=== PATIENT | female | born 1965 | race Caucasian/White ===

== ENCOUNTER → 2016-07-30 | Outpatient (CLI) | payer MEDICARE, OTHER ==
[2016-07-24 11:42] VITALS: BMI 26.4
[2016-07-30 12:41] VITALS: BP 111/70; PULSE 103; RESP 16
--- NOTE | 2016-07-30 13:23 | P.HPIM ---
History of Present Illness H&P Date: 07/30/16 Chief Complaint: low back pain, RLE pain, neck pain This is a 51-year-old patient referred by Dr. Rich for chronic pain in low back and neck with some radiation to RLE (no numbness/tingling). Patient has been taking medications from primary care physician including [place] 7.5/325 QID medications with some relief. Patient denies adverse drug effects from medications. Patient also denies new-onset weakness, bowel/bladder incontinence , or any other signs or symptoms of cauda equina syndrome. There are no signs of acute intoxication, and no indications of medication diversion or overuse. Patient notes that pain worsens significantly with physical activity, and improves with rest, ice and medication. Patient has used several types of medications for pain, including NSAIDS, OPIOIDS, TRAMADOL, ANTIDEPRESSANTS, and BENZODIAZEPINES. Patient HAS had surgery (specifically she notes removal of a portion of her tailbone). Patient HAS had injections previously (by Dr. Cedeno in [place], and believes she had at least one lumbar rhizotomy). Patient HAS NOT had physical therapy recently. In addition to above, 13-point review of systems is also negative for chest pain , shortness of breath, changes in vision, changes in hearing, new onset weakness , abdominal pain, diarrhea, extreme fatigue, malaise, fever, skin changes, homicidal or suicidal ideation, or bowel or bladder incontinence. Vital Signs: Reviewed in EMR Gen: WDWN, AAOx3, NAD HEENT: NCAT, EOMI, hearing grossly normal Pulm: resp unlabored Abd: soft, NT, ND Neck: supple, trachea midline; + TTP paravertebral area and + cervical facet tenderness ROM in flexion lumbar spine: reduced ROM in extension lumbar spine: reduced Lumbar paravertebral tenderness: + Facet loading: ++ bilateral SI joint tenderness: + bilateral, R > L José Miguel's test: + bilateral R > L Straight leg raise: neg bilateral Neuro: CN II-XII grossly intact, muscle strength lower extremities PRESERVED Past Medical History Past Medical History: COPD, Osteoarthritis (OA) Additional Past Medical History / Comment(s): pain: neck,lower back and lt hip, sarcoidosis, hx anemia, occasional bladder incontinence, recent elevated bp levels History of Any Multi-Drug Resistant Organisms: None Reported Past Surgical History: Appendectomy, Hernia Repair, Hysterectomy Additional Past Surgical History / Comment(s): "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" Past Anesthesia/Blood Transfusion Reactions: No Reported Reaction Smoking Status: Current every day smoker Past Alcohol Use History: Daily Additional Past Alcohol Use History / Comment(s): states smoked 30 years quit 3 years and recently resumed 3 months ago 1/2ppd Past Drug Use History: None Reported - Past Family History Mother Family Medical History: No Reported History Medications and Allergies Home Medications Medication Instructions Recorded Confirmed Type Cholecalciferol [Vitamin D3] 1,000 unit PO HS 07/24/16 07/30/16 History Ibuprofen [Motrin] 600 mg PO Q8HR PRN 07/24/16 07/30/16 History Levalbuterol Hfa Inhaler [Xopenex 2 puff INHALATION BID PRN 07/24/16 07/30/16 History Hfa Inhaler] Montelukast Sodium [Singulair] 10 mg PO HS 07/24/16 07/30/16 History Multivitamins, Thera [Multivitamin] 1 tab PO DAILY 07/24/16 07/30/16 History Omeprazole 20 mg PO DAILY 07/24/16 07/30/16 History Ranitidine HCl [Zantac] 150 mg PO HS 07/24/16 07/30/16 History Tiotropium 18 Mcg/Puff [Spiriva] 1 cap INHALATION DAILY 07/24/16 07/30/16 History Alendronate Sodium [Fosamax] 1 tab PO WEEKLY 07/30/16 07/30/16 History Cholecalciferol [Vitamin D3] 2 tab PO HS 07/30/16 07/30/16 History Allergies Allergy/AdvReac Type Severity Reaction Status Date / Time albuterol Allergy "makes me Verified 07/30/16 12:24 psychotic" Sulfa (Sulfonamide Allergy Rash/Hives Verified 07/30/16 12:24 Antibiotics) Physical Exam Vitals: Vital Signs Pulse Resp BP Pulse Ox 07/30/16 12:29 103 H 16 111/70 96 Results Comments: Computed tomography scan of the lumbar spine without contrast dated 07/13/2016 demonstrates minor disc protrusions at the L3-L4, L4-L5, and L5-S1 levels. There is no statement in report regarding facet arthropathy or degenerative disc disease. Assessment and Plan (1) Lumbar disc herniation Status: Chronic (2) Sacroiliac joint dysfunction Status: Chronic (3) Chronic pain syndrome Status: Chronic (4) Lumbar spondylosis Status: Chronic Plan: 1. Explanation: Opioid and psychological risk scores were reviewed. Diagnoses , prognoses, and multiple treatment options including but not limited to physical therapy, interventional therapies, adjuvant medical therapies, narcotic medication therapies, and surgery were discussed with the patient and all questions were answered to the patient's satisfaction. 2. Opioid agreement: Patient signed narcotic agreement, and was orally counseled to not overuse, abuse, divert, or cell medications, and to take them as prescribed by only 1 healthcare provider. The patient was also counseled to take medications as prescribed by only 1 healthcare provider and to store opioid medications in the safe and preferably locked location. Patient was also counseled against driving or operating heavy equipment while using narcotic medications and also not use alcohol or any illicit or recreational drugs. The patient verbalized understanding that lack of compliance with any of the above and likely result in failure to renew narcotic prescriptions, possible discharge from the clinic, and possible legal ramifications thereafter if indicated. 3. Counseling: The patient was counseled extensively on SMOKING CESSATION, BODY MASS INDEX, EXERCISE. Specifically, the patient was instructed regarding the importance of smoking cessation, obesity, and exercise in the context of both chronic pain and overall health. 4. Procedures: bilateral SIJ injections 5. Consultations: none 6. Investigations: MRI lumbar and cervical spines without contrast; UDS today 7. Medications: [place] 7.5/325 #60 x 2 months 8. Disposition: f/u for procedure as scheduled PQRS measures: 1-Patient's medications are documented in the chart. 2-Tobacco use is positive/negative, counseling given 3-Patient has not had a pneumococcal vaccine. 4-Advanced care planning discussed, patient unable to give. 5-Opioid contract signed with the patient today. 6-Pain positive, follow-up visit or procedure scheduled 7-Patient's blood pressure measured and documented, and WNL. 8-Patient's weight was measured, and body mass index ABOVE the normal limits, and counseling was done. Patient instructed to follow up with PCP. 9-Patient WAS NOT identified as an unhealthy alcohol user. Time with Patient: Greater than 30
== END | disposition home or self-care (01) ==
LOC: PNWHC3 12:13
PROVIDERS: ATTEND Anesthesiology
DX: M51.26 Other intervertebral disc displacement, lumbar region (principal); M53.88 Other specified dorsopathies, sacral and sacrococcygeal region; G89.4 Chronic pain syndrome; M47.896 Other spondylosis, lumbar region; Z79.899 Other long term (current) drug therapy; F17.200 Nicotine dependence, unspecified, uncomplicated; Z88.8 Allergy status to other drugs, medicaments and biological substances; Z88.2 Allergy status to sulfonamides; J44.9 Chronic obstructive pulmonary disease, unspecified; M19.90 Unspecified osteoarthritis, unspecified site; D86.9 Sarcoidosis, unspecified
CPT/HCPCS: 80307 ×2; G0463; 80364; 99201

== ENCOUNTER 2016-09-17 06:13 | Day surgery (SDC) | payer MEDICARE, OTHER ==
[2016-09-15 08:23] VITALS: BMI 26.4
[2016-09-17 06:44] VITALS: RESP 16; TEMP 96.4
[2016-09-17] MEDS ORDERED: LACTATED RINGERS 1,000 ML IV ONE ×2 (07:00)
[2016-09-17] MEDS ORDERED: LIDOCAINE 1% 20 ML VIAL (10MG/ML) FOR IV START INTRADERMA ONE (07:01)
[2016-09-17] MEDS ORDERED: MIDAZOLAM 2 MG/2 ML VIAL ONE (07:05)
[2016-09-17] MEDS ORDERED: TRIAMCINOLONE ACETONIDE 40 MG/ML 1 ML VIAL ONE (07:05)
[2016-09-17] MEDS ORDERED: IOHEXOL 180 MG/ML 1 ML ML ONE (07:05)
[2016-09-17] MEDS ORDERED: BUPIVACAINE (PF) 0.25% 30 ML VIAL ONE (07:05)
[2016-09-17] MEDS ORDERED: fentaNYL (PF) 50 MCG/ML 2 ML AMP ONE (07:05)
[2016-09-17] MEDS ORDERED: LACTATED RINGERS 1,000 ML IV SCH (07:15)
--- NOTE | 2016-09-17 07:29 | P.PCN ---
Date of Procedure: 09/17/16 Surgeon: Boogie Palacios Pathology: none sent Condition: stable Disposition: PACU Description of Procedure: PREOPERATIVE DIAGNOSIS: 1-Bilateral sacroiliitis. 2 Lumbar DDD POSTOPERATIVE DIAGNOSIS:. 1-Bilateral sacroiliitis. 2 Lumbar DDD PROCEDURES: Bilateral Sacroiliac joint steroid injection with fluoroscopic guidance ANESTHESIA: conscious sedation EBL: Minimal. PROCEDURE INDICATIONS: This patient with a history of low back pain secondary to sacroiliitis and lumbar DDD unresponsive to conservative management. Patient does not use any blood thinning medications. PROCEDURE DESCRIPTION: The patient was seen and identified in the preoperative area. Risks, benefits, complications, and alternatives were discussed with the patient (including but not limited to incomplete pain relief, bleeding, infection, nerve damage, and allergies to medications), the patient agreed to proceed with the procedure and signed the consent after all questions were answered. Patient was taken to the OR and time out was completed to verify proper patient , position, laterality of pain, and allergies. Pt was placed in the prone position and a pillow was placed under the abdomen to reduce lumbar lordosis. The lumbosacral area was prepped and draped in the usual sterile fashion. Critical pause was taken. Vital signs were closely monitored during the procedure. The fluoroscopic camera was placed in contralateral oblique view and right sacroiliiac joint lower pole was identified. After local infiltration with 1% lidocaine 2 ml, Subsequently, a 22-gauge 3.5 inch spinal needle was introduced into the posteroinferior aspect of the right sacroiliac joint under direct fluoroscopic visualization. Subsequently, 3 ml of a solution of a total of 6 ml solution containing total 4 mL of 0.5% preservative-free bupivicaine mixed with 80 mg of Kenalog was injected after negative aspiration for CSF, blood, and air and negative for paresthesia. The entire procedure was repeated on the left side as above. Needle was withdrawn intact. Skin was cleansed, and bandages were applied. COMPLICATIONS: None. COMMENTS: DISPOSITION / PLANS: The patient was placed in a supine position and transferred to the recovery area in a stable condition for observation and was discharged from the recovery room after meeting discharge criteria. Home discharge instructions given to the patient by the staff. The patient was reexamined prior to discharge. The patient will schedule a follow up procedure in 2-4 weeks. Of note, two months of [place] 7.5/325 #60 were given at this visit , last fill date 10/26/16.
--- NOTE | 2016-09-17 07:40 | FL ---
EXAMINATION TYPE: FL guided pain mgmt statistic DATE OF EXAM: 09/17/2016 7:34 AM CLINICAL HISTORY: Low back and sacroiliac joint pain. TECHNIQUE: Fluoroscopy. COMPARISON: None. FINDINGS: Fluoroscopic guidance was provided during pain relief procedure performed by Dr. Palacios . A total of 12 seconds of fluoroscopic time was utilized during the procedure and 2 spot images are ac quired. Images acquired shows needle localization at level of bilateral sacroiliac joints. IMPRESSION: As Above.
[2016-09-17 08:28] VITALS: BP 109/58; PULSE 76
[2016-09-17] MEDS ORDERED: IV FLUID CONTINUATION 1,000 ML IV ONE (08:29)
== END 2016-09-17 08:43 | disposition home or self-care (01) ==
LOC: ORPAIN 06:13
PROVIDERS: ATTEND Anesthesiology
DX: G89.29 Other chronic pain (principal); M54.5 Low back pain; M46.1 Sacroiliitis, not elsewhere classified; M51.36 Other intervertebral disc degeneration, lumbar region; J44.9 Chronic obstructive pulmonary disease, unspecified; K21.9 Gastro-esophageal reflux disease without esophagitis; Z79.1 Long term (current) use of non-steroidal anti-inflammatories (NSAID); Z79.891 Long term (current) use of opiate analgesic; Z79.51 Long term (current) use of inhaled steroids; Z79.899 Other long term (current) drug therapy; Z88.2 Allergy status to sulfonamides; Z88.8 Allergy status to other drugs, medicaments and biological substances
CPT/HCPCS: J2250; J3301; Q9965; J3010; G0260

== ENCOUNTER 2016-10-21 06:36 | Day surgery (SDC) | payer MEDICARE, OTHER ==
[2016-10-19 15:49] VITALS: BMI 27.1
[~2016-10-21 06:36] MED LIST: LACTATED RINGERS 1,000 ML IV SCH
[2016-10-21 06:58] VITALS: TEMP 97.6
[2016-10-21] MEDS ORDERED: LIDOCAINE 1% 20 ML VIAL (10MG/ML) FOR IV START INTRADERMA ONE (07:04)
[2016-10-21] MEDS ORDERED: TRIAMCINOLONE ACETONIDE 40 MG/ML 1 ML VIAL ONE (07:11)
[2016-10-21] MEDS ORDERED: BUPIVACAINE (PF) 0.5% 30 ML VIAL ONE (07:11)
[2016-10-21] MEDS ORDERED: fentaNYL (PF) 50 MCG/ML 2 ML AMP ONE (07:11)
[2016-10-21] MEDS ORDERED: MIDAZOLAM 2 MG/2 ML VIAL ONE (07:11)
--- NOTE | 2016-10-21 07:28 | P.PCN ---
Date of Procedure: 10/21/16 Procedure(s) Performed: Preoperative diagnoses= 1-bilateral sacroiliitis. 2-lumbar degenerative disc disease Postoperative diagnoses= same as preoperative diagnosis. Procedure= bilateral sacroiliac joint steroid injection under fluoroscopic guidance. Anesthesia= conscious sedation with Versed 2 mg and fentanyl 100 micrograms and local infiltration with lidocaine 1% 4 ml Estimated blood loss=minimal. Procedure indication= the patient had a history of severe chronic low back pain , diagnosed with sacroiliitis and lumbar sacral facet arthropathy unresponsive to conservative treatment. Procedure description= the patient was seen and identified in the preoperative holding area, risks and benefits and alternative of the procedure and possible complications discussed with the patient, and he agreed with the preceding, patient signed the consent, an IV was started, and vital signs were monitored and were stable throughout the procedure, patient was placed in the prone position or table and the lumbosacral area was prepped and draped with a sterile fashion, vital signs were closely monitored during the procedure, the fluoroscopy camera was placed in the contralateral oblique view on the right sacroiliac joint and the lower part of the joint was identified, local infiltration of the skin and subcutaneous tissue with lidocaine 1% 2 mL then a 22-gauge Quincke-type spinal needle advanced slowly under fluoroscopy and placed in the posterior and inferior border of the right sacroiliac joint, placement confirmed with AP and lateral view, and after appropriate needle placement confirmed and after negative aspiration for heme and CSF and there was no paresthesia during the injection, 3 ml of Marcaine 0.5% and 40 mg of Kenalog injected after negative aspiration, the needle removed, and the entire same procedure was repeated for the left sacroiliac joint Patient tolerated the procedure well without any complication, The patient returned to supine position after the back was cleaned and a Band- Aid applied, the patient transported to recovery room in stable condition and he was monitored for 30 minutes before he was discharged home and then patient was reexamined before going home and patient was discharged in stable condition and patient will follow up with the pain clinic in a few weeks
[2016-10-21] MEDS ORDERED: IV FLUID CONTINUATION 850 ML IV ONE (07:34)
[2016-10-21 07:57] VITALS: BP 122/79; PULSE 72; RESP 20
--- NOTE | 2016-10-21 09:29 | FL ---
EXAMINATION TYPE: FL guided pain mgmt statistic DATE OF EXAM: 10/21/2016 8:52 AM FLUOROSCOPY Fluoroscopy time of 9 seconds was used during bilateral SI joint injection. 2 image/s document/s the procedure.
== END 2016-10-21 08:30 | disposition home or self-care (01) ==
LOC: ORPAIN 06:36
PROVIDERS: ATTEND Specialist
DX: G89.29 Other chronic pain (principal); M46.1 Sacroiliitis, not elsewhere classified; M51.36 Other intervertebral disc degeneration, lumbar region; M46.97 Unspecified inflammatory spondylopathy, lumbosacral region
CPT/HCPCS: 99152; J2250; J3301; J3010; G0260

== ENCOUNTER → 2016-11-23 | Outpatient (CLI) | payer MEDICARE, OTHER ==
[2016-11-23 15:05] VITALS: BP 124/72; PULSE 77; RESP 16
--- NOTE | 2016-11-23 15:25 | P.PN ---
Subjective This is follow-up visit for this patient with a history of severe and chronic low back pain secondary to lumbar herniated disc diseases , sacroiliitis , we have done interventional pain management injection,status post bilateral sacroiliac joint steroid injections, x2 , the first injection done in September and the second one done in October, she got excellent pain relief after each one of them for several weeks , and is currently on pain medications 1-Motrin 600 mg every 8 hours when necessary 2-[place] 7.5/325 every 8 hours Patient denies any side effects of the medication, denies excessive drowsiness or sleepiness, denies suicidal ideation, and reports that the current pain medication is helping To control the pain and improve activity of daily living Patient denies any motor or sensory deficit , patient denies any fever or night sweats, denies any change in the bowel movements or urination Physical Examinations : 1-Constitutiona : Cooperative , not in acute distress . 2-HEENT : nech ; supple , no Lymphadenopathy , no Thyromegaly , normal thyroid size . eyes : no ptosis , no icterus, no photophobia . ENT : normal of hearing , normal oropharynx , no Thrush . 3- Respiratory : Chest clear to auscultations Bilaterally , no wheezing , no Rhonchi . 4- Cardiovascular : regular rate and rhythem , S1 , S2 , no S3 , no S4. 5- Gastrointestinal : abdomen soft no tenderness , bowel sounds positive all four quadrents , no organomegally . 6- Genitourinary : Defferred . 7- neurologic : Cranial nerve II to XII intact , no focal neurological deffecit . 8-psychatric : alert , oriented X 3 , appropriate affect , intact judgment and insight . 9-Lymphatic : no Lymphadenopathy . 10- musculoskeltal : exams of the Lumber spine = motor strength lower extremities ,thigh and legs .5/5 deep tendon reflexes : normal Knee Jerk , normal ankle Jerk . Sever tenderness over the Sacroiliac joint on the Right , and Left side Assessment and plan = - Chronic low back pain secondary to lumbar degenerative disc disease , bilateral sacroiliitis Patient gets excellent pain relief after the bilateral sacroiliac joint steroid injections, I discussed with the patient the option of doing radiofrequency ablation of the dorsal dramas and L5-S1 on the radiofrequency of the lateral branches S1/S2/S3, but she is concerned about the radiofrequency and she preferred to do another injection, for this reason patient will be scheduled to have repeat bilateral sacroiliac joint steroid injections, - chronic and current use of high-risk medication (Opioids). The patient was counseled about risk of opioid use, psychological risk associated with opioids and was orally counseled to not overuse , divert,or sell dictations to take medications as prescribed only , and to restore medication in safe location , and the patient counseled against driving while using narcotic medications, and also not to use alcohol or any illicit recreational drugs, the patient's verbalized understanding that the lack of compliance will result in failure to renew narcotic prescription and possible discharge from the clinic Patient given prescription refill for Motrin 600 mg every 8 hours dispense 90, [place] 7.5/325 every 8 hours dispense 60, then she will be scheduled for bilateral sacroiliac joint steroid injections Objective - Vital Signs Vital signs: Vital Signs Temp Pulse 77 11/23/16 14:59 Resp 16 11/23/16 14:59 BP 124/72 11/23/16 14:59 Pulse Ox 98 11/23/16 14:59 Intake & Output 11/22/16 11/23/16 11/23/16 18:59 06:59 18:59 Weight 67.132 kg
== END | disposition home or self-care (01) ==
LOC: PNWHC3 14:07
PROVIDERS: ATTEND Specialist
DX: M51.36 Other intervertebral disc degeneration, lumbar region (principal); M46.1 Sacroiliitis, not elsewhere classified
CPT/HCPCS: 99211

== ENCOUNTER 2016-12-22 08:44 | Day surgery (SDC) | payer MEDICARE, OTHER ==
[2016-12-18 14:56] VITALS: BMI 28.9
[2016-12-22 08:56] VITALS: RESP 16; TEMP 97
--- NOTE | 2016-12-22 09:26 | P.PCN ---
Date of Procedure: 12/22/16 Preoperative Diagnosis: Postoperative Diagnosis: Procedure(s) Performed: Implants: Surgeon: Boogie Palacios Pathology: none sent Condition: stable Disposition: PACU Indications for Procedure: Operative Findings: Description of Procedure: PREOPERATIVE DIAGNOSIS: 1-Bilateral sacroiliitis. 2 Lumbar DDD POSTOPERATIVE DIAGNOSIS:. 1-Bilateral sacroiliitis. 2 Lumbar DDD PROCEDURES: LEFT Sacroiliac joint steroid injection with fluoroscopic guidance ANESTHESIA: conscious sedation EBL: Minimal. PROCEDURE INDICATIONS: This patient with a history of low back pain secondary to sacroiliitis and lumbar DDD unresponsive to conservative management. Patient does not use any blood thinning medications, presents for SIJ injection #3 in series. PROCEDURE DESCRIPTION: The patient was seen and identified in the preoperative area. Risks, benefits, complications, and alternatives were discussed with the patient (including but not limited to incomplete pain relief, bleeding, infection, nerve damage, and allergies to medications), the patient agreed to proceed with the procedure and signed the consent after all questions were answered. Patient was taken to the OR and time out was completed to verify proper patient , position, laterality of pain, and allergies. Pt was placed in the prone position and a pillow was placed under the abdomen to reduce lumbar lordosis. The lumbosacral area was prepped and draped in the usual sterile fashion. Critical pause was taken. Vital signs were closely monitored during the procedure. The fluoroscopic camera was placed in contralateral oblique view and left sacroiliiac joint lower pole was identified. After local infiltration with 1% lidocaine 2 ml, Subsequently, a 22-gauge 3.5 inch spinal needle was introduced into the posteroinferior aspect of the left sacroiliac joint under direct fluoroscopic visualization. Subsequently, 4 ml of a solution of a total of 4 ml solution containing total 2 mL of 0.5% preservative-free bupivicaine mixed with 80 mg of Kenalog was injected after negative aspiration for CSF, blood, and air and negative for paresthesia. The entire procedure was repeated on the left side as above. Needle was withdrawn intact. Skin was cleansed, and bandages were applied. COMPLICATIONS: None. COMMENTS: DISPOSITION / PLANS: The patient was placed in a supine position and transferred to the recovery area in a stable condition for observation and was discharged from the recovery room after meeting discharge criteria. Home discharge instructions given to the patient by the staff. The patient was reexamined prior to discharge. The patient will schedule a follow up in clinic in 4-6 weeks.
[2016-12-22 09:47] VITALS: BP 116/58; PULSE 76
[2016-12-22] MEDS ORDERED: IV FLUID CONTINUATION 1,000 ML IV ONE (09:49)
--- NOTE | 2016-12-22 10:00 | FL ---
Fluoroscopy INDICATION: Pain FINDINGS: Fluoroscopy time: 10 seconds. Images obtained: 2. IMPRESSIONS: 1. Documentation of fluoroscopy.
[2016-12-22] MEDS ORDERED: MIDAZOLAM 2 MG/2 ML VIAL ONE (12:16)
[2016-12-22] MEDS ORDERED: fentaNYL (PF) 50 MCG/ML 2 ML AMP ONE (12:16)
[2016-12-22] MEDS ORDERED: TRIAMCINOLONE ACETONIDE 40 MG/ML 1 ML VIAL ONE (12:16)
[2016-12-22] MEDS ORDERED: BUPIVACAINE (PF) 0.5% 30 ML VIAL ONE (12:16)
[2016-12-22] MEDS ORDERED: IOHEXOL 180 MG/ML 1 ML ML ONE (12:16)
== END 2016-12-22 10:23 | disposition home or self-care (01) ==
LOC: ORPAIN 08:44
PROVIDERS: ATTEND Anesthesiology
DX: M46.1 Sacroiliitis, not elsewhere classified (principal); M51.36 Other intervertebral disc degeneration, lumbar region; Z79.891 Long term (current) use of opiate analgesic
CPT/HCPCS: G0260; J2250; J3301; Q9965; J3010

== ENCOUNTER → 2017-02-08 | Outpatient (CLI) | payer MEDICARE, OTHER ==
[2017-02-08 15:02] VITALS: BP 120/74; PULSE 74; RESP 16; TEMP 97.3
--- NOTE | 2017-02-08 15:12 | P.PN ---
Progress Note - Text Patient returns for followup for chronic back and hip pain, L > R. Patient recently underwent left SIJ injection, which provided excellent relief for 6 weeks' interval. Patient continues on [place] medications for pain with good relief. Patient denies adverse drug effects from medications. Today, pt denies new-onset weakness, bowel/bladder incontinence, or any other signs or symptoms of cauda equina syndrome. There are no signs of acute intoxication, and no indications of medication diversion or overuse. In addition to above, 13-point review of systems is also negative for chest pain , shortness of breath, changes in vision, changes in hearing, new onset weakness , abdominal pain, diarrhea, extreme fatigue, malaise, fever, skin changes, homicidal or suicidal ideation, or bowel or bladder incontinence. Vital Signs: Reviewed in EMR Gen: WDWN, AAOx3, NAD HEENT: NCAT, EOMI, hearing grossly normal Pulm: resp unlabored Abd: soft, NT, ND Neck: supple, trachea midline ROM in flexion lumbar spine: reduced ROM in extension lumbar spine: reduced Lumbar paravertebral tenderness: + L > R Facet loading: + L > R SI joint tenderness: + L José Miguel's test: + L > R Straight leg raise: neg Neuro: CN II-XII grossly intact, muscle strength lower extremities PRESERVED Imaging: Reviewed in EMR Assessment: 1. sacroiliac joint dysfunction 2. lumbar disc herniations 3. lumbar spondylosis without myelopathy Plan: 1. Explanation: Opioid and psychological risk scores were reviewed. Diagnoses , prognoses, and multiple treatment options including but not limited to physical therapy, interventional therapies, adjuvant medical therapies, narcotic medication therapies, and surgery were discussed with the patient and all questions were answered to the patient's satisfaction. 2. Opioid agreement: Patient has previously signed narcotic agreement, and was orally counseled to not overuse, abuse, divert, or cell medications, and to take them as prescribed by only 1 healthcare provider. The patient was also counseled to store opioid medications in a safe and preferably locked location. Patient was also counseled against driving or operating heavy equipment while using narcotic medications and also to not use alcohol or any illicit or recreational drugs. The patient verbalized understanding that lack of compliance with any of the above and likely result in failure to renew narcotic prescriptions, possible discharge from the clinic, and possible legal ramifications thereafter if indicated. 3. Counseling: The patient was counseled extensively on SMOKING CESSATION, BODY MASS INDEX, EXERCISE. Specifically, the patient was instructed regarding the importance of smoking cessation, weight control, and exercise in the context of both chronic pain and overall health. 4. Procedures: L SI RFA, then right SI RFA 5. Consultations: None 6. Investigations: None 7. Medications: [place] 7.5/325 #60 with one refill and Motrin refilled 8. Disposition: f/u for procedure as scheduled PQRS measures: 1-Patient's medications are documented in the chart. 2-Tobacco use is positive, counseling given 3-Patient has not had a pneumococcal vaccine. 4-Advanced care planning discussed, patient unable to give. 5-Opioid contract signed with the patient today. 6-Pain positive, follow-up visit or procedure scheduled 7-Patient's blood pressure measured and documented, and WNL. 8-Patient's weight was measured, and body mass index ABOVE the normal limits, and counseling was done. Patient instructed to follow up with PCP. 9-Patient WAS NOT identified as an unhealthy alcohol user.
== END ==
LOC: PNWHC3 14:40
PROVIDERS: ATTEND Anesthesiology
DX: M51.26 Other intervertebral disc displacement, lumbar region (principal); M47.816 Spondylosis without myelopathy or radiculopathy, lumbar region; M53.3 Sacrococcygeal disorders, not elsewhere classified; Z79.899 Other long term (current) drug therapy; Z79.891 Long term (current) use of opiate analgesic
CPT/HCPCS: 99211

== ENCOUNTER 2017-02-17 08:36 | Day surgery (SDC) | payer MEDICARE, OTHER ==
[2017-02-17] MEDS ORDERED: LACTATED RINGERS 1,000 ML IV SCH (09:15)
[2017-02-17 09:17] VITALS: RESP 16; TEMP 97.6
[2017-02-17] MEDS ORDERED: LIDOCAINE 1% 20 ML VIAL (10MG/ML) FOR IV START INTRADERMA ONE (09:20)
[2017-02-17] MEDS ORDERED: IV FLUID CONTINUATION 1,000 ML IV ONE ×2 (10:30)
[2017-02-17] MEDS ORDERED: HYDROmorphone 1 MG/ML 1 ML SYRINGE IVP ONE (11:23)
[2017-02-17] MEDS ORDERED: KETOROLAC 30 MG/ML 1 ML VIAL IVP ONE (11:24)
[2017-02-17 11:45] VITALS: BP 112/80; PULSE 72
--- NOTE | 2017-02-17 11:59 | FL ---
EXAMINATION TYPE: FL guided pain mgmt statistic DATE OF EXAM: 02/17/2017 FLUOROSCOPY Fluoroscopy time of 7 seconds was used during left-sided sacral radiofrequency ablation. 3 image/s d ocument/s the procedure.
--- NOTE | 2017-02-23 08:11 | P.PCN ---
Date of Procedure: 02/17/17 Preoperative Diagnosis: Postoperative Diagnosis: Procedure(s) Performed: Implants: Surgeon: Boogie Palacios Pathology: none sent Condition: stable Disposition: PACU Indications for Procedure: Operative Findings: Description of Procedure: PREOPERATIVE DIAGNOSIS: Sacroiliitis; lumbar spondylosis without myelopathy POSTOPERATIVE DIAGNOSIS: Sacroiliitis; lumbar spondylosis without myelopathy PROCEDURE: Radiofrequency thermocoagulation/ablation of the Medial branch of L5 and S1, S2, S3 lateral branch levels under fluoroscopic guidance, left ANESTHESIA: Local with 1% lidocaine; IV sedation with Versed/fentanyl PROCEDURE INDICATION: The patient with low back pain secondary to sacroilitis with marked decrease in pain with prior sacroiliac joint injections. No use of blood thinners. PROCEDURE DESCRIPTION: The patient was seen and identified in the preoperative area. Risks, benefits, complications, and alternatives were discussed with the patient, with risks including but not limited to bleeding, infection, nerve damage, incomplete pain relief, and allergic reactions to medications. The patient agreed to proceed with the procedure and signed the informed consent after all questions were answered. IV was started. Vital signs were stable throughout the procedure. Patient was taken to the OR and time out was completed.The patient was placed in the prone position on procedure table and a pillow was placed under the abdomen to reduce lumbar lordosis. The lumbosacral area was prepped and draped in the usual sterile fashion. Critical pause was taken. Vital signs were closely monitored during the procedure. L5 Medial Branch: Using right oblique fluoroscopy, the junction of the transverse process and the superior articular process of the top of the sacrum on the left side, which correspond to the fluoroscopic image of the "eye of the Jurgen dog" was identified. Skin and deeper tissues were localized with 1% lidocaine at the identified level. Then using fluoroscopy, a 10-cm 18-gauge radiofrequency cannula with a 10-mm active tip was was advanced under fluoroscopic guidance until contact was made with periosteum. At this level, the Sensory testing of L5 Medial branch was performed at 50 Hz and 0 to 1 volt with production of concordant pain. Motor stimulation was done at 2 Hz with stimulation of multifidus muscle contraction at (0.1-2.5) volts. No radicular symptoms or paresthesias were produced during the testing. Subsequently, the L5 medial branch was subjected to a radiofrequency ablation at a mode of 90 seconds at 80 degrees Celsius after negative motor and sensory testing as indicated and after injecting 0.5 ml of preservative free Lidocaine 1%. Then after the radiofrequency procedure was done, 1 mL of a solution containing 4 mL of 0.5% preservative-free lidocaine mixed with 40 mg of Kenalog. S1, S2, and S3 Medial branches: Using the oblique position, the left sacroiliac joint was identified. Skin and deeper tissues corresponding to the site were anesthetized with 1% lidocaine. Under fluoroscopic guidance, a total of three 10-cm 18-gauge radiofrequency cannula with 10-mm active tips were advanced to the lateral aspects of the S1, S2, and S3 vertebral foramina. Subsequently, sensory and motor testings were performed at a total of 3 segments at 50 Hz and 2 Hz respectively which produced concordant pain without radiculopathy or paresthesia. Then each segment was subjected to radiofrequency ablation at a mode of 90 seconds at 80 degrees Celsius for a total of 3 lesions with the bipolar technique. Then after the radiofrequency procedure was done, each site was injected with 1 mL of the aforementioned solution containing 4 mL of 0.5% preservative-free lidocaine mixed with 40 mg of Kenalog. The needles were withdrawn. Area was cleaned. Band-Aid was applied. COMPLICATIONS: None. COMMENTS: DISPOSITION / PLANS: The patient was placed in a supine position and transferred to the recovery area in a stable condition for observation and was discharged from the recovery room after meeting discharge criteria. Home discharge instructions given to the patient by the staff. The patient was reexamined prior to discharge. The patient will schedule a follow up for right SI RFA in 4-6 weeks.
== END 2017-02-17 12:40 | disposition home or self-care (01) ==
LOC: ORPAIN 08:36
PROVIDERS: ATTEND Anesthesiology
DX: M46.1 Sacroiliitis, not elsewhere classified (principal); M47.816 Spondylosis without myelopathy or radiculopathy, lumbar region; M51.26 Other intervertebral disc displacement, lumbar region; Z79.891 Long term (current) use of opiate analgesic; Z72.0 Tobacco use; Z88.2 Allergy status to sulfonamides; Z88.8 Allergy status to other drugs, medicaments and biological substances
CPT/HCPCS: 64640 ×3; 64635; 99152; J2250; J3301; J3010; J1885; J1170; 99153

== ENCOUNTER → 2017-03-16 | Day surgery (SDC) | payer MEDICARE, OTHER ==
[2017-03-11 08:20] VITALS: BMI 27.0
[~2017-03-16] MED LIST changes: +LIDOCAINE 1% 20 ML VIAL (10MG/ML) FOR IV START INTRADERMA ONE
[2017-03-16 07:27] VITALS: BP 143/59; PULSE 66; RESP 16; TEMP 97.6
--- NOTE | 2017-03-16 08:34 | P.PCN ---
Date of Procedure: 03/16/17 Preoperative Diagnosis: Postoperative Diagnosis: Procedure(s) Performed: Implants: Indications for Procedure: Operative Findings: Description of Procedure: The patient was scheduled to have sacroiliac joint RFA on the right side however when she showed up she denied having any pain on the right side. Decision was made pain to cancel the procedure and reevaluate the patient in the pain clinic in a few weeks.
== END ==
LOC: ORPAIN 07:05
PROVIDERS: ATTEND Anesthesiology
DX: M54.5 Low back pain (principal); Z53.8 Procedure and treatment not carried out for other reasons; Z88.2 Allergy status to sulfonamides; Z88.8 Allergy status to other drugs, medicaments and biological substances; Z79.82 Long term (current) use of aspirin; Z79.52 Long term (current) use of systemic steroids

== ENCOUNTER 2017-07-26 08:48 | Day surgery (SDC) | payer MEDICARE, OTHER ==
[~2017-07-26 08:48] MED LIST changes: -LIDOCAINE 1% 20 ML VIAL (10MG/ML) FOR IV START INTRADERMA ONE
[2017-07-26 09:00] VITALS: TEMP 98.1
[2017-07-26] MEDS ORDERED: LACTATED RINGERS 1,000 ML IV ONE (09:00)
[2017-07-26] MEDS ORDERED: LIDOCAINE 1% 20 ML VIAL (10MG/ML) FOR IV START INTRADERMA ONE (09:00)
--- NOTE | 2017-07-26 10:17 | P.PCN ---
Date of Procedure: 07/26/17 Procedure(s) Performed: PROCEDURES: Left shoulder steroid injections under fluoroscopy guidance PREOPERATIVE DIAGNOSIS: 1-osteoarthritis left shoulder/ left shoulder arthralgia POSTOPERATIVE DIAGNOSIS: Same ANESTHESIA: Moderate sedation with intravenous Versed 2 mg and Fentanyl 100 Mcg EBL: None. COMPLICATIONS: None. INDICATION: The patient presents with left shoulder pain responding to the conservative treatment PROCEDURE DESCRIPTION: The patient was seen and identified in the preoperative area. Risks, benefits, complications, and alternatives were discussed with the patient. The patient agreed to pursue with the procedure and signed the consent. IV was started and vital signs were stable. Critical pause was taken. left shoulder area anteriorly was prepped and draped in the usual sterile fashion. Then local infiltrations with bupivacain 0.5 % 1ml ,Fluoroscopy was used to. A 22-gauge 3-1/2- inch needle was pierced the skin and directed and advanced slowely to the left shoulder joints .then After negative aspiration of blood, Omnipaque 180 mg per mL to 2 ml injected , showed positive spread in the left shoulder joint. then the Block solution containing 8 mL of 0.5% Bupivacaine preservative free and Kenalog 40mg. The area was cleansed and bandages were applied. The patient tolerated the procedure well without complications and was discharged home after the procedure after he met discharge criteria.
[2017-07-26 10:30] VITALS: PULSE 76; RESP 16
[2017-07-26] MEDS ORDERED: IV FLUID CONTINUATION 1,000 ML IV ONE (10:31)
[2017-07-26 10:39] VITALS: BP 128/79
--- NOTE | 2017-07-26 11:57 | FL ---
EXAMINATION TYPE: FL guided pain mgmt statistic DATE OF EXAM: 07/26/2017 FLUOROSCOPY Fluoroscopy time of 3 seconds was used during left shoulder injection. 1 image/s document/s the proc edure.
== END 2017-07-26 11:12 | disposition home or self-care (01) ==
LOC: ORPAIN 08:48
PROVIDERS: ATTEND Specialist
DX: M19.012 Primary osteoarthritis, left shoulder (principal)
CPT/HCPCS: 20610; J2250; J3301; Q9965; J3010

== ENCOUNTER → 2017-08-12 | Outpatient (CLI) | payer MEDICARE, OTHER ==
[2017-08-12 12:49] VITALS: BP 145/77; PULSE 71; RESP 16
--- NOTE | 2017-08-12 13:33 | P.PN ---
Progress Note - Text Progress Note Date: 08/12/17 This is a 52-year-old female with history of lower back pain mostly on the left side with radiation to the left buttock area .the patient did well after 2 secondary joint steroid injections. She also had left shoulder pain which also responded favorably to the left shoulder joint steroid injection and she does not complain of any shoulder pain at this point. Patient continues on [place] medications for pain with good relief. Patient denies adverse drug effects from medications. Today, pt denies new-onset weakness, bowel/bladder incontinence, or any other signs or symptoms of cauda equina syndrome. There are no signs of acute intoxication, and no indications of medication diversion or overuse. In addition to above, 13-point review of systems is also negative for chest pain , shortness of breath, changes in vision, changes in hearing, new onset weakness , abdominal pain, diarrhea, extreme fatigue, malaise, fever, skin changes, homicidal or suicidal ideation, or bowel or bladder incontinence. Vital Signs: Reviewed in EMR Gen: WDWN, AAOx3, NAD HEENT: NCAT, EOMI, hearing grossly normal Pulm: resp unlabored Neck: supple, trachea midline ROM in flexion lumbar spine: reduced ROM in extension lumbar spine: reduced Lumbar paravertebral tenderness: + L > R SI joint tenderness: + L Straight leg raise: neg Neuro: CN II-XII grossly intact, muscle strength lower extremities PRESERVED Imaging: Reviewed in EMR Assessment: 1. sacroiliac joint dysfunction 2. lumbar disc herniations 3. lumbar spondylosis without myelopathy 4. shoulder OA Plan: 1. Explanation: Opioid and psychological risk scores were reviewed. Diagnoses , prognoses, and multiple treatment options including but not limited to physical therapy, interventional therapies, adjuvant medical therapies, narcotic medication therapies, and surgery were discussed with the patient and all questions were answered to the patient's satisfaction. 2. Opioid agreement: Patient has previously signed narcotic agreement, and was orally counseled to not overuse, abuse, divert, or cell medications, and to take them as prescribed by only 1 healthcare provider. The patient was also counseled to store opioid medications in a safe and preferably locked location. Patient was also counseled against driving or operating heavy equipment while using narcotic medications and also to not use alcohol or any illicit or recreational drugs. The patient verbalized understanding that lack of compliance with any of the above and likely result in failure to renew narcotic prescriptions, possible discharge from the clinic, and possible legal ramifications thereafter if indicated. 3. Counseling: The patient was counseled extensively on SMOKING CESSATION, BODY MASS INDEX, EXERCISE. Specifically, the patient was instructed regarding the importance of smoking cessation, weight control, and exercise in the context of both chronic pain and overall health. 4. Procedures: None at this point 5. Consultations: None 6. Investigations: 7. Medications: [place] 7.5/325 #60 with one refill and Motrin refilled 8. Disposition: f/u in 8 weeks PQRS measures: 1-Patient's medications are documented in the chart. 2-Tobacco use is positive, counseling given 3-Patient has not had a pneumococcal vaccine. 4-Advanced care planning discussed, patient unable to give. 5-Opioid contract signed with the patient today. 6-Pain positive, follow-up visit or procedure scheduled 7-Patient's blood pressure measured and documented, and WNL. 8-Patient's weight was measured, and body mass index ABOVE the normal limits, and counseling was done. Patient instructed to follow up with PCP. 9-Patient WAS NOT identified as an unhealthy alcohol user.
== END | disposition home or self-care (01) ==
LOC: PNWHC3 12:11
PROVIDERS: ATTEND Anesthesiology
DX: M51.26 Other intervertebral disc displacement, lumbar region (principal); M53.3 Sacrococcygeal disorders, not elsewhere classified; M47.816 Spondylosis without myelopathy or radiculopathy, lumbar region; M19.012 Primary osteoarthritis, left shoulder; F17.200 Nicotine dependence, unspecified, uncomplicated; Z79.891 Long term (current) use of opiate analgesic; Z79.52 Long term (current) use of systemic steroids; Z71.6 Tobacco abuse counseling
CPT/HCPCS: 99211

== ENCOUNTER → 2017-10-07 | Outpatient (CLI) | payer MEDICARE, OTHER ==
[2017-10-07 13:05] VITALS: BP 147/67; PULSE 96; RESP 20
--- NOTE | 2017-10-07 13:42 | P.PN ---
Progress Note - Text Progress Note Date: 10/07/17 Patient returns for followup for chronic back and hip pain, L > R. Patient recently underwent left SI RFA in February with good relief and left glenohumeral joint injection in July; she had good relief with this procedure but pain is now beginning to return almost three months later. Back and hip pain are bothering her most today. Patient continues on [place] medications for pain with good relief. Patient denies adverse drug effects from medications. Today, pt denies new-onset weakness, bowel/bladder incontinence, or any other signs or symptoms of cauda equina syndrome. There are no signs of acute intoxication, and no indications of medication diversion or overuse. In addition to above, 13-point review of systems is also negative for chest pain , shortness of breath, changes in vision, changes in hearing, new onset weakness , abdominal pain, diarrhea, extreme fatigue, malaise, fever, skin changes, homicidal or suicidal ideation, or bowel or bladder incontinence. Vital Signs: Reviewed in EMR Gen: WDWN, AAOx3, NAD HEENT: NCAT, EOMI, hearing grossly normal Pulm: resp unlabored Abd: soft, NT, ND Neck: supple, trachea midline LUE: + crepitus in left shoulder ROM in flexion lumbar spine: reduced ROM in extension lumbar spine: reduced Lumbar paravertebral tenderness: + L > R Facet loading: + L > R SI joint tenderness: + L José Miguel's test: + L > R Straight leg raise: neg Neuro: CN II-XII grossly intact, muscle strength lower extremities PRESERVED Imaging: Reviewed in EMR Assessment: 1. sacroiliac joint dysfunction 2. lumbar disc herniations 3. lumbar spondylosis without myelopathy 4. shoulder OA Plan: 1. Explanation: Opioid and psychological risk scores were reviewed. Diagnoses , prognoses, and multiple treatment options including but not limited to physical therapy, interventional therapies, adjuvant medical therapies, narcotic medication therapies, and surgery were discussed with the patient and all questions were answered to the patient's satisfaction. 2. Opioid agreement: Patient has previously signed narcotic agreement, and was orally counseled to not overuse, abuse, divert, or cell medications, and to take them as prescribed by only 1 healthcare provider. The patient was also counseled to store opioid medications in a safe and preferably locked location. Patient was also counseled against driving or operating heavy equipment while using narcotic medications and also to not use alcohol or any illicit or recreational drugs. The patient verbalized understanding that lack of compliance with any of the above and likely result in failure to renew narcotic prescriptions, possible discharge from the clinic, and possible legal ramifications thereafter if indicated. 3. Counseling: The patient was counseled extensively on SMOKING CESSATION, BODY MASS INDEX, EXERCISE. Specifically, the patient was instructed regarding the importance of smoking cessation, weight control, and exercise in the context of both chronic pain and overall health. 4. Procedures: bilateral SIJ injection 5. Consultations: None 6. Investigations: UDS appropriate 7. Medications: [place] 7.5/325 #60 with one refill and Motrin given with two refills (600 mg #60) 8. Disposition: f/u for procedure as scheduled PQRS measures: 1-Patient's medications are documented in the chart. 2-Tobacco use is positive, counseling given 3-Patient has not had a pneumococcal vaccine. 4-Advanced care planning discussed, patient unable to give. 5-Opioid contract signed with the patient today. 6-Pain positive, follow-up visit or procedure scheduled 7-Patient's blood pressure measured and documented, and WNL. 8-Patient's weight was measured, and body mass index ABOVE the normal limits, and counseling was done. Patient instructed to follow up with PCP. 9-Patient WAS NOT identified as an unhealthy alcohol user.
== END | disposition home or self-care (01) ==
LOC: PNWHC3 12:38
PROVIDERS: ATTEND Anesthesiology
DX: M51.36 Other intervertebral disc degeneration, lumbar region (principal); M47.816 Spondylosis without myelopathy or radiculopathy, lumbar region; M53.3 Sacrococcygeal disorders, not elsewhere classified; M19.019 Primary osteoarthritis, unspecified shoulder; Z79.891 Long term (current) use of opiate analgesic
CPT/HCPCS: 99211

== ENCOUNTER 2017-11-08 09:39 | Day surgery (SDC) | payer MEDICARE, OTHER ==
[2017-11-03 10:46] VITALS: BMI 28.8
[2017-11-08 11:19] VITALS: RESP 18; TEMP 97.5
[2017-11-08] MEDS ORDERED: LIDOCAINE 1% 20 ML VIAL (10MG/ML) FOR IV START INTRADERMA ONE (11:24)
--- NOTE | 2017-11-08 12:33 | P.PCN ---
Date of Procedure: 11/08/17 Procedure(s) Performed: Preoperative diagnoses= 1-lumbar spondylosis 2-bilateral sacroiliac joint dysfunction. 3-left shoulder arthralgia Postoperative diagnoses= same as preoperative diagnosis. Procedure= bilateral sacroiliac joint steroid injection under fluoroscopic guidance. Anesthesia= moderate sedation with Versed 2 mg and fentanyl 100 micrograms and local infiltration with lidocaine 1% 4 ml Estimated blood loss=minimal. Procedure indication= the patient had a history of severe chronic low back pain , diagnosed with sacroiliitis and lumbar sacral facet arthropathy unresponsive to conservative treatment. Procedure description= the patient was seen and identified in the preoperative holding area, risks and benefits and alternative of the procedure and possible complications discussed with the patient, and he agreed with the preceding, patient signed the consent, an IV was started, and vital signs were monitored and were stable throughout the procedure, patient was placed in the prone position or table and the lumbosacral area was prepped and draped with a sterile fashion, vital signs were closely monitored during the procedure, the fluoroscopy camera was placed in the contralateral oblique view on the right sacroiliac joint and the lower part of the joint was identified, local infiltration of the skin and subcutaneous tissue with lidocaine 1% 2 mL then a 22-gauge Quincke-type spinal needle advanced slowly under fluoroscopy and placed in the posterior and inferior border of the right sacroiliac joint, placement confirmed with AP and lateral view, and after appropriate needle placement confirmed and after negative aspiration for heme and CSF and there was no paresthesia during the injection, 3 ml of Marcaine 0.5% and 20 mg of Kenalog injected after negative aspiration, the needle removed, and the entire same procedure was repeated for the left sacroiliac joint Patient tolerated the procedure well without any complication, The patient returned to supine position after the back was cleaned and a Band- Aid applied, the patient transported to recovery room in stable condition and he was monitored for 30 minutes before he was discharged home and then patient was reexamined before going home and patient was discharged in stable condition and patient will follow up with the pain clinic in a few weeks
[2017-11-08] MEDS ORDERED: IV FLUID CONTINUATION 1,000 ML IV ONE (12:38)
--- NOTE | 2017-11-08 13:01 | FL ---
EXAMINATION TYPE: FL guided pain mgmt statistic DATE OF EXAM: 11/08/2017 COMPARISON: NONE HISTORY: Sacroiliac joint pain TECHNIQUE: Fluoroscopy. FINDINGS/IMPRESSION: Fluoroscopic guidance was provided during procedure performed by Dr. Dominguez. A total of 5 seconds of fluoroscopic time was utilized during the procedure and 2 spot images was ac quired demonstrating localization over the sacroiliac joints.
[2017-11-08 13:04] VITALS: BP 116/72; PULSE 84
== END 2017-11-08 13:20 | disposition home or self-care (01) ==
LOC: ORPAIN 09:39
PROVIDERS: ATTEND Specialist
DX: M46.1 Sacroiliitis, not elsewhere classified (principal); G89.29 Other chronic pain; H91.90 Unspecified hearing loss, unspecified ear; M47.816 Spondylosis without myelopathy or radiculopathy, lumbar region; M25.512 Pain in left shoulder; Z88.2 Allergy status to sulfonamides; Z88.8 Allergy status to other drugs, medicaments and biological substances
CPT/HCPCS: J2250; J3301; J3010; G0260

== ENCOUNTER 2017-12-02 09:12 | Day surgery (SDC) | payer MEDICARE, OTHER ==
[2017-11-26 14:38] VITALS: BMI 28.8
[2017-12-02 09:47] VITALS: RESP 16; TEMP 97.6
--- NOTE | 2017-12-02 10:28 | P.PCN ---
Date of Procedure: 12/02/17 Surgeon: Edgar Guidry Description of Procedure: Preoperative diagnoses = left shoulder arthritis Postoperative diagnoses= same as preoperative diagnosis. Procedure= left intra-articular shoulder injection with fluoroscopy Anesthesia= local anesthetic with lidocaine 1% Procedure indication= patient with a history of severe left shoulder pain secondary to osteoarthritis which is not responsive to the conservative treatment. Description of the procedure= patient was seen and identified in the preoperative holding area, risk and benefits , complications ,and alternatives of the procedure were discussed with the patient and patient agreed with the preceding, patient signed the consent. The patient was taken to the operating room and placed in supine position the groin area was prepped with chlorhexidine 3 and draped with the standard fashion. A 25-gauge needle was introduced into the skin and subcutaneous tissue and then progressed into the intra-articular space. This is confirmed with fluoroscopy. After negative aspiration, a solution containing 3 mL of lidocaine and 40 mg of Kenalog was injected. Complications= there was no acute complication identified. Disposition= patient was placed advanced supine position and transferred to recovery room in stable condition for observation and was discharged home after meeting discharge criteria, and discharge instruction was given and patient will follow up in the pain clinic in a few weeks.
[2017-12-02 10:53] VITALS: BP 143/76; PULSE 67
--- NOTE | 2017-12-02 10:54 | FL ---
EXAMINATION TYPE: FL guided needle localization DATE OF EXAM: 12/02/2017 COMPARISON: NONE HISTORY: Left shoulder pain TECHNIQUE: Fluoroscopy. FINDINGS/IMPRESSION: Fluoroscopic guidance was provided during procedure performed by Dr. Guidry. A total of 2 seconds of fluoroscopic time was utilized during the procedure and 1 spot images was acquired demonstrating localization of the left shoulder. HU
[2017-12-02] MEDS ORDERED: LACTATED RINGERS 1,000 ML IV SCH (11:30)
== END 2017-12-02 11:10 | disposition home or self-care (01) ==
LOC: ORPAIN 09:12
PROVIDERS: ATTEND Pain Medicine Pain Medicine
DX: M19.012 Primary osteoarthritis, left shoulder (principal); J44.9 Chronic obstructive pulmonary disease, unspecified; D86.9 Sarcoidosis, unspecified; Z88.2 Allergy status to sulfonamides; Z88.8 Allergy status to other drugs, medicaments and biological substances
CPT/HCPCS: 77002; 20610; J3301; J2001

== ENCOUNTER → 2017-12-28 | Outpatient (CLI) | payer MEDICARE, OTHER ==
[2017-12-28 13:55] VITALS: PULSE 63; RESP 16
--- NOTE | 2017-12-28 14:03 | P.PN ---
Progress Note - Text Progress Note Date: 12/28/17 Patient returns for followup for chronic back and hip pain, L > R. Patient recently underwent bilateral SIJ injection with good relief and left glenohumeral joint injection in November; she had good relief with this procedure and is planning to have foot surgery in the next 2-3 weeks. Patient continues on [place] medications for pain with good relief. Patient denies adverse drug effects from medications. Today, pt denies new-onset weakness, bowel/bladder incontinence, or any other signs or symptoms of cauda equina syndrome. There are no signs of acute intoxication, and no indications of medication diversion or overuse. In addition to above, 13-point review of systems is also negative for chest pain , shortness of breath, changes in vision, changes in hearing, new onset weakness , abdominal pain, diarrhea, extreme fatigue, malaise, fever, skin changes, homicidal or suicidal ideation, or bowel or bladder incontinence. Vital Signs: Reviewed in EMR Gen: WDWN, AAOx3, NAD HEENT: NCAT, EOMI, hearing grossly normal Pulm: resp unlabored Abd: soft, NT, ND Neck: supple, trachea midline LUE: + crepitus in left shoulder ROM in flexion lumbar spine: reduced ROM in extension lumbar spine: reduced Lumbar paravertebral tenderness: + L > R Facet loading: + L > R SI joint tenderness: + L José Miguel's test: + bilateral Straight leg raise: neg Imaging: Reviewed in EMR Assessment: 1. sacroiliac joint dysfunction 2. lumbar disc herniations 3. lumbar spondylosis without myelopathy 4. shoulder OA Plan: 1. Explanation: Opioid and psychological risk scores were reviewed. Diagnoses , prognoses, and multiple treatment options including but not limited to physical therapy, interventional therapies, adjuvant medical therapies, narcotic medication therapies, and surgery were discussed with the patient and all questions were answered to the patient's satisfaction. 2. Opioid agreement: Patient has previously signed narcotic agreement, and was orally counseled to not overuse, abuse, divert, or cell medications, and to take them as prescribed by only 1 healthcare provider. The patient was also counseled to store opioid medications in a safe and preferably locked location. Patient was also counseled against driving or operating heavy equipment while using narcotic medications and also to not use alcohol or any illicit or recreational drugs. The patient verbalized understanding that lack of compliance with any of the above and likely result in failure to renew narcotic prescriptions, possible discharge from the clinic, and possible legal ramifications thereafter if indicated. 3. Counseling: The patient was counseled extensively on SMOKING CESSATION, BODY MASS INDEX, EXERCISE. Specifically, the patient was instructed regarding the importance of smoking cessation, weight control, and exercise in the context of both chronic pain and overall health. 4. Procedures: none for now 5. Consultations: None 6. Investigations: UDS appropriate; MAPS queried and appropriate 7. Medications: [place] 7.5/325 #75 with no refill; Motrin given with two refills (600 mg #60) 8. MME/day: 20 for next month only due to surgery 8. Disposition: f/u for procedure as scheduled PQRS measures: 1-Patient's medications are documented in the chart. 2-Tobacco use is positive, counseling given 3-Patient has not had a pneumococcal vaccine. 4-Advanced care planning discussed, patient unable to give. 5-Opioid contract signed with the patient today. 6-Pain positive, follow-up visit or procedure scheduled 7-Patient's blood pressure measured and documented, and WNL. 8-Patient's weight was measured, and body mass index ABOVE the normal limits, and counseling was done. Patient instructed to follow up with PCP. 9-Patient WAS NOT identified as an unhealthy alcohol user.
== END | disposition home or self-care (01) ==
LOC: PNWHC3 13:04
PROVIDERS: ATTEND Anesthesiology
DX: M51.26 Other intervertebral disc displacement, lumbar region (principal); M47.816 Spondylosis without myelopathy or radiculopathy, lumbar region; M19.019 Primary osteoarthritis, unspecified shoulder; M53.3 Sacrococcygeal disorders, not elsewhere classified; Z79.891 Long term (current) use of opiate analgesic; Z79.1 Long term (current) use of non-steroidal anti-inflammatories (NSAID); Z72.0 Tobacco use
CPT/HCPCS: 99211

== ENCOUNTER → 2018-01-25 | Outpatient (CLI) | payer MEDICARE, OTHER ==
[2018-01-25 14:39] VITALS: BP 146/63; PULSE 77; RESP 16
--- NOTE | 2018-01-25 15:12 | P.PN ---
Progress Note - Text Progress Note Date: 01/25/18 This is a 52-year-old female with history of lower back pain and left shoulder pain and recent bunionectomy on both feet. She has been doing well recently. Patient continues on [place] medications for pain with good relief. Patient denies adverse drug effects from medications. Today, pt denies new-onset weakness, bowel/bladder incontinence, or any other signs or symptoms of cauda equina syndrome. There are no signs of acute intoxication, and no indications of medication diversion or overuse. In addition to above, 13-point review of systems is also negative for chest pain , shortness of breath, changes in vision, changes in hearing, new onset weakness , abdominal pain, diarrhea, extreme fatigue, malaise, fever, skin changes, homicidal or suicidal ideation, or bowel or bladder incontinence. Vital Signs: Reviewed in EMR Gen: AAOx3, NAD HEENT: NCAT, EOMI, hearing grossly normal Pulm: resp unlabored Neck: supple, trachea midline Neuro exam of the lower extremities showed normal and symmetrical deep tendon reflexes and normal muscle strength. She has both feet in dressing because of her recent bunionectomy. Straight leg raise: neg Imaging: Reviewed in EMR Assessment: 1. sacroiliac joint dysfunction 2. lumbar disc herniations 3. lumbar spondylosis without myelopathy 4. shoulder OA Plan: 1. Explanation: Opioid and psychological risk scores were reviewed. Diagnoses , prognoses, and multiple treatment options including but not limited to physical therapy, interventional therapies, adjuvant medical therapies, narcotic medication therapies, and surgery were discussed with the patient and all questions were answered to the patient's satisfaction. 2. Opioid agreement: Patient has previously signed narcotic agreement, and was orally counseled to not overuse, abuse, divert, or cell medications, and to take them as prescribed by only 1 healthcare provider. The patient was also counseled to store opioid medications in a safe and preferably locked location. Patient was also counseled against driving or operating heavy equipment while using narcotic medications and also to not use alcohol or any illicit or recreational drugs. The patient verbalized understanding that lack of compliance with any of the above and likely result in failure to renew narcotic prescriptions, possible discharge from the clinic, and possible legal ramifications thereafter if indicated. 3. Counseling: The patient was counseled extensively on SMOKING CESSATION, BODY MASS INDEX, EXERCISE. Specifically, the patient was instructed regarding the importance of smoking cessation, weight control, and exercise in the context of both chronic pain and overall health. 4. Procedures: none for now 5. Consultations: None 6. Investigations: MAPS queried and appropriate 7. Medications: [place] 7.5/325 #75 with one refill; Motrin given with one refills (600 mg #60) 8. MME/day: 20 for next month only due to surgery 8. Disposition: f/u in the pain clinic in 2 months PQRS measures: 1-Patient's medications are documented in the chart. 2-Tobacco use is positive, counseling given 3-Patient has not had a pneumococcal vaccine. 4-Advanced care planning discussed, patient unable to give. 5-Opioid contract signed with the patient today. 6-Pain positive, follow-up visit or procedure scheduled 7-Patient's blood pressure measured and documented, and WNL. 8-Patient's weight was measured, and body mass index ABOVE the normal limits, and counseling was done. Patient instructed to follow up with PCP. 9-Patient WAS NOT identified as an unhealthy alcohol user.
== END | disposition home or self-care (01) ==
LOC: PNWHC3 13:59
PROVIDERS: ATTEND Anesthesiology
DX: M51.26 Other intervertebral disc displacement, lumbar region (principal); M47.816 Spondylosis without myelopathy or radiculopathy, lumbar region; M53.3 Sacrococcygeal disorders, not elsewhere classified; M19.012 Primary osteoarthritis, left shoulder; Z79.891 Long term (current) use of opiate analgesic; Z79.1 Long term (current) use of non-steroidal anti-inflammatories (NSAID); Z72.0 Tobacco use
CPT/HCPCS: 99211

== ENCOUNTER 2018-04-04 08:51 | Day surgery (SDC) | payer MEDICARE, OTHER ==
[2018-03-29 12:26] VITALS: BMI 27.3
[2018-04-04] MEDS ORDERED: LACTATED RINGERS 1,000 ML IV ONE (09:37)
[2018-04-04 09:43] VITALS: RESP 18; TEMP 98.2
--- NOTE | 2018-04-04 11:02 | P.PCN ---
Date of Procedure: 04/04/18 Surgeon: Taqueria Michelle Pathology: none sent Condition: stable Disposition: PACU Description of Procedure: Preoperative diagnoses= sacroiliac joint dysfunction and sacroiliitis on the left side Postoperative diagnoses= same as preoperative diagnosis. Procedure= sacroiliac joint steroid injection under fluoroscopic guidance. Anesthesia= conscious sedation with Versed 2 mg and [id number] micrograms and local infiltration with lidocaine 1% 4 ml Estimated blood loss=minimal. Procedure indication= the patient had a history of severe chronic low back pain , diagnosed with sacroiliitis and lumbar sacral facet arthropathy unresponsive to conservative treatment. Procedure description= the patient was seen and identified in the preoperative holding area, risks and benefits and alternative of the procedure and possible complications discussed with the patient, patient signed the consent. an IV was started, and vital signs were monitored and were stable throughout the procedure , patient was placed in the prone position or table and the lumbosacral area was prepped and draped with a sterile fashion, vital signs were closely monitored during the procedure.The sacroiliac joint was identified on the AP view of fluoroscopy then the C-arm was tilted to the Rt oblique position to superimpose the anterior and posterior joint lines on each other and to have a unified joint line with the target point at the inferior one third of this line. I used 22-gauge 3-1/2 inch Quincke spinal needle for this procedure and after getting into the sacroiliac joint I injected 40 mg of Kenalog +2 MLS of Ropivacaine 0.5%. Patient tolerated the procedure well without any complication, The patient returned to supine position after the back was cleaned and a Band- Aid applied, the patient transported to recovery room in stable condition and he was monitored for 30 minutes before he was discharged home and then patient was reexamined before going home and patient was discharged in stable condition and patient will follow up with the pain clinic in a few weeks
[2018-04-04] MEDS ORDERED: IV FLUID CONTINUATION 1,000 ML IV ONE (11:12)
[2018-04-04 11:15] VITALS: PULSE 75
[2018-04-04 11:36] VITALS: BP 126/70
--- NOTE | 2018-04-04 12:02 | FL ---
EXAMINATION TYPE: FL guided pain mgmt statistic DATE OF EXAM: 04/04/2018 CLINICAL HISTORY: Left sacroiliac joint pain. TECHNIQUE: Fluoroscopy. COMPARISON: None. FINDINGS: Fluoroscopic guidance was provided during pain relief procedure performed by Dr. Michelle . A total of 18 seconds of fluoroscopic time was utilized during the procedure and single spot fluoro scopic image is acquired. Single image acquired shows needle localization at level of left sacroilia c joint. IMPRESSION: As Above.
== END 2018-04-04 11:50 | disposition home or self-care (01) ==
LOC: ORPAIN 08:51
PROVIDERS: ATTEND Anesthesiology
DX: G89.29 Other chronic pain (principal); M53.3 Sacrococcygeal disorders, not elsewhere classified; M46.1 Sacroiliitis, not elsewhere classified; M46.97 Unspecified inflammatory spondylopathy, lumbosacral region; M47.816 Spondylosis without myelopathy or radiculopathy, lumbar region; Z90.710 Acquired absence of both cervix and uterus
CPT/HCPCS: J2250; J3301; J3010; G0260; 27096

== ENCOUNTER → 2018-05-03 | Outpatient (CLI) | payer MEDICARE, OTHER ==
[2018-05-03 14:48] VITALS: BP 152/72; PULSE 77
--- NOTE | 2018-05-04 07:24 | P.PAINPG ---
Subjective Progress Note Date: 05/03/18 This is a follow-up visit for this 52 years old female with a chronic history of severe low back pain, patient diagnosed with sacroiliitis, previously done sacroiliac joint steroid injection, she had a good pain relief, and also we have done radiofrequency ablation of the left sacroiliac joint, which was done in 02/27/2017, pain improved significantly after the radiofrequency, and she is currently on [place] 7.5/325 every 8 hours, and she is on Motrin 600 mg twice a day, she denies any side effects of the medication she denies any excessive drowsiness or sleepiness and she reports her current medication, helping her to control the pain, pain intensity increases over the last couple of months Objective - Vital Signs Vital signs: Vital Signs Temp Pulse 77 05/03/18 14:38 Resp BP 152/72 05/03/18 14:38 Pulse Ox 97 05/03/18 14:38 Intake & Output 05/03/18 05/04/18 05/04/18 18:59 06:59 18:59 Weight 65.771 kg - Exam Physical Examinations : 1-Constitutiona : Cooperative , not in acute distress . 2-HEENT : nech ; supple , no Lymphadenopathy , normal thyroid size . eyes : no ptosis , no icterus, no photophobia . ENT : normal of hearing , normal oropharynx , no Thrush . 3- Respiratory : Chest clear to auscultations Bilaterally , no wheezing , no Rhonchi . 4- Cardiovascular : regular rate and rhythem , S1 , S2 , no S3 , no S4. 5- Gastrointestinal : abdomen soft no tenderness , bowel sounds , no organomegally . 6- Genitourinary : Defferred . 7- neurologic : Cranial nerve II to XII intact , no focal neurological deffecit . 8-psychatric : alert , oriented X 3 , appropriate affect , intact judgment and insight . 9-Lymphatic : no Lymphadenopathy . 10- musculoskeltal : Lumber spine moter stegnth lower extremities , thigh and legs 5/5 Right side , 5/5 Left side deep tendon reflexes : normal Knee Jerk , normal ankle Jerk positive lumber facet Loading Test Sever tenderness over the Sacroiliac joint on the Left sides Assessment and Plan Plan: Assessment and plan= left sacroiliitis, patient had a good result after left sacroiliac joint steroid injection, and she had good results after the radiofrequency ablation of the left sacroiliac joint, Patient will be good candidate to have radiofrequency ablation of the L5-S1 dorsal ramus , and radiofrequency ablation of the lateral branches of S1/S2/S3 Patient will be good candidate to have medication refill [place] 7.5/325 3 times a day dispense 90 with 1 refill, Motrin 600 mg twice a day dispense 60 with 1 refill MAPS reviewed and it was appropriate. Time with Patient: Less than 30 PQRS Measure Charge Sheet Measure #130: Documentation of Current Meds in Medical Chart: Patient's medications documented in chart Measure #226: Tobacco Use: Screen & Cessation Intervention: Pt not a tobacco user Measure #111: Pneumonia Vaccination: Pneumococcal vaccine NOT administered or previously given Measure #47: Advance Care Plan: Advance care planning discussed & documented, pt chose/unable to give Measure #412: Opioid Treatment Agreement: Documented signed opioid trtmnt agreemnt min once during opioid trtmnt Measure #408: Opioid Therapy Follow-up Evaluation: Patient had f/u eval minimum every 3 months during opioid therapy Measure #317: Preventitive Care & Scrn High Bld Press & F/U: Pre-hypertensive or hypertensive BP documented, pt will f/u with PCP Measure #128: Body Mass Index (BMI) Screening & Follow-up: BMI documented ABOVE normal parameters - f/u documented Measure #131: Pain Assessment & Follow-up: Pain positive & plan documented, Follow-up scheduled Measure #431: Unhealthy Alcohol Use Preventative Care & Scrn: Patient not identified as an unhealthy alcohol user PQRS Narrative: Smoking Status Former smoker Do You Want the Pneumonia No Vaccine AT THIS TIME? Narcotic Agreement Date Signed 07/30/16 Blood Pressure 152/72 Pain Intensity [Left Lower 8 Back] Scale Used Numeric (1 - 10) Hx Alcohol Use (MH) No Home Medications: Ambulatory Orders Levalbuterol Hfa Inhaler [Xopenex Hfa Inhaler] 2 puff INHALATION QID 07/24/16 Montelukast Sodium [Singulair] 10 mg PO HS 07/24/16 Omeprazole 20 mg PO DAILY 07/24/16 Ranitidine HCl [Zantac] 150 mg PO HS PRN 07/24/16 Ibandronate Sodium [Boniva] 150 mg PO QMONTH 10/19/16 Aclidinium [place] [Tudorza Pressair] 1 puff INHALATION BID 10/07/17 Black [place] 1 tab PO BID 10/07/17 Evening [place] Oil 1,000 mg PO DIRECTED 10/07/17 HYDROcodone/APAP 7.5-325MG [[place] 7.5-325] 1 tab PO BID 30 Days #60 tab HYDROcodone/APAP 7.5-325MG [[place] 7.5-325] 1 tab PO Q12HR PRN 30 Days #60 tab Ibuprofen [Motrin] 600 mg PO Q12HR PRN #60 tab 05/03/18 Controlled Substance Measures - Controlled Substance Measures Is patient prescribed a controlled substance at discharge?: Yes When asked, does pt state using other controlled substances?: No If prescribed controlled substance>3 days was MAPS reviewed?: Yes If Rx opioid, was Start Talking consent form obtained?: Yes If opioid is for acute pain is fill amount 7 days or less?: No Was information provided regarding opioid addiction?: Yes
== END | disposition home or self-care (01) ==
LOC: PNWHC3 13:41
PROVIDERS: ATTEND Specialist
DX: M46.1 Sacroiliitis, not elsewhere classified (principal); Z87.891 Personal history of nicotine dependence; Z98.890 Other specified postprocedural states; Z79.891 Long term (current) use of opiate analgesic; Z79.899 Other long term (current) drug therapy
CPT/HCPCS: 99211

== ENCOUNTER 2018-05-19 07:18 | Day surgery (SDC) | payer MEDICARE, OTHER ==
[2018-05-18 10:15] VITALS: BMI 27.9
[~2018-05-19 07:18] MED LIST changes: -LACTATED RINGERS 1,000 ML IV SCH; +SODIUM CHLORIDE 0.9% 500 ML 500 ML IV SCH
[2018-05-19 07:36] VITALS: BP 140/78; PULSE 90; RESP 16; TEMP 97.7
[2018-05-19] MEDS ORDERED: LIDOCAINE 1% 20 ML VIAL (10MG/ML) FOR IV START INTRADERMA ONE (07:46)
--- NOTE | 2018-05-19 09:11 | P.PCN ---
Date of Procedure: 05/19/18 Procedure(s) Performed: PREOPERATIVE DIAGNOSIS:1- Sacroiliitis; 2- lumbar spondylosis with facet arthropathy without myelopathy POSTOPERATIVE DIAGNOSIS: same as pre op diagnosis . PROCEDURE: Radiofrequency thermocoagulation/ablation of the Medial branch of L5- S1 dorsal ramus , and S1, S2, lateral branch levels under fluoroscopic guidance , left ANESTHESIA: Local with 1% lidocaine; IV moderate sedation with Versed 2mg and fentanyl 100 mcg PROCEDURE INDICATION: The patient with low back pain secondary to sacroilitis with marked decrease in pain with prior sacroiliac joint injections. She is here to have radiofrequency ablation of the left sacroiliac joint PROCEDURE DESCRIPTION: The patient was seen and identified in the preoperative area. Risks, benefits, complications, and alternatives were discussed with the patient, with risks including but not limited to bleeding, infection, nerve damage, incomplete pain relief, and allergic reactions to medications. The patient agreed to proceed with the procedure and signed the informed consent after all questions were answered. IV was started. Vital signs were stable throughout the procedure. Patient was taken to the OR and time out was completed.The patient was placed in the prone position on procedure table and a pillow was placed under the abdomen to reduce lumbar lordosis. The lumbosacral area was prepped and draped in the usual sterile fashion. Critical pause was taken. Vital signs were closely monitored during the procedure. L5-S1 Dorsal ramus radiofrequency thermocoagulation: Using right oblique fluoroscopy, the junction of the transverse process and the superior articular process of the top of the sacrum on the left side, which correspond to the fluoroscopic image of the "eye of the Jurgen dog" was identified. Skin and deeper tissues were localized with 1% lidocaine at the identified level. Then using fluoroscopy, a 10-cm 20-gauge radiofrequency cannula with a 10-mm active tip was was advanced under fluoroscopic guidance until contact was made with periosteum. At this level, the Sensory testing of L5 Medial branch was performed at 50 Hz and 0 to 1 volt with production of concordant pain. Motor stimulation was done at 2 Hz with stimulation of multifidus muscle contraction at 2.5 volts. No radicular symptoms or paresthesias were produced during the testing. Subsequently, the L5-S1 dorsal ramus was subjected to a radiofrequency ablation at a mode of 90 seconds at 80 degrees Celsius after negative motor and sensory testing as indicated and after injecting 0.5 ml of preservative free Lidocaine 1%. Then after the radiofrequency procedure was done, 1 mL of a solution containing 4 mL of 0.5% preservative-free lidocaine mixed with 40 mg of Kenalog. S1, S2, Lateral branches branches radiofrequency thermocoagulation: Using the oblique position, the left sacroiliac joint was identified. Skin and deeper tissues corresponding to the site were anesthetized with 1% lidocaine. Under fluoroscopic guidance, a total of three 10-cm 20-gauge radiofrequency cannula with 10-mm active tips were advanced to the lateral aspects of the S1, S2, vertebral foramina. Subsequently, sensory and motor testings were performed at a total of 3 segments at 50 Hz and 2 Hz respectively which produced concordant pain without radiculopathy or paresthesia. Then each segment was subjected to radiofrequency ablation at a mode of 90 seconds at 80 degrees Celsius for a total of 3 lesions done . Then after the radiofrequency procedure was done, each site was injected with 1 mL of the aforementioned solution containing 4 mL of 0.5% preservative-free lidocaine mixed with 40 mg of Kenalog. The needles were withdrawn. Area was cleaned. Band-Aid was applied. COMPLICATIONS: None. COMMENTS: The radiofrequency thermocoagulation of the lateral branches of S3 was not done ,because ,I could not see the S3 foramina DISPOSITION / PLANS: The patient was placed in a supine position and transferred to the recovery area in a stable condition for observation and was discharged from the recovery room after meeting discharge criteria. Home discharge instructions given to the patient by the staff. The patient was reexamined prior to discharge. The patient will schedule a follow up for right SI RFA in 4-6 weeks.
--- NOTE | 2018-05-19 09:40 | FL ---
EXAMINATION TYPE: FL guided pain mgmt statistic DATE OF EXAM: 05/19/2018 CLINICAL HISTORY: Left sacroiliac joint pain. TECHNIQUE: Fluoroscopy. COMPARISON: None. FINDINGS: Fluoroscopic guidance was provided during pain relief procedure performed by Dr. Giraldo . A total of 18 seconds of fluoroscopic time was utilized during the procedure and 6 spot images are acquired. Images acquired shows needle localization with contrast injection at several levels of th e sacrum and sacroiliac joint. IMPRESSION: As Above.
== END 2018-05-19 10:19 | disposition home or self-care (01) ==
LOC: ORPAIN 07:18
PROVIDERS: ATTEND Specialist
DX: M46.1 Sacroiliitis, not elsewhere classified (principal); M47.816 Spondylosis without myelopathy or radiculopathy, lumbar region; Z88.2 Allergy status to sulfonamides; Z88.8 Allergy status to other drugs, medicaments and biological substances; Z90.710 Acquired absence of both cervix and uterus
CPT/HCPCS: 64635; 64636; J2250; J3301; J3010; 99152; 99153

== ENCOUNTER → 2018-06-28 | Outpatient (CLI) | payer MEDICARE, OTHER ==
[2018-06-28 14:08] VITALS: BP 135/89; PULSE 99; RESP 18
--- NOTE | 2018-06-28 14:31 | P.PN ---
Subjective Progress Note Date: 06/28/18 This is a follow-up visit for this 53 years old female with a chronic history of severe low back pain, patient diagnosed with sacroiliitis , and lumbar bulging disc disease radiofrequency ablation of the left sacroiliac joint, patient currently complaining of severe low back pain with radiation to the left lower extremity,, and she is currently on [place] 7.5/325 every 8 hours, and she is on Motrin 600 mg twice a day, she denies any side effects of the medication she denies any excessive drowsiness or sleepiness and she reports her current medication, patient reported that the current medication is helping to improve the pain but she continued to have severe pain radiated to the left leg which is interfering with her quality of life, and interfering with her ability to do activities of daily livings, she denies any motor or sensory deficit, she denies any fever or night sweats she denies any change in the bowel movements or urination Physical Examinations : 1-Constitutiona : Cooperative , not in acute distress . 2-HEENT : nech ; supple , no Lymphadenopathy , normal thyroid size . eyes : no ptosis , no icterus, no photophobia . ENT : normal of hearing , normal oropharynx , no Thrush . 3- Respiratory : Chest clear to auscultations Bilaterally , no wheezing , no Rhonchi . 4- Cardiovascular : regular rate and rhythem , S1 , S2 , no S3 , no S4. 5- Gastrointestinal : abdomen soft no tenderness , bowel sounds , no organomegally . 6- Genitourinary : Defferred . 7- neurologic : Cranial nerve II to XII intact , no focal neurological deffecit . 8-psychatric : alert , oriented X 3 , appropriate affect , intact judgment and insight . 9-Lymphatic : no Lymphadenopathy . 10- musculoskeltal : Lumber spine moter stegnth lower extremities , thigh and legs 5/5 Right side , 5/5 Left side deep tendon reflexes : normal Knee Jerk , normal ankle Jerk positive lumber facet Loading Test Positive straight leg raising test on the left side at 30 degrees, José Miguel's test positive at the left side Sever tenderness over the Sacroiliac joint on the Left sides Assessment and plan= left sacroiliitis, status post radiofrequency ablation of the left sacroiliac joint Lumbar herniated disc disease, patient currently complaining of radicular symptoms to the left side Patient could benefit from caudal epidural steroid injection Patient will be good candidate to have medication refill [place] 7.5/325 times a day dispense 60 with 1 refill, Motrin 600 mg twice a day dispense 60 with 1 refill MAPS reviewed and it was appropriate. Time with Patient: Less than 30 PQRS Measure Charge Sheet Measure #130: Documentation of Current Meds in Medical Chart: Patient's medications documented in chart Measure #226: Tobacco Use: Screen & Cessation Intervention: Pt not a tobacco user Measure #111: Pneumonia Vaccination: Pneumococcal vaccine NOT administered or previously given Measure #47: Advance Care Plan: Advance care planning discussed & documented, pt chose/unable to give Measure #412: Opioid Treatment Agreement: Documented signed opioid trtmnt agreemnt min once during opioid trtmnt Measure #408: Opioid Therapy Follow-up Evaluation: Patient had f/u eval minimum every 3 months during opioid therapy Measure #317: Preventitive Care & Scrn High Bld Press & F/U: Pre-hypertensive or hypertensive BP documented, pt will f/u with PCP Measure #128: Body Mass Index (BMI) Screening & Follow-up: BMI documented ABOVE normal parameters - f/u documented Measure #131: Pain Assessment & Follow-up: Pain positive & plan documented, Follow-up scheduled Measure #431: Unhealthy Alcohol Use Preventative Care & Scrn: Patient not identified as an unhealthy alcohol user PQRS Narrative: - Controlled Substance Measures Is patient prescribed a controlled substance at discharge?: Yes When asked, does pt state using other controlled substances?: No If prescribed controlled substance>3 days was MAPS reviewed?: Yes If Rx opioid, was Start Talking consent form obtained?: Yes If opioid is for acute pain is fill amount 7 days or less?: No Was information provided regarding opioid addiction?: Yes Objective - Vital Signs Vital signs: Vital Signs Temp Pulse 99 06/28/18 13:55 Resp 18 06/28/18 13:55 BP 135/89 06/28/18 13:55 Pulse Ox 96 06/28/18 13:55 Intake & Output 06/27/18 06/28/18 06/28/18 18:59 06:59 18:59 Weight 68.946 kg
== END ==
LOC: PNWHC3 13:13
PROVIDERS: ATTEND Specialist
DX: M46.1 Sacroiliitis, not elsewhere classified (principal); M51.26 Other intervertebral disc displacement, lumbar region; Z98.890 Other specified postprocedural states; Z79.899 Other long term (current) drug therapy; Z79.1 Long term (current) use of non-steroidal anti-inflammatories (NSAID)
CPT/HCPCS: 99211

== ENCOUNTER 2018-06-30 08:57 | Day surgery (SDC) | payer MEDICARE, OTHER ==
[2018-06-29 09:05] VITALS: BMI 28.3
[2018-06-30 09:42] VITALS: RESP 16; TEMP 96.7
[2018-06-30] MEDS ORDERED: LACTATED RINGERS 1,000 ML IV ONE (09:45)
[2018-06-30] MEDS ORDERED: LIDOCAINE 1% 20 ML VIAL (10MG/ML) FOR IV START INTRADERMA ONE (09:46)
--- NOTE | 2018-06-30 11:00 | P.PCN ---
Date of Procedure: 06/30/18 Procedure(s) Performed: PREOPERATIVE DIAGNOSIS: 1-lumbar radiculopathy. 2-sacroiliitis POSTOPERATIVE DIAGNOSIS: Same as pre op diagnoses PROCEDURE: 1. Caudal epidural steroid injection under fluoroscopic guidance. 2. Caudal epidurogram. ANESTHESIA: Local with 1% lidocaine 5ml for subcutaneous infiltrations and IV versed 2 mg ,and fentanyl 50 mcg EBL: None. PROCEDURE INDICATION: The patient with neuropathic pain radiating distally returns for caudal epidural steroid injection. PROCEDURE DESCRIPTION: The patient was seen and identified in the preoperative area. Risks, benefits, complications, and alternatives were discussed with the patient. The patient agreed to proceed with the procedure and signed the consent. IV was started, and vital signs were stable. Patient was taken to the OR and time out was completed. The patient was placed in the prone position on procedure table and a pillow was placed under the abdomen to reduce lumbar lordosis. The lumbosacral area was prepped and draped in the usual sterile fashion. Critical pause was taken. Vital signs were closely monitored during the procedure. Using lateral fluoroscopy the anterior-posterior plates of the sacrum were identified and the skin and deeper tissues corresponding into sacrococcygeal ligament were anesthetized using approximately 3 mL of 1% lidocaine. Then under fluoroscopy, a 3-1/2-inch 20-gauge Tuohy epidural needle was guided through the sacrococcygeal ligament, and into the epidural space. After negative aspiration , a 2 mL of omnipaque-180 contrast dye was injected with excellent epidurogram. Again after negative aspiration for CSF, blood, and with no paresthesias, Depo-Medrol 40mg, 2ml of 1% preservative free Lidocaine with 6 ml of preservative free normal saline(total of 10ml)solution was injected with washout of epidurogram. Needle was withdrawn intact. Skin was cleansed, and bandage was applied. COMPLICATIONS: None DISPOSITION / PLANS: The patient was placed in a supine position and transferred to the recovery area in a stable condition for observation and was discharged from the recovery room after meeting discharge criteria. Home discharge instructions given to the patient by the staff. The patient was reexamined prior to discharge. The patient will schedule a follow up in the clinic in 2-4 weeks.
[2018-06-30] MEDS ORDERED: IV FLUID CONTINUATION 450 ML IV ONE (11:04)
--- NOTE | 2018-06-30 11:14 | FL ---
EXAMINATION TYPE: FL guided pain mgmt statistic DATE OF EXAM: 06/30/2018 HISTORY: Pain caudal epidural steroid injection, 1sec fl time
[2018-06-30 11:29] VITALS: BP 123/82; PULSE 89
== END 2018-06-30 11:44 | disposition home or self-care (01) ==
LOC: ORPAIN 08:57
PROVIDERS: ATTEND Specialist
DX: M54.16 Radiculopathy, lumbar region (principal); M46.1 Sacroiliitis, not elsewhere classified; Z88.2 Allergy status to sulfonamides; Z88.8 Allergy status to other drugs, medicaments and biological substances
CPT/HCPCS: 62323; J2250; J1030; J3010; Q9966

== ENCOUNTER → 2018-07-25 | Outpatient (CLI) | payer MEDICARE, OTHER ==
--- NOTE | 2018-07-25 09:04 | XR ---
EXAMINATION TYPE: XR chest 2V DATE OF EXAM: 07/25/2018 COMPARISON: NONE HISTORY: Annual exam. History of COPD and sarcoidosis. TECHNIQUE: Frontal and lateral views of the chest are obtained. FINDINGS: There is predominantly upper lobe interstitial reticular prominence. Possible right perihi lar 6 mm pulmonary nodule versus a pulmonary vessel en face is seen. Additionally there is a spiculat ed aNo 4 mm nodular density within the right lung apex. Radiographic evidence of hilar adenopathy. Ca rdiomediastinal silhouette is within normal limits. No focal consolidation. No sizable pneumothorax o r pleural effusion. Osseous structures appear intact. IMPRESSION: Upper lobe predominant interstitial prominence may relate to parenchymal sequela of sarc oidosis given the patient's history. Additional possible right sided pulmonary nodules are seen for w hich further evaluation with CT thorax is recommended.
--- NOTE | 2018-07-25 09:18 | CT ---
EXAMINATION TYPE: CT abdomen pelvis wo con DATE OF EXAM: 07/25/2018 COMPARISON: None HISTORY: 53-year-old female Patient complains of ventral hernia. CT DLP: 689 mGycm. Automated exposure control for dose reduction was used. TECHNIQUE: Contiguous axial scanning of the abdomen and pelvis without IV contrast. Coronal and sagit flavio reconstructions performed. FINDINGS: Heart normal size without pericardial effusion. Tiny hiatal hernia. Emphysematous changes in the lower lungs along with scattered reticular changes suggesting interstiti al fibrosis. Focal, somewhat spiculated density in the right lower lobe measures 6 mm. Additional par tially visualized nodular density right lower lobe, axial image 1 measures at least 6 mm. Correlation with contrast enhanced CT chest recommended. Noncontrast appearance of the liver, gallbladder, adrenal glands, kidneys, spleen, and pancreas show no gross abnormal mobility. No dilated small bowel, free fluid, or free air. Mild overall stool burden appears normal. No pericolonic inflammatory change. No mesenteric or retroperitoneal lymphadenopathy. Bladder partially distended. Uterus surgically absent. The left ovary is visualized. Right ovary not clearly seen and could be surgically absent or obscured by adjacent clustered bowel loops. No abnorma l fluid collection the pelvis. Some borderline-sized inguinal lymph nodes measure up to 1.2 cm short axis on the right and 9 mm along the left external iliac chain, likely reactive/post inflammatory. There is prior ventral abdominal wall mesh repair along the epigastric region. However, in the suprau mbilical region, 2 parasagittal midline hernia is redemonstrated containing omental fat. On the right , the hernia neck measures 1.1 cm wide in the hernia sac measures 3.8 cm wide. On the left, hernia ne ck measures 6 mm wide in the hernia sac measures 2.8 cm wide. Bones: Facet arthropathy lower lumbar spine. Broad-based posterior disc bulge at L4-L5. IMPRESSION: 1. Prior ventral abdominal wall mesh repair along the epigastric region. 2. However, along the supraumbilical midline, there are 2 parasagittal omental fat-containing hernia s, the larger on the right measuring 3.8 cm wide with a 1.1 cm wide neck. The smaller on the left lui sures 2.8 cm wide with a 6 mm wide neck. 3. Emphysematous and reticular changes in the visualized lower lungs. There could be underlying inte rstitial fibrosis. However, more nodular areas are present measuring up to at least 6 mm. Recommend c ontrast-enhanced CT chest to survey the entire lungs.
== END ==
LOC: RADCTMAIN 08:29
PROVIDERS: ATTEND Surgery Plastic and Reconstructive Surgery
DX: K46.9 Unspecified abdominal hernia without obstruction or gangrene (principal); D86.9 Sarcoidosis, unspecified; J43.9 Emphysema, unspecified; Z98.890 Other specified postprocedural states
CPT/HCPCS: 71046; 74176; 93005

== ENCOUNTER 2018-07-26 09:24 | Day surgery (SDC) | payer MEDICARE, OTHER ==
[2018-07-22 15:53] VITALS: BMI 28.9
[2018-07-26] MEDS ORDERED: LIDOCAINE 1% 20 ML VIAL (10MG/ML) FOR IV START INTRADERMA ONE (09:49)
[2018-07-26 09:54] VITALS: RESP 16; TEMP 98.5
[2018-07-26] MEDS ORDERED: LACTATED RINGERS 1,000 ML IV ONE (10:01)
--- NOTE | 2018-07-26 11:15 | P.PCN ---
Date of Procedure: 07/26/18 Procedure(s) Performed: PREOPERATIVE DIAGNOSIS: 1-lumbar radiculopathy. 2-sacroiliitis POSTOPERATIVE DIAGNOSIS: Same as pre op diagnoses PROCEDURE: 1. Caudal epidural steroid injection under fluoroscopic guidance. 2. Caudal epidurogram. ANESTHESIA: Local with 1% lidocaine 5ml for subcutaneous infiltrations and IV versed 2 mg,and fentanyl 100 mcg EBL: None. PROCEDURE INDICATION: The patient with neuropathic pain radiating distally returns for caudal epidural steroid injection. PROCEDURE DESCRIPTION: The patient was seen and identified in the preoperative area. Risks, benefits, complications, and alternatives were discussed with the patient. The patient agreed to proceed with the procedure and signed the consent. IV was started, and vital signs were stable. Patient was taken to the OR and time out was completed. The patient was placed in the prone position on procedure table and a pillow was placed under the abdomen to reduce lumbar lordosis. The lumbosacral area was prepped and draped in the usual sterile fashion. Critical pause was taken. Vital signs were closely monitored during the procedure. Using lateral fluoroscopy the anterior-posterior plates of the sacrum were identified and the skin and deeper tissues corresponding into sacrococcygeal ligament were anesthetized using approximately 3 mL of 1% lidocaine. Then under fluoroscopy, a 3-1/2-inch 20-gauge Tuohy epidural needle was guided through the sacrococcygeal ligament, and into the epidural space. After negative aspiration , a 2 mL of omnipaque-180 contrast dye was injected with excellent epidurogram. Again after negative aspiration for CSF, blood, and with no paresthesias, Depo-Medrol 80mg, 2ml of 1% preservative free Lidocaine with 6 ml of preservative free normal saline(total of 10ml)solution was injected with washout of epidurogram. Needle was withdrawn intact. Skin was cleansed, and bandage was applied. COMPLICATIONS: None DISPOSITION / PLANS: The patient was placed in a supine position and transferred to the recovery area in a stable condition for observation and was discharged from the recovery room after meeting discharge criteria. Home discharge instructions given to the patient by the staff. The patient was reexamined prior to discharge. The patient will schedule a follow up in the clinic in few weeks.
[2018-07-26] MEDS ORDERED: IV FLUID CONTINUATION 1,000 ML IV ONE (11:22)
--- NOTE | 2018-07-26 11:41 | FL ---
EXAMINATION TYPE: FL guided pain mgmt statistic DATE OF EXAM: 07/26/2018 CLINICAL HISTORY: Low back and sacral pain. TECHNIQUE: Fluoroscopy. COMPARISON: None. FINDINGS: Fluoroscopic guidance was provided during pain relief procedure performed by Dr. Giraldo . A total of 2 seconds of fluoroscopic time was utilized during the procedure and two spot images ar e acquired. Images acquired shows needle localization mid to lower sacrum from posterior inferior ap proach with contrast injection. IMPRESSION: As Above.
[2018-07-26 12:03] VITALS: BP 118/66; PULSE 74
== END 2018-07-26 12:19 | disposition home or self-care (01) ==
LOC: ORPAIN 09:24
PROVIDERS: ATTEND Specialist
DX: M46.1 Sacroiliitis, not elsewhere classified (principal); M47.26 Other spondylosis with radiculopathy, lumbar region; Z88.2 Allergy status to sulfonamides; Z88.8 Allergy status to other drugs, medicaments and biological substances
CPT/HCPCS: 62323; J2250; J1030; J3010; Q9966; 99152

== ENCOUNTER → 2018-08-31 | Outpatient (CLI) | payer MEDICARE, OTHER ==
[2018-08-31 13:09] VITALS: PULSE 86; RESP 16
--- NOTE | 2018-08-31 13:57 | P.PAINPG ---
Subjective Progress Note Date: 08/31/18 Principal diagnosis: Myofascial pain syndrome, bilateral shoulder arthralgia, bilateral biceps tendon pain This is a pleasant 53-year-old woman with a history of back pain as well as shoulder pain. She presents today for reevaluation. She also presents for medication management. She takes Haigler. She reports this helps control her pain and improve her functionality. She would like a refill this medication today. She also reports that she is going to start a CBD oil to help treat her shoulder pain. Objective - Vital Signs Vital signs: Vital Signs Temp Pulse 86 08/31/18 12:58 Resp 16 08/31/18 12:58 BP Pulse Ox 98 08/31/18 12:58 Intake & Output 08/30/18 08/31/18 08/31/18 18:59 06:59 18:59 Weight 70.307 kg - Exam General: The patient is alert and oriented. Patient is not sedated Patient answers all question appropriately. Cardiac: Heart is regular in rate and rhythm Respiratory: Clear to auscultation. No audible wheezes. Abdomen: Soft nontender nondistended. Musculoskeletal: Strength is normal bilaterally. Sensation is normal bilaterally. Straight leg raise is negative bilaterally. Tender to palpation over her biceps groove bilaterally. She does have a forward projection in her shoulder girdle. No focal motor deficits. Multiple trigger points are felt palpable her lumbosacral spine bilaterally Neurological: Reflexes are preserved and symmetric bilaterally. Assessment and Plan Plan: Plan of Care 1. Medications: I will refill the patient's Haigler prescription today. She will be given 2 prescriptions and will follow up in 2 months. I have reviewed the patient's MAPS report and it reveals expected results. Patient has signed an opiate agreement as well as opiate consent for treatment in our clinic. They understand the risks and benefits of opiate medications. They are aware of the potential for addiction. 2. Interventions: We will schedule the patient for left intra-articular shoulder injection. She has had this done in the past and found it was very helpful in controlling her shoulder pain. 3. Referrals: I will refer the patient to physical therapy to hopefully help with her shoulder pain. They will also work on her lumbar spine myofascial pain. 4. Testing: None 5. Follow-up: left shoulder intra-articular injection PQRS Measure Charge Sheet Measure #130: Documentation of Current Meds in Medical Chart: Patient's medications documented in chart (she smoked) Measure #226: Tobacco Use: Screen & Cessation Intervention: Pt not a tobacco user Measure #111: Pneumonia Vaccination: Pneumococcal vaccine NOT administered or previously given (We'll) Measure #47: Advance Care Plan: Advance care planning discussed & documented, pt chose/unable to give Measure #412: Opioid Treatment Agreement: Documented signed opioid trtmnt agreemnt min once during opioid trtmnt Measure #408: Opioid Therapy Follow-up Evaluation: Patient had f/u eval minimum every 3 months during opioid therapy Measure #317: Preventitive Care & Scrn High Bld Press & F/U: Normal blood pressure, f/u not required Measure #128: Body Mass Index (BMI) Screening & Follow-up: BMI documented ABOVE normal parameters - f/u documented Measure #131: Pain Assessment & Follow-up: Pain positive & plan documented Measure #431: Unhealthy Alcohol Use Preventative Care & Scrn: Patient not identified as an unhealthy alcohol user (Assessment) PQRS Narrative: Smoking Status Former smoker Narcotic Agreement Date Signed 07/30/16 Pain Intensity [Bilateral 4 Lower Back] Scale Used Numeric (1 - 10) Hx Alcohol Use (MH) No Home Medications: Ambulatory Orders Levalbuterol Hfa Inhaler [Xopenex Hfa Inhaler] 2 puff INHALATION QID 07/24/16 Montelukast Sodium [Singulair] 10 mg PO HS 07/24/16 Omeprazole 20 mg PO DAILY 07/24/16 Ranitidine HCl [Zantac] 150 mg PO HS PRN 07/24/16 Ibandronate Sodium [Boniva] 150 mg PO QMONTH 10/19/16 Aclidinium [place] [Tudorza Pressair] 1 puff INHALATION BID PRN 10/07/17 HYDROcodone/APAP 7.5-325MG [[place] 7.5-325] 1 tab PO Q12HR PRN 30 Days #60 tab Ibuprofen [Motrin] 600 mg PO Q12HR PRN #60 tab 06/28/18 Levalbuterol Nebulized [Xopenex Nebulized] 1.25 mg INHALATION TID PRN 07/22/18 Ergocalciferol (Vitamin D2) [Vitamin D2] 1 cap PO WEEKLY 08/31/18 Controlled Substance Measures - Controlled Substance Measures Is patient prescribed a controlled substance at discharge?: No When asked, does pt state using other controlled substances?: No If prescribed controlled substance>3 days was MAPS reviewed?: Yes
== END ==
LOC: PNWHC3 12:45
PROVIDERS: ATTEND Pain Medicine Pain Medicine
DX: M79.18 Myalgia, other site (principal); M19.011 Primary osteoarthritis, right shoulder; M19.012 Primary osteoarthritis, left shoulder; Z79.891 Long term (current) use of opiate analgesic; Z87.891 Personal history of nicotine dependence; Z79.899 Other long term (current) drug therapy
CPT/HCPCS: 99211

== ENCOUNTER → 2018-10-18 | Outpatient (CLI) | payer MEDICARE, OTHER ==
[2018-10-18 12:33] VITALS: BP 140/79; PULSE 79; RESP 16
--- NOTE | 2018-10-18 13:03 | P.PN ---
Subjective Progress Note Date: 10/18/18 This is a follow-up visit for this 53 years old female with a chronic history of severe low back pain, patient diagnosed with sacroiliitis , and lumbar bulging disc disease status post radiofrequency ablation of the left sacroiliac joint, and she is currently on [place] 7.5/325 every 8 hours, and she is on Motrin 600 mg twice a day, she denies any side effects of the medication she denies any excessive drowsiness or sleepiness and she reports her current medication, patient reported that the current medication, is helping to improve the pain , the next, this patient will have robotic umbilical hernia surgery, and she is questioning if we can give her extra few tablets to compensate for the acute pa in post hernia surgery, she denies any motor or sensory deficit, she denies any fever or night sweats she denies any change in the bowel movements or urination Physical Examinations : -Constitutiona : Cooperative , not in acute distress . -HEENT : nech ; supple , no Lymphadenopathy , normal thyroid size . eyes : no ptosis , no icterus, no photophobia . - Respiratory : Chest clear to auscultations Bilaterally , no wheezing , no Rhonchi . - Cardiovascular : regular rate and rhythem , S1 , S2 , no S3 , no S4. - Gastrointestinal : abdomen soft no tenderness , bowel sounds , no organomegally , umbilical hernia . - Genitourinary : Defferred . - neurologic : Cranial nerve II to XII intact , no focal neurological deffecit . -psychatric : alert , oriented X 3 , appropriate affect , intact judgment and insight . -Lymphatic : no Lymphadenopathy . - musculoskeltal : Lumber spine moter stegnth lower extremities ,thigh and legs 5/5 Right side , 5/5 Left aiden Assessment and plan= left sacroiliitis, status post radiofrequency ablation of the left sacroiliac joint Lumbar herniated disc disease. Current recurrences of high-risk medication specifically opioid Patient given prescription refill for [place] 7.5/325 every 8 hours dispense 80 ( patient given 20 tablets extra because she will have robotic hernia surgery /she will not need any extra medication from her surgeon She will follow up with the pain clinic in 2 months Time with Patient: Less than 30 PQRS Measure Charge Sheet Measure #130: Documentation of Current Meds in Medical Chart: Patient's medications documented in chart Measure #226: Tobacco Use: Screen & Cessation Intervention: Pt not a tobacco user Measure #111: Pneumonia Vaccination: Pneumococcal vaccine NOT administered or previously given Measure #47: Advance Care Plan: Advance care planning discussed & documented, pt chose/unable to give Measure #412: Opioid Treatment Agreement: Documented signed opioid trtmnt agreemnt min once during opioid trtmnt Measure #408: Opioid Therapy Follow-up Evaluation: Patient had f/u eval minimum every 3 months during opioid therapy Measure #317: Preventitive Care & Scrn High Bld Press & F/U: Pre-hypertensive or hypertensive BP documented, pt will f/u with PCP Measure #128: Body Mass Index (BMI) Screening & Follow-up: BMI documented ABOVE normal parameters - f/u documented Measure #131: Pain Assessment & Follow-up: Pain positive & plan documented, Follow-up scheduled Measure #431: Unhealthy Alcohol Use Preventative Care & Scrn: Patient not identified as an unhealthy alcohol user PQRS Narrative: - Controlled Substance Measures Is patient prescribed a controlled substance at discharge?: Yes When asked, does pt state using other controlled substances?: No If prescribed controlled substance>3 days was MAPS reviewed?: Yes If Rx opioid, was Start Talking consent form obtained?: Yes If opioid is for acute pain is fill amount 7 days or less?: No Was information provided regarding opioid addiction?: Yes Objective - Vital Signs Vital signs: Vital Signs Temp Pulse 79 10/18/18 12:25 Resp 16 10/18/18 12:25 BP 140/79 10/18/18 12:25 Pulse Ox 97 10/18/18 12:25 Intake & Output 10/17/18 10/18/18 10/18/18 18:59 06:59 18:59 Weight 67.132 kg
== END ==
LOC: PNWHC3 12:03
PROVIDERS: ATTEND Anesthesiology
DX: M51.26 Other intervertebral disc displacement, lumbar region (principal); M46.1 Sacroiliitis, not elsewhere classified; Z79.891 Long term (current) use of opiate analgesic
CPT/HCPCS: 99211

== ENCOUNTER 2018-10-20 13:02 | Day surgery (SDC) | payer MEDICARE, OTHER ==
[2018-10-18 09:18] VITALS: BMI 28.9
--- NOTE | 2018-10-20 10:08 | P.GSHP ---
History of Present Illness H&P Date: 10/20/18 CHIEF COMPLAINT: Incisional hernia. HISTORY OF PRESENT ILLNESS: The patient is a 53-year-old female who presents with a history of swelling along the epigastric abdomen. Findings were consistent with possible incisional hernia. Now she presents for further evaluation and management. PAST MEDICAL HISTORY: Please see list. PAST SURGICAL HISTORY: Please see list. MEDICATIONS: Please see list. ALLERGIES: Please see list. SOCIAL HISTORY: No illicit drug use FAMILY HISTORY: No reports of Crohn disease or ulcerative colitis. REVIEW OF ORGAN SYSTEMS: CONSTITUTIONAL: No reports of fevers or chills. GI: Denies any blood in stools or constipation. PHYSICAL EXAM: VITAL SIGNS: Stable GENERAL: Well-developed pleasant female in no acute distress. HEENT: No scleral icterus. Extraocular movements grossly intact. Moist buccal mucosa. NECK: Supple without lymphadenopathy. CHEST: Unlabored respirations. Equal bilateral excursions. CARDIOVASCULAR: Regular rate and rhythm. Distal 2+ pulses. ABDOMEN: Soft, nondistended. Tender along the epigastric abdomen. MUSCULOSKELETAL: No clubbing, cyanosis, or edema. ASSESSMENT: 1. Incisional ventral hernia. PLAN: 1. Recommend proceeding with robotic ventral hernia repair with mesh. 2. Benefits and risks of surgical intervention was discussed including possibility of open technique. 3. DVT prophylaxis. 4. Antibiotic prophylaxis. Past Medical History Past Medical History: Asthma, COPD, GERD/Reflux, Musculoskeletal Disorder, Osteoarthritis (OA) Additional Past Medical History / Comment(s): Pain: neck, lower back and left hip, hx sarcoidosis, hx anemia, occasional bladder incontinence, tinnitus, current hernia. 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", [facility] PROCEDURES, Hernia repair X3, leticia.bunionectomy Past Anesthesia/Blood Transfusion Reactions: No Reported Reaction Smoking Status: Former smoker - Past Family History Mother Family Medical History: No Reported History Father Family Medical History: Cancer Additional Family Medical History / Comment(s): Prostate Medications and Allergies Home Medications Medication Instructions Recorded Confirmed Type Levalbuterol Hfa Inhaler [Xopenex 2 puff INHALATION QID 07/24/16 10/18/18 History Hfa Inhaler] Montelukast Sodium [Singulair] 10 mg PO HS 07/24/16 10/18/18 History Omeprazole 20 mg PO DAILY 07/24/16 10/18/18 History Ibandronate Sodium [Boniva] 150 mg PO QMONTH 10/19/16 10/18/18 History Aclidinium [place] [Tudorza 1 puff INHALATION DAILY PRN 10/07/17 10/18/18 History Pressair] HYDROcodone/APAP 7.5-325MG [[place] 1 tab PO Q12HR PRN 30 Days #60 tab 06/28/18 10/18/18 Rx 7.5-325] Ibuprofen [Motrin] 600 mg PO Q12HR PRN #60 tab 06/28/18 10/18/18 Rx Levalbuterol Nebulized [Xopenex 1.25 mg INHALATION TID PRN 07/22/18 10/18/18 History Nebulized] Ergocalciferol (Vitamin D2) 1 cap PO WEEKLY 08/31/18 10/18/18 History [Vitamin D2] Ascorbic Acid [Vitamin C] 1,000 mg PO HS 09/23/18 10/18/18 History Black Cohosh 40 mg PO BID 09/23/18 10/18/18 History Evening [place] Oil 1,000 mg PO HS 09/23/18 10/18/18 History Allergies Allergy/AdvReac Type Severity Reaction Status Date / Time albuterol Allergy "makes me Verified 10/18/18 12:21 psychotic" Sulfa (Sulfonamide Allergy Rash/Hives Verified 10/18/18 12:21 Antibiotics)
[~2018-10-20 13:02] MED LIST changes: +DEXAMETHASONE SOD PHOSPHATE 10 MG/ML 1 ML VIAL IV ONE; +HEPARIN SODIUM,PORCINE 5,000 UNIT/ML 1 ML VIAL SQ ONE; +LACTATED RINGERS 1,000 ML IV SCH; +LIDOCAINE 1% 20 ML VIAL (10MG/ML) FOR IV START INTRADERMA PRN; +MIDAZOLAM (PF) 2 MG/2 ML VIAL IV PRN; +ONDANSETRON 4 MG/2 ML VIAL IVP ONE; -SODIUM CHLORIDE 0.9% 500 ML 500 ML IV SCH; +ceFAZolin IN SWFI 2 GM/20 ML SYRINGE IVP ONE; +fentaNYL (PF) 50 MCG/ML 2 ML AMP IV PRN
[2018-10-20 14:09] LABS: MCH 29.3 pg (25.0-35.0); MCHC 34.2 g/dL (31.0-37.0); MCV 85.7 fL (80.0-100.0); Mean Platelet Volume 7.6; Platelet Count 170 k/uL (150-450); RBC 4.78 m/uL (3.80-5.40); RDW 13.8 % (11.5-15.5); WBC 4.5 k/uL (3.8-10.6)
--- NOTE | 2018-10-20 14:54 | P.ONQ ---
Anesthesiology Proc Note - PNB - Peripheral Nerve Block Performed Bilateral Rectus Abdominis Single Time Out Performed: Yes Procedure Start Time: 14:09 Indication: Acute Post-Operative Pain Specifically requested for management of pain by DrPb: Arcelia Garcia Sedation Type: Sedate with meaningful contact maintained Preparation: Sterile Prep Position: Supine Catheter: None Needle Types: Other (see comment) (Pajunk) Needle Size: 100mm (4") Needle Gauge: 21 Technique: Ultrasound Injectate: Other (see comment) (Ropivacaine 0.25%/lidocaine 0.5% 30 mL per side) Adjunct: Epinephrine (see comment for dilution ratio) (1:200,000) Blood Aspirated: No Pain Paresthesia on Injection Noted: No Resistance on Injection: Normal Events: Uneventful and Well Tolerated
[2018-10-20 15:11] LABS: ALT 28 U/L (9-52); AST 27 U/L (14-36); Albumin 4.2 g/dL (3.5-5.0); Alkaline Phosphatase 85 U/L (38-126); Anion Gap 8 mmol/L; Blood Urea Nitrogen 15 mg/dL (7-17); Calcium 9.7 mg/dL (8.4-10.2); Carbon Dioxide 26 mmol/L (22-30); Chloride 105 mmol/L (98-107); Glucose 83 mg/dL (74-99); Sodium 139 mmol/L (137-145); Total Bilirubin 0.4 mg/dL (0.2-1.3); Total Protein 7.4 g/dL (6.3-8.2)
[2018-10-20] MEDS ORDERED: LIDOCAINE 1% INJ 10MG/ML (20 ML MDV) ONE (15:21)
[2018-10-20] MEDS ORDERED: LIDOCAINE 0.5% (PF) 5 MG/ML (50 ML SDV) ONE (15:21)
[2018-10-20] MEDS ORDERED: NEOSTIGMINE 1 MG/ML 10 ML VIAL ONE (15:21)
[2018-10-20] MEDS ORDERED: ROCURONIUM BROMIDE 10 MG/ML 10 ML VIAL IV ONE (15:21)
[2018-10-20] MEDS ORDERED: GLYCOPYRROLATE 0.2 MG/ML 2 ML VIAL ONE (15:21)
[2018-10-20] MEDS ORDERED: fentaNYL (PF) 50 MCG/ML 2 ML AMP ONE (15:21)
[2018-10-20] MEDS ORDERED: PROPOFOL 10 MG/ML 20 ML VIAL IV ONE (15:21)
[2018-10-20] MEDS ORDERED: SUCCINYLCHOLINE CHLORIDE 100 MG/5 ML SYR IV ONE (15:21)
[2018-10-20] MEDS ORDERED: MIDAZOLAM 2 MG/2 ML VIAL ONE (15:21)
[2018-10-20] MEDS ORDERED: ROPIVACAINE 5 MG/ML 30 ML VIAL ONE (15:21)
[2018-10-20] MEDS ORDERED: BUPIVACAIN-EPI 0.5%-1:200,000 30 ML VIAL SQ ONE (15:51)
[2018-10-20] MEDS ORDERED: HYDROmorphone 1 MG/ML 1 ML SYRINGE IVP ONE (17:26)
[2018-10-20 17:29] VITALS: TEMP 97.3
--- NOTE | 2018-10-20 17:36 | P.PCN ---
Date of Procedure: 10/20/18 Preoperative Diagnosis: Recurrent incisional epigastric hernia Postoperative Diagnosis: Same, 5 x 6 cm recurrent incisional epigastric incarcerated hernia Procedure(s) Performed: Robotic-assisted laparoscopic repair of recurrent incarcerated incisional epi gastric hernia 5 x 6 cm with mesh 11.[address] Anesthesia: GETA, local Surgeon: Arcelia Garcia Estimated Blood Loss (ml): 20 Pathology: none sent Condition: stable Operative Findings: 38 minutes Plan - Discharge Summary Discharge Rx Participant: Yes New Discharge Prescriptions: No Action Omeprazole 20 mg PO DAILY Montelukast Sodium [Singulair] 10 mg PO HS Levalbuterol Hfa Inhaler [Xopenex Hfa Inhaler] 2 puff INHALATION QID Ibandronate Sodium [Boniva] 150 mg PO QMONTH Aclidinium [place] [Tudorza Pressair] 1 puff INHALATION DAILY PRN PRN Reason: Dyspnea HYDROcodone/APAP 7.5-325MG [[place] 7.5-325] 1 tab PO Q12HR PRN 30 Days #60 tab PRN Reason: Pain Ibuprofen [Motrin] 600 mg PO Q12HR PRN #60 tab PRN Reason: Pain Levalbuterol Nebulized [Xopenex Nebulized] 1.25 mg INHALATION TID PRN PRN Reason: Shortness Of Breath Ergocalciferol (Vitamin D2) [Vitamin D2] 1 cap PO WEEKLY Black Coh[place] 40 mg PO BID Ascorbic Acid [Vitamin C] 1,000 mg PO HS Evening [place] Oil 1,000 mg PO HS Discharge Medication List Levalbuterol Hfa Inhaler [Xopenex Hfa Inhaler] 2 puff INHALATION QID 07/24/16 [History] Montelukast Sodium [Singulair] 10 mg PO HS 07/24/16 [History] Omeprazole 20 mg PO DAILY 07/24/16 [History] Ibandronate Sodium [Boniva] 150 mg PO QMONTH 10/19/16 [History] Aclidinium [place] [Tudorza Pressair] 1 puff INHALATION DAILY PRN 10/07/17 [History] HYDROcodone/APAP 7.5-325MG [[place] 7.5-325] 1 tab PO Q12HR PRN 30 Days #60 tab 06/28/18 [Rx] Ibuprofen [Motrin] 600 mg PO Q12HR PRN #60 tab 06/28/18 [Rx] Levalbuterol Nebulized [Xopenex Nebulized] 1.25 mg INHALATION TID PRN 07/22/18 [History] Ergocalciferol (Vitamin D2) [Vitamin D2] 1 cap PO WEEKLY 08/31/18 [History] Ascorbic Acid [Vitamin C] 1,000 mg PO HS 09/23/18 [History] Black Cohosh 40 mg PO BID 09/23/18 [History] Evening [place] Oil 1,000 mg PO HS 09/23/18 [History]
[2018-10-20 18:02] VITALS: RESP 16
--- NOTE | 2018-10-20 18:10 | P.OP ---
Date of Procedure: 10/20/18 Description of Procedure: SURGEON: ARCELIA GARCIA MD PREOPERATIVE DIAGNOSES: 1. Recurrent incisional epigastric hernia 2. Chronic obstructive pulmonary disease 3. Gastroesophageal reflux disease 4. Asthma 5. Sarcoidosis 6. Bladder incontinence POSTOPERATIVE DIAGNOSES: 1. Recurrent incisional epigastric hernia, 5 x 6 cm 2. Chronic obstructive pulmonary disease 3. Gastroesophageal reflux disease 4. Asthma 5. Sarcoidosis 6. Bladder incontinence 7. Intra-abdominal peritoneal adhesions, severe OPERATION: 1. Robotic-assisted daVinci Xi laparoscopic extensive lysis of adhesions 2. Robotic-assisted daVinci Xi laparoscopic repair of recurrent incarcerated incisional ventral epigastric hernia 5 x 6 cm with 11.[address] mesh ANESTHESIA: General with local ESTIMATED BLOOD LOSS: 20 mL. SPECIMENS: None. COMPLICATIONS: None. Operative Findings: 1. Severe intra-abdominal adhesions at epigastrium 2. Console time 38 minutes INDICATIONS: The patient is a 53-year-old female who presents with incisional ventral hernia of the epigastrium with recurrence. Surgical intervention with laparoscopic versus robotic and open techniques were reviewed. Placement of mesh was also reviewed. Benefits and risks were thoroughly described. Informed consent was obtained. DESCRIPTION OF PROCEDURE: The patient was brought into the operating room and laid in supine position. After general induction, the abdomen had been prepped and draped in standard sterile fashion. Ioban draping was also placed. Prior to incision, a timeout protocol was confirmed with surgical team regarding the patient's name including procedures to be performed. The robot was primed prior to the procedure. A field block using local anesthetis was placed along hernia site including the proposed port sites. Initial incision was made with an #11 blade along the left upper quadrant. A 0 degree 5 mm laparoscopic trocar entry was performed. Diagnostic laparoscopy demonstrated severe peritoneal adhesions along the midline; however the upper abdomen was free. Peritoneal adhesions of omentum to the abdominal wall along the midline was identified. Two 8 mm trocars were placed along the left lateral abdominal wall upper quadrant. The 5-mm port was exchanged for an 8 mm robotic port. Placements of the ports were 10 cm from the target anatomy and 10 cm apart. The PhotoManiai XI robot was previously primed, prepped and draped then docked along the left side of the patient. I then sat at the robot Da Malika XI console where working arms of the robot including Bovie cautery connected to robotic scissors, vessel sealer and graspers placed by the administrative assistant receptionist. Adhesions along the midline were addressed with scissors and vessel sealer with reduction of an incarcerated omentum in a previously repaired hernia with Ethibond sutures found. The adhesions were resected using Vessel sealer and blunt dissection. The hernia bordering fascia was cleaned with a zambian cheese defect 5 x 6 cm found. Next, hemostasis was checked with cautery. The hernia defect was oversewn using #1 StrataFix with fascial imbrication 3. Next, ventralight ST mesh 11.4 cm was placed with the rough side towards the abdominal wall. 2-0 VLOC 9 inch sutures were used to fixate the mesh. A final endoscopic imaging was obtained. All instruments and pneumoperitoneum were evacuated from the abdominal cavity. The da Malika XI robot was undocked from the patient. I re-scrubbed into the case for closure of incisions. The incisions were reapproximated using 4-0 Monocryl in an interrupted subcuticular fashion. Liquid glue was applied to the skin. At the end of the procedure, needle, sponge, and instrument count had been verified correct by surgical territory manager. The patient was taken to the postanesthesia care unit in stable condition with abdominal binder. Plan - Discharge Summary Discharge Rx Participant: Yes New Discharge Prescriptions: New Ibuprofen [Motrin] 600 mg PO Q8HR PRN #30 tab PRN Reason: Pain Continue Omeprazole 20 mg PO DAILY Montelukast Sodium [Singulair] 10 mg PO HS Levalbuterol Hfa Inhaler [Xopenex Hfa Inhaler] 2 puff INHALATION QID Ibandronate Sodium [Boniva] 150 mg PO QMONTH Aclidinium [place] [Tudorza Pressair] 1 puff INHALATION DAILY PRN PRN Reason: Dyspnea HYDROcodone/APAP 7.5-325MG [[place] 7.5-325] 1 tab PO Q12HR PRN 30 Days #60 tab PRN Reason: Pain Ibuprofen [Motrin] 600 mg PO Q12HR PRN #60 tab PRN Reason: Pain Levalbuterol Nebulized [Xopenex Nebulized] 1.25 mg INHALATION TID PRN PRN Reason: Shortness Of Breath Ascorbic Acid [Vitamin C] 1,000 mg PO HS Discontinued Ergocalciferol (Vitamin D2) [Vitamin D2] 1 cap PO WEEKLY Black Cohosh 40 mg PO BID Evening Hawi Oil 1,000 mg PO HS Discharge Medication List Levalbuterol Hfa Inhaler [Xopenex Hfa Inhaler] 2 puff INHALATION QID 07/24/16 [History] Montelukast Sodium [Singulair] 10 mg PO HS 07/24/16 [History] Omeprazole 20 mg PO DAILY 07/24/16 [History] Ibandronate Sodium [Boniva] 150 mg PO QMONTH 10/19/16 [History] Aclidinium [place] [Tudorza Pressair] 1 puff INHALATION DAILY PRN 10/07/17 [History] HYDROcodone/APAP 7.5-325MG [[place] 7.5-325] 1 tab PO Q12HR PRN 30 Days #60 tab 06/28/18 [Rx] Ibuprofen [Motrin] 600 mg PO Q12HR PRN #60 tab 06/28/18 [Rx] Levalbuterol Nebulized [Xopenex Nebulized] 1.25 mg INHALATION TID PRN 07/22/18 [History] Ascorbic Acid [Vitamin C] 1,000 mg PO HS 09/23/18 [History] Ibuprofen [Motrin] 600 mg PO Q8HR PRN #30 tab 10/20/18 [Rx] Follow up Appointment(s)/Referral(s): Arcelia Garcia MD [STAFF PHYSICIAN] - 10/31/18 Patient Instructions/Handouts: *Surgery [facility] - (Anesthesia) Discharge Instructions Outpatient Surgery, Laparoscopic Herniorrhaphy (DC), Abdominal Binder (DC), Ventral Hernia Repair (GEN) Activity/Diet/Wound Care/Special Instructions: No lifting over 4 pounds in 4 weeks. May shower. No bathtub soaks. Wear abdominal binder for comfort. Discharge Disposition: HOME SELF-CARE
[2018-10-20 18:49] VITALS: BP 115/66; PULSE 89
== END 2018-10-20 19:04 | disposition home or self-care (01) ==
LOC: OR 13:02
PROVIDERS: ATTEND Surgery Plastic and Reconstructive Surgery
DX: K43.0 Incisional hernia with obstruction, without gangrene (principal); J44.9 Chronic obstructive pulmonary disease, unspecified; K21.9 Gastro-esophageal reflux disease without esophagitis; Z86.14 Personal history of Methicillin resistant Staphylococcus aureus infection; Z79.51 Long term (current) use of inhaled steroids; Z79.899 Other long term (current) drug therapy; Z79.83 Long term (current) use of bisphosphonates; Z88.2 Allergy status to sulfonamides; Z88.8 Allergy status to other drugs, medicaments and biological substances; D86.9 Sarcoidosis, unspecified; K66.0 Peritoneal adhesions (postprocedural) (postinfection)
CPT/HCPCS: 64488; 80053; 85027; 49655; 49329; J2250 ×2; J1644; J1100; J2710; J2405; J2001 ×2; J3010; J1170; J2795; J0330; J2704; J0690

== ENCOUNTER → 2018-11-01 | Outpatient (CLI) | payer MEDICARE, OTHER ==
--- NOTE | 2018-11-02 13:18 | CT ---
EXAMINATION TYPE: CT abdomen pelvis wo con DATE OF EXAM: 11/01/2018 COMPARISON: 07/25/2018 INDICATION: abdominal pain post hernia repair, pain is at site of incision DLP: 364.8 mGycm, Automated exposure control for dose reduction was used. CONTRAST: mL of . Study performed without Oral Contrast TECHNIQUE: Axial images were obtained from above the diaphragm to the pubic rami in the axial plane a t 5 mm thick sections. Reconstructed images are reviewed on the computer in the coronal plane. FINDINGS: Limited CT sections are obtained the lung bases. There are areas of increased density at the lung ba ses. Emphysematous bulla are present. Some scarring is present. Underlying masses are not excluded. CT ABDOMEN: There is a 3.5 cm density in the supraumbilical region could be fluid within the hernia. The opening to the intraperitoneal sac is not clearly identified Liver: Normal Spleen: Normal Pancreas: Normal Adrenal glands: The adrenal glands are normal. Gallbladder: Normal Kidneys: No masses are evident. No hydronephrosis is present. No cysts are present. No renal stone s are evident. Aorta: Mild Vascular calcification is within the aorta. Inferior vena cava: Normal. CT PELVIS: Loops of bowel within the abdomen and pelvis are normal. Study is without oral contrast limiting bowel evaluation. Appendix: Not identified. No suspicious tubular structures or inflammatory changes are evident. Urinary bladder: Normal. Genitourinary structures: Uterus is not identified. Adnexal regions are unremarkable. Osseous structures: No suspicious lytic or sclerotic lesions. IMPRESSIONS: 1. 3.5 cm mass in the supraumbilical region. Hematoma at the hernia repair site is most likely withi n the differential This could be fluid within a hernia. The opening into the intraperitoneal region i s not identified compatible with hernia repair. Abscess potentially could be within the differential.
== END ==
LOC: RADCTMAIN 17:15
PROVIDERS: ATTEND Surgery Plastic and Reconstructive Surgery
DX: R19.05 Periumbilic swelling, mass or lump (principal)
CPT/HCPCS: 74176

== ENCOUNTER → 2018-12-13 | Outpatient (CLI) | payer MEDICARE, OTHER ==
[2018-12-13 12:41] VITALS: BP 142/91; PULSE 94; RESP 18
--- NOTE | 2018-12-13 13:19 | P.PAINPG ---
Subjective Progress Note Date: 12/13/18 Yuliya a 53-year-old female presented today for follow-up. She has a chief complaint of low back pain. She's had low back pain for many years. She has been well controlled with interventional techniques and as needed Clare. She is Clare 1-2 tablets per day as needed. She denies any side effects from the medications. She reports those Clare significant improved her overall function and allows her stay physically active. 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 As for her pain she reports pain across the low back sometimes into both legs. She reports occasional numbness that shoots down her leg but is not constant. She denies any bowel or bladder incontinence or any l ower extremity weakness. Objective - Vital Signs Vital signs: Vital Signs Temp Pulse 94 12/13/18 12:40 Resp 18 12/13/18 12:40 BP 142/91 12/13/18 12:40 Pulse Ox 96 12/13/18 12:40 Intake & Output 12/12/18 12/13/18 12/13/18 18:59 06:59 18:59 Weight 67.132 kg - Exam General: Awake and alert oriented 3 no distress Respiratory exam: No audible wheezing no accessory muscle usage Cardiovascular exam: regular rate, palpable bilateral pulses, no lower extremity edema Abdominal exam: No distention nontender to palpation Cervical spine: Normal alignment, Spurling's negative, facet loading negative, Retail Beauty Specialist strength is 5/5, aguilar negative Lumbar spine: Loss of lumbar lordosis, normal alignment, tender to palpation over bilateral paraspinal muscles, facet loading is positive bilaterally. Straight leg raise is negative. Limited range of motion due to pain with flexion, extension and side bending. Sacroiliac joints: Nontender to palpation, NIDIA is negative, [place] negative Neuro exam: Normal sensation in bilateral upper extremities, deep tendon reflexes are 2+ bilateral upper extremities. Normal sensation in bilateral lower extremities. Deep tendon reflexes are 2+ in lower extremities Psych exam: Cooperative, appropriate mood Assessment and Plan Assessment: #1 lumbar radiculopathy #2 chronic opioid dependence Plan: On today's visit I discussed with Yuliya interventional techniques as well as continued pain medication management. I advised her not use her medications unless septal needed. We discussed the risks of tolerance and dependence on the medications. I've also discussed with her she should not use a medication operating any heavy machinery. I've also advised to give us a call if she felt her pain was getting worse if she has any changes in her symptoms. I will refill her medications for 2 months time dated 28 days apart. PQRS Measure Charge Sheet Measure #130: Documentation of Current Meds in Medical Chart: Patient's medications documented in chart Measure #226: Tobacco Use: Screen & Cessation Intervention: Pt screened for tobacco use AND intervention given Measure #111: Pneumonia Vaccination: Pneumococcal vaccine administered or previously received Measure #47: Advance Care Plan: Advance care planning discussed & documented, plan or surrogate given Measure #412: Opioid Treatment Agreement: Documented signed opioid trtmnt agreemnt min once during opioid trtmnt Measure #408: Opioid Therapy Follow-up Evaluation: Patient had f/u eval minimum every 3 months during opioid therapy Measure #317: Preventitive Care & Scrn High Bld Press & F/U: Normal blood pressure, f/u not required Measure #128: Body Mass Index (BMI) Screening & Follow-up: BMI documented within normal parameters Measure #131: Pain Assessment & Follow-up: Pain positive & plan documented, Follow-up scheduled Measure #431: Unhealthy Alcohol Use Preventative Care & Scrn: Patient not identified as an unhealthy alcohol user PQRS Narrative: Smoking Status Former smoker Do You Want the Pneumonia No Vaccine AT THIS TIME? Narcotic Agreement Date Signed 12/13/18 Blood Pressure 142/91 Pain Intensity [Lower Back] 5 Hx Alcohol Use (MH) No Home Medications: Ambulatory Orders Levalbuterol Hfa Inhaler [Xopenex Hfa Inhaler] 2 puff INHALATION QID 07/24/16 Montelukast Sodium [Singulair] 10 mg PO HS 07/24/16 Omeprazole 20 mg PO DAILY 07/24/16 Ibandronate Sodium [Boniva] 150 mg PO QMONTH 10/19/16 Aclidinium [place] [Tudorza Pressair] 1 puff INHALATION DAILY PRN 10/07/17 HYDROcodone/APAP 7.5-325MG [[place] 7.5-325] 1 tab PO Q12HR PRN 30 Days #60 tab 06/28/18 Ibuprofen [Motrin] 600 mg PO Q12HR PRN #60 tab 06/28/18 Levalbuterol Nebulized [Xopenex Nebulized] 1.25 mg INHALATION TID PRN 07/22/18 Ascorbic Acid [Vitamin C] 1,000 mg PO HS 09/23/18 Controlled Substance Measures - Controlled Substance Measures Is patient prescribed a controlled substance at discharge?: Yes When asked, does pt state using other controlled substances?: No If prescribed controlled substance>3 days was MAPS reviewed?: Yes If Rx opioid, was Start Talking consent form obtained?: Yes If opioid is for acute pain is fill amount 7 days or less?: No Was information provided regarding opioid addiction?: Yes
== END ==
LOC: PNWHC3 12:04
PROVIDERS: ATTEND Hospitalist
DX: M54.16 Radiculopathy, lumbar region (principal); F11.20 Opioid dependence, uncomplicated; Z87.891 Personal history of nicotine dependence; Z79.899 Other long term (current) drug therapy; Z79.891 Long term (current) use of opiate analgesic; Z79.1 Long term (current) use of non-steroidal anti-inflammatories (NSAID)
CPT/HCPCS: 99211

== ENCOUNTER → 2019-02-07 | Outpatient (CLI) | payer MEDICARE, OTHER ==
[2019-02-07 12:50] VITALS: BP 149/68; PULSE 69; RESP 16
--- NOTE | 2019-02-07 13:00 | P.PN ---
Subjective Progress Note Date: 02/07/19 This is a 52-year-old lady with history of chronic lower back pain due to lumbar spondylosis without myelopathy. The patient's pain has been well-controlled with a combination of interventional pain procedures and [place] 7.5 mg twice a day if needed for pain. She also takes Motrin 600 mg 1-2 pills a day. The patient denies any new symptoms since her last visit. The patient has been very well controlled lately. Today, pt denies new-onset weakness, bowel/bladder incontinence, or any other signs or symptoms of cauda equina syndrome. There are no signs of acute intoxication, and no indications of medication diversion or overuse. In addition to above, 13-point review of systems is also negative for chest pain, shortness of breath, changes in vision, changes in hearing, new onset weakness, abdominal pain, diarrhea, extreme fatigue, malaise, fever, skin kenney ges, homicidal or suicidal ideation, or bowel or bladder incontinence. Vital Signs: Reviewed in EMR Gen: AAOx3, NAD HEENT: PERRLA,hearing grossly normal Pulm: resp unlabored,CTA Heart:S1,S2, No Mur Neck: supple, trachea midline Neuro exam of the lower extremities: Normal muscle strength bilaterally Straight leg raising test: José Miguel's test: Range of motion of the lumbar spine: Facet loading test: Tenderness in the paravertebral musculature: Significant tenderness around the left sacroiliac joint Neuro: CN II-XII grossly intact, Imaging: Reviewed in EMR/chart Assessment: Lumbar spondylosis without myelopathy Left sacroiliitis Plan: 1. Explanation: Opioid and psychological risk scores were reviewed. Diagnoses, prognoses, and multiple treatment options including but not limited to physical therapy, interventional therapies, adjuvant medical therapies, narcotic medication therapies, and surgery were discussed with the patient and all questions were answered to the patient's satisfaction. 2. Opioid agreement: Signed with the patient and the patient is warned not to use opioids while driving or before driving and not to combine opioids with benzodiazepines or alcohol. 3. Counseling: The patient was counseled extensively on SMOKING CESSATION, BODY MASS INDEX, EXERCISE. Specifically, the patient was instructed regarding the importance of smoking cessation, obesity, and exercise in the context of both chronic pain and overall health. 4. Procedures: None at this point 5. Consultations: None 6. Investigations: None 7. Medications: Continue [place] 7.5 mg twice a day and I will decrease her Motrin 600 mg 1-2 times a day of liver only for 5 pills for the month with 1 refill. 8. Disposition: Return to clinic in 8 weeks 9. Maps were reviewed and were appropriate. PQRS measures: 1-Patient's medications are documented in the chart. 2-Tobacco use is negative, counseling given 3-Patient has had a pneumococcal vaccine. 4-Advanced care planning discussed, patient unable to give 5-Opioid contract signed with the patient. 6-Pain positive, follow-up visit or procedure scheduled 7-Patient's blood pressure measured and documented above/ normal limits. The patient will follow up with his primary care physician. 8-Patient's weight was measured, and body mass index ABOVE the normal limits, and counseling was done. Patient instructed to follow up with PCP. 9-Patient WAS NOT identified as an unhealthy alcohol user. Controlled Substance Measures Is patient prescribed a controlled substance at discharge?: Yes When asked, does pt state using other controlled substances?: No If prescribed controlled substance>3 days was MAPS reviewed?: Yes If Rx opioid, was Start Talking consent form obtained?: Yes If opioid is for acute pain is fill amount 7 days or less?: No Was information provided regarding opioid addiction?: Yes Objective - Vital Signs Vital signs: Vital Signs Temp Pulse 69 02/07/19 12:45 Resp 16 02/07/19 12:45 BP 149/68 02/07/19 12:45 Pulse Ox 97 02/07/19 12:45 Intake & Output 02/06/19 02/07/19 02/07/19 18:59 06:59 18:59 Weight 66.224 kg
== END | disposition home or self-care (01) ==
LOC: PNWHC3 12:36
PROVIDERS: ATTEND Anesthesiology
DX: G89.29 Other chronic pain (principal); M47.816 Spondylosis without myelopathy or radiculopathy, lumbar region; M46.1 Sacroiliitis, not elsewhere classified
CPT/HCPCS: 99211

== ENCOUNTER → 2019-04-04 | Outpatient (CLI) | payer MEDICARE, OTHER ==
[2019-04-04 12:40] VITALS: BP 134/74; PULSE 81; RESP 16
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
== END | disposition home or self-care (01) ==
LOC: PNWHC3 12:06
PROVIDERS: ATTEND Student in an Organized Health Care Education/Training Program
DX: G89.29 Other chronic pain (principal); M47.816 Spondylosis without myelopathy or radiculopathy, lumbar region; F11.90 Opioid use, unspecified, uncomplicated; M79.642 Pain in left hand; Z87.891 Personal history of nicotine dependence; Z51.81 Encounter for therapeutic drug level monitoring; Z79.899 Other long term (current) drug therapy
CPT/HCPCS: 80307; G0482; G0463; 99211

== ENCOUNTER → 2019-05-29 | Outpatient (CLI) | payer MEDICARE, OTHER ==
[2019-05-29 12:39] VITALS: BP 133/79; PULSE 82; RESP 16
--- NOTE | 2019-05-29 14:02 | P.PAINPG ---
Subjective Progress Note Date: 05/29/19 This is a 53 year -year-old female with chronic low back pain who returns to clinic for medication management. Her pain has been controlled with a combination of interventional pain procedures and medications. She states that she has known side effects from medications, and her pain is well controlled w ith that. In the past she has received a caudal injection which is has help with the pain down her legs, she reports that the pain down her legs is worsened. Thus she would like a caudal which she has had in the past. Of note her last urine drug screen was reviewed, her ethanol levels were extremely high, I spoke to her in detail about this. Objective - Vital Signs Vital signs: Vital Signs Temp Pulse 82 05/29/19 12:36 Resp 16 05/29/19 12:36 BP 133/79 05/29/19 12:36 Pulse Ox - Exam Vital Signs: Reviewed in EMR GENERAL: Well appearing, in no acute distress, PSYCH: Mood and affect is appropriate. Awake, alert, and oriented SKIN: Skin color, texture, turgor normal, no rashes or lesions HEENT: Normocephalic, atraumatic. EOM intact CV: No pedal edema RESP: Respirations are unlabored, no audible wheezing GI: Abdomen non-distended MUSCULOSKELETAL: Bilateral upper and lower extremity strength is normal and symmetric. No atrophy or tone abnormalities are noted. Lumbar spine: Some pain to palpation of the lumbar paraspinal muscles Buttocks: No pain to palpation over the PSIS, Extremities: Peripheral joint ROM is full and pain free without obvious instability or laxity in all four extremities. No edema or skin discolorations noted. Gait: Gait is anantalgic NEUR: No loss of sensation is noted. Cranial nerves are grossly intact. Assessment and Plan Assessment: Assessment: 1. Lumbar radicular pain 2. Lumbar spondylosis 3. Chronic opiate use 4. Previous abuse history Plan: 1. Explanation: Opioid and psychological risk scores were reviewed. Diagnoses, prognoses, and multiple treatment options including but not limited to physical therapy, interventional therapies, adjuvant medical therapies, narcotic medication therapies, and surgery were discussed with the patient and all questions were answered to the patient's satisfaction. 2. Opioid agreement: In place 3. Counseling: She continues to be active, she does describe symptoms of tennis elbow, she was instructed to reduce use of this arm 4. Procedures: Caudal 5. Consultations: None 6. Investigations: Reviewed 7. Medications: Given her positive alcohol of a UDS, I had a discussion with her about weaning her opiate medication. It that she becomes nauseated with her [place] 11/11/2024 which is not medically physiological sense. After discussion with her she was open to reducing the total lumbar tablets she reaches for month, thus I prescribed a 45 tablets of [place] 7. 11/11/2024 down from 67.5 325. 8. Disposition: For her procedure and her 8 week medication refill, based on her presentation would consider getting a UDS, or continued opiate wean. , PQRS Measure Charge Sheet Measure #226: Tobacco Use: Screen & Cessation Intervention: Pt not a tobacco user Measure #111: Pneumonia Vaccination: Pneumococcal vaccine NOT administered or previously given Measure #47: Advance Care Plan: Advance care planning discussed & documented, pt chose/unable to give Measure #412: Opioid Treatment Agreement: Documented signed opioid trtmnt agreemnt min once during opioid trtmnt Measure #408: Opioid Therapy Follow-up Evaluation: Patient had f/u eval minimum every 3 months during opioid therapy Measure #131: Pain Assessment & Follow-up: Pain positive & plan documented, Follow-up scheduled Measure #431: Unhealthy Alcohol Use Preventative Care & Scrn: Patient not identified as an unhealthy alcohol user PQRS Narrative: Smoking Status Former smoker Narcotic Agreement Date Signed 12/13/18 Blood Pressure 133/79 Pain Intensity [Left Lower 7 Back] Scale Used Numeric (1 - 10) Hx Alcohol Use (MH) No Home Medications: Ambulatory Orders Levalbuterol Hfa Inhaler [Xopenex Hfa Inhaler] 2 puff INHALATION QID PRN 07/24/16 Montelukast Sodium [Singulair] 10 mg PO HS 07/24/16 Omeprazole 20 mg PO DAILY 07/24/16 Ibandronate Sodium [Boniva] 150 mg PO QMONTH 10/19/16 Aclidinium [place] [Tudorza Pressair] 1 puff INHALATION BID 10/07/17 HYDROcodone/APAP 7.5-325MG [[place] 7.5-325] 1 tab PO Q12HR PRN 30 Days #60 tab 06/28/18 Ibuprofen [Motrin] 600 mg PO Q12HR PRN #60 tab 06/28/18 Levalbuterol Nebulized [Xopenex Nebulized] 1.25 mg INHALATION TID PRN 07/22/18 Ergocalciferol [Vitamin D2] 50,000 unit PO MONTELONGO 03/30/19 Aspirin/Acetaminophen/Caffeine [Excedrin Migraine Caplet] 1 each PO DIRECTED PRN 05/24/19 Magnesium Oxide 400 mg PO DIRECTED PRN 05/24/19 Controlled Substance Measures - Controlled Substance Measures Is patient prescribed a controlled substance at discharge?: Yes When asked, does pt state using other controlled substances?: No If prescribed controlled substance>3 days was MAPS reviewed?: Yes If Rx opioid, was Start Talking consent form obtained?: No
== END ==
LOC: PNWHC3 12:16
PROVIDERS: ATTEND Student in an Organized Health Care Education/Training Program
DX: M47.26 Other spondylosis with radiculopathy, lumbar region (principal); Z79.891 Long term (current) use of opiate analgesic; Z91.419 Personal history of unspecified adult abuse; Z87.891 Personal history of nicotine dependence; Z79.899 Other long term (current) drug therapy; Z79.1 Long term (current) use of non-steroidal anti-inflammatories (NSAID); Z79.82 Long term (current) use of aspirin
CPT/HCPCS: 99211

== ENCOUNTER 2019-06-12 09:49 | Day surgery (SDC) | payer MEDICARE, OTHER ==
[2019-06-06 09:17] VITALS: BMI 28.1
[~2019-06-12 09:49] MED LIST changes: -DEXAMETHASONE SOD PHOSPHATE 10 MG/ML 1 ML VIAL IV ONE; -HEPARIN SODIUM,PORCINE 5,000 UNIT/ML 1 ML VIAL SQ ONE; -LIDOCAINE 1% 20 ML VIAL (10MG/ML) FOR IV START INTRADERMA PRN; -MIDAZOLAM (PF) 2 MG/2 ML VIAL IV PRN; -ONDANSETRON 4 MG/2 ML VIAL IVP ONE; -ceFAZolin IN SWFI 2 GM/20 ML SYRINGE IVP ONE; -fentaNYL (PF) 50 MCG/ML 2 ML AMP IV PRN
[2019-06-12 10:28] VITALS: TEMP 97.4
[2019-06-12] MEDS ORDERED: LIDOCAINE 1% 20 ML VIAL (10MG/ML) FOR IV START SQ ONE (10:38)
--- NOTE | 2019-06-12 11:20 | P.PCN ---
Date of Procedure: 06/12/19 Procedure(s) Performed: Procedure= caudal epidural steroid injection under fluoroscopy guidance. Preoperative diagnosis=1- lumbar degenerative disc disease 2-lumbar radiculopathy Postoperative diagnosis= same Fluoroscopy was used for the procedure and fluoroscopic images were saved to the patient's chart Anesthesia= IV sedation with Versed and fentanyl , and local infiltration with lidocaine 1% 3 mL for skin and subcutaneous tissue infiltrations. Sedation time 11 minutes Description of the procedure= procedure risk and benefits discussed with the patient, including but not limited to risk of infection and bleeding and ALLERGIC reaction to the medication and no complete pain relief, paralysis discussed with the patient and the patient agreed with proceeding. The patient was taken to the operating room, placed in prone position, standard monitors applied, then after induction of anesthesia the lumbar and the caudal Area prepped with chlorhexidine , then under fluoroscopy guidance, local infiltration of the skin and subcutaneous tissue at the caudal hiatus area, then a 22-gauge 3.5" Quincke spinal needle advanced slowly under fluoroscopy and passed through the cauda hiatus and advanced to the epidural space upto the S3 level. Aspiration revealed no heme, no paresthesia, no cerebrospinal fluid, then Isovue 200 2mls was injected under live fluoroscopy that showed good spread in the epidural space, no intrathecal spread, then treatment solution consisting of lidocaine 1% 1 mL +5 mL of preservative-free normal saline +80 mg of depomedrol was mixed together , and injected epidurally after negative aspiration. Patient tolerated the procedure well without any complication and will follow up with up in the pain clinic in 4 weeks.
[2019-06-12] MEDS ORDERED: IV FLUID CONTINUATION 1,000 ML IV ONE (11:26)
[2019-06-12 11:32] VITALS: RESP 18
--- NOTE | 2019-06-12 11:36 | FL ---
EXAMINATION TYPE: FL guided pain mgmt statistic DATE OF EXAM: 06/12/2019 CLINICAL HISTORY: Low back and sacral pain. TECHNIQUE: Fluoroscopy. COMPARISON: None. FINDINGS: Fluoroscopic guidance was provided during pain relief procedure performed by Dr. Jauregui . A total of 6 seconds of fluoroscopic time was utilized during the procedure and two spot images are acq uired. Images acquired shows needle localization with injection at level of the sacrum. IMPRESSION: As Above.
[2019-06-12 11:49] VITALS: BP 127/78; PULSE 68
== END 2019-06-12 11:56 | disposition home or self-care (01) ==
LOC: ORPAIN 09:49
PROVIDERS: ATTEND Anesthesiology
DX: G89.29 Other chronic pain (principal); M51.16 Intervertebral disc disorders with radiculopathy, lumbar region; M47.26 Other spondylosis with radiculopathy, lumbar region; Z79.891 Long term (current) use of opiate analgesic; Z87.891 Personal history of nicotine dependence; Z79.83 Long term (current) use of bisphosphonates; Z79.82 Long term (current) use of aspirin; Z79.899 Other long term (current) drug therapy; Z88.2 Allergy status to sulfonamides; Z88.5 Allergy status to narcotic agent; Z88.8 Allergy status to other drugs, medicaments and biological substances
CPT/HCPCS: 62323; J1030; J2250; J3010; Q9966; 99152

== ENCOUNTER → 2019-07-24 | Outpatient (CLI) | payer MEDICARE, OTHER ==
[2019-07-24 12:04] VITALS: BP 133/87; PULSE 82; RESP 16
--- NOTE | 2019-08-09 15:30 | P.PAINPG ---
Subjective Progress Note Date: 07/24/19 This is a follow-up visit for this 54 years old female, with a chronic history of severe low back pain she is diagnosed with lumbar radiculopathy and lumbar spondylosis and sacroiliitis, previously would have done epidural steroid injection, and she continued to have severe low back pain with radiation to the posterior aspect of her lower extremity, she is able to ambulate, she denies any motor or sensory deficit she continue to use [place] 7.5/325 every 8 hours when necessary and Motrin 800 mg 3 times a day, she denies any side effect of the medication she denies any excessive drowsiness or sleepiness, she denies any suicidal ideation, and she reported the current medication and to control her pain and improve activity of daily livings Objective - Exam Physical Examinations : -Constitutiona : Cooperative , not in acute distress . -HEENT : nech : supple , no Lymphadenopathy , normal thyroid size . : eyes : no ptosis , no icterus, no photoph obia . - neurologic : Cranial nerve II to XII intact , no focal neurological deffecit . -psychatric : alert , oriented X 3 , appropriate affect , intact judgment and insight . -Lymphatic : no Lymphadenopathy . - musculoskeltal : Lumber spine moter stegnth lower extremities ,thigh and legs 5/5 Right side , 5/5 Left side deep tendon reflexes : normal Knee Jerk , normal ankle Jerk lumber facet Loading Test =positive Right , positive Left Range of motion of the lumbar spine Flexion 30 degrees, extension 10 degrees strait leg raising test = positive at 60 degree Fabere test= positive Right , and positive LT . tenderness over the Sacroiliac joint on the Right , and Left sides Assessment and Plan Plan: Assessment and plan= chronic low back pain secondary to lumbar degenerative disc disease , lumbar spondylosis with lumbar facet arthropathy . Sacroiliitis chronic and current use of high-risk medication (opioids) Patient denies any side effects of the current pain medication and the current treatment/medication helping the patient to do activity of daily living , Diagnoses, prognosis, treatment options, including but not limited to physical therapy, medication management, interventional therapies, and surgery, were discussed with the patient All the questions answered The narcotic consent was signed and patient agreed and understood the side effects and complications of opioid treatment. Patient signed the narcotic agreement, and was orally counseled, not to overuse, not to abuse, not to Divert , not tp sell pain medication, and to take it as prescribed only, Patient was counseled not to drive or operate heavy equipment while using narcotic medication, and advised not to use alcohol or any Illicit drugs while using the narcotis. understanding that lack of compliance with any of the above instructions, will likely to cause discharge from, the pain service, not to renew his narcotic prescriptions MAPS Reviwed and it was apropriate . Medication managements= patient will be given prescription refills for [place] 7.5/325 every 8 hours dispense 45 with one refill Motrin 800 mg 3 times a day dispense 90 with 1 refill Interventions= patient could benefit from lumbar epidural steroid injections under fluoroscopy guidance at L5-S1 , Time with Patient: Less than 30 PQRS Measure Charge Sheet Measure #130: Documentation of Current Meds in Medical Chart: Patient's medications documented in chart Measure #226: Tobacco Use: Screen & Cessation Intervention: Pt not a tobacco user Measure #111: Pneumonia Vaccination: Pneumococcal vaccine NOT administered or previously given Measure #47: Advance Care Plan: Advance care planning discussed & documented, pt chose/unable to give Measure #412: Opioid Treatment Agreement: Documented signed opioid trtmnt agreemnt min once during opioid trtmnt Measure #408: Opioid Therapy Follow-up Evaluation: Patient had f/u eval minimum every 3 months during opioid therapy Measure #317: Preventitive Care & Scrn High Bld Press & F/U: Normal blood pressure, f/u not required Measure #128: Body Mass Index (BMI) Screening & Follow-up: BMI documented ABOVE normal parameters - f/u documented Measure #131: Pain Assessment & Follow-up: Pain positive & plan documented, Follow-up scheduled Measure #431: Unhealthy Alcohol Use Preventative Care & Scrn: Patient not identified as an unhealthy alcohol user PQRS Narrative: Smoking Status Former smoker Narcotic Agreement Date Signed 12/13/18 Hx Alcohol Use (MH) No Home Medications: Ambulatory Orders Levalbuterol Hfa Inhaler [Xopenex Hfa Inhaler] 2 puff INHALATION QID PRN 07/24/16 Montelukast Sodium [Singulair] 10 mg PO HS 07/24/16 Omeprazole 20 mg PO DAILY 07/24/16 Ibandronate Sodium [Boniva] 150 mg PO QMONTH 10/19/16 Aclidinium [place] [Tudorza Pressair] 1 puff INHALATION BID 10/07/17 HYDROcodone/APAP 7.5-325MG [[place] 7.5-325] 1 tab PO Q12HR PRN 30 Days #60 tab 06/28/18 Levalbuterol Nebulized [Xopenex Nebulized] 1.25 mg INHALATION TID PRN 07/22/18 Ergocalciferol [Vitamin D2 (DRISDOL)] 50,000 unit PO WE 03/30/19 Aspirin/Acetaminophen/Caffeine [Excedrin Migraine Caplet] 1 each PO DIRECTED PRN 05/24/19 Magnesium Oxide 400 mg PO DAILY PRN 05/24/19 Ibuprofen [Motrin] 800 mg PO Q12HR PRN 07/19/19 Acetaminophen Tab [Tylenol Tab] 1,000 mg PO Q6HR PRN #30 tablet 08/04/19 Ibuprofen 800 mg PO Q8HR PRN #30 tablet 08/04/19 Controlled Substance Measures - Controlled Substance Measures Is patient prescribed a controlled substance at discharge?: Yes When asked, does pt state using other controlled substances?: No If prescribed controlled substance>3 days was MAPS reviewed?: Yes If Rx opioid, was Start Talking consent form obtained?: Yes If opioid is for acute pain is fill amount 7 days or less?: No Was information provided regarding opioid addiction?: Yes
== END | disposition home or self-care (01) ==
LOC: PNWHC3 11:43
PROVIDERS: ATTEND Specialist
DX: G89.29 Other chronic pain (principal); M51.36 Other intervertebral disc degeneration, lumbar region; M47.816 Spondylosis without myelopathy or radiculopathy, lumbar region; M46.96 Unspecified inflammatory spondylopathy, lumbar region; M46.1 Sacroiliitis, not elsewhere classified; Z87.891 Personal history of nicotine dependence; Z79.891 Long term (current) use of opiate analgesic; Z79.1 Long term (current) use of non-steroidal anti-inflammatories (NSAID); Z79.899 Other long term (current) drug therapy
CPT/HCPCS: 99211

== ENCOUNTER → 2019-08-01 | Day surgery (SDC) | payer MEDICARE, OTHER ==
[2019-07-28 13:15] VITALS: BMI 28.3
[~2019-08-01] MED LIST changes: +IOPAMIDOL M200 10 ML VIAL ONE; +IV FLUID CONTINUATION 1,000 ML IV ONE; +LIDOCAINE 1% 20 ML VIAL (10MG/ML) FOR IV START INTRADERMA ONE; +MIDAZOLAM 2 MG/2 ML VIAL ONE; +fentaNYL (PF) 50 MCG/ML 2 ML AMP ONE; +methylPREDNISolone ACETATE 40 MG/ML 1 ML VIAL ONE
[2019-08-01 10:33] VITALS: RESP 16; TEMP 97
--- NOTE | 2019-08-01 11:09 | P.PCN ---
Date of Procedure: 08/01/19 Procedure(s) Performed: PREOPERATIVE DIAGNOSIS: 1- Lumbar Degenerative Disc Diseases 2-Lumbar spondylosis with Facet arthropathy without myelopathy POSTOPERATIVE DIAGNOSIS: 1-Lumber Degenerative Disc Diseases 2-Lumbar spondylosis with Facet arthropathy without myelopathy PROCEDURE 1. Lumbar epidural steroid injection under fluoroscopic guidance at the L5-S1 level. (Fluoroscopy imaging was available in radiology department) 2. Lumbar epidurogram. ANESTHESIA: Local with 1% lidocaine 3 ml and , moderate sedation with intravenous Versed 2 mg ,and fentanyle 50 Mcg EBL: Minimal PROCEDURE INDICATION: The patient with low back pain and radiculitis symptoms unresponsive to conservative treatment. Fluoroscopy was used to optimize visualization of the needle placement and to maximize safety. PROCEDURE DESCRIPTION / TECHNIQUE: The patient was seen and identified in the preoperative area. Risks, benefits, complications including but not limited to infections ,bleeding ,allergic reaction to the medications ,nerve damage and not complete pain releife , and alternatives were discussed with the patient. The patient agreed to proceed with the procedure and signed the consent. IV was started, and vital signs were stable. Patient was taken to the OR and time out was completed. The patient was placed in the prone position on procedure table and a pillow was placed under the abdomen to reduce lumbar lordosis. The lumbosacral area was prepped and draped in the usual sterile fashion.ere closely monitored during the procedure. Conscious sedation was used during the procedure to decrease patients anxiety. Vital signs was monitered during the entire procedure. Using anterior-posterior fluoroscopy, the L5-S1 interlaminar space was identified and the skin over this site was marked and then infiltrated with 1% lidocaine subcutaneously. Subsequently, a 20-gauge Tuohy epidural needle was inserted and advanced toward the epidural space using the ``Loss of resistance technique and guided by AP and lateral fluoroscopy. The correct needle position in the epidural space was verified with the injection of 2 mL of the water soluble contrast dye Isovue 200 contrast and observing an excellent epidurogram with the epidural spread of the dye, after negative aspiration for blood and CSF and in the absence of paresthesias. Again after negative aspiration, a 6 ml mixture containing 80 mg of Depo-medrol , and 2 ml of preservative free Normal Saline, and 2 ml of preservative free lidocaine 1% solution was injected and a washout of epidurogram was seen. Needle was withdrawn intact, skin was cleansed, and bandages were applied. COMPLICATIONS: None DISPOSITION / PLANS: The patient was placed in a supine position and transferred to the recovery area in a stable condition for observation. There was no evidence of lower extremity motor or sensory deficit after the procedure. Patient was discharged from the recovery room after meeting discharge criteria. Home discharge instructions were given to the patient by the staff. The patient was reexamined prior to discharge. The patient will schedule a follow up in the clinic in 2-4 weeks.
--- NOTE | 2019-08-01 11:33 | FL ---
EXAMINATION TYPE: FL guided pain mgmt statistic DATE OF EXAM: 08/01/2019 CLINICAL HISTORY: Low back pain. TECHNIQUE: Fluoroscopy. COMPARISON: None. FINDINGS: Fluoroscopic guidance was provided during pain relief procedure performed by Dr. Giraldo . A total of 3 seconds of fluoroscopic time was utilized during the procedure and single spot fluoro scopic image is acquired. Single image acquired shows needle localization at L5 level with contrast injection. IMPRESSION: As Above.
[2019-08-01 11:36] VITALS: BP 111/75; PULSE 66
== END ==
LOC: ORPAIN 09:45
PROVIDERS: ATTEND Specialist
DX: M47.26 Other spondylosis with radiculopathy, lumbar region (principal); M51.16 Intervertebral disc disorders with radiculopathy, lumbar region; J45.909 Unspecified asthma, uncomplicated; Z88.2 Allergy status to sulfonamides; Z88.5 Allergy status to narcotic agent; Z88.8 Allergy status to other drugs, medicaments and biological substances; Z90.710 Acquired absence of both cervix and uterus
CPT/HCPCS: 62323; J2250; J1030; J3010; Q9966

== ENCOUNTER 2019-08-04 10:02 | Day surgery (SDC) | payer MEDICARE, OTHER ==
--- NOTE | 2019-07-24 13:00 | P.PAINPG ---
Subjective Progress Note Date: 07/24/19 This is a follow-up visit for this 54 years old female, with a chronic history of severe low back pain she is diagnosed with lumbar radiculopathy and lumbar spondylosis and sacroiliitis, previously would have done epidural steroid injection, and she continued to have severe low back pain with radiation to the posterior aspect of her lower extremity, she is able to ambulate, she denies any motor or sensory deficit she continue to use [place] 7.5/325 every 8 hours when necessary and Motrin 800 mg 3 times a day, she denies any side effect of the medication she denies any excessive drowsiness or sleepiness, she denies any suicidal ideation, and she reported the current medication and to control her pain and improve activity of daily livings Objective - Exam Physical Examinations : -Constitutiona : Cooperative , not in acute distress . -HEENT : nech : supple , no Lymphadenopathy , normal thyroid size . : eyes : no ptosis , no icterus, no photoph obia . - neurologic : Cranial nerve II to XII intact , no focal neurological deffecit . -psychatric : alert , oriented X 3 , appropriate affect , intact judgment and insight . -Lymphatic : no Lymphadenopathy . - musculoskeltal : Lumber spine moter stegnth lower extremities ,thigh and legs 5/5 Right side , 5/5 Left side deep tendon reflexes : normal Knee Jerk , normal ankle Jerk lumber facet Loading Test =positive Right , positive Left Range of motion of the lumbar spine Flexion 30 degrees, extension 10 degrees strait leg raising test = positive at 60 degree Fabere test= positive Right , and positive LT . tenderness over the Sacroiliac joint on the Right , and Left sides Assessment and Plan Plan: Assessment and plan= chronic low back pain secondary to lumbar degenerative disc disease , lumbar spondylosis with lumbar facet arthropathy . Sacroiliitis chronic and current use of high-risk medication (opioids) Patient denies any side effects of the current pain medication and the current treatment/medication helping the patient to do activity of daily living , Diagnoses, prognosis, treatment options, including but not limited to physical therapy, medication management, interventional therapies, and surgery, were discussed with the patient All the questions answered The narcotic consent was signed and patient agreed and understood the side effects and complications of opioid treatment. Patient signed the narcotic agreement, and was orally counseled, not to overuse, not to abuse, not to Divert , not tp sell pain medication, and to take it as prescribed only, Patient was counseled not to drive or operate heavy equipment while using narcotic medication, and advised not to use alcohol or any Illicit drugs while using the narcotis. understanding that lack of compliance with any of the above instructions, will likely to cause discharge from, the pain service, not to renew his narcotic prescriptions MAPS Reviwed and it was apropriate . Medication managements= patient will be given prescription refills for [place] 7.5/325 every 8 hours dispense 45 with one refill Motrin 800 mg 3 times a day dispense 90 with 1 refill Interventions= patient could benefit from lumbar epidural steroid injections under fluoroscopy guidance at L5-S1 , Time with Patient: Less than 30 PQRS Measure Charge Sheet Measure #130: Documentation of Current Meds in Medical Chart: Patient's medications documented in chart Measure #226: Tobacco Use: Screen & Cessation Intervention: Pt not a tobacco user Measure #111: Pneumonia Vaccination: Pneumococcal vaccine NOT administered or previously given Measure #47: Advance Care Plan: Advance care planning discussed & documented, pt chose/unable to give Measure #412: Opioid Treatment Agreement: Documented signed opioid trtmnt agreemnt min once during opioid trtmnt Measure #408: Opioid Therapy Follow-up Evaluation: Patient had f/u eval minimum every 3 months during opioid therapy Measure #317: Preventitive Care & Scrn High Bld Press & F/U: Normal blood pressure, f/u not required Measure #128: Body Mass Index (BMI) Screening & Follow-up: BMI documented ABOVE normal parameters - f/u documented Measure #131: Pain Assessment & Follow-up: Pain positive & plan documented, Follow-up scheduled Measure #431: Unhealthy Alcohol Use Preventative Care & Scrn: Patient not identified as an unhealthy alcohol user PQRS Narrative: Smoking Status Former smoker Narcotic Agreement Date Signed 12/13/18 Hx Alcohol Use (MH) No Home Medications: Ambulatory Orders Levalbuterol Hfa Inhaler [Xopenex Hfa Inhaler] 2 puff INHALATION QID PRN 07/24/16 Montelukast Sodium [Singulair] 10 mg PO HS 07/24/16 Omeprazole 20 mg PO DAILY 07/24/16 Ibandronate Sodium [Boniva] 150 mg PO QMONTH 10/19/16 Aclidinium [place] [Tudorza Pressair] 1 puff INHALATION BID 10/07/17 HYDROcodone/APAP 7.5-325MG [[place] 7.5-325] 1 tab PO Q12HR PRN 30 Days #60 tab 06/28/18 Levalbuterol Nebulized [Xopenex Nebulized] 1.25 mg INHALATION TID PRN 07/22/18 Ergocalciferol [Vitamin D2] 50,000 unit PO WE 03/30/19 Aspirin/Acetaminophen/Caffeine [Excedrin Migraine Caplet] 1 each PO DIRECTED PRN 05/24/19 Magnesium Oxide 400 mg PO DAILY PRN 05/24/19 Ibuprofen [Motrin] 800 mg PO Q12HR PRN 07/19/19 Controlled Substance Measures - Controlled Substance Measures Is patient prescribed a controlled substance at discharge?: Yes When asked, does pt state using other controlled substances?: No If prescribed controlled substance>3 days was MAPS reviewed?: Yes If Rx opioid, was Start Talking consent form obtained?: Yes If opioid is for acute pain is fill amount 7 days or less?: No Was information provided regarding opioid addiction?: Yes
[2019-07-28 13:20] VITALS: BMI 28.3
--- NOTE | 2019-08-03 19:33 | P.GSHP ---
History of Present Illness H&P Date: 08/04/19 CHIEF COMPLAINT: History of intra-abdominal adhesions HISTORY OF PRESENT ILLNESS: The patient is a 54-year-old female who presents with history of intra-abdominal adhesions from multiple prior surgeries including increasing abdominal pain. She now presents for diagnostic laparoscopy including lysis of adhesions. PAST MEDICAL HISTORY: Please see list. PAST SURGICAL HISTORY: Please see list. MEDICATIONS: Please see list. ALLERGIES: Please see list. SOCIAL HISTORY: No illicit drug use FAMILY HISTORY: No reports of Crohn disease or ulcerative colitis. REVIEW OF ORGAN SYSTEMS: CONSTITUTIONAL: No reports of fevers or chills. GI: Denies any blood in stools or constipation. PHYSICAL EXAM: VITAL SIGNS: Stable GENERAL: Well-developed pleasant and in no acute distress. HEENT: No scleral icterus. Extraocular movements grossly intact. Moist buccal mucosa. NECK: Supple without lymphadenopathy. CHEST: Unlabored respirations. Equal bilateral excursions. CARDIOVASCULAR: Regular rate and rhythm. Distal 2+ pulses. ABDOMEN: Soft, diffuse abdominal tenderness. No peritonitis. MUSCULOSKELETAL: No clubbing, cyanosis, or edema. ASSESSMENT: 1. Diffuse abdominal pain. 2. History of multiple abdominal surgeries. 3. Intra-abdominal adhesions. PLAN: 1. Robotic lysis of adhesions were described in detail including risk of injury to the intestine, need for further surgery, and open technique. 2. DVT prophylaxis. 3. Antibiotic prophylaxis. Past Medical History Past Medical History: Asthma, COPD, GERD/Reflux, Musculoskeletal Disorder, Osteoarthritis (OA) Additional Past Medical History / Comment(s): Pain: neck, lower back and left hip, hx sarcoidosis, hx anemia, occasional bladder incontinence, tinnitus, current hernia. 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", [facility] PROCEDURES, Hernia repair X3, leticia.bunionectomy Past Anesthesia/Blood Transfusion Reactions: No Reported Reaction Smoking Status: Former smoker - Past Family History Mother Family Medical History: No Reported History Father Family Medical History: Cancer Additional Family Medical History / Comment(s): Prostate Medications and Allergies Home Medications Medication Instructions Recorded Confirmed Type Levalbuterol Hfa Inhaler [Xopenex 2 puff INHALATION QID PRN 07/24/16 08/01/19 History Hfa Inhaler] Montelukast Sodium [Singulair] 10 mg PO HS 07/24/16 08/01/19 History Omeprazole 20 mg PO DAILY 07/24/16 08/01/19 History Ibandronate Sodium [Boniva] 150 mg PO QMONTH 10/19/16 08/01/19 History Aclidinium [place] [[place] 1 puff INHALATION BID 10/07/17 08/01/19 History Pressair] HYDROcodone/APAP 7.5-325MG [[place] 1 tab PO Q12HR PRN 30 Days #60 tab 06/28/18 08/01/19 Rx 7.5-325] Levalbuterol Nebulized [Xopenex 1.25 mg INHALATION TID PRN 07/22/18 08/01/19 History Nebulized] Ergocalciferol [Vitamin D2] 50,000 unit PO WE 03/30/19 08/01/19 History Aspirin/Acetaminophen/Caffeine 1 each PO DIRECTED PRN 05/24/19 08/01/19 History [Excedrin Migraine Caplet] Magnesium Oxide 400 mg PO DAILY PRN 05/24/19 08/01/19 History Ibuprofen [Motrin] 800 mg PO Q12HR PRN 07/19/19 08/01/19 History Allergies Allergy/AdvReac Type Severity Reaction Status Date / Time albuterol Allergy "makes me Verified 07/28/19 12:55 psychotic" Sulfa (Sulfonamide Allergy Rash/Hives Verified 07/28/19 12:55 Antibiotics)
[~2019-08-04 10:02] MED LIST changes: +ACETAMINOPHEN TAB 500 MG TAB PO STA; +DEXAMETHASONE SOD PHOSPHATE 10 MG/ML 1 ML VIAL IV ONE; +GABAPENTIN 300 MG CAP PO STA; +HYDROmorphone 0.5 MG/0.5 ML SYRINGE IVP PRN; -IOPAMIDOL M200 10 ML VIAL ONE; -IV FLUID CONTINUATION 1,000 ML IV ONE; -LIDOCAINE 1% 20 ML VIAL (10MG/ML) FOR IV START INTRADERMA ONE; +LIDOCAINE 1% 20 ML VIAL (10MG/ML) FOR IV START INTRADERMA PRN; -MIDAZOLAM 2 MG/2 ML VIAL ONE; +ONDANSETRON 4 MG/2 ML VIAL IVP ONE; -fentaNYL (PF) 50 MCG/ML 2 ML AMP ONE; -methylPREDNISolone ACETATE 40 MG/ML 1 ML VIAL ONE
[2019-08-04 10:44] VITALS: TEMP 98.1
[2019-08-04 10:59] LABS: HCT 42.5 % (34.0-46.0); HGB 14.5 gm/dL (11.4-16.0); MCH 30.4 pg (25.0-35.0); MCHC 34.1 g/dL (31.0-37.0); MCV 89.2 fL (80.0-100.0); Platelet Count 173 k/uL (150-450); RBC 4.77 m/uL (3.80-5.40); RDW 12.7 % (11.5-15.5); WBC 6.4 k/uL (3.8-10.6)
[2019-08-04] MEDS ORDERED: PROPOFOL 10 MG/ML 20 ML VIAL IV ONE ×2 (12:09)
[2019-08-04] MEDS ORDERED: MIDAZOLAM 2 MG/2 ML VIAL ONE (12:09)
[2019-08-04] MEDS ORDERED: ROCURONIUM BROMIDE 10 MG/ML 10 ML VIAL IV ONE (12:09)
[2019-08-04] MEDS ORDERED: fentaNYL (PF) 50 MCG/ML 2 ML AMP ONE (12:09)
[2019-08-04] MEDS ORDERED: GLYCOPYRROLATE 0.2 MG/ML 2 ML VIAL ONE (12:09)
[2019-08-04] MEDS ORDERED: LIDOCAINE 1% INJ 10MG/ML (20 ML MDV) ONE (12:09)
[2019-08-04] MEDS ORDERED: NEOSTIGMINE 1 MG/ML 10 ML VIAL ONE (12:09)
[2019-08-04] MEDS ORDERED: ceFAZolin 1,000 MG VIAL IVPB ONE (12:15)
[2019-08-04] MEDS ORDERED: BUPIVACAINE (PF) 0.25% 30 ML VIAL SQ ONE (12:47)
--- NOTE | 2019-08-04 13:30 | P.OP ---
Date of Procedure: 08/04/19 Description of Procedure: SURGEON: ARCELIA GARCIA MD PREOPERATIVE DIAGNOSES: 1. Peritoneal adhesions with diffuse abdominal pain 2. History of multiple abdominal surgeries 3. Chronic pain syndrome 4. Chronic obstructive pulmonary disease 5. Gastroesophageal reflux disease 6. Asthma 6. Sarcoidosis 7. Bladder incontinence POSTOPERATIVE DIAGNOSES: 1. Peritoneal adhesions with diffuse abdominal pain 2. History of multiple abdominal surgeries 3. Chronic pain syndrome 4. Chronic obstructive pulmonary disease 5. Gastroesophageal reflux disease 6. Asthma 6. Sarcoidosis 7. Bladder incontinence 8. Intra-abdominal peritoneal adhesions, severe OPERATION: 1. Robotic-assisted daVinci Xi laparoscopic extensive lysis of adhesions ANESTHESIA: General with local ESTIMATED BLOOD LOSS: 5 mL. SPECIMENS: None. COMPLICATIONS: None. Operative Findings: 1. Severe intra-abdominal adhesions along the midline INDICATIONS: The patient is a 54-year-old female who presents diffuse abdominal pain secondary to adhesions. Surgical intervention with laparoscopic versus robotic and open techniques were reviewed. Benefits and risks were described including bleeding, chronic abdominal pain, need for further surgery. Informed consent was obtained. DESCRIPTION OF PROCEDURE: The patient was brought into the operating room and laid in supine position. After general induction, the abdomen had been prepped and draped in standard sterile fashion. Ioban draping was also placed. Prior to incision, a timeout protocol was confirmed with surgical team regarding the patient's name including procedures to be performed. The robot was primed prior to the procedure. A field block using local anesthetis was placed along hernia site including the proposed port sites. Initial incision was made with an #11 blade along the left upper quadrant. A 0 degree 5 mm laparoscopic trocar entry was performed. Diagnostic laparoscopy demonstrated severe peritoneal adhesions along the midline. Peritoneal adhesions of omentum to the abdominal wall along the midline was identified. Two 8 mm trocars were placed along the left lateral abdominal wall upper quadrant. The 5-mm port was exchanged for an 8 mm robotic port. Placements of the ports were 8 cm from the target anatomy and 10 cm apart. The eduClipperi XI robot was previously primed, prepped and draped then docked along the left side of the patient. I then sat at the robot Da Malika XI console where working arms of the robot including Bovie cautery connected to robotic scissors, vessel sealer and graspers placed by the assistant director of security. Adhesions along the midline were addressed with vessel sealer. The adhesions were resected using Vessel sealer and blunt dissection. A final endoscopic imaging was obtained. All instruments and pneumoperitoneum were evacuated from the abdominal cavity. The da Malika XI robot was undocked from the patient. I re-scrubbed into the case for closure of incisions. The incisions were reapproximated using 4-0 Monocryl in an interrupted subcuticular fashion. Liquid glue was applied to the skin. At the end of the procedure, needle, sponge, and instrument count had been verified correct by surgical consultant. The patient was taken to the postanesthesia care unit in stable condition. Plan - Discharge Summary Discharge Rx Participant: No New Discharge Prescriptions: New Ibuprofen 800 mg PO Q8HR PRN #30 tablet PRN Reason: Pain Acetaminophen Tab [Tylenol Tab] 1,000 mg PO Q6HR PRN #30 tablet PRN Reason: Pain Continue Omeprazole 20 mg PO DAILY Montelukast Sodium [Singulair] 10 mg PO HS Levalbuterol Hfa Inhaler [Xopenex Hfa Inhaler] 2 puff INHALATION QID PRN PRN Reason: Shortness Of Breath Ibandronate Sodium [Boniva] 150 mg PO QMONTH Aclidinium [place] [Tudorza Pressair] 1 puff INHALATION BID HYDROcodone/APAP 7.5-325MG [[place] 7.5-325] 1 tab PO Q12HR PRN 30 Days #60 tab PRN Reason: Pain Levalbuterol Nebulized [Xopenex Nebulized] 1.25 mg INHALATION TID PRN PRN Reason: Shortness Of Breath Ergocalciferol [Vitamin D2 (DRISDOL)] 50,000 unit PO WE Magnesium Oxide 400 mg PO DAILY PRN PRN Reason: Leg cramps Aspirin/Acetaminophen/Caffeine [Excedrin Migraine Caplet] 1 each PO DIRECTED PRN PRN Reason: Migraine Headache Ibuprofen [Motrin] 800 mg PO Q12HR PRN PRN Reason: Pain Discharge Medication List Levalbuterol Hfa Inhaler [Xopenex Hfa Inhaler] 2 puff INHALATION QID PRN 07/24/16 [History] Montelukast Sodium [Singulair] 10 mg PO HS 07/24/16 [History] Omeprazole 20 mg PO DAILY 07/24/16 [History] Ibandronate Sodium [Boniva] 150 mg PO QMONTH 04/10/17 [History] Aclidinium [place] [Tudorza Pressair] 1 puff INHALATION BID 10/07/17 [History] HYDROcodone/APAP 7.5-325MG [[place] 7.5-325] 1 tab PO Q12HR PRN 30 Days #60 tab 06/28/18 [Rx] Levalbuterol Nebulized [Xopenex Nebulized] 1.25 mg INHALATION TID PRN 07/22/18 [History] Ergocalciferol [Vitamin D2 (DRISDOL)] 50,000 unit PO WE 03/30/19 [History] Aspirin/Acetaminophen/Caffeine [Excedrin Migraine Caplet] 1 each PO DIRECTED PRN 05/24/19 [History] Magnesium Oxide 400 mg PO DAILY PRN 05/24/19 [History] Ibuprofen [Motrin] 800 mg PO Q12HR PRN 07/19/19 [History] Acetaminophen Tab [Tylenol Tab] 1,000 mg PO Q6HR PRN #30 tablet 08/04/19 [Rx] Ibuprofen 800 mg PO Q8HR PRN #30 tablet 08/04/19 [Rx] Follow up Appointment(s)/Referral(s): Arcelia Garcia MD [STAFF PHYSICIAN] - 08/08/19 Patient Instructions/Handouts: Lysis of Abdominal Adhesions (IP) Activity/Diet/Wound Care/Special Instructions: No lifting over 10 pounds in 2 weeks until Aug 18. November shower. No bath tub soaks for two weeks until Aug 18 Diet as tolerated. No driving while on narcotics. Use Tylenol and ibuprofen or Aleve scheduled for the next 24-48 hours for best pain relief. Use ice along incisions for the today to prevent swelling. Discharge Disposition: HOME SELF-CARE
[2019-08-04 13:32] VITALS: RESP 16
[2019-08-04 15:15] VITALS: BP 117/66; PULSE 80
== END 2019-08-04 15:20 | disposition home or self-care (01) ==
LOC: OR 10:02
PROVIDERS: ATTEND Surgery Plastic and Reconstructive Surgery
DX: K66.0 Peritoneal adhesions (postprocedural) (postinfection) (principal); J44.9 Chronic obstructive pulmonary disease, unspecified; K21.9 Gastro-esophageal reflux disease without esophagitis; M19.90 Unspecified osteoarthritis, unspecified site; G89.4 Chronic pain syndrome; D86.9 Sarcoidosis, unspecified; R32 Unspecified urinary incontinence; M46.1 Sacroiliitis, not elsewhere classified; M47.26 Other spondylosis with radiculopathy, lumbar region; M51.16 Intervertebral disc disorders with radiculopathy, lumbar region; Z86.14 Personal history of Methicillin resistant Staphylococcus aureus infection; Z90.710 Acquired absence of both cervix and uterus; Z90.49 Acquired absence of other specified parts of digestive tract; Z98.890 Other specified postprocedural states; Z87.891 Personal history of nicotine dependence; Z79.899 Other long term (current) drug therapy; Z88.2 Allergy status to sulfonamides; Z88.8 Allergy status to other drugs, medicaments and biological substances; Z80.42 Family history of malignant neoplasm of prostate; Z98.51 Tubal ligation status
CPT/HCPCS: 85027; 44180; J2250; J1100; J2710; J2405; J0690; J2001; J3010; J2704

== ENCOUNTER 2019-08-27 13:52 | Inpatient (IN) | payer MEDICARE, OTHER ==
[2019-08-27] MEDS ORDERED: NALOXONE 0.4 MG/ML 1 ML VIAL IV PRN (16:47)
[2019-08-27] MEDS ORDERED: ACETAMINOPHEN TAB 500 MG TAB PO PRN (16:49)
[2019-08-27] MEDS ORDERED: TEMAZEPAM 15 MG CAP PO PRN (16:49)
[2019-08-27] MEDS ORDERED: HYDROcodone/APAP 5-325MG 1 EACH TAB PO PRN (16:49)
[2019-08-27] MEDS ORDERED: LEVOFLOXACIN 500MG-D5W PMX 500 MG in DEXTROSE/WATER 1 100ML.BAG IVPB SCH (17:00)
[2019-08-27] MEDS: HYDROmorphone 0.5 MG/0.5 ML SYRINGE IVP PRN ×2 (17:00→21:17)
[2019-08-27] MEDS: SODIUM CHLORIDE 0.9% 1,000 ML IV SCH (17:20)
--- NOTE | 2019-08-27 17:38 | XR ---
EXAMINATION TYPE: XR chest 1V portable DATE OF EXAM: 08/27/2019 COMPARISON: 07/25/2018 HISTORY: Chest tube placement TECHNIQUE: Single frontal view of the chest is obtained. FINDINGS: There is irregular mass in the left upper lobe. There is a chest tube seen on the right wi th extensive subcutaneous emphysema. There is lucency along the right medial margin the lung which ma y represent either pneumomediastinum or a small component of pneumothorax. Case emphysema in the righ t. Arthropathy of the shoulders. Heart size normal. IMPRESSION: 1. Right-sided chest tube with either small less than 510% medial pneumothorax or possibly pneumomedi astinum. Extensive subcutaneous emphysema. 2. Irregular mass density left upper lobe measures 2.5 cm. Correlate for history of neoplasm. Recomme nd follow-up CT chest.
[2019-08-27 17:46] LABS: Basophils % (A) 0 %; Eosinophils % (A) 0 %; HCT 42.2 % (34.0-46.0); HGB 14.2 gm/dL (11.4-16.0); Lymphocytes # (A) 0.2 k/uL (1.0-4.8); Lymphocytes % (A) 1 %; MCH 30.2 pg (25.0-35.0); MCHC 33.6 g/dL (31.0-37.0); MCV 89.7 fL (80.0-100.0); Mean Platelet Volume 8.1; Monocytes # (A) 0.1 k/uL (0-1.0); Monocytes % (A) 1 %; Neutrophils # (A) 12.2 k/uL (1.3-7.7); Neutrophils % (A) 97 %; Platelet Count 166 k/uL (150-450); RBC 4.71 m/uL (3.80-5.40); RDW 12.8 % (11.5-15.5); WBC 12.5 k/uL (3.8-10.6)
[2019-08-27 17:56] LABS: ALT 22 U/L (4-34); AST 38 U/L (14-36); African American GFR (CKD) >90 (>60 ml/min/1.73 sqM); Albumin 4.9 g/dL (3.5-5.0); Alkaline Phosphatase 135 U/L (38-126); Anion Gap 8 mmol/L; Blood Urea Nitrogen 17 mg/dL (7-17); Calcium 8.9 mg/dL (8.4-10.2); Carbon Dioxide 27 mmol/L (22-30); Chloride 103 mmol/L (98-107); Glucose 142 mg/dL (74-99); Magnesium 2.3 mg/dL (1.6-2.3); Non-African American GFR(CKD) >90 (>60 ml/min/1.73 sqM); Potassium 4.5 mmol/L (3.5-5.1); Sodium 138 mmol/L (137-145); Total Bilirubin 0.5 mg/dL (0.2-1.3); Total Protein 8.3 g/dL (6.3-8.2)
--- NOTE | 2019-08-27 19:25 | HP ---
HISTORY AND PHYSICAL DATE OF SERVICE: 08/27/2019 CHIEF COMPLAINT: Pneumothorax on the right and right-sided chest pain. HISTORY OF PRESENT ILLNESS: This 54-year-old woman with a past medical history of multiple medical problems, asthma, COPD, GERD, DJD, history of appendectomy, history of hernia repair, history of hysterectomy, being followed by primary physician, Dr. 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 The patient usually gets charley horses, but today the patient had significant pain and some shortness of breath on the right side of the chest. Patient went to [facility]. Chest x-ray showed extensive chronic fibrotic interstitial changes with bullous disease in the right upper lobe and as well as significant flaps of the lung about 50%, 9 cm. Patient had chest tube drainage and the patient subsequently referred to [facility] for further evaluation and treatment. There is no history of fever, rigors or chills. No history of headache, loss of consciousness or seizures. No history of chest pain or palpitations at this time. PAST MEDICAL HISTORY: Asthma, COPD, GERD, DJD, history of appendectomy, hernia repair. MEDICATIONS: Prior to admission, home medications are: 1. Omeprazole 20 mg p.o. daily. 2. Singulair 10 mg q.h.s. 3. Magnesium oxide 400 mg daily p.r.n. 4. Xopenex 1.25 t.i.d. p.r.n. 5. Xopenex HFA 1 2 puffs q.i.d. p.r.n. 6. Motrin 800 mg p.o. b.i.d. 7. Ibuprofen 800 mg q.8h. 8. Boniva 150 mg Q monthly. 9. [place] 7.5 b.i.d. p.r.n. 10.Drisdol 93152 p.o. Wednesday. 11.Excedrin 1 p.r.n. 12.Tudorza puff b.i.d. 13.Tylenol 1000 mg q.6h p.r.n. ALLERGIES: ALBUTEROL, SULFA. FAMILY HISTORY: History of prostate disease in the family. No history of stroke or heart attack. SOCIAL HISTORY: Previous history of smoking. No history of current smoking. Occasional alcohol intake. REVIEW OF SYSTEMS: ENT: No diminished vision. No diminished hearing. CARDIOVASCULAR system as mentioned. RESPIRATORY: As mentioned earlier. GI no nausea or vomiting. no dysuria. NERVOUS SYSTEM: No numbness or weakness. ALLERGY/IMMUNOLOGY: No asthma or hayfever. HEMATOLOGY/ONCOLOGY: No history of anemia. ENDOCRINE: No history of diabetes or hypothyroidism. CONSTITUTIONAL: As mentioned earlier. DERMATOLOGY: Negative. RHEUMATOLOGY: As mentioned earlier. PSYCHIATRIC: As mentioned earlier. PHYSICAL EXAMINATION: Patient is alert, oriented times three. Pulse is 98. Blood pressure 120/80, respirations 20. Temperature 97.4, pulse ox 98% on room air. HEENT: Conjunctivae normal. Oral mucosa moist. NECK is no jugular venous distention. No carotid bruit. No lymph node enlargement. Cardiovascular system: S1, S2. No S3, no S4. RESPIRATIONS: Breath sounds diminished in the bases. A few scattered rhonchi and crackles. Breath sounds are diminished on the right side, chest tube drainage present. ABDOMEN: Soft, nontender. No mass palpable. LEGS: No edema. No swelling. NERVOUS SYSTEM: Higher functions as mentioned earlier. Moves all 4 limbs. No focal motor or sensory deficits. LYMPHATICS: No lymph nodes palpable in the neck, axillae or groin. SKIN: No ulcer, rash or bleeding. JOINTS: No active deforming arthropathy. LABS: Not available. ASSESSMENT: 1. Acute right pneumothorax status post chest tube drainage with severe right-sided chest pain. 2. History of asthma/chronic obstructive pulmonary disease. 3. Gastroesophageal reflux disease. 4. Degenerative joint disease. 5. History of sarcoidosis. 6. History of interstitial shadows in the x-ray and history of bullous disease. 7. History of occasional bladder disease. 8. History of hernia. 9. History of MRSA. 10.History of appendectomy. 11.Remote history of nicotine dependence. RECOMMENDATIONS AND DISCUSSION: In this 54-year-old woman who presented with multiple complex medical issues, at this time, I recommend to continue the current medications, management and symptomatic treatment. Chest tube has been inserted. I would recommend pulmonary consultation. We will optimize the bronchodilator treatment. Resume the home medications once they are confirmed. Otherwise, I would also recommend empiric antibiotics. The overall prognosis guarded because of multiple complex medical issues. Further recommendations to follow. A copy of this dictation being forwarded to Dr. Garcia who is the primary care physician. See orders for details. All charts reviewed. MMODL / IJN: [id number] /
[2019-08-27] MEDS: BUDESONIDE 1 MG/2 ML NEBU INHALATION SCH (21:36)
[2019-08-27] MEDS: HEPARIN SODIUM,PORCINE 5,000 UNIT/ML 1 ML VIAL SQ SCH (22:01)
[2019-08-28] MEDS: HYDROmorphone 0.5 MG/0.5 ML SYRINGE IVP PRN ×6 (00:31→21:42)
[2019-08-28] MEDS: ALPRAZolam 0.25 MG TAB PO PRN (04:06)
[2019-08-28] MEDS: BUDESONIDE 1 MG/2 ML NEBU INHALATION SCH (07:13)
[2019-08-28] MEDS: PANTOPRAZOLE 40 MG TABLET PO SCH (07:56)
[2019-08-28] MEDS: MULTIVITAMINS, THERA 1 EACH TAB PO SCH (07:56)
[2019-08-28] MEDS: HEPARIN SODIUM,PORCINE 5,000 UNIT/ML 1 ML VIAL SQ SCH ×2 (07:56→21:39)
[2019-08-28 08:25] LABS: Basophils % (A) 0 %; Eosinophils % (A) 0 %; HGB 12.1 gm/dL (11.4-16.0); Lymphocytes # (A) 0.5 k/uL (1.0-4.8); Lymphocytes % (A) 5 %; MCH 30.3 pg (25.0-35.0); MCHC 33.5 g/dL (31.0-37.0); MCV 90.5 fL (80.0-100.0); Mean Platelet Volume 8.4; Monocytes # (A) 0.8 k/uL (0-1.0); Monocytes % (A) 7 %; Neutrophils # (A) 9.6 k/uL (1.3-7.7); Neutrophils % (A) 87 %; Platelet Count 209 k/uL (150-450); RBC 3.98 m/uL (3.80-5.40); WBC 11.1 k/uL (3.8-10.6)
[2019-08-28 08:26] LABS: African American GFR (CKD) >90 (>60 ml/min/1.73 sqM); Anion Gap 6 mmol/L; Blood Urea Nitrogen 26 mg/dL (7-17); Calcium 8.9 mg/dL (8.4-10.2); Carbon Dioxide 27 mmol/L (22-30); Chloride 100 mmol/L (98-107); Glucose 136 mg/dL (74-99); Non-African American GFR(CKD) 86 (>60 ml/min/1.73 sqM); Potassium 4.8 mmol/L (3.5-5.1); Sodium 133 mmol/L (137-145)
[2019-08-28 11:55] LABS: Appearance,Urine Clear (Clear); Color,Urine Yellow
[2019-08-28 11:58] LABS: Bilirubin,Urine Negative (Negative); Blood,Urine Negative (Negative); Glucose,Urine (UA) Negative (Negative); Ketones,Urine Negative (Negative); Leukocyte Esterase,Urine Negative (Negative); Nitrite,Urine Negative (Negative); Protein,Urine Negative (Negative); Urobilinogen,Urine <2.0 mg/dL (<2.0)
[2019-08-28 11:59] LABS: Amphetamine Screen,Urine Not Detected (NotDetected); Barbiturate Screen,Urine Not Detected (NotDetected); Benzodiazepines Screen,Urine Not Detected (NotDetected); Cocaine Screen,Urine Detected (NotDetected); Methadone Screen, Urine Not Detected (NotDetected); Opiate Screen,Urine Detected (NotDetected); Oxycodone Screen, Urine Not Detected (NotDetected); Phencyclidine Screen,Urine Not Detected (NotDetected); Tricyclic Antidepressant,Urine Not Detected (NotDetected); Urn Cannabinoid Scrn Not Detected (NotDetected)
[2019-08-28] MEDS ORDERED: HYDROmorphone 1 MG/ML 1 ML SYRINGE IVP PRN (12:45)
[2019-08-28] MEDS ORDERED: LEVALBUTEROL NEBULIZED 1.25 MG INHALATION PRN (12:46)
[2019-08-28] MEDS ORDERED: NON FORMULARY DRUG (Omeprazole [Omeprazole] 20 MG) PO SCH (13:00)
[2019-08-28] MEDS ORDERED: LIDOCAINE 1% INJ 10MG/ML (20 ML MDV) SQ ONE (13:45)
[2019-08-28] MEDS: HYDROcodone/APAP 7.5-325MG 1 EACH TAB PO PRN ×2 (14:37→23:22)
--- NOTE | 2019-08-28 14:41 | XR ---
EXAMINATION TYPE: XR chest 1V portable DATE OF EXAM: 08/28/2019 Comparison: 08/28/2019 Clinical History: 54-year-old female Thoravent placement Findings: Right-sided tormented in place. Improved aeration of the right lung. Some residual pneumothorax is s uggested measuring up to 1.0 cm along the lateral aspect of the right upper lung (versus 2.6 cm, prev iously) and between 1.0 and 3.0 cm at the right apex. Decreased from up to 4.5 cm, previously. Right- sided chest tube is also present. Diffuse interstitial densities persist. Heart normal size. Subcutan eous emphysema along the right chest wall and at the base of the neck on the right. Impression: 1. Right-sided Thoravent and chest tube in place. Subcutaneous emphysema along the right hemithorax l imits visualization of the underlying pneumothorax. 2. The pneumothorax appears to be decreasing in size measuring up to 3.0 cm versus 4.5 cm, previously .
--- NOTE | 2019-08-28 15:55 | P.GSCN ---
History of Present Illness Consult date: 08/28/19 Reason for Consult: Spontaneous right-sided pneumothorax. Requesting physician: Dahlia Soler History of present illness: This is a 54-year-old female patient who follows with Dr. Jez Garcia on an outpatient basis. She has a past medical history significant for sarcoidosis, COPD, remote history of nicotine dependence quit 3 years ago, GERD, degenerative joint disease, history of hiatal hernia status post surgical repair, and history of MRSA. The patient reports yesterday her pipes at her house froze and she was trying to get buckets of water to feed her animals. While lifting the buckets of water she developed some acute shortness of breath and pain just below her right shoulder blade which felt like a Ravinder horse. Subsequently, due to her shortness of breath and pain she presented to the emergency department at [facility] where a chest x-ray was completed and showed extensive chronic fibrotic interstitial changes with bullous disease in the right upper lobe, and a 50% right pneumothorax. Due to the findings of the right sided pneumothorax 8 right pleural thoracostomy tube was placed and she was transferred to [facility] for further evaluation and treatment. She denies any recent trauma, chills, fever, headache, or palpitations. On presentation to the emergency department here at [facility] a repeat chest x-ray was completed which showed a right sided chest tube with a small less than 5% to 10% medial pneumothorax with extensive subcutaneous emphysema, an irregular mass density to her left upper lobe measuring 2.5 cm, and kinking of the right pleural chest tube. Upon examination at her bedside the right pleural chest tube remains in place to low continuous wall suction -20 cm H2O, a continuous air leak is present and is draining thin scant serosanguineous drainage. Due to her presenting symptoms and spontaneous right pneumothorax a consult was placed to Dr. Jaquelin Ernandez from cardiothoracic surgery for further evaluation and treatment recommendations. Review of Systems A 14 point review of systems was completed and was negative except as mentioned in the HPI. Past Medical History Past Medical History: Asthma, COPD, GERD/Reflux, Musculoskeletal Disorder, Oste oarthritis (OA) Additional Past Medical History / Comment(s): Pain: neck, lower back and left hip, hx sarcoidosis, hx anemia, occasional bladder incontinence, tinnitus, current hernia. History of Any Multi-Drug Resistant Organisms: MRSA Year Discovered:: 2004 MDRO Source:: LT SHOULDER Past Surgical History: Appendectomy, Hernia Repair, Hysterectomy Additional Past Surgical History / Comment(s): "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", [facility] PROCEDURES, Hernia repair X3, leticia.bunionectomy Past Anesthesia/Blood Transfusion Reactions: No Reported Reaction Past Psychological History: No Psychological Hx Reported Smoking Status: Former smoker Past Alcohol Use History: Occasional Additional Past Alcohol Use History / Comment(s): STARTED SMOKING AT AGE 10,QUIT ON AND OFF LAST QUIT AUG 2016, SMOKED 1/2PPD. Past Drug Use History: None Reported - Past Family History Mother Family Medical History: No Reported History Father Family Medical History: Cancer Additional Family Medical History / Comment(s): Prostate Medications and Allergies Home Medications Medication Instructions Recorded Confirmed Type Levalbuterol Hfa Inhaler [Xopenex 2 puff INHALATION RT-QID PRN 07/24/16 08/27/19 History Hfa Inhaler] Montelukast Sodium [Singulair] 10 mg PO HS 07/24/16 08/27/19 History Omeprazole 20 mg PO DAILY 07/24/16 08/27/19 History Ibandronate Sodium [Boniva] 150 mg PO QMONTH 10/19/16 08/27/19 History HYDROcodone/APAP 7.5-325MG [Serena 1 tab PO Q12HR PRN 30 Days #60 tab 06/28/18 08/27/19 Rx 7.5-325] Levalbuterol Nebulized [Xopenex 1.25 mg INHALATION RT-TID PRN 07/22/18 08/27/19 History Nebulized] Ergocalciferol [Vitamin D2 50,000 unit PO WE 03/30/19 08/27/19 History (DRISDOL)] Aspirin/Acetaminophen/Caffeine 1 tab PO Q12H PRN 05/24/19 08/27/19 History [Excedrin Migraine Caplet] Ibuprofen [Motrin] 800 mg PO Q12HR PRN 07/19/19 08/27/19 History Budesonide/Formoterol Fumarate 2 puff INHALATION RT-BID 08/27/19 08/27/19 History [Symbicort 160-4.5 Mcg Inhaler] Allergies Allergy/AdvReac Type Severity Reaction Status Date / Time albuterol Allergy "makes me Verified 08/27/19 16:54 psychotic" Sulfa (Sulfonamide Allergy Rash/Hives Verified 08/27/19 16:54 Antibiotics) Surgical - Exam Vital Signs Temp Pulse Resp BP Pulse Ox 98 F 89 15 140/84 100 08/27/19 16:43 08/27/19 16:43 08/27/19 16:43 08/27/19 16:43 08/27/19 16:43 - General well developed, well nourished, no distress, moderate pain (To her right sided chest tube insertion site.), obese - Eyes PERRL, normal ocular movement - ENT normal pinna, normal nares, normal mucosa, no hearing loss, no congestion, poor care home - Neck Neck is supple, no lymphadenopathy. no masses, no bruits, trachea midline, no venous distension - Respiratory Lungs sounds essentially clear throughout. Respirations are symmetrical and nonlabored. No wheezes, rhonchi or crackles present. Right pleural chest tube in place to low continuous wall suction -20 cm H2O. Continuous air leak is present. Scant thin serosanguineous drainage. Oxygen saturation is 94% on 2 L nasal cannula. Subcutaneous emphysema present to her right chest wall. - Cardiovascular Regular rhythm and rate. S1 and S2 present, negative for S3, gallop or murmur. No edema present. - Abdomen Abdomen is soft, nontender and nondistended. Active bowel sounds present in all 4 abdominal quadrants. No guarding or rigidity. No organomegaly appreciated. - Genitourinary Deferred. - Rectum Deferred. - Integumentary no rash, no growths, no abnormal pigmentation - Neurologic normal coordination, normal sensation - Musculoskeletal normal gait, normal posture - Psychiatric oriented to time, oriented to person, oriented to place, speech is normal, memory intact Results - Labs 08/28/19 07:53 08/28/19 07:53 Abnormal Lab Results - Last 24 Hours (Table) 08/27/19 08/27/19 08/28/19 Range/Units 17:26 17:26 07:53 WBC 12.5 H 11.1 H (3.8-10.6) k/uL Neutrophils # 12.2 H 9.6 H (1.3-7.7) k/uL Lymphocytes # 0.2 L 0.5 L (1.0-4.8) k/uL Sodium (137-145) mmol/L BUN (7-17) mg/dL Glucose 142 H (74-99) mg/dL AST 38 H (14-36) U/L Alkaline Phosphatase 135 H (38-126) U/L Total Protein 8.3 H (6.3-8.2) g/dL Urine Opiates Screen (NotDetected) Urine Cocaine Screen (NotDetected) 08/28/19 08/28/19 Range/Units 07:53 11:11 WBC (3.8-10.6) k/uL Neutrophils # (1.3-7.7) k/uL Lymphocytes # (1.0-4.8) k/uL Sodium 133 L (137-145) mmol/L BUN 26 H (7-17) mg/dL Glucose 136 H (74-99) mg/dL AST (14-36) U/L Alkaline Phosphatase (38-126) U/L Total Protein (6.3-8.2) g/dL Urine Opiates Screen Detected H (NotDetected) Urine Cocaine Screen Detected H (NotDetected) Diabetes panel 08/27/19 08/28/19 Range/Units 17:26 07:53 Sodium 138 133 L (137-145) mmol/L Potassium 4.5 4.8 (3.5-5.1) mmol/L Chloride 103 100 (98-107) mmol/L Carbon Dioxide 27 27 (22-30) mmol/L BUN 17 26 H (7-17) mg/dL Creatinine 0.63 0.78 (0.52-1.04) mg/dL Glucose 142 H 136 H (74-99) mg/dL Calcium 8.9 8.9 (8.4-10.2) mg/dL AST 38 H (14-36) U/L ALT 22 (4-34) U/L Alkaline Phosphatase 135 H (38-126) U/L Total Protein 8.3 H (6.3-8.2) g/dL Albumin 4.9 (3.5-5.0) g/dL Calcium panel 08/27/19 08/28/19 Range/Units 17:26 07:53 Calcium 8.9 8.9 (8.4-10.2) mg/dL Albumin 4.9 (3.5-5.0) g/dL Pituitary panel 08/27/19 08/28/19 Range/Units 17:26 07:53 Sodium 138 133 L (137-145) mmol/L Potassium 4.5 4.8 (3.5-5.1) mmol/L Chloride 103 100 (98-107) mmol/L Carbon Dioxide 27 27 (22-30) mmol/L BUN 17 26 H (7-17) mg/dL Creatinine 0.63 0.78 (0.52-1.04) mg/dL Glucose 142 H 136 H (74-99) mg/dL Calcium 8.9 8.9 (8.4-10.2) mg/dL Adrenal panel 08/27/19 08/28/19 Range/Units 17:26 07:53 Sodium 138 133 L (137-145) mmol/L Potassium 4.5 4.8 (3.5-5.1) mmol/L Chloride 103 100 (98-107) mmol/L Carbon Dioxide 27 27 (22-30) mmol/L BUN 17 26 H (7-17) mg/dL Creatinine 0.63 0.78 (0.52-1.04) mg/dL Glucose 142 H 136 H (74-99) mg/dL Calcium 8.9 8.9 (8.4-10.2) mg/dL Total Bilirubin 0.5 (0.2-1.3) mg/dL AST 38 H (14-36) U/L ALT 22 (4-34) U/L Alkaline Phosphatase 135 H (38-126) U/L Total Protein 8.3 H (6.3-8.2) g/dL Albumin 4.9 (3.5-5.0) g/dL - Imaging Chest x-ray: report reviewed, image reviewed Assessment and Plan Assessment: 1. Acute spontaneous right pneumothorax, status post right thoracostomy tube placement 2. History of sarcoidosis 3. History of COPD, with bolus disease 4. History of asthma 5. History of hiatal hernia status post hiatal hernia repair 6. Remote history of nicotine dependence quit smoking 3 years ago 7. History of MRSA to her left shoulder Plan: The patient was seen and examined at her bedside on the fifth floor medical surgical unit. Her chart and diagnostics were reviewed and are case was discussed in detail with Dr. Jaquelin Ernandez from cardiothoracic surgery. We agree with Dr. Pretty from pulmonary medicine to remove her right thoracostomy tube in place a right anterior chest Thoravent as her right chest tube is kinked on the x-ray. No surgical intervention is required at this time, we will keep her right Thoravent chest tube to low continuous wall suction -20 cm H2O and continue to monitor for airleak resolution. An incentive spirometry has been ordered and encouraged the patient to use the incentive spirometry every hour while awake. Encouraged continued smoking cessation. Medical management and other comorbidities per primary care service. We will continue to monitor and follow her daily chest x-rays. Ketorolac 15 mg IV every 6 hours added for pain management. Thank you Dr. Soler for this consult and we will look forward to following this patient during their hospital course. Time with Patient: Greater than 30
[2019-08-28] MEDS: LEVOFLOXACIN 500 MG TAB PO SCH (16:59)
[2019-08-28] MEDS: KETOROLAC 30 MG/ML 1 ML VIAL IVP SCH ×2 (17:00→23:19)
[2019-08-28] MEDS: SODIUM CHLORIDE 0.9% 1,000 ML IV SCH (17:54)
--- NOTE | 2019-08-28 19:22 | XR ---
EXAMINATION TYPE: XR chest 1V DATE OF EXAM: 08/28/2019 COMPARISON: Earlier today HISTORY: 54-year-old female Thoravent adjustment, follow-up pneumothorax TECHNIQUE: Single frontal view of the chest is obtained. FINDINGS: Redemonstrated subcutaneous emphysema along the right hemithorax with Thoravent in place. Its positio n has been adjusted. Overlying subcutaneous air limits identification of a subtle residual pneumothorax. There has been im proved aeration in the interval. Heart appears midline. Diffuse interstitial prominence persists. IMPRESSION: 1. Interval adjustment of the right-sided orbit. Improved inflation of the right lung. The subcutaneo us emphysema makes it difficult to identify any subtle residual pneumothorax. 2. Mild diffuse interstitial changes persist, possible mild pulmonary vascular congestion.
--- NOTE | 2019-08-28 19:24 | XR ---
EXAMINATION TYPE: XR chest 1V DATE OF EXAM: 08/28/2019 COMPARISON: Earlier today HISTORY: 54-year-old female Thoravent adjustment TECHNIQUE: Single frontal view of the chest is obtained. FINDINGS: Right-sided Thoravent is in place. Right-sided chest tube removed in the interval. Patient's right-si ded pneumothorax is moderate in size, having enlarged in the interval. There is some slight shift of the heart towards the left. Pneumothorax measures up to 4.5 cm versus 3.0 cm, previously. IMPRESSION: Enlarging, now moderate-sized pneumothorax with concern for developing tension pneumothorax. Pneumoth orax measures 4.5 cm versus 3.0 cm, previously. Interval removal of right-sided chest tube.
--- NOTE | 2019-08-28 20:23 | PN ---
PROGRESS NOTE DATE OF SERVICE: 08/28/2019 This 54-year-old woman was admitted with acute right spontaneous pneumothorax. Chest tube drainage was kinked and cardiothoracic surgery saw the patient and a Thora-Vent was inserted to the chest wall, now draining properly. Repeat chest x-ray was done. Patient is being closely monitored at this time. Otherwise, no chest pain. No palpitations. Multiple consultants are following the patient closely. EXAM: Alert and oriented x3. Pulse 85, blood pressure 124/72, respiration 17, temperature 98.2, pulse ox 94% on room air. HEENT: Conjunctivae normal. Oral mucosa moist. NECK: No jugular venous distention. No lymph node enlargement. CARDIOVASCULAR: S1, S2. RESPIRATORY: Diminished breath sounds at the bases. A few scattered rhonchi and crackles. Breath sounds are diminished on the right side. ABDOMEN: Soft, nontender. LEGS: No edema, no swelling. NERVOUS SYSTEM: No focal deficits. LABS: WBC 7.2, hemoglobin 12.1, sodium 133. Drug screen is positive for cocaine and opiates. ASSESSMENT: 1. Acute right spontaneous pneumothorax status post chest tube drainage and as well as Thora-Vent. 2. Severe right-sided chest pain. 3. History of asthma, chronic obstructive pulmonary disease. 4. History of gastroesophageal reflux disease. 5. History of degenerative joint disease. 6. History of sarcoidosis. 7. History of interstitial shadow on the x-rays and history of bullous disease. 8. History of hernia. 9. History of MRSA. 10.Cocaine positive in the drug screen. 11.History of appendectomy. 12.Remote history of nicotine dependence. DISCUSSION AND RECOMMENDATIONS: Recommend to continue current medications, continue to monitor, continue symptomatic treatment. Otherwise, continue with the bronchodilators. Continue with current medications. Continue with Thora-Vent drainage. Otherwise, repeat labs. DVT prophylaxis. Continue pain medications. Closely follow with Dr. Pretty and cardiothoracic surgery. Further recommendations to follow. Guarded prognosis. MMODL / IJN: [id number] /
[2019-08-28] MEDS: SYMBICORT 160-4.5 MCG INHALER INHALATION SCH (21:28)
[2019-08-28] MEDS: MONTELUKAST 10 MG TAB PO SCH (21:39)
[2019-08-29] MEDS: KETOROLAC 30 MG/ML 1 ML VIAL IVP SCH ×4 (05:06→23:34)
[2019-08-29] MEDS: HYDROmorphone 0.5 MG/0.5 ML SYRINGE IVP PRN (05:09)
[2019-08-29] MEDS: ALPRAZolam 0.25 MG TAB PO PRN ×2 (06:04→22:00)
[2019-08-29] MEDS: SYMBICORT 160-4.5 MCG INHALER INHALATION SCH ×2 (07:03→19:18)
[2019-08-29] MEDS ORDERED: LIDOCAINE 1% INJ 10MG/ML (20 ML MDV) SQ STA (07:11)
--- NOTE | 2019-08-29 07:36 | PCN ---
PROCEDURE NOTE DATE OF PROCEDURE: 08/28/2019 PROCEDURE: Insertion of a Thora-Vent.. PREOPERATIVE DIAGNOSIS: Right-sided pneumothorax, kinked chest tube. POSTOPERATIVE DIAGNOSIS: Right-sided pneumothorax, kinked chest tube. This procedure was done under local anesthetics. The patient was positioned in bed with the head of the bed elevated around 20 degrees. The right chest was seen using fluoro. The skin within the second intercostal space lateral to the sternum to the right was identified and infiltrated with 1% lidocaine. Following that, a scalpel was used to make a horizontal incision and I was able to successfully insert a Thora-Vent over a trocar into the right hemithorax. The trocar was removed and Thora-Vent was secured in place. The Thora-Vent was attached to the Pleur-Evac and there was adequate air leak. No bedside complications and the procedure itself was successful. Chest x- rays showed adequate reexpansion of the right lung. There was some residual pneumothorax. Chest tube was in a good location. The patient tolerated the procedure well without any complication. MMODL / IJN: [id number] /
--- NOTE | 2019-08-29 07:53 | XR ---
EXAMINATION TYPE: XR chest 1V portable DATE OF EXAM: 08/29/2019 Comparison: 08/28/2019 Clinical History: 54-year-old female Spontaneous right pneumothorax Findings: Right-sided dural event remains in place. Extensive subcutaneous emphysema along the right side of th e chest extending to the base of the neck even on the contralateral side. Moderate-sized pneumothorax has recurred extending from the apex down to the base measuring up to 2.6 cm wide. Not clearly seen previously. Mild diffuse interstitial densities are unchanged. Heart normal size. Slight rightward patient rotation IS a normal cardiac and mediastinal contours. Impression: Redevelopment of a moderate-sized pneumothorax along the right lateral aspect extending from the apex down to the base measuring up to 2.6 cm from the thoracic margin. Continued subcutaneous emphysema a nd stable diffuse interstitial changes. Findings called to [address] [place] [address] and given to nurse Spear at 7:50am.
[2019-08-29 08:18] LABS: Basophils % (A) 0 %; Eosinophils # (A) 0.1 k/uL (0-0.7); Eosinophils % (A) 2 %; HCT 31.7 % (34.0-46.0); HGB 10.7 gm/dL (11.4-16.0); Lymphocytes # (A) 0.6 k/uL (1.0-4.8); Lymphocytes % (A) 16 %; MCH 30.7 pg (25.0-35.0); MCHC 33.8 g/dL (31.0-37.0); MCV 90.9 fL (80.0-100.0); Mean Platelet Volume 8.3; Monocytes # (A) 0.2 k/uL (0-1.0); Monocytes % (A) 6 %; Neutrophils # (A) 2.9 k/uL (1.3-7.7); Neutrophils % (A) 75 %; Platelet Count 129 k/uL (150-450); RBC 3.49 m/uL (3.80-5.40); RDW 12.9 % (11.5-15.5); WBC 3.8 k/uL (3.8-10.6)
[2019-08-29 08:34] LABS: African American GFR (CKD) >90 (>60 ml/min/1.73 sqM); Anion Gap 6 mmol/L; Blood Urea Nitrogen 23 mg/dL (7-17); Calcium 8.6 mg/dL (8.4-10.2); Carbon Dioxide 29 mmol/L (22-30); Chloride 101 mmol/L (98-107); Glucose 96 mg/dL (74-99); Non-African American GFR(CKD) >90 (>60 ml/min/1.73 sqM); Potassium 4.3 mmol/L (3.5-5.1); Sodium 136 mmol/L (137-145)
[2019-08-29] MEDS: PANTOPRAZOLE 40 MG TABLET PO SCH (08:56)
[2019-08-29] MEDS: HEPARIN SODIUM,PORCINE 5,000 UNIT/ML 1 ML VIAL SQ SCH ×2 (08:56→20:25)
[2019-08-29] MEDS: MULTIVITAMINS, THERA 1 EACH TAB PO SCH (08:56)
--- NOTE | 2019-08-29 09:52 | P.PN ---
Subjective Progress Note Date: 08/29/19 On today's evaluation of 08/29/2019, the patient a morning chest x-ray that showed a recurrent pneumothorax despite having the Thoravent inserted. I attended on this patient in the presence of Dick Valdovinos NP and we flushed the Thoravent and this resulted in to adequate air leak. Repeat chest x-ray was done that showed persistent pneumothorax on the right despite the episodic air leak. We'll going to give this patient on a few hours and decide accordingly regular Chest tube is to be inserted. Clinically she is looking well. She does have some stable subcutaneous emphysema. No worsening of shortness of breath. Objective - Vital Signs Vital signs: Vital Signs Temp 97.6 F 08/29/19 09:00 Pulse 84 08/29/19 09:00 Resp 17 08/29/19 09:00 BP 115/72 08/29/19 09:00 Pulse Ox 98 08/29/19 09:00 Intake & Output 08/28/19 08/29/19 08/29/19 18:59 06:59 18:59 Intake Total 160 240 Balance 160 240 Intake: Intake, IV Titration 160 240 Amount Sodium Chloride 0.9% 1, 160 240 000 ml @ 20 mls/hr IV . Q24H [facility] Rx#:[id number] Other: Voiding Method Bedside Commode Bedside Commode - Exam The patient appeared well nourished and normally developed. Vital signs as documented. Head exam is unremarkable. No scleral icterus or corneal arcus noted. Neck is without jugular venous distension, thyromegaly, or carotid bruits. Carotid upstrokes are brisk bilaterally diminished breath sound bilaterally on lung examination and the patient has a fluoroscopy vent on the right side. There is also evidence of subcutaneous emphysema along the right hemithorax and the neck area. The previously inserted a chest tube sites is well dressed and there is some bruising and ecchymosis around the insertion site. Cardiac exam reveals the PMI to be normally sized and situated. Rhythm is regular. First and second heart sounds normal. No murmurs, rubs or gallops. Abdominal exam reveals normal bowel sounds, no masses, no organomegaly and no aortic enlargement. Extremities are nonedematous and both femoral and pedal pulses are normal. Neurologically awake and alert and there is no focal neurological deficits. - Labs CBC & Chem 7: 08/29/19 07:45 08/29/19 07:45 Labs: Abnormal Lab Results - Last 24 Hours (Table) 08/28/19 08/29/19 08/29/19 Range/Units 11:11 07:45 07:45 RBC 3.49 L (3.80-5.40) m/uL Hgb 10.7 L (11.4-16.0) gm/dL Hct 31.7 L (34.0-46.0) % Plt Count 129 L (150-450) k/uL Lymphocytes # 0.6 L (1.0-4.8) k/uL Sodium 136 L (137-145) mmol/L BUN 23 H (7-17) mg/dL Urine Opiates Screen Detected H (NotDetected) Urine Cocaine Screen Detected H (NotDetected) Assessment and Plan Plan: 1 right-sided pneumothorax, post chest tube insertion, the patient has a chest tube in the right hemithorax which was placed in [facility] decubitus kinked . The chest tube was removed due to its kinked status and the Thoravent was inserted. After successful expansion, the patient has developed a recurrent pneumothorax with ongoing episodic air leak. It's possible that the Thoravent is not keeping up with ongoing air leak and the patient may need a regular chest tube inserted. 2 COPD with bullous changes in the upper lobes bilaterally 3 vague opacity in the left upper lobe measuring 2.5 cm 4 sarcoidosis, remote history of and the patient has been treated with steroids 5 history of smoking, 30 pack years 6 subcutaneous emphysema 7Positive UDS for cocaine Plan Repeat chest x-ray around noontime Inserted regular chest x-ray there is persistent pneumothorax CAT scan of the chest to follow Continue bronchodilators Pain control with Dilaudid and [place] Incentive spirometer We'll continue to follow.
--- NOTE | 2019-08-29 10:15 | XR ---
EXAMINATION TYPE: XR chest 1V portable DATE OF EXAM: 08/29/2019 Comparison: Earlier today Clinical History: 54 year-old female follow-up right pneumothorax Findings: Redemonstrated is extensive subcutaneous emphysema along the right chest and bilateral base of the ne ck. A Thora vent remains in place on the right. Improved inflation of the right lung with significant interval decrease in the size of the previous right pneumothorax. A trace 4 mm pneumothorax may keri in. Diffuse interstitial densities are unchanged. Heart normal size. Impression: Right-sided Thoravent in place with similar subcutaneous emphysema. Significant improvement in the pr evious right pneumothorax. There may be a trace 4 mm pneumothorax remaining.
[2019-08-29] MEDS: HYDROcodone/APAP 7.5-325MG 1 EACH TAB PO PRN ×3 (10:35→21:59)
--- NOTE | 2019-08-29 12:53 | P.PN ---
Subjective Progress Note Date: 08/29/19 Principal diagnosis: Acute spontaneous right pneumothorax, status post thoracostomy tube placement which was subsequently removed and a Thoravent was placed by Dr. Pretty. Past medical history significant for sarcoidosis, COPD with bullous disease, asthma, hiatal hernias status post hiatal hernia repair, remote history of nicotine dependence in which she quit smoking 3 years ago and history of MRSA to her left shoulder. Status post day #1 and insertion of right chest Thoravent performed by Dr. Pretty and removal of right pleural chest tube. The patient is currently laying in bed with her head elevated on the fifth floor medical surgical unit. The patient was reporting some shortness of breath this morning and upon review of her chest x-ray it did show a persistent right sided pneumothorax. Subsequently the right Thoravent was flushed with 2 mL of air and connected back to low continuous wall suction with a repeat chest x-ray completed at 12 noon today. Repeat chest x-ray at 12 noon demonstrated a less than 5% right apical pneumothorax. She remains hemodynamically stable and her oxygen saturations currently are 98% on 2 L nasal cannula. Objective - Vital Signs Vital signs: Vital Signs Temp 97.6 F 08/29/19 09:00 Pulse 84 08/29/19 09:00 Resp 17 08/29/19 09:00 BP 115/72 08/29/19 09:00 Pulse Ox 98 08/29/19 09:00 Intake & Output 08/28/19 08/29/19 08/29/19 18:59 06:59 18:59 Intake Total 160 240 Balance 160 240 Intake: Intake, IV Titration 160 240 Amount Sodium Chloride 0.9% 1, 160 240 000 ml @ 20 mls/hr IV . Q24H [facility] Rx#:[id number] Other: Voiding Method Bedside Commode Bedside Commode - Constitutional General appearance: Present: cooperative, no acute distress, obese - Respiratory Details: Lungs sounds are essentially clear throughout, diminished her bilateral bases. Respirations are symmetrical and nonlabored. Oxygen saturation surgeon 98% on 2 L nasal cannula. Right chest Thoravent remains in place to low continuous wall suction -20 cm H2O. Positive air leak present. No drainage present. - Cardiovascular Details: Regular rhythm and rate. S1 and S2 present, negative for S3, gallop or murmur. No edema present. - Gastrointestinal Gastrointestinal Comment(s): Abdomen is soft, nontender and nondistended. Active bowel sounds present all 4 abdominal quadrants. No guarding or rigidity. No organomegaly appreciated. - Genitourinary Genitourinary Comment(s): Continues to void clear trish urine. - Integumentary Integumentary Comment(s): Skin is warm and dry. No clubbing or cyanosis is present. No rash or abnormal pigmentation is present. Dressing to her right chest is clean, dry and intact. - Neurologic Neurologic: Present: CNII-XII intact - Musculoskeletal Musculoskeletal: Present: gait normal, strength equal bilaterally - Psychiatric Psychiatric: Present: A&O x's 3, appropriate affect, intact judgment & insight - Allied health notes Allied health notes reviewed: nursing - Labs CBC & Chem 7: 08/29/19 07:45 08/29/19 07:45 Labs: Abnormal Lab Results - Last 24 Hours (Table) 08/29/19 08/29/19 Range/Units 07:45 07:45 RBC 3.49 L (3.80-5.40) m/uL Hgb 10.7 L (11.4-16.0) gm/dL Hct 31.7 L (34.0-46.0) % Plt Count 129 L (150-450) k/uL Lymphocytes # 0.6 L (1.0-4.8) k/uL Sodium 136 L (137-145) mmol/L BUN 23 H (7-17) mg/dL - Imaging and Cardiology Chest x-ray: report reviewed, image reviewed Assessment and Plan Assessment: 1. Acute spontaneous right pneumothorax, status post right thoracostomy tube placement 2. History of sarcoidosis 3. History of COPD, with bolus disease 4. History of asthma 5. History of hiatal hernia status post hiatal hernia repair 6. Remote history of nicotine dependence quit smoking 3 years ago 7. History of MRSA to her left shoulder Plan: 1. Keep right chest Thoravent in place to low continuous wall suction -20 cm H2O. Monitor for air leak resolution. 2. Continue to monitor daily chest x-rays. 3. Encourage use of incentive spirometry every hour while awake. 4. Medical management and other comorbidities per primary care service. 5. Encourage continued smoking cessation. 6. Pulmonary management recommendations per Dr. Pretty from pulmonary critical care medicine. 7. Pain control per current when necessary orders. 8. More recommendations to follow based on patient's clinical course. Time with Patient: Greater than 30
--- NOTE | 2019-08-29 14:05 | XR ---
EXAMINATION TYPE: XR chest 1V portable DATE OF EXAM: 08/29/2019 Comparison: Earlier today Clinical History: 54-year-old female Reevaluate right pneumothorax Findings: Redemonstrated extensive subcutaneous emphysema now extending to involve the left chest wall. Interstitial densities persist. Heart normal size. A right-sided Thoravent remains in place. Trace re sidual right apical pneumothorax that is seen now measuring 6 mm. Impression: 1. Residual trace right apical pneumothorax measuring 6 mm. Right-sided Thora vent remains in place. 2. Increasing subcutaneous emphysema now extending to the left side of the chest. 3. Diffuse interstitial densities persist.
[2019-08-29] MEDS: LEVOFLOXACIN 500 MG TAB PO SCH (17:11)
[2019-08-29] MEDS: SODIUM CHLORIDE 0.9% 1,000 ML IV SCH (17:13)
[2019-08-29] MEDS: MONTELUKAST 10 MG TAB PO SCH (20:25)
--- NOTE | 2019-08-29 23:59 | PN ---
PROGRESS NOTE DATE OF SERVICE: 08/29/2019 This 54-year-old woman who was admitted with right spontaneous pneumothorax had a ThoraVent. The patient underwent repeat ThoraVent insertion and the patient is being closely monitored by Pulmonology as well as Cardiothoracic Surgery. The most recent chest x-ray, which was reviewed personally by me, showed subcutaneous emphysema and significant improvement of the lung functions at this time. No chest pain. No palpitations. No fever. PHYSICAL EXAMINATION: Alert and oriented x3. Pulse is 80, blood pressure 139/55, respiration 16, temperature 97.7, pulse ox 99% on 2 L. HEENT: Conjunctivae normal. NECK: No jugular venous distention. CARDIOVASCULAR SYSTEM: S1, S2 muffled. RESPIRATORY SYSTEM: Breath sounds diminished at the bases. A few scattered rhonchi and crackles. Expiratory wheezing. ABDOMEN: Soft, non-tender. LEGS: No edema. No swelling. NERVOUS SYSTEM: No focal deficit. LABS: WBC 3.8, hemoglobin 10.7, platelets 120. Sodium 136. The drug screen is positive for cocaine and opiates. ASSESSMENT: 1. Acute right spontaneous pneumothorax, status post chest tube drainage currently as well as ThoraVent re-insertion. 2. Severe right-sided chest pain. 3. Right-sided subcutaneous emphysema, improving. 4. History of asthma and chronic obstructive pulmonary disease. 5. History of gastroesophageal reflux disease. 6. History of degenerative joint disease. 7. History of sarcoidosis. 8. History of interstitial shadow on the chest x-ray. 9. History of bullous disease. 10.History of hernia. 11.History of MRSA. 12.Cocaine positive in the drug screen. 13.History of appendectomy. 14.Remote history of nicotine dependence. RECOMMENDATIONS AND DISCUSSION: In this 54-year-old woman who presented with multiple complex medical issues, we will monitor the patient closely, continue the current medications, continue with symptomatic treatment. Continue the ThoraVent and suction. Otherwise, monitor closely. Follow up the chest x-ray. Continue the rest of the medications. The patient is much more comfortable today. Further recommendations to follow. MMODL / IJN: [id number] /
[2019-08-30] MEDS: HYDROcodone/APAP 7.5-325MG 1 EACH TAB PO PRN ×3 (04:06→23:17)
[2019-08-30] MEDS: KETOROLAC 30 MG/ML 1 ML VIAL IVP SCH ×4 (05:44→23:17)
[2019-08-30] MEDS: HEPARIN SODIUM,PORCINE 5,000 UNIT/ML 1 ML VIAL SQ SCH ×2 (07:58→19:50)
[2019-08-30] MEDS: PANTOPRAZOLE 40 MG TABLET PO SCH (07:58)
--- NOTE | 2019-08-30 08:23 | P.PN ---
Subjective Progress Note Date: 08/30/19 Principal diagnosis: Acute spontaneous right pneumothorax, status post thoracostomy tube placement which was subsequently removed and a Thoravent was placed by Dr. Pretty. Past medical history significant for sarcoidosis, COPD with bullous disease, asthma, hiatal hernias status post hiatal hernia repair, remote history of nicotine dependence in which she quit smoking 3 years ago and history of MRSA to her left shoulder. Status post day #2 and insertion of right chest Thoravent performed by Dr. Pretty and removal of right pleural chest tube. The patient is laying in bed on the fifth floor medical surgical unit. She denies any complaints of pain or shortness of breath this time and states that she feels much improved today. Her right chest Thoravent remains in place to low continuous wall suction -20 cm H2O. Intermittent air leak is present. Draining thin serosanguineous drainage with 10 mL of drainage in the last 24 hours. She is achieving 750-1000 mL on her incentive spirometry. Her x-ray this morning shows no evidence of pneumothorax. Room air oxygen saturations are 98%. She remains afebrile the last 24 hours. Objective - Vital Signs Vital signs: Vital Signs Temp 97.8 F 08/30/19 05:00 Pulse 71 08/30/19 05:00 Resp 16 08/30/19 05:00 BP 122/63 08/30/19 05:00 Pulse Ox 98 08/30/19 05:00 Intake & Output 08/29/19 08/30/19 08/30/19 18:59 06:59 18:59 Intake Total 160 800 Balance 160 800 Intake: Intake, IV Titration 160 80 Amount Sodium Chloride 0.9% 1, 160 80 000 ml @ 20 mls/hr IV . Q24H [facility] Rx#:[id number] Oral 720 Other: Voiding Method Bedside Commode # Voids 1 2 1 # Bowel Movements 1 1 - Constitutional General appearance: Present: cooperative, no acute distress, obese - Respiratory Details: Lung sounds essentially clear throughout, diminished to her bilateral bases. Respirations are symmetrical and nonlabored. Oxygen saturation is 98% on room air. Achieving 750-1000 mL on her incentive spirometry. Right anterior chest Thoravent in place to low continuous wall suction -20 cm H2O. Intermittent air leak is present. Draining scant thin serosanguineous drainage. Subcu emphysema present to her right upper arm, right chest and to her neck. - Cardiovascular Details: Regular rhythm and rate. S1 and S2 present, negative for S3, gallop or murmur. No edema present. Sequential compression devices in place to bilateral lower extremities. - Gastrointestinal Gastrointestinal Comment(s): Abdomen is soft, nontender and nondistended. Active bowel sounds present in all 4 abdominal quadrants. No guarding or rigidity. No organomegaly appreciated. - Genitourinary Genitourinary Comment(s): Voiding clear yellow urine. - Integumentary Integumentary Comment(s): skin is warm and dry. No clubbing or cyanosis present. No rash or abnormal pigmentation is present. Dressing is clean, dry and intact to her right chest. - Neurologic Neurologic: Present: CNII-XII intact - Musculoskeletal Musculoskeletal: Present: gait normal, strength equal bilaterally - Psychiatric Psychiatric: Present: A&O x's 3, appropriate affect, intact judgment & insight - Allied health notes Allied health notes reviewed: nursing - Labs CBC & Chem 7: 08/29/19 07:45 08/29/19 07:45 Labs: Abnormal Lab Results - Last 24 Hours (Table) 08/29/19 08/29/19 Range/Units 07:45 07:45 RBC 3.49 L (3.80-5.40) m/uL Hgb 10.7 L (11.4-16.0) gm/dL Hct 31.7 L (34.0-46.0) % Plt Count 129 L (150-450) k/uL Lymphocytes # 0.6 L (1.0-4.8) k/uL Sodium 136 L (137-145) mmol/L BUN 23 H (7-17) mg/dL - Imaging and Cardiology Chest x-ray: image reviewed Assessment and Plan Assessment: 1. Acute spontaneous right pneumothorax, status post right thoracostomy tube placement 2. History of sarcoidosis 3. History of COPD, with bolus disease 4. History of asthma 5. History of hiatal hernia status post hiatal hernia repair 6. Remote history of nicotine dependence quit smoking 3 years ago 7. History of MRSA to her left shoulder Plan: 1. Keep right chest Thoravent in place to low continuous wall suction -20 cm H2O. Continue to monitor for air leak resolution. 2. Continue to monitor daily chest x-rays. 3. Encourage use of incentive spirometry every hour while awake. 4. Medical management and other comorbidities per primary care service. 5. Encourage continued smoking cessation. 6. Pulmonary management recommendations per Dr. Pretty from pulmonary critical care medicine. 7. Pain control per current when necessary orders. 8. Increase activity as tolerated, out of bed for all meals, please put enough length on her suction that she is able to ambulate in her room. 9. More recommendations to follow based on patient's clinical course. Time with Patient: Greater than 30
[2019-08-30] MEDS: SYMBICORT 160-4.5 MCG INHALER INHALATION SCH ×2 (08:32→18:42)
--- NOTE | 2019-08-30 08:35 | XR ---
EXAMINATION TYPE: XR chest 1V portable DATE OF EXAM: 08/30/2019 COMPARISON: 08/29/2019 INDICATION: Spontaneous right pneumothorax TECHNIQUE: Single frontal view of the chest is obtained. FINDINGS: The heart size is normal. The pulmonary vasculature is normal. Minimal residual right apical pneumothorax may remain present. This appears stable from the compariso n study. Subcutaneous emphysema is present may be slightly diminished from comparison. IMPRESSION: 1. Residual right apical pneumothorax may remain present
[2019-08-30 09:00] LABS: African American GFR (CKD) >90 (>60 ml/min/1.73 sqM); Anion Gap 8 mmol/L; Blood Urea Nitrogen 17 mg/dL (7-17); Calcium 9.3 mg/dL (8.4-10.2); Carbon Dioxide 28 mmol/L (22-30); Chloride 101 mmol/L (98-107); Glucose 133 mg/dL (74-99); Non-African American GFR(CKD) >90 (>60 ml/min/1.73 sqM); Potassium 4.9 mmol/L (3.5-5.1); Sodium 137 mmol/L (137-145)
[2019-08-30 09:05] LABS: Basophils % (A) 0 %; Eosinophils % (A) 1 %; HCT 35.1 % (34.0-46.0); HGB 11.8 gm/dL (11.4-16.0); Lymphocytes # (A) 0.4 k/uL (1.0-4.8); Lymphocytes % (A) 8 %; MCH 30.3 pg (25.0-35.0); MCHC 33.6 g/dL (31.0-37.0); MCV 90.2 fL (80.0-100.0); Mean Platelet Volume 8.5; Monocytes # (A) 0.1 k/uL (0-1.0); Monocytes % (A) 2 %; Neutrophils # (A) 4.7 k/uL (1.3-7.7); Neutrophils % (A) 88 %; Platelet Count 166 k/uL (150-450); RBC 3.89 m/uL (3.80-5.40); RDW 12.6 % (11.5-15.5); WBC 5.4 k/uL (3.8-10.6)
[2019-08-30] MEDS: ERGOCALCIFEROL 50,000 UNIT CAP PO SCH (12:33)
[2019-08-30] MEDS: MULTIVITAMINS, THERA 1 EACH TAB PO SCH (12:34)
--- NOTE | 2019-08-30 14:02 | P.PN ---
Subjective Progress Note Date: 08/30/19 On today's evaluation of 08/29/2019, the patient a morning chest x-ray that showed a recurrent pneumothorax despite having the Thoravent inserted. I attended on this patient in the presence of Dick Valdovinos NP and we flushed the Thoravent and this resulted in to adequate air leak. Repeat chest x-ray was done that showed persistent pneumothorax on the right despite the episodic air leak. We'll going to give this patient on a few hours and decide accordingly regular Chest tube is to be inserted. Clinically she is looking well. She does have some stable subcutaneous emphysema. No worsening of shortness of breath. On 08/30/2019, the patient is feeling well. Subcutaneous emphysema is improved. Thoravent is in place. There is some episodic air leak on the Pleur-evac.The follow-up chest x-ray shows a small right apical residual pneumothorax. Subcutaneous emphysema is diminished compared to yesterday. No other new abnormalities noted. The patient is clinically feeling well. No significant shortness of breath. No chest pain. Her white cell count is at 5.4. Rest of the blood work and electrodes are within normal limits. Objective - Vital Signs Vital signs: Vital Signs Temp 98.0 F 08/30/19 13:06 Pulse 98 08/30/19 13:06 Resp 16 08/30/19 11:46 BP 132/80 08/30/19 13:06 Pulse Ox 98 08/30/19 13:06 Intake & Output 08/29/19 08/30/19 08/30/19 18:59 06:59 18:59 Intake Total 160 800 Balance 160 800 Intake: Intake, IV Titration 160 80 Amount Sodium Chloride 0.9% 1, 160 80 000 ml @ 20 mls/hr IV . Q24H [facility] Rx#:[id number] Oral 720 Other: Voiding Method Bedside Commode # Voids 1 2 1 # Bowel Movements 1 1 - Exam The patient appeared well nourished and normally developed. Vital signs as documented. Head exam is unremarkable. No scleral icterus or corneal arcus noted. Neck is without jugular venous distension, thyromegaly, or carotid bruits. Carotid upstrokes are brisk bilaterally diminished breath sound bilaterally on lung examination and the patient has a fluoroscopy vent on the right side. There is also evidence of subcutaneous emphysema along the right hemithorax and the neck area. This improved compared to yesterday. The previously inserted a chest tube sites is well dressed and there is some bruising and ecchymosis around the insertion site. Cardiac exam reveals the PMI to be normally sized and situated. Rhythm is regular. First and second heart sounds normal. No murmurs, rubs or gallops. Abdominal exam reveals normal bowel sounds, no masses, no organomegaly and no aortic enlargement. Extremities are nonedematous and both femoral and pedal pulses are normal. Neurologically awake and alert and there is no focal neurological deficits. - Labs CBC & Chem 7: 08/30/19 08:01 08/30/19 08:01 Labs: Abnormal Lab Results - Last 24 Hours (Table) 08/30/19 08/30/19 Range/Units 08:01 08:01 Lymphocytes # 0.4 L (1.0-4.8) k/uL Glucose 133 H (74-99) mg/dL Assessment and Plan Plan: 1 right-sided pneumothorax, post chest tube insertion, the patient has a chest tube in the right hemithorax which was placed in [facility] decubitus kinked . The chest tube was removed due to its kinked status and the Thoravent was inserted. After successful expansion, the patient has developed a recurrent pneumothorax with ongoing episodic air leak. It's possible that the Thoravent is not keeping up with ongoing air leak and the patient may need a regular chest tube inserted. With this, the patient's chest x-ray from today shows a small tiny right apical pneumothorax. The patient is emphysema is improved. Clinically the patient is also improved. We'll keep the Thoravent in place and keep the wall suction. 2 COPD with bullous changes in the upper lobes bilaterally 3 vague opacity in the left upper lobe measuring 2.5 cm 4 sarcoidosis, remote history of and the patient has been treated with steroids 5 history of smoking, 30 pack years 6 subcutaneous emphysema 7Positive UDS for cocaine Plan Repeat chest x-ray in a.m. CAT scan of the chest to follow, once the patient is off wall suction Continue bronchodilators Pain control with Dilaudid and [place] Incentive spirometer We'll continue to follow.
--- NOTE | 2019-08-30 16:02 | P.PN ---
Subjective Progress Note Date: 08/30/19 Principal diagnosis: This is a 54-year-old woman who was recently admitted with a right spontaneous pneumothorax has had a Pleurx catheter placed. Patient continues to have subcutaneous emphysema noted of the right upper neck, chest area and is being closely monitored. Patient is maintained to suction. Patient continues to use incentive spirometer and has reached 1500 today. Instructed the patient to continue using at least 10 times every hour while awake. Patient states that her breathing has improved although she continues to have discomfort at the right chest wall and shoulder area. No reports of chest pain or palpitations. Patient is afebrile. Objective - Vital Signs Vital signs: Vital Signs Temp 98.0 F 08/30/19 13:06 Pulse 98 08/30/19 13:06 Resp 16 08/30/19 11:46 BP 132/80 08/30/19 13:06 Pulse Ox 98 08/30/19 13:06 Intake & Output 08/29/19 08/30/19 08/30/19 18:59 06:59 18:59 Intake Total 160 800 240 Balance 160 800 240 Intake: Intake, IV Titration 160 80 Amount Sodium Chloride 0.9% 1, 160 80 000 ml @ 20 mls/hr IV . Q24H [facility] Rx#:[id number] Oral 720 240 Other: Voiding Method Bedside Commode # Voids 1 2 2 # Bowel Movements 1 1 - Exam Gen: This is a 54-year-old female sitting up in bed awake, alert and oriented 3, well-developed, well-nourished. HEENT: Head is atraumatic, normocephalic. Pupils equal, round. Sclerae is anicteric. Right neck subcutaneous emphysema noted upon palpation NECK: Supple. No JVD. No lymphadenopathy. No thyromegaly. LUNGS: Diminished breath sounds at the bases with some scattered rhonchi and crackles noted. No intercostal retractions. HEART: S1, S2 are present ABDOMEN: Soft. Bowel sounds are present. No masses. No tenderness. EXTREMITIES: No pedal edema. No calf tenderness. NEUROLOGICAL: Patient is awake, alert and oriented x3. Cranial nerves 2 through 12 are grossly intact. - Labs CBC & Chem 7: 08/30/19 08:01 08/30/19 08:01 Labs: Abnormal Lab Results - Last 24 Hours (Table) 08/30/19 08/30/19 Range/Units 08:01 08:01 Lymphocytes # 0.4 L (1.0-4.8) k/uL Glucose 133 H (74-99) mg/dL Assessment and Plan Assessment: Acute right spontaneous pneumothorax, status post chest tube drainage currently as well as thoravent reinsertion Severe right-sided chest pain Right-sided subcutaneous emphysema, improving History of asthma and chronic obstructive pulmonary disease History of gastroesophageal reflux disease History of degenerative joint disease history of sarcoidosis history of interstitial shadow on the chest x-ray History of bolus disease History of hernia history of MRSA Cocaine positive on the drug screen History of appendectomy next line remote history of nicotine dependence Recommendations and discussion: Recommend to continue current medications, management, and symptomatic treatment. Patient to continue with incentive spirometer and instructed to use at least 10 times every hour while awake. Patient continues on a Pleurx catheter of the right chest wall to intermittent suction. Cardiothoracic surgery along with pulmonary are following. Further recommendations to follow. Repeat chest x-ray today shows stable findings with improvement of subcutaneous emphysema.
[2019-08-30] MEDS: LEVOFLOXACIN 500 MG TAB PO SCH (16:33)
[2019-08-30] MEDS: SODIUM CHLORIDE 0.9% 1,000 ML IV SCH (18:05)
[2019-08-30] MEDS: MONTELUKAST 10 MG TAB PO SCH (19:50)
[2019-08-30] MEDS: HYDROmorphone 0.5 MG/0.5 ML SYRINGE IVP PRN (21:12)
[2019-08-31] MEDS: KETOROLAC 30 MG/ML 1 ML VIAL IVP SCH ×4 (05:05→23:23)
[2019-08-31] MEDS: SYMBICORT 160-4.5 MCG INHALER INHALATION SCH ×2 (07:56→19:40)
--- NOTE | 2019-08-31 08:12 | XR ---
EXAMINATION TYPE: XR chest 1V portable DATE OF EXAM: 08/31/2019 Comparison: 08/30/2019 Clinical History: 54 year-old female follow-up right pneumothorax Findings: Right-sided Thoravent remains in place. Extensive subcutaneous emphysema, right greater than left, in creased from prior. Redemonstrated right apical pneumothorax measuring approximately 1.1 cm versus 6 mm, previously. The extensive subcutaneous emphysema makes visualization difficult. Scattered interst itial changes persist. Some increased patchy atelectasis at the left base. Impression: 1. Extensive subcutaneous emphysema increasing now on the left. 2. Small right apical pneumothorax measuring 1.1 cm versus 6 mm, previously. Visualization is difficu lt due to the extensive overlying soft tissue air.
--- NOTE | 2019-08-31 09:20 | P.PN ---
Subjective Progress Note Date: 08/31/19 Principal diagnosis: Acute spontaneous right pneumothorax, status post thoracostomy tube placement which was subsequently removed and a Thoravent was placed by Dr. Pretty. Past medical history significant for sarcoidosis, COPD with bullous disease, asthma, hiatal hernias status post hiatal hernia repair, remote history of nicotine dependence in which she quit smoking 3 years ago and history of MRSA to her left shoulder. Status post day #3 and insertion of right chest Thoravent performed by Dr. Pretty and removal of right pleural chest tube. The patient is laying in bed on the fifth floor medical surgical unit. She denies any complaints of pain or shortness of breath this time. Her right chest Thoravent remains in place to low continuous wall suction -20 cm H2O. Intermittent air leak is present. Draining thin serosanguineous drainage. She is achieving 7419-9442 mL on her incentive spirometry. Her x-ray this morning shows a small pneumothorax less than 5%. Room air oxygen saturations are 98%. She remains afebrile the last 24 hours. She continues to have some subcutaneous emphysema to her right chest, neck and face which is improving. Objective - Vital Signs Vital signs: Vital Signs Temp 97.5 F L 08/31/19 05:00 Pulse 82 08/31/19 05:00 Resp 18 08/31/19 05:00 BP 111/58 08/31/19 05:00 Pulse Ox 98 08/31/19 07:57 Intake & Output 08/30/19 08/31/19 08/31/19 18:59 06:59 18:59 Intake Total 240 260 Balance 240 260 Intake: Intake, IV Titration 260 Amount Sodium Chloride 0.9% 1, 260 000 ml @ 20 mls/hr IV . Q24H [facility] Rx#:[id number] Oral 240 Other: Voiding Method Bedside Commode Bedside Commode # Voids 2 2 # Bowel Movements 1 - Constitutional General appearance: Present: cooperative, no acute distress, obese - Respiratory Details: Lungs sounds essentially clear throughout, diminished bilateral bases. Respirations are symmetrical and nonlabored. Oxygen saturation is 98% on room air. Achieving 0017-4774 mL on her incentive spirometry. Right anterior chest Thoravent remains in place to low continuous wall suction -20 cm H2O. Intermittent air leak is present. Draining scant thin serosanguineous drainage. - Cardiovascular Details: Regular rhythm and rate. S1 and S2 present, negative for S3, gallop or murmur. No edema present. Sequential compression devices in place to bilateral lower extremities. - Gastrointestinal Gastrointestinal Comment(s): Abdomen is soft, nontender nondistended. Active bowel sounds present in all 4 abdominal quadrants. No guarding or rigidity. No organomegaly appreciated. Tolerating oral intake. - Genitourinary Genitourinary Comment(s): Voiding clear trish urine. - Integumentary Integumentary Comment(s): Skin is warm and dry. No clubbing or cyanosis is present. Right lateral chest dressing remains clean, dry and intact. - Neurologic Neurologic: Present: CNII-XII intact - Musculoskeletal Musculoskeletal: Present: gait normal, strength equal bilaterally - Psychiatric Psychiatric: Present: A&O x's 3, appropriate affect, intact judgment & insight - Allied health notes Allied health notes reviewed: nursing - Labs CBC & Chem 7: 08/30/19 08:01 08/30/19 08:01 - Imaging and Cardiology Chest x-ray: report reviewed, image reviewed Assessment and Plan Assessment: 1. Acute spontaneous right pneumothorax, status post right thoracostomy tube placement 2. History of sarcoidosis 3. History of COPD, with bolus disease 4. History of asthma 5. History of hiatal hernia status post hiatal hernia repair 6. Remote history of nicotine dependence quit smoking 3 years ago 7. History of MRSA to her left shoulder Plan: 1. Keep right chest Thoravent in place and placed to waterseal. Continue to monitor for air leak resolution. 2. Continue to monitor daily chest x-rays. 3. Encourage use of incentive spirometry every hour while awake. 4. Medical management and other comorbidities per primary care service. 5. Encourage continued smoking cessation. 6. Pulmonary management recommendations per Dr. Pretty from pulmonary critical care medicine. 7. Pain control per current when necessary orders. 8. Increase activity as tolerated, out of bed for all meals, please put enough length on her suction that she is able to ambulate in her room. 9. We will obtain a computed tomography scan of her chest today without contrast. 10. More recommendations to follow based on patient's clinical course. Time with Patient: Greater than 30
[2019-08-31] MEDS: HEPARIN SODIUM,PORCINE 5,000 UNIT/ML 1 ML VIAL SQ SCH ×2 (11:30→20:10)
[2019-08-31] MEDS: MULTIVITAMINS, THERA 1 EACH TAB PO SCH (11:30)
[2019-08-31] MEDS: PANTOPRAZOLE 40 MG TABLET PO SCH (11:30)
[2019-08-31] MEDS: HYDROcodone/APAP 7.5-325MG 1 EACH TAB PO PRN ×2 (11:30→18:41)
--- NOTE | 2019-08-31 13:17 | P.PN ---
Subjective Progress Note Date: 08/31/19 On today's evaluation of 08/29/2019, the patient a morning chest x-ray that showed a recurrent pneumothorax despite having the Thoravent inserted. I attended on this patient in the presence of Dick Valdovinos NP and we flushed the Thoravent and this resulted in to adequate air leak. Repeat chest x-ray was done that showed persistent pneumothorax on the right despite the episodic air leak. We'll going to give this patient on a few hours and decide accordingly regular Chest tube is to be inserted. Clinically she is looking well. She does have some stable subcutaneous emphysema. No worsening of shortness of breath. On 08/30/2019, the patient is feeling well. Subcutaneous emphysema is improved. Thoravent is in place. There is some episodic air leak on the Pleur-evac.The follow-up chest x-ray shows a small right apical residual pneumothorax. Subcutaneous emphysema is diminished compared to yesterday. No other new abnormalities noted. The patient is clinically feeling well. No significant shortness of breath. No chest pain. Her white cell count is at 5.4. Rest of the blood work and electrodes are within normal limits. On 08/31/2019, the patient is being seen for a follow-up. The patient is feeling well. Her voice is gradually improving and the patient does have some ongoing subcutaneous emphysema which is slowly improving. Morning chest x-ray showed a small apical pneumothorax. The patient was taken off the wall suction and she is on water seal. The CAT scan of the chest showed diffuse emphysema with bullous changes. A tiny right apical pneumothorax is present. The chest tube is in good location and Flovent is directed to the right lung apex. As mentioned, there is extensive subcutaneous emphysema with pneumomediastinum and diffuse emphysematous changes with upper lobe predominance in addition to a tiny right-sided pneumothorax. The patient is on room air oxygen. No chest pain. No pleurisy. No hemoptysis. No hemodynamic instability. She is feeling well for now. Objective - Vital Signs Vital signs: Vital Signs Temp 97.9 F 08/31/19 12:38 Pulse 79 08/31/19 12:38 Resp 17 08/31/19 12:38 BP 126/60 08/31/19 12:38 Pulse Ox 96 08/31/19 12:38 Intake & Output 08/30/19 08/31/19 08/31/19 18:59 06:59 18:59 Intake Total 240 260 Balance 240 260 Intake: Intake, IV Titration 260 Amount Sodium Chloride 0.9% 1, 260 000 ml @ 20 mls/hr IV . Q24H [facility] Rx#:[id number] Oral 240 Other: Voiding Method Bedside Commode Bedside Commode # Voids 2 2 # Bowel Movements 1 - Exam The patient appeared well nourished and normally developed. The patient has developed subcutaneous emphysema over the face and neck and anterior chest area. This is stable and slightly improved. Vital signs as documented. Head exam is unremarkable. No scleral icterus or corneal arcus noted. Neck is without jugular venous distension, thyromegaly, or carotid bruits. Carotid upstrokes are brisk bilaterally diminished breath sound bilaterally on lung examination and the patient has a fluoroscopy vent on the right side. There are deformities of hypertension to a waterseal Pleur-evac. No wall suction for now. There is also evidence of subcutaneous emphysema along the right hemithorax and the neck area. This improved compared to yesterday. The previously inserted a chest tube si soledad is well dressed and there is some bruising and ecchymosis around the insertion site. Cardiac exam reveals the PMI to be normally sized and situated. Rhythm is regular. First and second heart sounds normal. No murmurs, rubs or gallops. Abdominal exam reveals normal bowel sounds, no masses, no organomegaly and no aortic enlargement. Extremities are nonedematous and both femoral and pedal pulses are normal. Neurologically awake and alert and there is no focal neurological deficits. - Labs CBC & Chem 7: 08/30/19 08:01 08/30/19 08:01 Assessment and Plan Plan: 1 right-sided pneumothorax, post chest tube insertion, with subsequent removal and insertion of a Thoravent. The patient had a CAT scan showed a small right sided pneumothorax in the order of 5% in addition to extensive subcutaneous emphysema and some no mediastinum. In any rate, right lung is expanded and the Flovent is attached to water seal. The patient is hemodynamically stable. CAT scan of the chest was noted. 2 COPD with bullous changes in the upper lobes bilaterally 3 vague opacity in the left upper lobe measuring 2.5 cm, no evidence of any mass on the CAT scan of the chest. 4 sarcoidosis, remote history of and the patient has been treated with steroids 5 history of smoking, 30 pack years 6 subcutaneous emphysema 7Positive UDS for cocaine Plan Repeat chest x-ray in a.m. CAT scan of the chest was noted Continue bronchodilators Pain control with Dilaudid and [place] Incentive spirometer Keep the patient on water seal I decided to discharge this patient home with a Thoravent at a later stage probably the next 24-48 hours depending on the x-ray findings and depending on her progression. We'll continue to follow.
--- NOTE | 2019-08-31 14:51 | CT ---
EXAMINATION TYPE: CT chest wo con DATE OF EXAM: 08/31/2019 COMPARISON: Chest x-ray same date HISTORY: Spontaneous right pneumothorax with bolus disease CT DLP: 276.2 mGycm, Automated exposure control for dose reduction was used. CONTRAST: None TECHNIQUE: Axial images were obtained at 5 mm thick sections. Reconstructed images are reviewed on [employer] computer in the coronal plane. FINDINGS: There is extensive subcutaneous emphysema extending throughout the anterior chest into the neck. Some mediastinal extension may be present. There is a small right pneumothorax. Chest tube is in the right chest. Emphysematous blebs are present extensive COPD is present. Tracheobronchial tree appears normal. Calcified granuloma within mediastinal lymph nodes. The ascending aorta diameter at the level of the main pulmonary artery is 2. cm. The main pulmonary artery diameter at the bifurcation is 2.[address] sections are obtained through the upper abdomen. Abdomen is essentially unremarkable. IMPRESSIONS: 1. Small right thorax. 2. Extensive subcutaneous emphysema. Some mediastinal air also appears to be present
--- NOTE | 2019-08-31 15:11 | P.PN ---
Subjective 54-year-old woman who was recently admitted with a right spontaneous pneumothorax has had a Pleurx catheter placed. Patient continues to have subcu taneous emphysema noted of the right upper neck, chest area and is being closely monitored. Patient is maintained to suction. Patient continues to use incentive spirometer and has reached 1500 today. Instructed the patient to continue using at least 10 times every hour while awake. Patient states that her breathing has improved although she continues to have discomfort at the right chest wall and shoulder area. No reports of chest pain or palpitations. Patient is afebrile. 08/31/2019 Is a small apical pneumothorax on the CAT scan which showed diffuse emphysema recent illness still significant. Denies emphysema with pneumomediastinum Constitutional: Denied any fatigue denied any fever. Cardio vascular: denied any chest pain, palpitations Gastrointestinal denied any nausea vomiting Pulmonary: Denied any shortness of breath cough Neurologic denied any new focal deficits All inpatient medications were reviewed and appropriate changes in these medications as dictated in the interval history and assessment and plan. Objective - Vital Signs Vital signs: Vital Signs Temp 97.9 F 08/31/19 12:38 Pulse 79 08/31/19 12:38 Resp 17 08/31/19 12:38 BP 126/60 08/31/19 12:38 Pulse Ox 96 08/31/19 12:38 Intake & Output 08/30/19 08/31/19 08/31/19 18:59 06:59 18:59 Intake Total 240 260 600 Balance 240 260 600 Intake: Intake, IV Titration 260 Amount Sodium Chloride 0.9% 1, 260 000 ml @ 20 mls/hr IV . Q24H [facility] Rx#:[id number] Oral 240 600 Other: Voiding Method Bedside Commode Bedside Commode Bedside Commode # Voids 2 2 2 # Bowel Movements 1 - Exam Gen: This is a 54-year-old female sitting up in bed awake, alert and oriented 3, well-developed, well-nourished. HEENT: Head is atraumatic, normocephalic. Pupils equal, round. Sclerae is anicteric. Right neck subcutaneous emphysema noted upon palpation NECK: Supple. No JVD. No lymphadenopathy. No thyromegaly. LUNGS: Diminished breath sounds at the bases with some scattered rhonchi and crackles noted. No intercostal retractions. HEART: S1, S2 are present ABDOMEN: Soft. Bowel sounds are present. No masses. No tenderness. EXTREMITIES: No pedal edema. No calf tenderness. NEUROLOGICAL: Patient is awake, alert and oriented x3. Cranial nerves 2 through 12 are grossly intact. - Labs - Labs CBC & Chem 7: 08/30/19 08:01 08/30/19 08:01 Assessment and Plan Plan: -Spontaneous pneumothorax patient has multiple bullae and does have COPD presently not in acute exacerbation does have apparent with suction is being continued -COPD without any acute exacerbation Gastroesophageal reflux disease -History of sarcoidosis Continue present management follow-up with pulmonary and cardiac thoracic surgery.
[2019-08-31] MEDS: LEVOFLOXACIN 500 MG TAB PO SCH (19:06)
[2019-08-31] MEDS: SODIUM CHLORIDE 0.9% 1,000 ML IV SCH (19:14)
--- NOTE | 2019-08-31 19:14 | XR ---
EXAMINATION: XR chest 2V DATE AND TIME: 08/31/2019 7:01 PM CLINICAL INDICATION: PHH; check placement of chest tube TECHNIQUE: Departmental protocol COMPARISON: Chest radiograph 08/31/2019 at 8:00 AM FINDINGS: Right chest tube appears in similar position. The prominent pattern of widespread subcutaneous emphysema is redemonstrated. The previously seen right apical pneumothorax is more difficult to visualize on the present examinati on but appears to be similar in its volume seen on the comparison radiograph. There is no mediastinal shift. Overall lung inflation pattern appears similar to the prior study. The cardiac silhouette is not enlarged, and remainder of the mediastinal silhouette is unremarkable. The skeletal structures and soft tissues are negative for acute findings. IMPRESSION: CHEST TUBE AND RIGHT PNEUMOTHORAX.
[2019-08-31] MEDS: ASPIRIN-ACET-CAFF 250-250-65MG 1 EACH TAB PO PRN (20:10)
[2019-08-31] MEDS: MONTELUKAST 10 MG TAB PO SCH (20:11)
[2019-09-01] MEDS: HYDROcodone/APAP 7.5-325MG 1 EACH TAB PO PRN ×3 (02:55→21:08)
[2019-09-01] MEDS: KETOROLAC 30 MG/ML 1 ML VIAL IVP SCH ×2 (05:30→14:20)
--- NOTE | 2019-09-01 08:00 | XR ---
EXAMINATION TYPE: XR chest 1V portable DATE OF EXAM: 09/01/2019 COMPARISON: 08/31/2019 INDICATION: Pneumothorax TECHNIQUE: Single frontal view of the chest is obtained. FINDINGS: The heart size is normal. The pulmonary vasculature is normal. There is some atelectasis at the left base. Subcutaneous emphysema is present. IMPRESSION: 1. Small right apical pneumothorax.
[2019-09-01] MEDS: SYMBICORT 160-4.5 MCG INHALER INHALATION SCH ×2 (09:00→16:05)
[2019-09-01] MEDS: HEPARIN SODIUM,PORCINE 5,000 UNIT/ML 1 ML VIAL SQ SCH ×2 (10:03→19:14)
[2019-09-01] MEDS: MULTIVITAMINS, THERA 1 EACH TAB PO SCH (10:04)
[2019-09-01] MEDS: PANTOPRAZOLE 40 MG TABLET PO SCH (10:04)
--- NOTE | 2019-09-01 12:59 | P.PN ---
Subjective Progress Note Date: 09/01/19 Principal diagnosis: Spontaneous right-sided pneumothorax On 09/01/2019 patient seen in follow-up on medical surgical floor. She is on room air, she's in no acute distress pulse ox is 97% on room air, patient has been afebrile, hemodynamically patient is stable. Yesterday her right-sided for event was placed to waterseal and in the evening patient developed worsening subcutaneous emphysema in her upper chest and neck area. CT surgery was contacted and the chest tube was placed to suction this morning the chest tube remains to suction and there is intermittent air leak present. Chest x-ray this morning showed a small right apical pneumothorax atelectasis at the left lung base, and subcutaneous emphysema. Clinically patient is stable, remains fairly comfortable Objective - Vital Signs Vital signs: Vital Signs Temp 98.1 F 09/01/19 11:35 Pulse 80 09/01/19 11:35 Resp 18 09/01/19 11:35 BP 126/78 09/01/19 11:35 Pulse Ox 97 09/01/19 11:35 Intake & Output 08/31/19 09/01/19 09/01/19 18:59 06:59 18:59 Intake Total 600 600 240 Balance 600 600 240 Intake: Intake, IV Titration 120 Amount Sodium Chloride 0.9% 1, 120 000 ml @ 20 mls/hr IV . Q24H [facility] Rx#:[id number] Oral 600 480 240 Other: Voiding Method Bedside Commode Bedside Commode Bedside Commode # Voids 2 2 - Exam GENERAL EXAM: Alert, very pleasant, 54-year-old female on room air comfortable in no apparent distress. HEAD: Normocephalic/atraumatic. EYES: Normal reaction of pupils, equal size. Conjunctiva pink, sclera white. NOSE: Clear with pink turbinates. THROAT: No erythema or exudates. NECK: No masses, no JVD, no thyroid enlargement, no adenopathy. There is subcutaneous emphysema present involving the upper neck and upper chest area extending to the right submaxillary area and to the right upper back CHEST: No chest wall deformity. Symmetrical expansion. right anterior chest Thoravent to wall suction, and there is intermittent air leak present LUNGS: Equal air entry with no crackles, wheeze, rhonchi or dullness. CVS: Regular rate and rhythm, normal S1 and S2, no gallops, no murmurs, no rubs ABDOMEN: Soft, nontender. No hepatosplenomegaly, normal bowel sounds, no guarding or rigidity. EXTREMITIES: No clubbing, no edema, no cyanosis, 2+ pulses and upper and lower extremities. MUSCULOSKELETAL: Muscle strength and tone normal. SPINE: No scoliosis or deformity SKIN: No rashes CENTRAL NERVOUS SYSTEM: Alert and oriented -3. No focal deficits, tone is normal in all 4 extremities. PSYCHIATRIC: Alert and oriented -3. Appropriate affect. Intact judgment and insight. - Labs CBC & Chem 7: 08/30/19 08:01 08/30/19 08:01 Assessment and Plan Plan: Assessment: 1 right-sided pneumothorax, post chest tube insertion, with subsequent removal and insertion of a Thoravent. The patient had a CAT scan showed a small right sided pneumothorax in the order of 5% in addition to extensive subcutaneous emphysema and some no mediastinum. In any rate, right lung is expanded and the Flovent is attached to water seal. The patient is hemodynamically stable. CAT scan of the chest was noted. 2 COPD with bullous changes in the upper lobes bilaterally 3 vague opacity in the left upper lobe measuring 2.5 cm, no evidence of any mass on the CAT scan of the chest. 4 sarcoidosis, remote history of and the patient has been treated with steroids 5 history of smoking, 30 pack years 6 subcutaneous emphysema 7Positive UDS for cocaine Plan: Continue current medical treatment, right Thoravent to suction, and there is fairly consistent air leak present. Today's chest x-ray has been reviewed showing right apical pneumothorax. Continue encouraging deep breathing and coughing, pain control, hemodynamically patient is stable, repeat chest x-ray in the morning we'll continue to follow with CT surgery I performed a history & physical examination of the patient and discussed their management with my nurse practitioner, Holly Quigley. I reviewed the nurse practitioner's note and agree with the documented findings and plan of care. Lung sounds are positive for diminished breath sounds bilaterally. The findings and the impression was discussed with the patient. I attest to the documentation by the nurse practitioner. Time with Patient: Less than 30
[2019-09-01 13:22] VITALS: BMI 28.3
--- NOTE | 2019-09-01 13:36 | P.PN ---
Subjective 54-year-old woman who was recently admitted with a right spontaneous pneumothorax has had a Pleurx catheter placed. Patient continues to have subcu taneous emphysema noted of the right upper neck, chest area and is being closely monitored. Patient is maintained to suction. Patient continues to use incentive spirometer and has reached 1500 today. Instructed the patient to continue using at least 10 times every hour while awake. Patient states that her breathing has improved although she continues to have discomfort at the right chest wall and shoulder area. No reports of chest pain or palpitations. Patient is afebrile. 08/31/2019 Is a small apical pneumothorax on the CAT scan which showed diffuse emphysema recent illness still significant. Denies emphysema with pneumomediastinum 09/01/2019 Patient still has a leak no overnight events. Constitutional: Denied any fatigue denied any fever. Cardio vascular: denied any chest pain, palpitations Gastrointestinal denied any nausea vomiting Pulmonary: Denied any shortness of breath cough Neurologic denied any new focal deficits All inpatient medications were reviewed and appropriate changes in these medications as dictated in the interval history and assessment and plan. Objective - Vital Signs Vital signs: Vital Signs Temp 98.1 F 09/01/19 11:35 Pulse 80 09/01/19 11:35 Resp 18 09/01/19 11:35 BP 126/78 09/01/19 11:35 Pulse Ox 97 09/01/19 11:35 Intake & Output 08/31/19 09/01/19 09/01/19 18:59 06:59 18:59 Intake Total 600 600 240 Balance 600 600 240 Weight 65.771 kg Intake: Intake, IV Titration 120 Amount Sodium Chloride 0.9% 1, 120 000 ml @ 20 mls/hr IV . Q24H [facility] Rx#:[id number] Oral 600 480 240 Other: Voiding Method Bedside Commode Bedside Commode Bedside Commode # Voids 2 2 - Exam Gen: This is a 54-year-old female sitting up in bed awake, alert and oriented 3, well-developed, well-nourished. HEENT: Head is atraumatic, normocephalic. Pupils equal, round. Sclerae is anicteric. Right neck subcutaneous emphysema noted upon palpation NECK: Supple. No JVD. No lymphadenopathy. No thyromegaly. LUNGS: Diminished breath sounds at the bases with some scattered rhonchi and crackles noted. No intercostal retractions. HEART: S1, S2 are present ABDOMEN: Soft. Bowel sounds are present. No masses. No tenderness. EXTREMITIES: No pedal edema. No calf tenderness. NEUROLOGICAL: Patient is awake, alert and oriented x3. Cranial nerves 2 through 12 are grossly intact. - Labs - Labs CBC & Chem 7: 08/30/19 08:01 08/30/19 08:01 Assessment and Plan Plan: -Spontaneous pneumothorax patient has multiple bullae and does have COPD presently not in acute exacerbation does have apparent with suction is being continued -COPD without any acute exacerbation Gastroesophageal reflux disease -History of sarcoidosis Continue present management follow-up with pulmonary and cardiac thoracic surgery.
[2019-09-01] MEDS: ALPRAZolam 0.25 MG TAB PO PRN (15:04)
--- NOTE | 2019-09-01 15:07 | P.PN ---
Subjective Progress Note Date: 09/01/19 Principal diagnosis: Acute spontaneous right pneumothorax, status post thoracostomy tube placement which was subsequently removed and a Thoravent was placed by Dr. Pretty. Past medical history significant for sarcoidosis, COPD with bullous disease, asthma, hiatal hernias status post hiatal hernia repair, remote history of nicotine dependence in which she quit smoking 3 years ago and history of MRSA to her left shoulder. Status post day #4 and insertion of right chest Thoravent performed by Dr. Pretty and removal of right pleural chest tube. Patient is laying in bed on the fifth floor medical surgical unit. She is in no acute distress. Currently denies any complaints of pain or shortness of breath. The patient reports that last evening she started to develop some worsening subcutaneous emphysema to her neck and face. Subsequently, her right Thoravent chest tube was placed back to low continuous wall suction -20 cm H2O. This morning she continues to have some subcutaneous emphysema present to her bilateral upper lobes, right chest, neck and to her face. Her right Thoravent chest tube has a intermittent air leak. Oxygen saturation are 97% on room air and she is achieving 1500 mL on her incentive spirometry. A family member is present at her bedside. She remains afebrile. Her chest x-ray this morning demonstrates a small right apical pneumothorax. Objective - Vital Signs Vital signs: Vital Signs Temp 98.1 F 09/01/19 11:35 Pulse 80 09/01/19 11:35 Resp 18 09/01/19 11:35 BP 126/78 09/01/19 11:35 Pulse Ox 97 09/01/19 11:35 Intake & Output 08/31/19 09/01/19 09/01/19 18:59 06:59 18:59 Intake Total 641 096 2354 Balance 793 847 7223 Weight 65.771 kg Intake: Intake, IV Titration 120 Amount Sodium Chloride 0.9% 1, 120 000 ml @ 20 mls/hr IV . Q24H [facility] Rx#:[id number] Oral [phone] Other: Voiding Method Bedside Commode Bedside Commode Bedside Commode # Voids 2 2 1 - Constitutional General appearance: Present: cooperative, no acute distress, obese - Respiratory Details: Lung sounds are essentially clear throughout. Respirations are symmetrical and nonlabored. Oxygen saturation is 97% on room air. Right anterior chest Thoravent remains in place to low continuous wall suction -20 cm H2O. Intermittent air leak is present. No drainage is present. - Cardiovascular Details: Regular rhythm and rate. S1 and S2 present, negative for S3, gallop or murmur. No edema present. Sequential compression devices in place to bilateral lower extremities. - Gastrointestinal Gastrointestinal Comment(s): Abdomen is soft, nontender and nondistended. Active bowel sounds present all 4 abdominal quadrants. No guarding or rigidity. - Genitourinary Genitourinary Comment(s): Voiding clear yellow urine. - Integumentary Integumentary Comment(s): Skin is warm and dry. No clubbing or cyanosis is present. No rash or abnormal pigmentation is present. - Neurologic Neurologic: Present: CNII-XII intact - Musculoskeletal Musculoskeletal: Present: gait normal, strength equal bilaterally - Psychiatric Psychiatric: Present: A&O x's 3, appropriate affect, intact judgment & insight - Allied health notes Allied health notes reviewed: nursing - Labs CBC & Chem 7: 08/30/19 08:01 08/30/19 08:01 - Imaging and Cardiology Chest x-ray: report reviewed, image reviewed Assessment and Plan Assessment: 1. Acute spontaneous right pneumothorax, status post right thoracostomy tube placement 2. History of sarcoidosis 3. History of COPD, with bolus disease 4. History of asthma 5. History of hiatal hernia status post hiatal hernia repair 6. Remote history of nicotine dependence quit smoking 3 years ago 7. History of MRSA to her left shoulder Plan: 1. Keep right chest Thoravent in place to low continuous wall suction -20 cm H2O.. Continue to monitor for air leak resolution. 2. Continue to monitor daily chest x-rays. 3. Encourage use of incentive spirometry every hour while awake. 4. Medical management and other comorbidities per primary care service. 5. Encourage continued smoking cessation. 6. Pulmonary management recommendations per Dr. Pretty from pulmonary critical care medicine. 7. Pain control per current when necessary orders. 8. Increase activity as tolerated, out of bed for all meals, please put enough length on her suction that she is able to ambulate in her room. May disconnect Thoravent from wall suction to ambulate patient in the hallway. 9. More recommendations to follow based on patient's clinical course. Time with Patient: Greater than 30
[2019-09-01] MEDS: SODIUM CHLORIDE 0.9% 1,000 ML IV SCH (18:38)
[2019-09-01] MEDS: LEVOFLOXACIN 500 MG TAB PO SCH (19:14)
[2019-09-01] MEDS: MONTELUKAST 10 MG TAB PO SCH (19:14)
[2019-09-02] MEDS: HYDROmorphone 0.5 MG/0.5 ML SYRINGE IVP PRN ×3 (01:21→21:15)
[2019-09-02] MEDS: HYDROcodone/APAP 7.5-325MG 1 EACH TAB PO PRN ×3 (03:53→22:11)
--- NOTE | 2019-09-02 06:38 | XR ---
EXAMINATION TYPE: XR chest 1V portable DATE OF EXAM: 09/02/2019 HISTORY: right pneumothorax. REFERENCE: Previous study dated 09/01/2019. FINDINGS: There is a right pleural drain in place. There is continuing right-sided subcutaneous emphy sema and worsening left-sided subcutaneous emphysema. There continues to be a small right apical pneu mothorax which may be slightly larger than on the previous exam. Patchy opacity on the left may be in part due to the subcutaneous emphysema. The heart is not enlarged. No significant pleural fluid is s een. IMPRESSION: SLIGHT INCREASE IN THE RIGHT APICAL PNEUMOTHORAX.
[2019-09-02] MEDS: SYMBICORT 160-4.5 MCG INHALER INHALATION SCH ×2 (07:32→20:00)
[2019-09-02] MEDS: MULTIVITAMINS, THERA 1 EACH TAB PO SCH (08:08)
[2019-09-02] MEDS: ALPRAZolam 0.25 MG TAB PO PRN ×2 (08:08→19:54)
[2019-09-02] MEDS: PANTOPRAZOLE 40 MG TABLET PO SCH (08:08)
[2019-09-02] MEDS: HEPARIN SODIUM,PORCINE 5,000 UNIT/ML 1 ML VIAL SQ SCH ×2 (10:32→19:51)
--- NOTE | 2019-09-02 11:30 | P.PN ---
Subjective Progress Note Date: 09/02/19 Principal diagnosis: Spontaneous right-sided pneumothorax The patient is seen today 09/02/2019 in follow-up on the regular medical floor. She is currently resting comfortably in bed. She's been up ambulating in the hallway. No acute respiratory distress. Maintaining O2 saturations in the 90s on room air. Today's chest x-ray shows a slight increase in the right apical pneumothorax. Chest tube remains in place. There is increased left-sided subcutaneous emphysema. The patient again is stable and on room air. CT service is following. Objective - Vital Signs Vital signs: Vital Signs Temp 97.5 F L 09/02/19 05:00 Pulse 83 09/02/19 05:00 Resp 16 09/02/19 05:00 BP 114/77 09/02/19 05:00 Pulse Ox 95 09/02/19 05:00 Intake & Output 09/01/19 09/02/19 09/02/19 18:59 06:59 18:59 Intake Total 1040 160 Output Total 0 Balance 1040 160 Weight 65.771 kg Intake: Intake, IV Titration 160 Amount Sodium Chloride 0.9% 1, 160 000 ml @ 20 mls/hr IV . Q24H [facility] Rx#:[id number] Oral 1040 Output: Chest Tube Drainage 0 Chest Tube Right 0 Other: Voiding Method Bedside Commode Bedside Commode Bedside Commode # Voids 1 1 2 # Bowel Movements 1 - Exam - Exam GENERAL EXAM: Alert, very pleasant, 54-year-old female patient on room air, c omfortable in no apparent distress. HEAD: Normocephalic/atraumatic. EYES: Normal reaction of pupils, equal size. Conjunctiva pink, sclera white. NOSE: Clear with pink turbinates. THROAT: No erythema or exudates. NECK: No masses, no JVD, no thyroid enlargement, no adenopathy. There is subcutaneous emphysema present involving the upper neck and upper chest area extending to the right submaxillary area and to the right upper back CHEST: No chest wall deformity. Symmetrical expansion. right anterior chest Thoravent to wall suction, and there is intermittent air leak present LUNGS: Equal air entry with no crackles, wheeze, rhonchi or dullness. CVS: Regular rate and rhythm, normal S1 and S2, no gallops, no murmurs, no rubs ABDOMEN: Soft, nontender. No hepatosplenomegaly, normal bowel sounds, no guarding or rigidity. EXTREMITIES: No clubbing, no edema, no cyanosis, 2+ pulses and upper and lower extremities. MUSCULOSKELETAL: Muscle strength and tone normal. SPINE: No scoliosis or deformity SKIN: No rashes CENTRAL NERVOUS SYSTEM: No focal deficits, tone is normal in all 4 extremities. PSYCHIATRIC: Alert and oriented -3. Appropriate affect. Intact judgment and insight. - Labs CBC & Chem 7: 08/30/19 08:01 08/30/19 08:01 Assessment and Plan Assessment: 1 right-sided pneumothorax, post chest tube insertion, with subsequent removal and insertion of a Thoravent. The patient had a CAT scan showed a small right sided pneumothorax in the order of 5% in addition to extensive subcutaneous emphysema and some no mediastinum. In any rate, right lung is expanded and the Thoravent is attached to water seal. The patient is hemodynamically stable. CAT scan of the chest was noted. 2 COPD with bullous changes in the upper lobes bilaterally 3 vague opacity in the left upper lobe measuring 2.5 cm, no evidence of any mass on the CAT scan of the chest. 4 sarcoidosis, remote history of and the patient has been treated with steroids 5 history of smoking, 30 pack years 6 subcutaneous emphysema 7Positive UDS for cocaine Plan: The patient was seen and evaluated by Dr. Pretty. Chest x-ray reviewed. T horavent remains in place for now. She is stable from the pulmonary standpoint. On room air. We'll continue to follow. I, the cosigning physician, performed a history & physical examination of the patient. Lungs sounds are clear. Maintaining good O2 saturations in the 90s on room air. I discussed the assessment and plan of care with my nurse practitioner, Shira Curtis. I attest to the above note as dictated by her.
--- NOTE | 2019-09-02 12:30 | P.PN ---
Subjective Progress Note Date: 09/02/19 Principal diagnosis: Acute spontaneous right pneumothorax, status post thoracostomy tube placement which was subsequently removed and a Thoravent was placed by Dr. Pretty. Past medical history significant for sarcoidosis, COPD with bullous disease, asthma, hiatal hernias status post hiatal hernia repair, remote history of nicotine dependence in which she quit smoking 3 years ago and history of MRSA to her left shoulder. Status post day #5 and insertion of right chest Thoravent performed by Dr. Pretty and removal of right pleural chest tube. The patient is laying in bed on the fifth floor medical surgical unit. She is in no acute distress. The patient denies any complaints of pain or shortness of breath, although is complaining of some increase in her subcu emphysema to her neck and face. The right chest Thoravent remains in place to low continuous wall suction -20 cm H2O. Continuous air leak is present. Scant thin serosanguineous drainage. She is achieving 1250 mL on her incentive spirometry. Oxygen saturation is 99% on room air. Remains afebrile in the last 24 hours. Objective - Vital Signs Vital signs: Vital Signs Temp 97.6 F 09/02/19 11:56 Pulse 90 09/02/19 11:56 Resp 18 09/02/19 11:56 BP 115/77 09/02/19 11:56 Pulse Ox 99 09/02/19 11:56 Intake & Output 09/01/19 09/02/19 09/02/19 18:59 06:59 18:59 Intake Total 1040 160 Output Total 0 Balance 1040 160 Weight 65.771 kg Intake: Intake, IV Titration 160 Amount Sodium Chloride 0.9% 1, 160 000 ml @ 20 mls/hr IV . Q24H [facility] Rx#:[id number] Oral 1040 Output: Chest Tube Drainage 0 Chest Tube Right 0 Other: Voiding Method Bedside Commode Bedside Commode Bedside Commode # Voids 1 1 2 # Bowel Movements 1 - Constitutional General appearance: Present: cooperative, no acute distress, obese - Respiratory Details: Lung sounds essentially clear throughout. Respirations are symmetrical and nonlabored. Oxygen saturation 99% on room air. Achieving 1250 mL on her incentive spirometry. - Cardiovascular Details: Regular rhythm and rate. S1 and S2 present, negative for S3, gallop or murmur. Sequential compression devices in place to bilateral lower extremities. - Gastrointestinal Gastrointestinal Comment(s): Abdomen is soft, nontender and nondistended. Active bowel sounds present in all 4 abdominal quadrants. Tolerating oral intake. - Integumentary Integumentary Comment(s): Skin is warm and dry. No clubbing or cyanosis present. Subcu emphysema present to her bilateral upper extremities, chest, neck and face. - Neurologic Neurologic: Present: CNII-XII intact - Musculoskeletal Musculoskeletal: Present: gait normal, strength equal bilaterally - Psychiatric Psychiatric: Present: A&O x's 3, appropriate affect, intact judgment & insight - Allied health notes Allied health notes reviewed: nursing - Labs CBC & Chem 7: 08/30/19 08:01 08/30/19 08:01 - Imaging and Cardiology Chest x-ray: report reviewed, image reviewed Assessment and Plan Assessment: 1. Acute spontaneous right pneumothorax, status post right thoracostomy tube placement, and subsequent removal of the thoracostomy tube and placement of a right chest Thoravent 2. History of sarcoidosis 3. History of COPD, with bolus disease 4. History of asthma 5. History of hiatal hernia status post hiatal hernia repair 6. Remote history of nicotine dependence quit smoking 3 years ago 7. History of MRSA to her left shoulder Plan: 1. Keep right chest Thoravent in place to low continuous wall suction -20 cm H2 O.. Continue to monitor for air leak resolution. 2. Continue to monitor daily chest x-rays. 3. Encourage use of incentive spirometry every hour while awake. 4. Medical management and other comorbidities per primary care service. 5. Encourage continued smoking cessation. 6. Pulmonary management recommendations per Dr. Pretty from pulmonary critical care medicine. 7. Pain control per current when necessary orders. 8. Increase activity as tolerated, out of bed for all meals, please put enough length on her suction that she is able to ambulate in her room. 9. More recommendations to follow based on patient's clinical course. Time with Patient: Greater than 30
--- NOTE | 2019-09-02 15:49 | P.PN ---
Subjective 54-year-old woman who was recently admitted with a right spontaneous pneumothorax has had a Pleurx catheter placed. Patient continues to have subcu taneous emphysema noted of the right upper neck, chest area and is being closely monitored. Patient is maintained to suction. Patient continues to use incentive spirometer and has reached 1500 today. Instructed the patient to continue using at least 10 times every hour while awake. Patient states that her breathing has improved although she continues to have discomfort at the right chest wall and shoulder area. No reports of chest pain or palpitations. Patient is afebrile. 08/31/2019 Is a small apical pneumothorax on the CAT scan which showed diffuse emphysema recent illness still significant. Denies emphysema with pneumomediastinum 09/01/2019 Patient still has a leak no overnight events. 09/02/2019 Patient is comparing of increasing subcutaneous emphysema with pain on deep breathing patient continues to be on continuous suction and Constitutional: Denied any fatigue denied any fever. Cardio vascular: denied any palpitations Gastrointestinal denied any nausea vomiting Pulmonary: Am planing of pleuritic chest pain Neurologic denied any new focal deficits All inpatient medications were reviewed and appropriate changes in these medications as dictated in the interval history and assessment and plan. Objective - Vital Signs Vital signs: Vital Signs Temp 97.6 F 09/02/19 11:56 Pulse 90 09/02/19 11:56 Resp 18 09/02/19 11:56 BP 115/77 09/02/19 11:56 Pulse Ox 99 09/02/19 11:56 Intake & Output 09/01/19 09/02/19 09/02/19 18:59 06:59 18:59 Intake Total 1040 160 Output Total 0 0 Balance 1040 160 0 Weight 65.771 kg Intake: Intake, IV Titration 160 Amount Sodium Chloride 0.9% 1, 160 000 ml @ 20 mls/hr IV . Q24H [facility] Rx#:[id number] Oral 1040 Output: Chest Tube Drainage 0 0 Chest Tube Right 0 0 Other: Voiding Method Bedside Commode Bedside Commode Bedside Commode # Voids 1 1 2 # Bowel Movements 2 - Exam Gen: This is a 54-year-old female sitting up in bed awake, alert and oriented 3, well-developed, well-nourished. HEENT: Head is atraumatic, normocephalic. Pupils equal, round. Sclerae is anicteric. Right neck subcutaneous emphysema diffuse in the neck as well as arms NECK: Supple. No JVD. No lymphadenopathy. No thyromegaly. LUNGS: Diminished breath sounds at the bases with some scattered rhonchi and crackles noted. No intercostal retractions. HEART: S1, S2 are present ABDOMEN: Soft. Bowel sounds are present. No masses. No tenderness. EXTREMITIES: No pedal edema. No calf tenderness. NEUROLOGICAL: Patient is awake, alert and oriented x3. Cranial nerves 2 through 12 are grossly intact. - Labs - Labs CBC & Chem 7: 08/30/19 08:01 08/30/19 08:01 Assessment and Plan Plan: -Spontaneous pneumothorax patient has multiple bullae and does have COPD presently not in acute exacerbation does have apparent with suction is being continued -COPD without any acute exacerbation Gastroesophageal reflux disease -History of sarcoidosis Continue present management follow-up with pulmonary and cardiac thoracic surgery.
[2019-09-02] MEDS: SODIUM CHLORIDE 0.9% 1,000 ML IV SCH (18:03)
[2019-09-02] MEDS: LEVOFLOXACIN 500 MG TAB PO SCH (18:09)
[2019-09-02] MEDS: MONTELUKAST 10 MG TAB PO SCH (19:52)
[2019-09-02] MEDS: DOCUSATE 100 MG CAP PO SCH (19:52)
[2019-09-02] MEDS: ASPIRIN-ACET-CAFF 250-250-65MG 1 EACH TAB PO PRN (21:32)
--- NOTE | 2019-09-03 01:54 | XR ---
EXAMINATION TYPE: XR chest 1V DATE OF EXAM: 09/03/2019 COMPARISON: Yesterday HISTORY: Follow-up pneumothorax TECHNIQUE: FINDINGS: There is a right upper chest tube. Trachea is midline. There is extensive soft tissue air o zaheer the chest that obscures the lung parenchyma. There is probably small right apical pneumothorax th at is slightly smaller than exam yesterday morning. Heart size is normal. There are no hilar masses. IMPRESSION: There is decrease in the right side pneumothorax compared to exam yesterday morning. Prev ious exam is approximate 20% and now is less than 10%.
[2019-09-03] MEDS: HYDROmorphone 0.5 MG/0.5 ML SYRINGE IVP PRN ×4 (02:56→22:22)
[2019-09-03] MEDS: HYDROcodone/APAP 7.5-325MG 1 EACH TAB PO PRN ×4 (04:00→23:59)
--- NOTE | 2019-09-03 06:17 | XR ---
EXAMINATION TYPE: XR chest 1V portable DATE OF EXAM: 09/03/2019 HISTORY: Right pneumothorax. REFERENCE: Previous study dated 09/03/2019. FINDINGS: Right pleural drain remains in place. I can no longer identify a definite pneumothorax. The re is subcutaneous emphysema present bilaterally. Heart size is within normal limits. Allowing for th e subcutaneous air I suspect the lungs are clear. Pleural spaces appear clear. IMPRESSION: I CAN NO LONGER IDENTIFY A DEFINITE RIGHT-SIDED PNEUMOTHORAX.
[2019-09-03] MEDS: SYMBICORT 160-4.5 MCG INHALER INHALATION SCH ×2 (07:30→20:53)
[2019-09-03] MEDS: HEPARIN SODIUM,PORCINE 5,000 UNIT/ML 1 ML VIAL SQ SCH ×2 (09:39→20:11)
[2019-09-03] MEDS: SODIUM CHLORIDE 0.9% 1,000 ML IV SCH (09:40)
[2019-09-03] MEDS: ALPRAZolam 0.25 MG TAB PO PRN (09:40)
[2019-09-03] MEDS: MULTIVITAMINS, THERA 1 EACH TAB PO SCH (09:40)
[2019-09-03] MEDS: DOCUSATE 100 MG CAP PO SCH ×2 (09:40→20:11)
[2019-09-03] MEDS: PANTOPRAZOLE 40 MG TABLET PO SCH (09:40)
--- NOTE | 2019-09-03 10:16 | P.PN ---
Subjective Progress Note Date: 09/03/19 Principal diagnosis: Acute spontaneous right pneumothorax, status post thoracostomy tube placement which was subsequently removed and a Thoravent was placed by Dr. Pretty. Past medical history significant for sarcoidosis, COPD with bullous disease, asthma, hiatal hernias status post hiatal hernia repair, remote history of nicotine dependence in which she quit smoking 3 years ago and history of MRSA to her left shoulder. Status post day #6 and insertion of right chest Thoravent performed by Dr. Pretty and removal of right pleural chest tube. The patient is laying in bed on the fifth floor medical surgical unit. She is in no acute distress. The patient reports that she is not having any pain or shortness of breath at this time, although she is complaining of increased subcutaneous emphysema to her neck and face. She does have evidence of some increased subcutaneous emphysema to her face and periorbital. Her right chest Thoravent remains in place to low continuous wall suction -40 cm H2O which was increased last evening. Continuous air leak is present. No drainage present. Oxygen saturation is 98% on 2 L nasal cannula and she is achieving 1500 mL on h er incentive spirometry. She has been ambulating in her room independently and remains afebrile. Objective - Vital Signs Vital signs: Vital Signs Temp 97.9 F 09/03/19 05:00 Pulse 98 09/03/19 05:00 Resp 20 09/03/19 05:00 BP 121/81 09/03/19 05:00 Pulse Ox 98 09/03/19 05:00 Intake & Output 09/02/19 09/03/19 09/03/19 18:59 06:59 18:59 Intake Total 240 Output Total 0 Balance 0 240 Intake: Oral 240 Output: Chest Tube Drainage 0 Chest Tube Right 0 Other: Voiding Method Bedside Commode Bedside Commode # Voids 2 2 1 # Bowel Movements 2 1 - Constitutional General appearance: Present: cooperative, no acute distress, obese - Respiratory Details: Lungs sounds essentially clear throughout. No wheezes, crackles or rhonchi. Respirations are symmetrical and nonlabored. Right chest Thoravent in place to low continuous wall suction -40 cm H2O. Continuous air leak is present. No drainage present. Oxygen saturation is 98% on 2 L nasal cannula and she is achieving 1500 mL on her incentive spirometry. - Cardiovascular Details: Regular rhythm and rate. S1 and S2 present, negative for S3, gallop or murmur. Knee-high sequential compression devices in place to bilateral lower extremities. - Gastrointestinal Gastrointestinal Comment(s): Abdomen is soft, nontender and nondistended. Active bowel sounds present all 4 abdominal quadrants. No guarding or rigidity. No organomegaly appreciated. - Integumentary Integumentary Comment(s): Skin is warm and dry. No clubbing or cyanosis is present. Small ecchymotic area to her right lateral chest to her previous right chest tube insertion site. Dressing is clean and dry. - Neurologic Neurologic: Present: CNII-XII intact - Musculoskeletal Musculoskeletal: Present: gait normal, strength equal bilaterally - Psychiatric Psychiatric: Present: A&O x's 3, appropriate affect, intact judgment & insight - Allied health notes Allied health notes reviewed: nursing - Labs CBC & Chem 7: 08/30/19 08:01 08/30/19 08:01 - Imaging and Cardiology Chest x-ray: report reviewed, image reviewed Assessment and Plan Assessment: 1. Acute spontaneous right pneumothorax, status post right thoracostomy tube placement, and subsequent removal of the thoracostomy tube and placement of a right chest Thoravent 2. History of sarcoidosis 3. History of COPD, with bolus disease 4. History of asthma 5. History of hiatal hernia status post hiatal hernia repair 6. Remote history of nicotine dependence quit smoking 3 years ago 7. History of MRSA to her left shoulder 8. Subcutaneous emphysema Plan: 1. Keep right chest Thoravent in place to low continuous wall suction -40 cm H2O.. Continue to monitor for air leak resolution. 2. Continue to monitor daily chest x-rays. 3. Encourage use of incentive spirometry every hour while awake. 4. Medical management and other comorbidities per primary care service. 5. Encourage continued smoking cessation. 6. Pulmonary management recommendations per Dr. Pretty from pulmonary critical care medicine. 7. Pain control per current when necessary orders. 8. Increase activity as tolerated, out of bed for all meals, please put enough length on her suction that she is able to ambulate in her room and up to the bathroom. 9. His subcutaneous emphysema gets worse she may require some blowhole incisions supraclavicular. 10. More recommendations to follow based on patient's clinical course. Time with Patient: Greater than 30
[2019-09-03] MEDS ORDERED: LIDOCAINE 1% INJ 10MG/ML (20 ML MDV) SQ ONE (10:28)
--- NOTE | 2019-09-03 12:16 | P.PN ---
Subjective Progress Note Date: 09/03/19 Principal diagnosis: Spontaneous right-sided pneumothorax The patient is seen today September 03 2019 in follow-up on the regular medical floor. She is currently awake and alert in no acute distress. She has been having increasing subcutaneous emphysema traveling up into her face and her periorbital area. She is breathing well. No difficulty swallowing. She is maintaining good O2 saturation in the upper 90s on 2 L/m per nasal cannula. She's been afebrile. Hemodynamically stable. Follow-up chest x-ray reveals no definite right-sided pneumothorax. A chest x-ray was performed approximately 2:00 this morning due to her noted subcutaneous emphysema per the nursing staff. Chest x-ray had revealed 10% pneumothorax. The Thoravent remains attached to Pleur-evac and wall suction at -40. There is an air leak present. Objective - Vital Signs Vital signs: Vital Signs Temp 97.7 F 09/03/19 11:55 Pulse 78 09/03/19 11:55 Resp 20 09/03/19 11:55 BP 108/71 09/03/19 11:55 Pulse Ox 97 09/03/19 11:55 Intake & Output 09/02/19 09/03/19 09/03/19 18:59 06:59 18:59 Intake Total 240 Output Total 0 Balance 0 240 Intake: Oral 240 Output: Chest Tube Drainage 0 Chest Tube Right 0 Other: Voiding Method Bedside Commode Bedside Commode Bedside Commode # Voids 2 2 1 # Bowel Movements 2 1 - Exam - Exam GENERAL EXAM: Alert, very pleasant, 54-year-old female patient on room air, comfortable in no apparent distress. HEAD: Noted increase subcutaneous emphysema up into the face and pured orbital area EYES: Normal reaction of pupils, equal size. Conjunctiva pink, sclera white. NOSE: Clear with pink turbinates. THROAT: No erythema or exudates. NECK: No masses, no JVD, no thyroid enlargement, no adenopathy. There is subcutaneous emphysema present involving the upper neck and upper chest area extending to the right submaxillary area and to the right upper back CHEST: No chest wall deformity. Symmetrical expansion. right anterior chest Thoravent to wall suction, and there is an air leak present LUNGS: Equal air entry with no crackles, wheeze, rhonchi or dullness. CVS: Regular rate and rhythm, normal S1 and S2, no gallops, no murmurs, no rubs ABDOMEN: Soft, nontender. No hepatosplenomegaly, normal bowel sounds, no guarding or rigidity. EXTREMITIES: No clubbing, no edema, no cyanosis, 2+ pulses and upper and lower extremities. MUSCULOSKELETAL: Muscle strength and tone normal. SPINE: No scoliosis or deformity SKIN: Significant subcutaneous emphysema in the upper chest neck and face. CENTRAL NERVOUS SYSTEM: No focal deficits, tone is normal in all 4 extremities. PSYCHIATRIC: Alert and oriented -3. Appropriate affect. Intact judgment and insight. - Labs CBC & Chem 7: 08/30/19 08:01 08/30/19 08:01 Assessment and Plan Assessment: 1 right-sided pneumothorax, post chest tube insertion, with subsequent removal and insertion of a Thoravent. The patient had a CAT scan showed a small right sided pneumothorax in the order of 5% in addition to extensive subcutaneous emphysema in the upper chest and neck and face. The right lung is expanded and the Thoravent is attached to suction at negative 40. The patient is hemodynamically stable. 2 COPD with bullous changes in the upper lobes bilaterally 3 vague opacity in the left upper lobe measuring 2.5 cm, no evidence of any mass on the CAT scan of the chest. 4 sarcoidosis, remote history of and the patient has been treated with steroids 5 history of smoking, 30 pack years 6 subcutaneous emphysema 7Positive UDS for cocaine Plan: The patient was seen and evaluated by Dr. Pretty. Chest x-rays reviewed. Tho ravent remains in place to wall site suction at -40. Air leak is present. I can't subcutaneous emphysema in the upper chest neck and face. No respiratory distress. May consider small incisions above the clavicles to release pressure if needed. We'll continue to follow. I, the cosigning physician, performed a history & physical examination of the patient. Lungs sounds are clear. Maintaining good O2 saturations in the 90s on 2 L/m per nasal cannula. I discussed the assessment and plan of care with my nurse practitioner, Shira Curtis. I attest to the above note as dictated by her.
--- NOTE | 2019-09-03 14:23 | P.PN ---
Subjective 54-year-old woman who was recently admitted with a right spontaneous pneumothorax has had a Pleurx catheter placed. Patient continues to have subcu taneous emphysema noted of the right upper neck, chest area and is being closely monitored. Patient is maintained to suction. Patient continues to use incentive spirometer and has reached 1500 today. Instructed the patient to continue using at least 10 times every hour while awake. Patient states that her breathing has improved although she continues to have discomfort at the right chest wall and shoulder area. No reports of chest pain or palpitations. Patient is afebrile. 08/31/2019 Is a small apical pneumothorax on the CAT scan which showed diffuse emphysema recent illness still significant. Denies emphysema with pneumomediastinum 09/01/2019 Patient still has a leak no overnight events. 09/02/2019 Patient is comparing of increasing subcutaneous emphysema with pain on deep breathing patient continues to be on continuous suction and 2019 patient oxygen saturations have dropped this happened as an episode at 2 AM but later she started doing well still has to underwent attached to Pleur-evac with negative suction of 40-60 showing 10% pneumothorax Constitutional: Denied any fatigue denied any fever. Cardio vascular: denied any palpitations Gastrointestinal denied any nausea vomiting Pulmonary: Am planing of pleuritic chest pain Neurologic denied any new focal deficits All inpatient medications were reviewed and appropriate changes in these medications as dictated in the interval history and assessment and plan. Objective - Vital Signs Vital signs: Vital Signs Temp 97.7 F 09/03/19 11:55 Pulse 78 09/03/19 11:55 Resp 20 09/03/19 11:55 BP 108/71 09/03/19 11:55 Pulse Ox 97 09/03/19 11:55 Intake & Output 09/02/19 09/03/19 09/03/19 18:59 06:59 18:59 Intake Total 240 Output Total 0 0 Balance 0 240 Intake: Oral 240 Output: Chest Tube Drainage 0 0 Chest Tube Right 0 0 Other: Voiding Method Bedside Commode Bedside Commode Bedside Commode # Voids 2 2 4 # Bowel Movements 2 1 - Exam Gen: This is a 54-year-old female sitting up in bed awake, alert and oriented 3, well-developed, well-nourished. HEENT: Head is atraumatic, normocephalic. Pupils equal, round. Sclerae is ani cteric. Right neck subcutaneous emphysema diffuse in the neck as well as arms NECK: Supple. No JVD. No lymphadenopathy. No thyromegaly. LUNGS: Diminished breath sounds at the bases with some scattered rhonchi and crackles noted. No intercostal retractions. HEART: S1, S2 are present ABDOMEN: Soft. Bowel sounds are present. No masses. No tenderness. EXTREMITIES: No pedal edema. No calf tenderness. NEUROLOGICAL: Patient is awake, alert and oriented x3. Cranial nerves 2 through 12 are grossly intact. - Labs - Labs CBC & Chem 7: 08/30/19 08:01 08/30/19 08:01 Assessment and Plan Plan: -Spontaneous pneumothorax patient has multiple bullae and does have COPD presently not in acute exacerbation, continue with the Proventil and Pneumovac suctioning -COPD without any acute exacerbation Gastroesophageal reflux disease -History of sarcoidosis Continue present management follow-up with pulmonary and cardiac thoracic surgery.
[2019-09-03] MEDS: LEVOFLOXACIN 500 MG TAB PO SCH (17:36)
[2019-09-03] MEDS: MONTELUKAST 10 MG TAB PO SCH (20:11)
[2019-09-03] MEDS ORDERED: ARTIFICIAL TEARS-HYPROMELLOSE DROPS 15 ML BTL BOTH EYES PRN (20:22)
[2019-09-04] MEDS: HYDROmorphone 0.5 MG/0.5 ML SYRINGE IVP PRN ×3 (05:52→22:20)
--- NOTE | 2019-09-04 07:08 | XR ---
EXAMINATION TYPE: XR chest 1V portable DATE OF EXAM: 09/04/2019 COMPARISON: 09/03/2019 HISTORY: Follow-up for pneumothorax TECHNIQUE: Single frontal view of the chest is obtained. FINDINGS: There is a trace apical right pneumothorax present. Multifocal bilateral lateral atelectas is is seen. Extensive chest wall subcutaneous emphysema. Right-sided thoracostomy tube is unchanged. IMPRESSION: Trace residual right pneumothorax. Otherwise similar exam with multifocal atelectasis an d subcutaneous emphysema.
[2019-09-04] MEDS: HYDROcodone/APAP 7.5-325MG 1 EACH TAB PO PRN ×3 (07:33→23:18)
[2019-09-04] MEDS: DOCUSATE 100 MG CAP PO SCH (07:34)
[2019-09-04] MEDS: HEPARIN SODIUM,PORCINE 5,000 UNIT/ML 1 ML VIAL SQ SCH ×2 (07:34→20:09)
[2019-09-04] MEDS: PANTOPRAZOLE 40 MG TABLET PO SCH (07:34)
[2019-09-04] MEDS: SYMBICORT 160-4.5 MCG INHALER INHALATION SCH ×2 (08:05→19:05)
--- NOTE | 2019-09-04 11:30 | P.PN ---
Subjective Progress Note Date: 09/04/19 Principal diagnosis: Spontaneous right-sided pneumothorax The patient is seen today 09/04/2019 in follow-up on the regular medical floor. She is awake and alert in no acute distress. Maintaining O2 saturations in the mid to upper 90s on room air. She's been afebrile. Hemodynamically stable. Right sided ThoraVent remains in place and to wall suction. There is an air leak still present. Chest x-ray reveals trace residual right pneumothorax. Stable compared to previous. Still noted multifocal atelectasis and subcutaneous emphysema. Her face has less edema today compared to yesterday. No difficulty swallowing. CT services are on the case. Objective - Vital Signs Vital signs: Vital Signs Temp 98.3 F 09/04/19 05:00 Pulse 78 09/04/19 05:00 Resp 17 09/03/19 21:00 BP 114/78 09/04/19 05:00 Pulse Ox 98 09/04/19 05:00 Intake & Output 09/03/19 09/04/19 09/04/19 18:59 06:59 18:59 Intake Total 240 240 Output Total 0 0 Balance 240 240 Intake: Oral 240 240 Output: Chest Tube Drainage 0 0 Chest Tube Right 0 0 Other: Voiding Method Bedside Commode Bedside Commode # Voids 4 1 # Bowel Movements 1 - Exam - Exam GENERAL EXAM: Alert, very pleasant, 54-year-old female patient on room air, comfortable in no apparent distress. HEAD: Noted subcutaneous emphysema up into the face and murali orbital area, improved today compared to yesterday EYES: Normal reaction of pupils, equal size. Conjunctiva pink, sclera white. NOSE: Clear with pink turbinates. THROAT: No erythema or exudates. NECK: No masses, no JVD, no thyroid enlargement, no adenopathy. There is s ubcutaneous emphysema present involving the upper neck and upper chest area extending to the right submaxillary area and to the right upper back CHEST: No chest wall deformity. Symmetrical expansion. right anterior chest Thoravent to wall suction, and there is an air leak present LUNGS: Equal air entry with few scattered rhonchi CVS: Regular rate and rhythm, normal S1 and S2, no gallops, no murmurs, no rubs ABDOMEN: Soft, nontender. No hepatosplenomegaly, normal bowel sounds, no guarding or rigidity. EXTREMITIES: No clubbing, no edema, no cyanosis, 2+ pulses and upper and lower extremities. MUSCULOSKELETAL: Muscle strength and tone normal. SPINE: No scoliosis or deformity SKIN: Significant subcutaneous emphysema in the upper chest neck and face. CENTRAL NERVOUS SYSTEM: No focal deficits, tone is normal in all 4 extremities. PSYCHIATRIC: Alert and oriented -3. Appropriate affect. Intact judgment and insight. - Labs CBC & Chem 7: 08/30/19 08:01 08/30/19 08:01 Assessment and Plan Assessment: 1 right-sided pneumothorax, post chest tube insertion, with subsequent removal and insertion of a Thoravent. The patient had a CAT scan showed a small right sided pneumothorax in the order of 5% in addition to extensive subcutaneous emphysema in the upper chest and neck and face. The right lung is expanded and the Thoravent is attached to suction at negative 40. The patient is hemodynamically stable. 2 COPD with bullous changes in the upper lobes bilaterally 3 vague opacity in the left upper lobe measuring 2.5 cm, no evidence of any mass on the CAT scan of the chest. 4 sarcoidosis, remote history of and the patient has been treated with steroids 5 history of smoking, 30 pack years 6 subcutaneous emphysema 7Positive UDS for cocaine Plan: The patient was seen and evaluated by Dr. Pierce. Chest x-ray reviewed. Thoravent remains in place to wall site suction at -40. Air leak is present. S ubcutaneous emphysema in the upper chest neck and face somewhat improved today compared to yesterday. No respiratory distress. On room air. Awaiting further input from cardiothoracic surgery. We'll continue to follow. I, the cosigning physician, performed a history & physical examination of the patient. Lungs sounds with few scattered rhonchi. Maintaining good O2 saturations in the 90s on room air. I discussed the assessment and plan of care with my nurse practitioner, Shira Crutis. I attest to the above note as dictated by her.
[2019-09-04] MEDS: MULTIVITAMINS, THERA 1 EACH TAB PO SCH (12:54)
--- NOTE | 2019-09-04 12:54 | P.PN ---
Subjective Progress Note Date: 09/04/19 Principal diagnosis: This is a 54-year-old woman who was recently admitted with a right spontaneous pneumothorax has had a Pleurx catheter placed. Patient continues to have subcutaneous emphysema noted of the right upper neck, chest area and is being closely monitored. Patient is maintained to suction. Patient continues to use incentive spirometer and has reached 1500 today. Instructed the patient to continue using at least 10 times every hour while awake. Patient states that her breathing has improved although she continues to have discomfort at the right chest wall and shoulder area. No reports of chest pain or palpitations. Patient is afebrile. 08/31/2019 Is a small apical pneumothorax on the CAT scan which showed diffuse emphysema recent illness still significant. Denies emphysema with pneumomediastinum 09/01/2019 Patient still has a leak no overnight events. 09/02/2019 Patient is comparing of increasing subcutaneous emphysema with pain on deep breathing patient continues to be on continuous suction and 09/03/2019 patient oxygen saturations have dropped this happened as an episode at 2 AM but later she started doing well still has to underwent attached to Pleur-evac with negative suction of 40-60 showing 10% pneumothorax Constitutional: Denied any fatigue denied any fever. Cardio vascular: denied any palpitations Gastrointestinal denied any nausea vomiting Pulmonary: Am planing of pleuritic chest pain Neurologic denied any new focal deficits 09/04/2019 Patient is seen and evaluated in follow-up today and continues to be on suction of the right thoravent with an air leak present. Patient is currently on room air and tolerating. Patient's facial swelling has improved from yesterday. pulmonary is following along with cardiothoracic surgery and appreciate input. Patient continues to have subcutaneous emphysema noted on the chest x-ray from this morning otherwise stable pneumothorax at this time. Patient is continuing to use incentive spirometer as instructed. Objective - Vital Signs Vital signs: Vital Signs Temp 98.3 F 09/04/19 12:22 Pulse 76 09/04/19 12:22 Resp 17 09/04/19 12:22 BP 113/73 09/04/19 12:22 Pulse Ox 95 09/04/19 12:22 Intake & Output 09/03/19 09/04/19 09/04/19 18:59 06:59 18:59 Intake Total 240 240 Output Total 0 0 Balance 240 240 Intake: Oral 240 240 Output: Chest Tube Drainage 0 0 Chest Tube Right 0 0 Other: Voiding Method Bedside Commode Bedside Commode # Voids 4 1 # Bowel Movements 1 - Exam Gen: This is a 54-year-old female sitting up in bed awake, alert and oriented 3, well-developed, well-nourished. HEENT: Head is atraumatic, normocephalic. Pupils equal, round. Sclerae is anicteric. Right neck, upper arms, and face subcutaneous emphysema noted upon palpation with slight improvement NECK: Supple. No JVD. No lymphadenopathy. No thyromegaly. Subcutaneous emphysema noted on palpation LUNGS: Diminished breath sounds at the bases with some scattered rhonchi and crackles noted. No intercostal retractions. HEART: S1, S2 are present ABDOMEN: Soft. Bowel sounds are present. No masses. No tenderness. EXTREMITIES: No pedal edema. No calf tenderness. NEUROLOGICAL: Patient is awake, alert and oriented x3. Cranial nerves 2 through 12 are grossly intact. - Labs CBC & Chem 7: 08/30/19 08:01 08/30/19 08:01 Assessment and Plan Assessment: -Spontaneous pneumothorax patient has multiple bullae and does have COPD presen tly not in acute exacerbation, continue with the Proventil and Pneumovac suctioning, appreciate CT surgery input -COPD without any acute exacerbation -Gastroesophageal reflux disease -History of sarcoidosis Plan: Continue present management follow-up with pulmonary and cardiac thoracic surgery. Continue to encourage incentive spirometer use at least 10 times every hour while awake. Repeat chest x-ray continues to show a trace of residual right pneumo thorax with some multifocal atelectasis and subcutaneous emphysema noted.
[2019-09-04] MEDS ORDERED: FLUCONAZOLE 100 MG TAB PO ONE (15:13)
[2019-09-04] MEDS: SENNOSIDES 8.6 MG TAB PO PRN (15:30)
[2019-09-04] MEDS: SODIUM CHLORIDE 0.9% 1,000 ML IV SCH (17:46)
[2019-09-04] MEDS: LEVOFLOXACIN 500 MG TAB PO SCH (17:52)
--- NOTE | 2019-09-04 17:57 | P.PN ---
Subjective Progress Note Date: 09/04/19 Principal diagnosis: Acute spontaneous right pneumothorax, status post thoracostomy tube placement which was subsequently removed and a Thoravent was placed by Dr. Pretty. Past medical history significant for sarcoidosis, COPD with bullous disease, asthma, hiatal hernias status post hiatal hernia repair, remote history of nicotine dependence in which she quit smoking 3 years ago and history of MRSA to her left shoulder. Status post day #7 and insertion of right chest Thoravent performed by Dr. Pretty and removal of right pleural chest tube. The patient is laying in bed on the fifth floor medical surgical unit. She is in no acute distress. Denies any complaints of pain or shortness of breath. Her right chest Thoravent remains in place to low continuous wall suction -40 cm H2O. Continuous air leak is present. No drainage present. Oxygen saturation is 95% on room air and she is achieving 1500 mL on her incentive spirometry. She continues to have some subcutaneous emphysema to her bilateral upper extremities, chest, neck and face. The subcutaneous emphysema surrounding her eyes has resolved. Objective - Vital Signs Vital signs: Vital Signs Temp 98.3 F 09/04/19 12:22 Pulse 87 09/04/19 15:48 Resp 18 09/04/19 15:48 BP 119/67 09/04/19 15:48 Pulse Ox 100 09/04/19 15:48 Intake & Output 09/03/19 09/04/19 09/04/19 18:59 06:59 18:59 Intake Total 240 240 Output Total 0 0 Balance 240 240 Intake: Oral 240 240 Output: Chest Tube Drainage 0 0 Chest Tube Right 0 0 Other: Voiding Method Bedside Commode Bedside Commode # Voids 4 1 1 # Bowel Movements 1 1 - Constitutional General appearance: Present: cooperative, no acute distress, obese - Respiratory Details: Lungs sounds essentially clear throughout. No wheezes, crackles or rhonchi. Respirations are symmetrical and nonlabored. Right chest Thoravent in place to low continuous wall suction -40 cm H2O. Continuous air leak is present. No drainage present. Oxygen saturation is 95% on room air and she is achieving 1500 mL on her incentive spirometry. - Cardiovascular Details: Regular rhythm and rate. S1 and S2 present, negative for S3, gallop or murmur. Knee-high compression devices in place to bilateral lower extremities. - Gastrointestinal Gastrointestinal Comment(s): Abdomen is soft, nontender and nondistended. Active bowel sounds present in all 4 abdominal quadrants. No guarding or rigidity. - Integumentary Integumentary Comment(s): Skin is warm and dry. No clubbing or cyanosis present. Small ecchymotic area to her right lateral chest at her previous chest tube insertion site. Subcutaneous emphysema present to her bilateral upper extremities, right chest, neck and face. - Neurologic Neurologic: Present: CNII-XII intact - Musculoskeletal Musculoskeletal: Present: gait normal, strength equal bilaterally - Psychiatric Psychiatric: Present: A&O x's 3, appropriate affect, intact judgment & insight - Allied health notes Allied health notes reviewed: nursing - Labs CBC & Chem 7: 08/30/19 08:01 08/30/19 08:01 - Imaging and Cardiology Chest x-ray: report reviewed, image reviewed Assessment and Plan Assessment: 1. Acute spontaneous right pneumothorax, status post right thoracostomy tube placement, and subsequent removal of the thoracostomy tube and placement of a right chest Thoravent 2. History of sarcoidosis 3. History of COPD, with bolus disease 4. History of asthma 5. History of hiatal hernia status post hiatal hernia repair 6. Remote history of nicotine dependence quit smoking 3 years ago 7. History of MRSA to her left shoulder 8. Subcutaneous emphysema Plan: 1. Keep right chest Thoravent in place to low continuous wall suction -40 cm H2O.. Continue to monitor for air leak resolution. 2. Continue to monitor daily chest x-rays. 3. Encourage use of incentive spirometry every hour while awake. 4. Medical management and other comorbidities per primary care service. 5. Encourage continued smoking cessation. 6. Pulmonary management recommendations per Dr. Pierce from pulmonary critical care medicine. 7. Pain control per current when necessary orders. 8. Increase activity as tolerated, out of bed for all meals, please put enough length on her suction that she is able to ambulate in her room and up to the bathroom. 9. More recommendations to follow based on patient's clinical course. Time with Patient: Greater than 30
[2019-09-04] MEDS: MONTELUKAST 10 MG TAB PO SCH (20:09)
[2019-09-04] MEDS: ALPRAZolam 0.25 MG TAB PO PRN (23:18)
[2019-09-05] MEDS: HYDROmorphone 0.5 MG/0.5 ML SYRINGE IVP PRN ×4 (02:27→20:45)
[2019-09-05] MEDS: ASPIRIN-ACET-CAFF 250-250-65MG 1 EACH TAB PO PRN (04:25)
[2019-09-05] MEDS: HEPARIN SODIUM,PORCINE 5,000 UNIT/ML 1 ML VIAL SQ SCH ×2 (07:13→20:54)
[2019-09-05] MEDS: MULTIVITAMINS, THERA 1 EACH TAB PO SCH (07:14)
[2019-09-05] MEDS: PANTOPRAZOLE 40 MG TABLET PO SCH (07:14)
[2019-09-05] MEDS: SYMBICORT 160-4.5 MCG INHALER INHALATION SCH ×2 (07:50→21:03)
[2019-09-05] MEDS: HYDROcodone/APAP 7.5-325MG 1 EACH TAB PO PRN ×3 (08:41→22:36)
--- NOTE | 2019-09-05 09:45 | XR ---
EXAMINATION TYPE: XR chest 1V portable DATE OF EXAM: 09/05/2019 COMPARISON: 09/04/2019 HISTORY: Right-sided pneumothorax TECHNIQUE: Single frontal view of the chest is obtained. FINDINGS: Similar placement of thoracostomy tube. Right-sided small pneumothorax remains overall sim ilar to the prior. Diffuse body wall subcutaneous emphysema is seen. Cardiomediastinal silhouette is stable. Scattered areas of linear atelectasis. IMPRESSION: Similar small right apical pneumothorax and multifocal atelectasis with extensive chest wall subcutaneous emphysema.
--- NOTE | 2019-09-05 10:24 | P.PN ---
Subjective Progress Note Date: 09/05/19 Principal diagnosis: Spontaneous right-sided pneumothorax The patient is seen today 09/05/2019 in follow-up on the regular medical floor. She is awake and alert in no acute distress. She is feeling a bit better today compared to yesterday. Less shortness of breath. Less facial subcutaneous emphysema, less nausea. She's been up ambulating in the room. Right-sided thoracotomy remains in place to wall suction at -40 cm of water. Air leak is present. Chest x-ray shows no significant pneumothorax this morning. She continues to maintain good O2 saturations in the mid 90s on room air. She's been afebrile. Hemodynamically stable. She remains on Symbicort and Xopenex. Antibiotics in the form of Levaquin. Still requesting Dilaudid and [place] for pain control. Objective - Vital Signs Vital signs: Vital Signs Temp 97.9 F 09/05/19 07:19 Pulse 80 09/05/19 08:00 Resp 18 09/05/19 08:00 BP 109/74 09/05/19 07:19 Pulse Ox 95 09/05/19 04:33 Intake & Output 09/04/19 09/05/19 09/05/19 18:59 06:59 18:59 Intake Total 1240 360 Balance 1240 360 Intake: Intake, IV Titration 160 Amount Sodium Chloride 0.9% 1, 160 000 ml @ 20 mls/hr IV . Q24H [facility] Rx#:[id number] Oral 1080 360 Other: Voiding Method Bedside Commode Bedside Commode Bedside Commode # Voids 1 1 # Bowel Movements 1 - Exam - Exam GENERAL EXAM: Alert, very pleasant, 54-year-old female patient on room air, comfortable in no apparent distress. HEAD: Noted subcutaneous emphysema up into the face and murali orbital area, continues to improve EYES: Normal reaction of pupils, equal size. Conjunctiva pink, sclera white. NOSE: Clear with pink turbinates. THROAT: No erythema or exudates. NECK: No masses, no JVD, no thyroid enlargement, no adenopathy. There is subcutaneous emphysema present involving the upper neck and upper chest area extending to the right submaxillary area and to the right upper back CHEST: No chest wall deformity. Symmetrical expansion. right anterior chest Thoravent to wall suction, and there is an air leak present LUNGS: Equal air entry with few scattered rhonchi CVS: Regular rate and rhythm, normal S1 and S2, no gallops, no murmurs, no rubs ABDOMEN: Soft, nontender. No hepatosplenomegaly, normal bowel sounds, no guarding or rigidity. EXTREMITIES: No clubbing, no edema, no cyanosis, 2+ pulses and upper and lower extremities. MUSCULOSKELETAL: Muscle strength and tone normal. SPINE: No scoliosis or deformity SKIN: Significant subcutaneous emphysema in the upper chest neck and face. CENTRAL NERVOUS SYSTEM: No focal deficits, tone is normal in all 4 extremities. PSYCHIATRIC: Alert and oriented -3. Appropriate affect. Intact judgment and insight. - Labs CBC & Chem 7: 08/30/19 08:01 08/30/19 08:01 Assessment and Plan Assessment: 1 right-sided pneumothorax, post chest tube insertion, with subsequent removal and insertion of a Thoravent. The patient had a CAT scan showed a small right sided pneumothorax in the order of 5% in addition to extensive subcutaneous emphysema in the upper chest and neck and face. The right lung is expanded and the Thoravent is attached to suction at negative 40 cm H2O. The patient is hemodynamically stable. 2 COPD with bullous changes in the upper lobes bilaterally 3 vague opacity in the left upper lobe measuring 2.5 cm, no evidence of any mass on the CAT scan of the chest. 4 sarcoidosis, remote history of and the patient has been treated with steroids 5 history of smoking, 30 pack years 6 subcutaneous emphysema 7 positive UDS for cocaine Plan: The patient was seen and evaluated by Dr. Pierce. Chest x-ray reviewed. She remains stable from the pulmonary standpoint. Thoravent remains in place to wall site suction at -40. Air leak is present. Subcutaneous emphysema in the upper chest neck and face improved . No respiratory distress. On room air. Awaiting further input from cardiothoracic surgery. We'll continue to follow. I, the cosigning physician, performed a history & physical examination of the patient. Lungs sounds with few scattered rhonchi. Maintaining good O2 saturations in the 90s on room air. I discussed the assessment and plan of care with my nurse practitioner, Shira Curtis. I attest to the above note as dictated by her.
--- NOTE | 2019-09-05 13:39 | P.PN ---
Subjective Progress Note Date: 09/05/19 Principal diagnosis: This is a 54-year-old woman who was recently admitted with a right spontaneous pneumothorax has had a Pleurx catheter placed. Patient continues to have subcutaneous emphysema noted of the right upper neck, chest area and is being closely monitored. Patient is maintained to suction. Patient continues to use incentive spirometer and has reached 1500 today. Instructed the patient to continue using at least 10 times every hour while awake. Patient states that her breathing has improved although she continues to have discomfort at the right chest wall and shoulder area. No reports of chest pain or palpitations. Patient is afebrile. 08/31/2019 Is a small apical pneumothorax on the CAT scan which showed diffuse emphysema recent illness still significant. Denies emphysema with pneumomediastinum 09/01/2019 Patient still has a leak no overnight events. 09/02/2019 Patient is comparing of increasing subcutaneous emphysema with pain on deep breathing patient continues to be on continuous suction and 09/03/2019 patient oxygen saturations have dropped this happened as an episode at 2 AM but later she started doing well still has to underwent attached to Pleur-evac with negative suction of 40-60 showing 10% pneumothorax Constitutional: Denied any fatigue denied any fever. Cardio vascular: denied any palpitations Gastrointestinal denied any nausea vomiting Pulmonary: Am planing of pleuritic chest pain Neurologic denied any new focal deficits 09/04/2019 Patient is seen and evaluated in follow-up today and continues to be on suction of the right thoravent with an air leak present. Patient is currently on room air and tolerating. Patient's facial swelling has improved from yesterday. pulmonary is following along with cardiothoracic surgery and appreciate input. Patient continues to have subcutaneous emphysema noted on the chest x-ray from this morning otherwise stable pneumothorax at this time. Patient is continuing to use incentive spirometer as instructed. 09/05/2019 Patient is seen in follow-up today with some improvement in the facial swelling from subcutaneous emphysema. Patient states breathing is better today and is currently on room air. Pulmonary and CT surgery are following. Patient remains to wall suction and repeat chest x-ray today shows continuous extensive subcutaneous emphysema otherwise stable pneumothorax. Patient continues to use incentive spirometer and has been achieving [id number]. Encourage the patient to increase activity as tolerated and patient states she has been up in the room and walking to the bathroom and back. Patient states she is having some vaginal irritation as she gets this often when she is on antibiotics. Diflucan will be ordered. Objective - Vital Signs Vital signs: Vital Signs Temp 97.7 F 09/05/19 13:18 Pulse 90 09/05/19 13:18 Resp 16 09/05/19 13:18 BP 123/66 09/05/19 13:18 Pulse Ox 96 09/05/19 11:52 Intake & Output 09/04/19 09/05/19 09/05/19 18:59 06:59 18:59 Intake Total 1240 600 Balance 1240 600 Intake: Intake, IV Titration 160 Amount Sodium Chloride 0.9% 1, 160 000 ml @ 20 mls/hr IV . Q24H [facility] Rx#:[id number] Oral 1080 600 Other: Voiding Method Bedside Commode Bedside Commode Bedside Commode # Voids 1 1 # Bowel Movements 1 - Exam Gen: This is a 54-year-old female sitting up in bed awake, alert and oriented 3, well-developed, well-nourished. HEENT: Head is atraumatic, normocephalic. Pupils equal, round. Sclerae is anicteric. Right neck, upper arms, and face subcutaneous emphysema noted upon palpation has slightly improved from yesterday NECK: Supple. No JVD. No lymphadenopathy. No thyromegaly. Subcutaneous emphysema noted on palpation LUNGS: Diminished breath sounds at the bases with some scattered rhonchi and crackles noted. No intercostal retractions. HEART: S1, S2 are present ABDOMEN: Soft. Bowel sounds are present. No masses. No tenderness. EXTREMITIES: No pedal edema. No calf tenderness. NEUROLOGICAL: Patient is awake, alert and oriented x3. Cranial nerves 2 through 12 are grossly intact. - Labs CBC & Chem 7: 08/30/19 08:01 08/30/19 08:01 Assessment and Plan Assessment: -Spontaneous pneumothorax patient has multiple bullae and does have COPD presently not in acute exacerbation, continue with the Proventil and Pneumovac suctioning, repeat chest x-ray today shows extensive chest wall subcutaneous emphysema with a stable right apical pneumothorax -COPD without any acute exacerbation -Vaginal irritation possibly due to antibiotic use. Will order Diflucan -Gastroesophageal reflux disease -History of sarcoidosis Plan: Continue present management. pulmonary and cardiac thoracic surgery are following. Continue to encourage incentive spirometer use at least 10 times every hour while awake. Patient achieving [id number]. Continue with wall suction. Encouraged increase in activity as tolerated. Continue with daily chest x-rays.
--- NOTE | 2019-09-05 14:26 | P.PN ---
Subjective Progress Note Date: 09/05/19 Principal diagnosis: Acute spontaneous right pneumothorax, status post thoracostomy tube placement which was subsequently removed and a Thoravent was placed by Dr. Pretty. Past medical history significant for sarcoidosis, COPD with bullous disease, asthma, hiatal hernias status post hiatal hernia repair, remote history of nicotine dependence in which she quit smoking 3 years ago and history of MRSA to her left shoulder. Status post day #8 and insertion of right chest Thoravent performed by Dr. Pretty and removal of right pleural chest tube. The patient is laying in bed on the fifth floor medical surgical unit. She is in no acute distress. Denies any complaints of pain or shortness of breath. She does continue to complain of subcutaneous emphysema to her bilateral upper extremities, chest, neck and face, although it is improved today from yesterday. Her right chest Thoravent remains in place to low continuous wall suction -40 cm H2O. Continuous air leak is present. No drainage is present. Oxygen saturations are 96% on room air. She is achieving 1500 mL on her incentive spirometry with encouragement. She reports she has been ambulating in her room with minimal assistance. Wounds afebrile the last 24 hours. Her chest x-ray this morning demonstrates no significant pneumothorax with extensive chest wall subcutaneous emphysema. She remains hemodynamically stable. Objective - Vital Signs Vital signs: Vital Signs Temp 97.7 F 09/05/19 13:18 Pulse 90 09/05/19 13:18 Resp 16 09/05/19 13:18 BP 123/66 09/05/19 13:18 Pulse Ox 96 09/05/19 11:52 Intake & Output 09/04/19 09/05/19 09/05/19 18:59 06:59 18:59 Intake Total 1240 600 Balance 1240 600 Intake: Intake, IV Titration 160 Amount Sodium Chloride 0.9% 1, 160 000 ml @ 20 mls/hr IV . Q24H [facility] Rx#:[id number] Oral 1080 600 Other: Voiding Method Bedside Commode Bedside Commode Bedside Commode # Voids 1 1 # Bowel Movements 1 - Constitutional General appearance: Present: cooperative, no acute distress, obese - Respiratory Details: Lungs sounds essentially clear throughout. Diminished left lower lobe. Respirations are symmetrical and nonlabored. Oxygen saturation are 96% on room air. Achieving 1500 mL on her incentive spirometry. Right chest Thoravent in place to low continuous wall suction -40 cm H2O. Continuous air leak is prese nt. No drainage is present. - Cardiovascular Details: Regular rhythm and rate. S1 and S2 present, negative for S3, gallop or murmurs. Knee-high sequential compression devices in place to bilateral lower extremities. - Gastrointestinal Gastrointestinal Comment(s): Abdomen is soft, nontender and nondistended. Active bowel sounds present in all 4 abdominal quadrants. No guarding or rigidity. Tolerating oral intake. - Integumentary Integumentary Comment(s): Skin is warm and dry. No clubbing or cyanosis is present. Significant subcutaneous emphysema present to her bilateral upper extremities, chest, neck and face. - Neurologic Neurologic: Present: CNII-XII intact - Musculoskeletal Musculoskeletal: Present: gait normal, strength equal bilaterally - Psychiatric Psychiatric: Present: A&O x's 3, appropriate affect, intact judgment & insight - Allied health notes Allied health notes reviewed: nursing - Labs CBC & Chem 7: 08/30/19 08:01 08/30/19 08:01 - Imaging and Cardiology Chest x-ray: report reviewed, image reviewed Assessment and Plan Assessment: 1. Acute spontaneous right pneumothorax, status post right thoracostomy tube placement, and subsequent removal of the thoracostomy tube and placement of a right chest Thoravent 2. History of sarcoidosis 3. History of COPD, with bolus disease 4. History of asthma 5. History of hiatal hernia status post hiatal hernia repair 6. Remote history of nicotine dependence quit smoking 3 years ago 7. History of MRSA to her left shoulder 8. Subcutaneous emphysema Plan: 1. Keep right chest Thoravent in place to low continuous wall suction -40 cm H2O.. Continue to monitor for air leak resolution the patient does not want any lung surgery. 2. Continue to monitor daily chest x-rays. 3. Encourage use of incentive spirometry every hour while awake. 4. Medical management and other comorbidities per primary care service. 5. Encourage continued smoking cessation. 6. Pulmonary management recommendations per Dr. Pierce from pulmonary critical care medicine. 7. Pain control per current when necessary orders. 8. Increase activity as tolerated, out of bed for all meals, please put enough length on her suction that she is able to ambulate in her room and up to the bathroom. 9. More recommendations to follow based on patient's clinical course. Time with Patient: Greater than 30
[2019-09-05] MEDS: FLUCONAZOLE 100 MG TAB PO SCH (14:35)
[2019-09-05] MEDS: SODIUM CHLORIDE 0.9% 1,000 ML IV SCH (17:43)
[2019-09-05] MEDS: ALPRAZolam 0.25 MG TAB PO PRN (20:46)
[2019-09-05] MEDS: MONTELUKAST 10 MG TAB PO SCH (20:55)
[2019-09-06] MEDS: HYDROmorphone 0.5 MG/0.5 ML SYRINGE IVP PRN ×4 (04:17→18:54)
[2019-09-06] MEDS: ASPIRIN-ACET-CAFF 250-250-65MG 1 EACH TAB PO PRN (06:19)
[2019-09-06] MEDS: HYDROcodone/APAP 7.5-325MG 1 EACH TAB PO PRN ×3 (06:19→20:53)
--- NOTE | 2019-09-06 07:35 | XR ---
EXAMINATION TYPE: XR chest 1V portable DATE OF EXAM: 09/06/2019 HISTORY: Follow-up right-sided pneumothorax. COMPARISON: None. TECHNIQUE: Single view of the chest is submitted. FINDINGS: Right-sided pleural density is noted to be in place with its distal tip adjacent to the mediastinum. Approximate 10% pneumothorax is felt to persist. There is extensive subcutaneous emphysema noted whic h appears stable. The heart is stable. Hilar and mediastinal structures are within normal limits. Degenerative changes are seen of the dorsal spine. IMPRESSION: 1. Stable appearance of the chest with extensive subcutaneous emphysema and approximate 10% right-si ded pneumothorax.
[2019-09-06] MEDS: SYMBICORT 160-4.5 MCG INHALER INHALATION SCH ×2 (08:29→21:04)
[2019-09-06] MEDS: PANTOPRAZOLE 40 MG TABLET PO SCH (09:18)
[2019-09-06] MEDS: MULTIVITAMINS, THERA 1 EACH TAB PO SCH (09:19)
[2019-09-06] MEDS: HEPARIN SODIUM,PORCINE 5,000 UNIT/ML 1 ML VIAL SQ SCH ×2 (09:20→20:52)
[2019-09-06] MEDS: FLUCONAZOLE 100 MG TAB PO SCH (10:28)
--- NOTE | 2019-09-06 11:21 | P.PN ---
Subjective Progress Note Date: 09/06/19 Principal diagnosis: Acute spontaneous right pneumothorax, status post thoracostomy tube placement which was subsequently removed and a Thoravent was placed by Dr. Pretty. Past medical history significant for sarcoidosis, COPD with bullous disease, asthma, hiatal hernias status post hiatal hernia repair, remote history of nicotine dependence in which she quit smoking 3 years ago and history of MRSA to her left shoulder. Status post day #9 and insertion of right chest Thoravent performed by Dr. Pretty and removal of right pleural chest tube. The patient is laying in bed on the fifth floor medical surgical unit. She is in no acute distress. She continues to deny any complaints of pain or shortness of breath, although she continues to complain of the subcutaneous emphysema. The subcu emphysema looked slightly improved today although still present to her bilateral upper extremities, chest and back, neck and face. Her right Thoravent chest tube remains in place to low continuous wall suction -40 cm H2O. Iintermittent air leak present and no drainage present. Oxygen saturations are 98% on room air. She is achieving 1000 ml on her incentive spirometry today. Her chest x-ray this morning demonstrates extensive subcutaneous emphysema with a small apical right pneumothorax. She remains afebrile the last 24 hours. Objective - Vital Signs Vital signs: Vital Signs Temp 98.7 F 09/06/19 07:22 Pulse 81 09/06/19 08:00 Resp 18 09/06/19 08:00 BP 117/71 09/06/19 07:22 Pulse Ox 98 09/06/19 07:22 Intake & Output 09/05/19 09/06/19 09/06/19 18:59 06:59 18:59 Intake Total 1999 1500 Balance 1999 1500 Intake: Intake, IV Titration 240 80 Amount Sodium Chloride 0.9% 1, 240 80 000 ml @ 20 mls/hr IV . Q24H [facility] Rx#:[id number] Oral 1760 1420 Other: Voiding Method Bedside Commode Bedside Commode Bedside Commode # Voids 4 1 - Constitutional General appearance: Present: cooperative, no acute distress, obese - Respiratory Details: Lungs sounds essentially clear throughout, diminished her bilateral bases. No stridor Respirations are symmetrical and nonlabored. Oxygen saturation is 98% on room air and she is achieving 1000 ml on her incentive spirometry. Right Thoravent remains in place to low continuous wall suction -40 cm H2O. Intermittent air leak is present. No drainage in the last 24 hours. - Cardiovascular Details: Regular rhythm and rate. S1 and S2 present, negative for S3, gallop or murmur. - Gastrointestinal Gastrointestinal Comment(s): Abdomen is soft, nontender and nondistended. Active bowel sounds present in all 4, quadrants. No guarding or rigidity. Tolerating oral intake. - Genitourinary Genitourinary Comment(s): Continues to void clear trish urine. - Neurologic Neurologic: Present: CNII-XII intact - Musculoskeletal Musculoskeletal: Present: gait normal, strength equal bilaterally - Psychiatric Psychiatric: Present: A&O x's 3, appropriate affect, intact judgment & insight - Allied health notes Allied health notes reviewed: nursing - Labs CBC & Chem 7: 08/30/19 08:01 08/30/19 08:01 - Imaging and Cardiology Chest x-ray: report reviewed, image reviewed Assessment and Plan Assessment: 1. Acute spontaneous right pneumothorax, status post right thoracostomy tube placement, and subsequent removal of the thoracostomy tube and placement of a right chest Thoravent 2. History of sarcoidosis 3. History of COPD, with bolus disease 4. History of asthma 5. History of hiatal hernia status post hiatal hernia repair 6. Remote history of nicotine dependence quit smoking 3 years ago 7. History of MRSA to her left shoulder 8. Subcutaneous emphysema Plan: 1. Keep right chest Thoravent in place to low continuous wall suction -40 cm H2O. Continue to monitor for air leak resolution. 2. Continue to monitor daily chest x-rays. 3. Encourage use of incentive spirometry every hour while awake. 4. Medical management and other comorbidities per primary care service. 5. Encourage continued smoking cessation. 6. Pulmonary management recommendations per Dr. Pierce from pulmonary critical care medicine. 7. Pain control per current when necessary orders. 8. Increase activity as tolerated, out of bed for all meals, please put enough length on her suction that she is able to ambulate in her room and up to the bathroom. 9. More recommendations to follow based on patient's clinical course. Time with Patient: Greater than 30
[2019-09-06] MEDS: ERGOCALCIFEROL 50,000 UNIT CAP PO SCH (11:25)
--- NOTE | 2019-09-06 11:30 | P.CNPUL ---
History of Present Illness Consult date: 08/28/19 Reason for consult: pneumothorax History of present illness: This is a 54-year-old female patient who presented to the [facility] and in [facility] with chest pain and shortness of breath. The patient is a chronic smoker in she carries more than [id number] smoking history. She has also remote history of sarcoidosis that was diagnosed back in 2002 based on the lung biopsy and the patient was given systemic steroids. The patient has other comorbidities including osteoarthritis and acid reflux. In the emergency, the patient was given a right-sided chest tube and this is a 32-Kyrgyz chest tube. Following the chest tube insertion the patient was sent over to [place] for further evaluation. The chest x-ray was done and it showed a less than 5% pneumothorax there is extensive emphysematous changes bilaterally more so on the right apical area. That she'll be itself is kinked and there is an irregular masslike density in the left upper lobe measuring 2.5 cm in size. The Pleur- evac is positive for air leak. UDS is positive for cocaine. She denies utilizing any form of substances and she is not sure how cocaine went into her system. No hemoptysis. No pleurisy. No chest pain. No trauma to her chest. She is living with a boyfriend who is a smoker. No history of any uveitis. Note that many skin lesions related to sarcoidosis. No history of any other extra pulmonary manifestations of sarcoidosis. No history of any chest trauma. No recent respiratory tract infections Review of Systems Constitutional: Denies chills, Denies fever Eyes: denies as per HPI, denies blurred vision, denies bulging eye, denies decreased vision, denies diplopia, denies discharge, denies dry eye, denies irritation, denies itching, denies pain, denies photophobia, denies loss of peripheral vision, denies loss of vision, denies tunnel vision/blind spots Ears: deny: decreased hearing, ear discharge, earache, tinnitus Ears, nose, mouth and throat: Denies headache, Denies sore throat Breasts: absent: as per HPI, change in shape, gynecomastia, masses, nipple discharge, pain, skin changes, swelling Cardiovascular: Reports chest pain (Brenda pain between her shoulder blade in her spine mainly on the right back felt like a charley horse), Reports decreased e xercise tolerance, Reports dyspnea on exertion Respiratory: Reports as per HPI, Reports dyspnea Gastrointestinal: Reports as per HPI Genitourinary: Reports as per HPI Menstruation: Reports as per HPI Musculoskeletal: Reports as per HPI Musculoskeletal: absent: ankle pain, ankle stiffness, ankle swelling Integumentary: Denies pruritus, Denies rash Neurological: Reports as per HPI Psychiatric: Reports as per HPI Endocrine: Reports as per HPI Hematologic/Lymphatic: Reports as per HPI Allergic/Immunologic: Reports as per HPI Past Medical History Past Medical History: Asthma, COPD, GERD/Reflux, Musculoskeletal Disorder, Osteoarthritis (OA) Additional Past Medical History / Comment(s): Pain: neck, lower back and left hip, hx sarcoidosis, hx anemia, occasional bladder incontinence, tinnitus, current hernia. 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 Past Drug Use History: None Reported - Past Family History Mother Family Medical History: No Reported History Father Family Medical History: Cancer Additional Family Medical History / Comment(s): Prostate Medications and Allergies Home Medications Medication Instructions Recorded Confirmed Type Levalbuterol Hfa Inhaler [Xopenex 2 puff INHALATION RT-QID PRN 07/24/16 08/27/19 History Hfa Inhaler] Montelukast Sodium [Singulair] 10 mg PO HS 07/24/16 08/27/19 History Omeprazole 20 mg PO DAILY 07/24/16 08/27/19 History Ibandronate Sodium [Boniva] 150 mg PO QMONTH 10/19/16 08/27/19 History HYDROcodone/APAP 7.5-325MG [Emerson 1 tab PO Q12HR PRN 30 Days #60 tab 06/28/18 08/27/19 Rx 7.5-325] Levalbuterol Nebulized [Xopenex 1.25 mg INHALATION RT-TID PRN 07/22/18 08/27/19 History Nebulized] Ergocalciferol [Vitamin D2 50,000 unit PO WE 03/30/19 08/27/19 History (DRISDOL)] Aspirin/Acetaminophen/Caffeine 1 tab PO Q12H PRN 05/24/19 08/27/19 History [Excedrin Migraine Caplet] Ibuprofen [Motrin] 800 mg PO Q12HR PRN 07/19/19 08/27/19 History Budesonide/Formoterol Fumarate 2 puff INHALATION RT-BID 08/27/19 08/27/19 History [Symbicort 160-4.5 Mcg Inhaler] Allergies Allergy/AdvReac Type Severity Reaction Status Date / Time albuterol Allergy "makes me Verified 08/27/19 16:54 psychotic" Sulfa (Sulfonamide Allergy Rash/Hives Verified 08/27/19 16:54 Antibiotics) Physical Exam Vitals: Vital Signs Temp Pulse Pulse Resp BP Pulse Ox 08/28/19 11:54 98.3 F 85 17 125/78 94 L 08/28/19 07:25 84 08/28/19 07:16 80 08/28/19 05:10 98.7 F 80 20 133/70 97 08/27/19 20:07 98.1 F 73 24 132/72 99 08/27/19 16:43 98 F 89 15 140/84 100 Intake and Output 08/27/19 08/28/19 08/28/19 22:59 06:59 14:59 Intake Total 240 Output Total 100 Balance 140 Intake: Intake, IV Titration 240 Amount Sodium Chloride 0.9% 1, 240 000 ml @ 20 mls/hr IV . Q24H [facility] Rx#:[id number] Output: Chest Tube Drainage 100 Chest Tube Right 100 Other: Voiding Method Bedside Commode Bedside Commode Bedpan # Voids 3 Weight 65.771 kg The patient appeared well nourished and normally developed. Vital signs as documented. Head exam is unremarkable. No scleral icterus or corneal arcus noted. Neck is without jugular venous distension, thyromegaly, or carotid bruits. Carotid upstrokes are brisk bilaterally. Lungs are diminished bilaterally and the patient has developed subcutaneous emphysema along the right face, right neck, right anterior and posterior chest area. The chest tube is in the posterior axillary line quite high just under the axillary. Appropriate dressing has been applied from [facility]. Cardiac exam reveals the PMI to be normally sized and situated. Rhythm is regular. First and second heart sounds normal. No murmurs, rubs or gallops. Abdominal exam reveals normal bowel sounds, no masses, no organomegaly and no aortic enlargement. Extremities are nonedematous and both femoral and pedal pulses are normal.Examination of the skin revealed no evidence of significant rashes, suspicious appearing nevi or other concerning lesions. Neurologically the patient is awake and alert and there is no focal neurological deficit. Results - Laboratory Findings CBC and BMP: 08/28/19 07:53 08/28/19 07:53 Abnormal lab findings: Abnormal Labs 08/27/19 08/27/19 08/28/19 17:26 17:26 07:53 WBC 12.5 H 11.1 H Neutrophils # 12.2 H 9.6 H Lymphocytes # 0.2 L 0.5 L Sodium BUN Glucose 142 H AST 38 H Alkaline Phosphatase 135 H Total Protein 8.3 H Urine Opiates Screen Urine Cocaine Screen 08/28/19 08/28/19 07:53 11:11 WBC Neutrophils # Lymphocytes # Sodium 133 L BUN 26 H Glucose 136 H AST Alkaline Phosphatase Total Protein Urine Opiates Screen Detected H Urine Cocaine Screen Detected H - Diagnostic Findings Chest x-ray: image reviewed Assessment and Plan Plan: 1 right-sided pneumothorax, post chest tube insertion, the patient has a chest tube in the right hemithorax which was placed in [facility] decubitus kinked 2 COPD with bullous changes in the upper lobes bilaterally 3 vague opacity in the left upper lobe measuring 2.5 cm 4 sarcoidosis, remote history of and the patient has been treated with steroids 5 history of smoking, 30 pack years 6 subcutaneous emphysema 7Positive UDS for cocaine Plan Recheck UDS Recurrent chest tube needs to be removed as the cubital is not functioning appropriately and based on the x-ray findings the tube is kinked and the patient developed significant appearance emphysema. I'm going to insert a Thoravent and remove the origin inserted a chest tube and following that the patient will need a CAT scan of the chest evaluating bullous emphysema and evaluating for any lung opacities. Continue bronchodilators Pain control with Dilaudid and Emerson Incentive spirometer We'll continue to follow.
--- NOTE | 2019-09-06 12:40 | P.PN ---
Subjective Progress Note Date: 09/06/19 Principal diagnosis: Acute spontaneous right-sided pneumothorax The patient is seen today 09/05/2019 in follow-up on the regular medical floor. She is awake and alert in no acute distress. She is feeling a bit better today compared to yesterday. Less shortness of breath. Less facial subcutaneous emphysema, less nausea. She's been up ambulating in the room. Right-sided tho racotomy remains in place to wall suction at -40 cm of water. Air leak is present. Chest x-ray shows no significant pneumothorax this morning. She continues to maintain good O2 saturations in the mid 90s on room air. She's been afebrile. Hemodynamically stable. She remains on Symbicort and Xopenex. Antibiotics in the form of Levaquin. Still requesting Dilaudid and [place] for pain control. Reevaluated today on 09/06/2019, patient is basically about the same. Continues to have significant subcutaneous emphysema, continues to have a small air leak from the right sided chest tube, clinically the patient is feeling well. Chest tube remains on suction at -40 [employer] of water. Leak is present. Maintaining good O2 saturations on room air. Remains on bronchodilators and antibiotics. Objective - Vital Signs Vital signs: Vital Signs Temp 97.9 F 09/06/19 11:30 Pulse 82 09/06/19 11:30 Resp 18 09/06/19 11:30 BP 152/77 09/06/19 11:30 Pulse Ox 96 09/06/19 11:30 Intake & Output 09/05/19 09/06/19 09/06/19 18:59 06:59 18:59 Intake Total 1999 1500 Balance 1999 1500 Intake: Intake, IV Titration 240 80 Amount Sodium Chloride 0.9% 1, 240 80 000 ml @ 20 mls/hr IV . Q24H [facility] Rx#:[id number] Oral 1760 1420 Other: Voiding Method Bedside Commode Bedside Commode Bedside Commode # Voids 4 1 - Exam GENERAL EXAM: Revealed a 54-year-old female in no distress. HEAD: Resolving subcu emphysema noted in the face and in the neck area. HEENT: PERRLA, EOMI, no icterus. CHEST: No chest wall deformity. Symmetrical expansion. right anterior chest Thoravent to wall suction, and there is an air leak present LUNGS: Equal air entry with few scattered rhonchi CVS: Regular rate and rhythm, normal S1 and S2, no gallops, no murmurs, no rubs ABDOMEN: Soft, nontender. No hepatosplenomegaly, normal bowel sounds, no g uarding or rigidity. EXTREMITIES: No clubbing, no edema, no cyanosis, 2+ pulses and upper and lower extremities. MUSCULOSKELETAL: Muscle strength and tone normal. SPINE: No scoliosis or deformity SKIN: Significant subcutaneous emphysema in the upper chest neck and face. And improving. CENTRAL NERVOUS SYSTEM: Alert and oriented 3 focal neurologic deficits. PSYCHIATRIC: Normal mood, affect and normal mental status examination. - Labs CBC & Chem 7: 08/30/19 08:01 08/30/19 08:01 Assessment and Plan Assessment: 1 right-sided pneumothorax, post chest tube insertion, with subsequent removal and insertion of a Thoravent. The patient had a CAT scan showed a small right sided pneumothorax in the order of 5% in addition to extensive subcutaneous emphysema in the upper chest and neck and face. The right lung is expanded and the Thoravent is attached to suction at negative 40 cm H2O. The patient is hemodynamically stable. 2 COPD with bullous changes in the upper lobes bilaterally 3 vague opacity in the left upper lobe measuring 2.5 cm, no evidence of any mass on the CAT scan of the chest. 4 sarcoidosis, remote history of and the patient has been treated with steroids 5 history of smoking, 30 pack years 6 subcutaneous emphysema Recommendation: Continue chest tube to suction. Discussed with the patient the option of transfer to [facility] for her persistent right-sided pneumothorax, and she will discuss it with her hospitalist. Discussed her condition with other consultants. We'll continue to follow. Time with Patient: Less than 30
--- NOTE | 2019-09-06 13:15 | P.DS ---
Providers Date of admission: 08/27/19 16:04 Expected date of discharge: 09/06/19 Attending physician: Vin Anderson Consults: 08/27/19 16:47 Consult Physician Routine Consulting Provider: Justo Lomeli Consult Reason/Comments: pneumothorax Do you want consulting provider notified?: Yes 08/28/19 12:47 Consult Physician Routine Consulting Provider: Jaquelin Ernandez Consult Reason/Comments: right spontaneous pneumothorax Do you want consulting provider notified?: Yes [facility] Course: Final diagnosis -Spontaneous pneumothorax patient has multiple bullae and does have COPD presently not in acute exacerbation -COPD without any acute exacerbation -Vaginal irritation possibly due to antibiotic use. Will order Diflucan -Gastroesophageal reflux disease -History of sarcoidosis Discharge disposition Patient is being transferred to [facility] for higher level of care. Total time taken is 35 minutes. History of present illness This is a 54-year-old female who was recently admitted with a right spontaneous pneumothorax and also had Pleurx catheter placed. Patient has extensive subcutaneous emphysema of the right neck, right chest, left chest, and traveling up to the face and is being closely monitored. Patient continues to have a Pleurx catheter the right anterior chest that is attached to wall suction at -40 with an air leak present. Patient being followed by pulmonary along with CT surgery. Patient does have a history of sarcoidosis and has multiple blebs along with extensive subcutaneous emphysema is noted on multiple chest x-rays and patient continues to worsen. Patient is being transferred to [facility] today once a bed becomes available. On exam vital signs are stable. Temp is 98.7F, pulse is 80, respirations are 18, blood pressure is 117/71, oxygen saturation is 98% on room air. Cardio S1, S2 are present. Respiratory system shows diminished breath sounds noted bilaterally more so on the right with some crackles and rhonchi noted. Abdomen is soft and nontender. Nervous system shows no focal deficits. Please refer to medication reconciliation sheet for a list of medications. Patient Condition at Discharge: Stable Plan - Discharge Summary New Discharge Prescriptions: New Artificial Tears-Hypromellose [Artificial Tear Drops] 2 drops BOTH EYES QID PRN bottle PRN Reason: Dry Eye(S) Heparin Sodium,Porcine [Heparin Sodium] 5,000 unit SQ Q12HR vial Multivitamins, Thera [Multivitamin (formulary)] 1 each PO DAILY@1200 tab HYDROcodone/APAP 7.5-325MG [[place] 7.5-325] 1 each PO Q6H PRN tab PRN Reason: Pain Pantoprazole [Protonix] 40 mg PO AC-BRKFST tablet.dr Temazepam [Restoril] 15 mg PO HS PRN cap PRN Reason: Insomnia Sennosides [Senokot] 8.6 mg PO BID PRN tab PRN Reason: Constipation Acetaminophen Tab [Tylenol] 500 mg PO Q6HR PRN tab PRN Reason: Fever and/ or MILD Pain ALPRAZolam [Xanax] 0.25 mg PO TID PRN tab PRN Reason: Anxiety Continue Omeprazole 20 mg PO DAILY Montelukast Sodium [Singulair] 10 mg PO HS Levalbuterol Hfa Inhaler [Xopenex Hfa Inhaler] 2 puff INHALATION RT-QID PRN PRN Reason: Shortness Of Breath Ibandronate Sodium [Boniva] 150 mg PO QMONTH Levalbuterol Nebulized [Xopenex Nebulized] 1.25 mg INHALATION RT-TID PRN PRN Reason: Shortness Of Breath Ergocalciferol [Vitamin D2 (DRISDOL)] 50,000 unit PO WE Aspirin/Acetaminophen/Caffeine [Excedrin Migraine Caplet] 1 tab PO Q12H PRN PRN Reason: Migraine Headache Ibuprofen [Motrin] 800 mg PO Q12HR PRN PRN Reason: Pain Budesonide/Formoterol Fumarate [Symbicort 160-4.5 Mcg Inhaler] 2 puff INHALATION RT-BID Discontinued HYDROcodone/APAP 7.5-325MG [[place] 7.5-325] 1 tab PO Q12HR PRN 30 Days #60 tab PRN Reason: Pain Discharge Medication List Levalbuterol Hfa Inhaler [Xopenex Hfa Inhaler] 2 puff INHALATION RT-QID PRN 07/24/16 [History] Montelukast Sodium [Singulair] 10 mg PO HS 07/24/16 [History] Omeprazole 20 mg PO DAILY 07/24/16 [History] Ibandronate Sodium [Boniva] 150 mg PO QMONTH 10/19/16 [History] Levalbuterol Nebulized [Xopenex Nebulized] 1.25 mg INHALATION RT-TID PRN 07/22/18 [History] Ergocalciferol [Vitamin D2 (DRISDOL)] 50,000 unit PO WE 03/30/19 [History] Aspirin/Acetaminophen/Caffeine [Excedrin Migraine Caplet] 1 tab PO Q12H PRN 05/24/19 [History] Ibuprofen [Motrin] 800 mg PO Q12HR PRN 07/19/19 [History] Budesonide/Formoterol Fumarate [Symbicort 160-4.5 Mcg Inhaler] 2 puff INHALATION RT-BID 08/27/19 [History] ALPRAZolam [Xanax] 0.25 mg PO TID PRN tab 09/06/19 [Rx] Acetaminophen Tab [Tylenol] 500 mg PO Q6HR PRN tab 09/06/19 [Rx] Artificial Tears-Hypromellose [Artificial Tear Drops] 2 drops BOTH EYES QID PRN bottle 09/06/19 [Rx] HYDROcodone/APAP 7.5-325MG [[place] 7.5-325] 1 each PO Q6H PRN tab 09/06/19 [Rx] Heparin Sodium,Porcine [Heparin Sodium] 5,000 unit SQ Q12HR vial 09/06/19 [Rx] Multivitamins, Thera [Multivitamin (formulary)] 1 each PO DAILY@1200 tab 09/06/19 [Rx] Pantoprazole [Protonix] 40 mg PO AC-BRKFST tablet. 09/06/19 [Rx] Sennosides [Senokot] 8.6 mg PO BID PRN tab 09/06/19 [Rx] Temazepam [Restoril] 15 mg PO HS PRN cap 09/06/19 [Rx] Activity/Diet/Wound Care/Special Instructions: Patient is going to [facility] Activity as tolerated Continue current diet Discharge Disposition: OTHER INSTITUTION NOT DEFINED
[2019-09-06] MEDS: SODIUM CHLORIDE 0.9% 1,000 ML IV SCH (15:26)
[2019-09-06] MEDS: MONTELUKAST 10 MG TAB PO SCH (20:53)
[2019-09-06] MEDS: ALPRAZolam 0.25 MG TAB PO PRN (20:54)
[2019-09-07] MEDS: HYDROmorphone 0.5 MG/0.5 ML SYRINGE IVP PRN ×6 (01:00→22:56)
[2019-09-07] MEDS: HYDROcodone/APAP 7.5-325MG 1 EACH TAB PO PRN ×4 (02:55→20:25)
[2019-09-07] MEDS: PANTOPRAZOLE 40 MG TABLET PO SCH (07:32)
[2019-09-07] MEDS: FLUCONAZOLE 100 MG TAB PO SCH (07:32)
[2019-09-07] MEDS: MULTIVITAMINS, THERA 1 EACH TAB PO SCH (07:32)
[2019-09-07] MEDS: HEPARIN SODIUM,PORCINE 5,000 UNIT/ML 1 ML VIAL SQ SCH ×2 (07:33→19:44)
[2019-09-07] MEDS: SENNOSIDES 8.6 MG TAB PO PRN ×2 (07:39→19:52)
[2019-09-07] MEDS: SYMBICORT 160-4.5 MCG INHALER INHALATION SCH ×2 (07:42→19:38)
--- NOTE | 2019-09-07 08:31 | XR ---
EXAMINATION TYPE: XR chest 1V portable DATE OF EXAM: 09/07/2019 COMPARISON: 09/06/2019 INDICATION: Right pneumothorax TECHNIQUE: Single frontal view of the chest is obtained. FINDINGS: The heart size is normal. The pulmonary vasculature is normal. The lungs are clear. Extensive subcutaneous emphysema overlies the chest causing limitation on subtl e findings within the lungs. There is a small residual right pneumothorax which appears stable in siz e from comparison. Right-sided chest tube is stable in position. IMPRESSION: 1. Small stable right pneumothorax.
--- NOTE | 2019-09-07 09:43 | P.PN ---
Subjective Progress Note Date: 09/07/19 Principal diagnosis: Acute spontaneous right pneumothorax, status post thoracostomy tube placement which was subsequently removed and a Thoravent was placed by Dr. Pretty. Past medical history significant for sarcoidosis, COPD with bullous disease, asthma, hiatal hernias status post hiatal hernia repair, remote history of nicotine dependence in which she quit smoking 3 years ago and history of MRSA to her left shoulder. Status post day #10 and insertion of right chest Thoravent performed by Dr. Pretty and removal of right pleural chest tube. The patient is laying in bed on the fifth floor medical surgical unit. She is in no acute distress. Denies any complaints of pain or shortness of breath. She continues to complain of the subcutaneous emphysema and this morning the subcu emphysema has extended from her bilateral upper extremities chest and back, neck and face into her right periorbital area. She denies any complaints of swallowing or breathing and there is no stridor present. Her right Thoravent chest tube remains in place to low continuous wall suction -40 cm H2O. Iintermittent air leak present and no drainage present. Oxygen saturations are 96% on room air. She is achieving 1000 ml on her incentive spirometry today. Her chest x-ray this morning demonstrates extensive subcutaneous emphysema with a persistent small apical right pneumothorax. She remains afebrile the last 24 hours. Objective - Vital Signs Vital signs: Vital Signs Temp 97.5 F L 09/07/19 05:00 Pulse 74 09/07/19 05:00 Resp 20 09/07/19 05:00 BP 107/69 09/07/19 05:00 Pulse Ox 96 09/07/19 05:00 Intake & Output 09/06/19 09/07/19 09/07/19 18:59 06:59 18:59 Intake Total 1400 60 Output Total 0 Balance 1400 60 Intake: Intake, IV Titration 80 60 Amount Sodium Chloride 0.9% 1, 80 60 000 ml @ 20 mls/hr IV . Q24H [facility] Rx#:[id number] Oral 1320 Output: Chest Tube Drainage 0 Chest Tube Right 0 Other: Voiding Method Bedside Commode Bedside Commode # Voids 3 1 - Constitutional General appearance: Present: cooperative, no acute distress, obese - Respiratory Details: Lung sounds essentially clear throughout, diminished bilateral bases. Respirations are symmetrical and nonlabored. Oxygen saturation is 96% on room air. Achieving 1001 L on her incentive spirometry Right chest Thoravent remains in place to low continuous wall suction -40 cm H2O. Intermittent air leak is present. No drainage in the last 24 hours. - Cardiovascular Details: Regular rhythm and rate. S1 and S2 present, negative for S3, gallop or murmur. - Gastrointestinal Gastrointestinal Comment(s): Abdomen is soft, nontender and nondistended. Active bowel sounds present in all 4 abdominal quadrants. Tolerating oral intake. No guarding rigidity. No organomegaly. - Genitourinary Genitourinary Comment(s): Voiding clear trish urine. - Integumentary Integumentary Comment(s): Skin is warm and dry. No clubbing or cyanosis is present. Subcutaneous emphysema present to her bilateral upper extremities, chest, back, neck, face and surrounding her right eye. - Neurologic Neurologic: Present: CNII-XII intact - Musculoskeletal Musculoskeletal: Present: gait normal, strength equal bilaterally - Psychiatric Psychiatric: Present: A&O x's 3, appropriate affect, intact judgment & insight - Allied health notes Allied health notes reviewed: nursing - Labs CBC & Chem 7: 08/30/19 08:01 08/30/19 08:01 - Imaging and Cardiology Chest x-ray: report reviewed, image reviewed Assessment and Plan Assessment: 1. Acute spontaneous right pneumothorax, status post right thoracostomy tube placement, and subsequent removal of the thoracostomy tube and placement of a right chest Thoravent 2. History of sarcoidosis 3. History of COPD, with bolus disease 4. History of asthma 5. History of hiatal hernia status post hiatal hernia repair 6. Remote history of nicotine dependence quit smoking 3 years ago 7. History of MRSA to her left shoulder 8. Subcutaneous emphysema Plan: 1. Keep right chest Thoravent in place to low continuous wall suction -40 cm H2O. Continue to monitor for air leak resolution. The patient may benefit from a right VATS procedure with talc pleurodesis. 2. Continue to monitor daily chest x-rays. 3. Encourage use of incentive spirometry every hour while awake. 4. Medical management and other comorbidities per primary care service. 5. Encourage continued smoking cessation. 6. Pulmonary management recommendations per Dr. Pierce from pulmonary critical care medicine. 7. Pain control per current when necessary orders. 8. Increase activity as tolerated, out of bed for all meals, please put enough length on her suction that she is able to ambulate in her room and up to the bathroom. 9. The patient is awaiting for a bed at [facility], as she has been requested to be transferred for further evaluation. 10. More recommendations to follow based on patient's clinical course. Time with Patient: Greater than 30
--- NOTE | 2019-09-07 11:56 | P.PN ---
Subjective Progress Note Date: 09/07/19 Principal diagnosis: This is a 54-year-old woman who was recently admitted with a right spontaneous pneumothorax has had a Pleurx catheter placed. Patient continues to have subcutaneous emphysema noted of the right upper neck, chest area and is being closely monitored. Patient is maintained to suction. Patient continues to use incentive spirometer and has reached 1500 today. Instructed the patient to continue using at least 10 times every hour while awake. Patient states that her breathing has improved although she continues to have discomfort at the right chest wall and shoulder area. No reports of chest pain or palpitations. Patient is afebrile. 08/31/2019 Is a small apical pneumothorax on the CAT scan which showed diffuse emphysema recent illness still significant. Denies emphysema with pneumomediastinum 09/01/2019 Patient still has a leak no overnight events. 09/02/2019 Patient is comparing of increasing subcutaneous emphysema with pain on deep breathing patient continues to be on continuous suction and 09/03/2019 patient oxygen saturations have dropped this happened as an episode at 2 AM but later she started doing well still has to underwent attached to Pleur-evac with negative suction of 40-60 showing 10% pneumothorax Constitutional: Denied any fatigue denied any fever. Cardio vascular: denied any palpitations Gastrointestinal denied any nausea vomiting Pulmonary: Am planing of pleuritic chest pain Neurologic denied any new focal deficits 09/04/2019 Patient is seen and evaluated in follow-up today and continues to be on suction of the right thoravent with an air leak present. Patient is currently on room air and tolerating. Patient's facial swelling has improved from yesterday. pulmonary is following along with cardiothoracic surgery and appreciate input. Patient continues to have subcutaneous emphysema noted on the chest x-ray from this morning otherwise stable pneumothorax at this time. Patient is continuing to use incentive spirometer as instructed. 09/05/2019 Patient is seen in follow-up today with some improvement in the facial swelling from subcutaneous emphysema. Patient states breathing is better today and is currently on room air. Pulmonary and CT surgery are following. Patient remains to wall suction and repeat chest x-ray today shows continuous extensive subcutaneous emphysema otherwise stable pneumothorax. Patient continues to use incentive spirometer and has been achieving [id number]. Encourage the patient to increase activity as tolerated and patient states she has been up in the room and walking to the bathroom and back. Patient states she is having some vaginal irritation as she gets this often when she is on antibiotics. Diflucan will be ordered. 09/06/2019 Patient is sitting up in bed and continues to have some right-sided chest discomfort where the original chest tube was placed and continues to have extensive subcutaneous emphysema noted on daily chest x-rays. Patient is currently awaiting transfer to [facility] for further evaluation she remains on intermittent low suction with no improvement. Patient continues to work on his incentive spirometer and remains on room air at this time. Patient states she had a rough night last night is subcutaneous emphysema has traveled more up into her face and she felt extremely short of breath and was requiring oxygen via nasal cannula. Patient is currently on room air and tolerating at this time. Patient has been up walking the room with no difficulties. Will continue to monitor closely. 09/07/2019 Patient is currently sleeping but arousable with the head of the bed elevated as patient is having increased subcutaneous emphysema in the right upper chest, neck, upper extremities, face, and now is traveling into the right orbital area and surrounding tissue. Patient denies any worsening shortness of breath or difficulty in breathing and is tolerating diet with no difficulty in swallowing. Patient remains on suction at -40 and will continue at this time. Patient continues to wait for a bed assignment at [facility]. Case management is following and working with [facility] for possible bed placement today. Objective - Vital Signs Vital signs: Vital Signs Temp 97.5 F L 09/07/19 05:00 Pulse 74 09/07/19 05:00 Resp 20 09/07/19 05:00 BP 107/69 09/07/19 05:00 Pulse Ox 96 09/07/19 05:00 Intake & Output 09/06/19 09/07/19 09/07/19 18:59 06:59 18:59 Intake Total 1400 60 Output Total 0 Balance 1400 60 Intake: Intake, IV Titration 80 60 Amount Sodium Chloride 0.9% 1, 80 60 000 ml @ 20 mls/hr IV . Q24H [facility] Rx#:[id number] Oral 1320 Output: Chest Tube Drainage 0 Chest Tube Right 0 Other: Voiding Method Bedside Commode Bedside Commode # Voids 3 1 - Exam Gen: This is a 54-year-old female sitting up in bed asleep but easily arousable, alert and oriented 3, well-developed, well-nourished. HEENT: Head is atraumatic, normocephalic. Pupils equal, round. Sclerae is anicteric. Right neck, upper arms, and face subcutaneous emphysema noted but is now traveled into the right orbital area and surrounding tissue NECK: Supple. No JVD. No lymphadenopathy. No thyromegaly. Subcutaneous emphysema noted on palpation, patent airway noted LUNGS: Diminished breath sounds at the bases with some scattered crackles noted. No intercostal retractions. HEART: S1, S2 are present ABDOMEN: Soft. Bowel sounds are present. No masses. No tenderness. EXTREMITIES: No pedal edema. No calf tenderness. NEUROLOGICAL: Patient is awake, alert and oriented x3. Cranial nerves 2 through 12 are grossly intact. - Labs CBC & Chem 7: 08/30/19 08:01 08/30/19 08:01 Assessment and Plan Assessment: -Spontaneous pneumothorax patient has multiple bullae and does have COPD presently not in acute exacerbation, continue with the Proventil and thoravent suctioning at -40, repeat chest x-ray continues to show extensive chest wall subcutaneous emphysema with a stable right apical pneumothorax -COPD without any acute exacerbation -Vaginal irritation possibly due to antibiotic use. Will order Diflucan, improved. Antibiotics have been discontinued -Gastroesophageal reflux disease -History of sarcoidosis Plan: Continue present management. pulmonary and cardiac thoracic surgery are following. Continue to encourage incentive spirometer use at least 10 times every hour while awake. Patient achieving 1000 today. Continue with wall suction at -40. Air leak is present. Will continue to monitor closely. Encour aged increase in activity as tolerated. Continue with daily chest x-rays. Patient currently awaiting a bed assignment at [facility] for further evaluation. Possible discharge and transfer today once a bed becomes available. Further recommendations to follow.
--- NOTE | 2019-09-07 12:38 | P.PN ---
Subjective Progress Note Date: 09/07/19 Principal diagnosis: Acute spontaneous right-sided pneumothorax The patient is seen today 09/05/2019 in follow-up on the regular medical floor. She is awake and alert in no acute distress. She is feeling a bit better today compared to yesterday. Less shortness of breath. Less facial subcutaneous emphysema, less nausea. She's been up ambulating in the room. Right-sided tho racotomy remains in place to wall suction at -40 cm of water. Air leak is present. Chest x-ray shows no significant pneumothorax this morning. She continues to maintain good O2 saturations in the mid 90s on room air. She's been afebrile. Hemodynamically stable. She remains on Symbicort and Xopenex. Antibiotics in the form of Levaquin. Still requesting Dilaudid and [place] for pain control. Reevaluated today on 09/06/2019, patient is basically about the same. Continues to have significant subcutaneous emphysema, continues to have a small air leak from the right sided chest tube, clinically the patient is feeling well. Chest tube remains on suction at -40 HEAD OF MUSIC of water. Leak is present. Maintaining good O2 saturations on room air. Remains on bronchodilators and antibiotics. Patient was seen today on 09/07, clinically doing well, denies any shortness of breath or chest pain, however the subcutaneous emphysema seems to be getting worse. Continues to have a small air leak in the pleural VAC. Patient has fully expanded right lung. She is now agreeable to be transferred to [facility], and I think arrangements are being made in that regard. Objective - Vital Signs Vital signs: Vital Signs Temp 97.5 F L 09/07/19 05:00 Pulse 74 09/07/19 05:00 Resp 20 09/07/19 05:00 BP 107/69 09/07/19 05:00 Pulse Ox 96 09/07/19 05:00 Intake & Output 09/06/19 09/07/19 09/07/19 18:59 06:59 18:59 Intake Total 1400 60 Output Total 0 Balance 1400 60 Intake: Intake, IV Titration 80 60 Amount Sodium Chloride 0.9% 1, 80 60 000 ml @ 20 mls/hr IV . Q24H [facility] Rx#:[id number] Oral 1320 Output: Chest Tube Drainage 0 Chest Tube Right 0 Other: Voiding Method Bedside Commode Bedside Commode # Voids 3 1 - Exam GENERAL EXAM: Revealed a 54-year-old female in no distress. HEAD: Head and neck subcutaneous emphysema noted. HEENT: PERRLA, EOMI, no icterus. CHEST: No chest wall deformity. Symmetrical expansion. right anterior chest Thoravent to wall suction, and there is an air leak present LUNGS: Equal air entry with few scattered rhonchi CVS: Regular rate and rhythm, normal S1 and S2, no gallops, no murmurs, no rubs ABDOMEN: Soft, nontender. No hepatosplenomegaly, normal bowel sounds, no guarding or rigidity. EXTREMITIES: No clubbing, no edema, no cyanosis, 2+ pulses and upper and lower extremities. MUSCULOSKELETAL: Muscle strength and tone normal. SPINE: No scoliosis or deformity SKIN: Significant subcutaneous emphysema in the upper chest neck and face. CENTRAL NERVOUS SYSTEM: Alert and oriented 3 focal neurologic deficits. PSYCHIATRIC: Normal mood, affect and normal mental status examination. - Labs CBC & Chem 7: 08/30/19 08:01 08/30/19 08:01 Assessment and Plan Assessment: 1 right-sided pneumothorax, post chest tube insertion, with subsequent removal and insertion of a Thoravent. . 2 COPD with bullous changes in the upper lobes bilaterally 3 vague opacity in the left upper lobe measuring 2.5 cm, no evidence of any mass on the CAT scan of the chest. 4 sarcoidosis, remote history of and the patient has been treated with steroids 5 history of smoking, 30 pack years 6 subcutaneous emphysema Recommendation: Continue chest tube to suction. Patient is in the process of being transferred to [facility], no beds are available at this point We'll continue to follow. Time with Patient: Less than 30
[2019-09-07] MEDS: SODIUM CHLORIDE 0.9% 1,000 ML IV SCH (16:29)
[2019-09-07] MEDS: MONTELUKAST 10 MG TAB PO SCH (19:44)
--- NOTE | 2019-09-08 02:11 | XR ---
EXAMINATION TYPE: XR chest 1V portable DATE OF EXAM: 09/08/2019 COMPARISON: Yesterday HISTORY: Right-sided pneumothorax. Short of breath. TECHNIQUE: FINDINGS: There is extensive soft tissue air over the chest. There is right-sided pneumothorax that i s significantly increased compared to yesterday. The pleural space measures 3 cm. Heart is shifted sl ightly to the left side. There is minimal tension. There is atelectasis right lower lobe. There are c hest leads.. IMPRESSION: Significant increased right side pneumothorax compared to yesterday with mild tension. Ex am was discussed with the patient's nurse Susan on the floor at 2:15 AM.
[2019-09-08] MEDS ORDERED: HYDROmorphone 1 MG/ML 1 ML SYRINGE IVP STA ×2 (02:26→02:48)
[2019-09-08] MEDS ORDERED: LORazepam 2 MG/ML INJ IV STA (02:26)
--- NOTE | 2019-09-08 03:13 | ED ---
General Adult HPI - History of Present Illness Initial comments: I was called from the emergency department to see this patient who was in the intensive care unit regarding pneumothorax. Patient is being managed by Dr. Ernandez, and he called to ask if I could place a #32-Amharic thoracentesis tube. The patient had chest x-ray which was reported show increasing right sided pneumothorax and has a Thora vent tube that is no longer draining. On exam, there is subcu tissues emphysema. The patient does have decreased breath sides on the right. There is no tracheal deviation. See the nursing notes for current vital signs, which have been reviewed. I discussed indications, risks and benefits with the patient who did give consent. Patient denies medical ALLERGIES and is given procedural sedation, please see the note. I placed the right-sided torso to cyst tube the patient did have moderate amount of pain and given additional dose of Dilaudid, 1 mg. - Related Data Home Medications Medication Instructions Recorded Confirmed Levalbuterol Hfa Inhaler [Xopenex 2 puff INHALATION RT-QID PRN 07/24/16 08/27/19 Hfa Inhaler] Montelukast Sodium [Singulair] 10 mg PO HS 07/24/16 08/27/19 Omeprazole 20 mg PO DAILY 07/24/16 08/27/19 Ibandronate Sodium [Boniva] 150 mg PO QMONTH 10/19/16 08/27/19 Levalbuterol Nebulized [Xopenex 1.25 mg INHALATION RT-TID PRN 07/22/18 08/27/19 Nebulized] Ergocalciferol [Vitamin D2 50,000 unit PO WE 03/30/19 08/27/19 (DRISDOL)] Aspirin/Acetaminophen/Caffeine 1 tab PO Q12H PRN 05/24/19 08/27/19 [Excedrin Migraine Caplet] Ibuprofen [Motrin] 800 mg PO Q12HR PRN 07/19/19 08/27/19 Budesonide/Formoterol Fumarate 2 puff INHALATION RT-BID 08/27/19 08/27/19 [Symbicort 160-4.5 Mcg Inhaler] Previous Rx's Medication Instructions Recorded ALPRAZolam [Xanax] 0.25 mg PO TID PRN tab 09/06/19 Acetaminophen Tab [Tylenol] 500 mg PO Q6HR PRN tab 09/06/19 Artificial Tears-Hypromellose 2 drops BOTH EYES QID PRN bottle 09/06/19 [Artificial Tear Drops] HYDROcodone/APAP 7.5-325MG [Belt 1 each PO Q6H PRN tab 09/06/19 7.5-325] Heparin Sodium,Porcine [Heparin 5,000 unit SQ Q12HR vial 09/06/19 Sodium] Multivitamins, Thera [Multivitamin 1 each PO DAILY@1200 tab 09/06/19 (formulary)] Pantoprazole [Protonix] 40 mg PO AC-[id number] tablet. 09/06/19 Sennosides [Senokot] 8.6 mg PO BID PRN tab 09/06/19 Temazepam [Restoril] 15 mg PO HS PRN cap 09/06/19 Allergies Allergy/AdvReac Type Severity Reaction Status Date / Time albuterol Allergy "makes me Verified 08/27/19 16:54 psychotic" Sulfa (Sulfonamide Allergy Rash/Hives Verified 08/27/19 16:54 Antibiotics) Review of Systems ROS Statement: Those systems with pertinent positive or pertinent negative responses have been documented in the HPI. ROS Other: All systems not noted in ROS Statement are negative. Past Medical History Past Medical History: Asthma, COPD, GERD/Reflux, Musculoskeletal Disorder, Osteoarthritis (OA) Additional Past Medical History / Comment(s): Pain: neck, lower back and left hip, hx sarcoidosis, hx anemia, occasional bladder incontinence, tinnitus, current hernia. 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 Past Drug Use History: None Reported - Past Family History Mother Family Medical History: No Reported History Father Family Medical History: Cancer Additional Family Medical History / Comment(s): Prostate General Exam General appearance: alert, other (Marked subcutaneous emphysema.) Respiratory exam: Present: chest wall tenderness, decreased breath sounds (Right-sided). Absent: respiratory distress, wheezes, rales, rhonchi, accessory muscle use Cardiovascular Exam: Present: regular rate, normal rhythm, normal heart sounds. Absent: systolic murmur, diastolic murmur, rubs, gallop Course Vital Signs 08/27/19 08/27/19 08/28/19 16:43 20:07 05:10 Temperature 98 F 98.1 F 98.7 F Pulse Rate Pulse Rate [ Apical] Pulse Rate [ Bilateral Sitting Radial] Pulse Rate [ 89 73 80 Pulse Oximetery ] Respiratory 15 24 20 Rate Blood Pressure [Left Arm Sitting] Blood Pressure 140/84 132/72 133/70 [Right Arm] O2 Sat by Pulse 100 99 97 Oximetry 08/28/19 08/28/19 08/28/19 07:16 07:25 11:54 Temperature 98.3 F Pulse Rate 80 84 Pulse Rate [ Apical] Pulse Rate [ Bilateral Sitting Radial] Pulse Rate [ 85 Pulse Oximetery ] Respiratory 17 Rate Blood Pressure [Left Arm Sitting] Blood Pressure 125/78 [Right Arm] O2 Sat by Pulse 94 L Oximetry 08/28/19 08/29/19 08/29/19 21:00 05:00 09:00 Temperature 98.3 F 97 F L 97.6 F Pulse Rate Pulse Rate [ 75 80 84 Apical] Pulse Rate [ Bilateral Sitting Radial] Pulse Rate [ Pulse Oximetery ] Respiratory 18 18 17 Rate Blood Pressure [Left Arm Sitting] Blood Pressure 107/67 135/62 115/72 [Right Arm] O2 Sat by Pulse 98 98 98 Oximetry 08/29/19 08/29/19 08/29/19 12:34 15:16 15:45 Temperature 98 F 98.3 F Pulse Rate Pulse Rate [ Apical] Pulse Rate [ Bilateral Sitting Radial] Pulse Rate [ 78 86 86 Pulse Oximetery ] Respiratory 16 16 16 Rate Blood Pressure [Left Arm Sitting] Blood Pressure 118/61 133/73 [Right Arm] O2 Sat by Pulse 99 95 Oximetry 08/29/19 08/30/19 08/30/19 20:39 00:00 05:00 Temperature 97.7 F 97.8 F Pulse Rate Pulse Rate [ Apical] Pulse Rate [ 71 Bilateral Sitting Radial] Pulse Rate [ 80 Pulse Oximetery ] Respiratory 16 16 16 Rate Blood Pressure [Left Arm Sitting] Blood Pressure 113/55 122/63 [Right Arm] O2 Sat by Pulse 99 98 Oximetry 08/30/19 08/30/19 08/30/19 08:00 11:46 13:06 Temperature 97.9 F 97.5 F L 98.0 F Pulse Rate Pulse Rate [ 73 Apical] Pulse Rate [ 73 81 Bilateral Sitting Radial] Pulse Rate [ 98 83 98 Pulse Oximetery ] Respiratory 16 Rate Blood Pressure [Left Arm Sitting] Blood Pressure 134/68 128/83 132/80 [Right Arm] O2 Sat by Pulse 98 95 98 Oximetry 08/30/19 08/30/19 08/31/19 16:00 20:57 00:00 Temperature 98.2 F Pulse Rate Pulse Rate [ 73 Apical] Pulse Rate [ 81 92 Bilateral Sitting Radial] Pulse Rate [ 98 Pulse Oximetery ] Respiratory 16 18 18 Rate Blood Pressure [Left Arm Sitting] Blood Pressure 124/78 [Right Arm] O2 Sat by Pulse 97 Oximetry 08/31/19 08/31/19 08/31/19 05:00 07:57 08:00 Temperature 97.5 F L Pulse Rate Pulse Rate [ 73 Apical] Pulse Rate [ 82 82 Bilateral Sitting Radial] Pulse Rate [ 79 Pulse Oximetery ] Respiratory 18 Rate Blood Pressure [Left Arm Sitting] Blood Pressure 111/58 [Right Arm] O2 Sat by Pulse 96 98 Oximetry 08/31/19 08/31/19 09/01/19 12:38 21:00 00:00 Temperature 97.9 F 97.6 F Pulse Rate Pulse Rate [ Apical] Pulse Rate [ Bilateral Sitting Radial] Pulse Rate [ 79 88 88 Pulse Oximetery ] Respiratory 17 20 18 Rate Blood Pressure [Left Arm Sitting] Blood Pressure 126/60 119/74 [Right Arm] O2 Sat by Pulse 96 97 Oximetry 09/01/19 09/01/19 09/01/19 04:37 08:00 11:35 Temperature 97.6 F 98.1 F Pulse Rate Pulse Rate [ Apical] Pulse Rate [ 82 Bilateral Sitting Radial] Pulse Rate [ 71 71 80 Pulse Oximetery ] Respiratory 18 18 Rate Blood Pressure [Left Arm Sitting] Blood Pressure 115/73 126/78 [Right Arm] O2 Sat by Pulse 94 L 97 Oximetry 09/01/19 09/02/19 09/02/19 20:54 05:00 11:56 Temperature 97.3 F L 97.5 F L 97.6 F Pulse Rate Pulse Rate [ Apical] Pulse Rate [ Bilateral Sitting Radial] Pulse Rate [ 82 83 90 Pulse Oximetery ] Respiratory 18 16 18 Rate Blood Pressure [Left Arm Sitting] Blood Pressure 127/82 114/77 115/77 [Right Arm] O2 Sat by Pulse 96 95 99 Oximetry 09/02/19 09/03/19 09/03/19 21:00 05:00 11:55 Temperature 98.5 F 97.9 F 97.7 F Pulse Rate Pulse Rate [ Apical] Pulse Rate [ Bilateral Sitting Radial] Pulse Rate [ 101 H 98 78 Pulse Oximetery ] Respiratory 18 20 20 Rate Blood Pressure [Left Arm Sitting] Blood Pressure 124/64 121/81 108/71 [Right Arm] O2 Sat by Pulse 94 L 98 97 Oximetry 09/03/19 09/04/19 09/04/19 21:00 05:00 12:22 Temperature 97.3 F L 98.3 F 98.3 F Pulse Rate Pulse Rate [ Apical] Pulse Rate [ Bilateral Sitting Radial] Pulse Rate [ 93 78 76 Pulse Oximetery ] Respiratory 17 17 Rate Blood Pressure [Left Arm Sitting] Blood Pressure 116/72 114/78 113/73 [Right Arm] O2 Sat by Pulse 98 98 95 Oximetry 09/04/19 09/04/19 09/05/19 15:48 20:52 00:00 Temperature 97.8 F Pulse Rate Pulse Rate [ Apical] Pulse Rate [ Bilateral Sitting Radial] Pulse Rate [ 87 91 Pulse Oximetery ] Respiratory 18 18 18 Rate Blood Pressure [Left Arm Sitting] Blood Pressure 119/67 118/72 [Right Arm] O2 Sat by Pulse 100 97 Oximetry 09/05/19 09/05/19 09/05/19 04:33 07:19 08:00 Temperature 97.3 F L 97.9 F Pulse Rate Pulse Rate [ 80 Apical] Pulse Rate [ 80 Bilateral Sitting Radial] Pulse Rate [ 47 L 99 Pulse Oximetery ] Respiratory 18 18 18 Rate Blood Pressure [Left Arm Sitting] Blood Pressure 120/64 109/74 [Right Arm] O2 Sat by Pulse 95 Oximetry 09/05/19 09/05/19 09/05/19 11:52 13:18 14:30 Temperature 97.3 F L 97.7 F 97.0 F L Pulse Rate Pulse Rate [ Apical] Pulse Rate [ Bilateral Sitting Radial] Pulse Rate [ 71 90 96 Pulse Oximetery ] Respiratory 17 16 18 Rate Blood Pressure 103/63 [Left Arm Sitting] Blood Pressure 116/68 123/66 [Right Arm] O2 Sat by Pulse 96 98 Oximetry 09/05/19 09/05/19 09/05/19 15:05 16:45 20:00 Temperature 97.7 F Pulse Rate Pulse Rate [ Apical] Pulse Rate [ 78 Bilateral Sitting Radial] Pulse Rate [ 96 88 Pulse Oximetery ] Respiratory 18 18 18 Rate Blood Pressure 94/56 [Left Arm Sitting] Blood Pressure [Right Arm] O2 Sat by Pulse 96 Oximetry 09/05/19 09/06/19 09/06/19 23:00 03:56 07:22 Temperature 98.1 F 98.7 F Pulse Rate Pulse Rate [ Apical] Pulse Rate [ Bilateral Sitting Radial] Pulse Rate [ 89 80 Pulse Oximetery ] Respiratory 18 18 18 Rate Blood Pressure 101/57 117/71 [Left Arm Sitting] Blood Pressure [Right Arm] O2 Sat by Pulse 97 98 Oximetry 09/06/19 09/06/19 09/06/19 08:00 11:30 15:14 Temperature 97.9 F Pulse Rate Pulse Rate [ Apical] Pulse Rate [ 81 81 Bilateral Sitting Radial] Pulse Rate [ 82 Pulse Oximetery ] Respiratory 18 18 18 Rate Blood Pressure 152/77 [Left Arm Sitting] Blood Pressure [Right Arm] O2 Sat by Pulse 96 Oximetry 09/06/19 09/07/19 09/07/19 21:00 05:00 13:00 Temperature 97.4 F L 97.5 F L 97.9 F Pulse Rate Pulse Rate [ Apical] Pulse Rate [ Bilateral Sitting Radial] Pulse Rate [ 85 74 72 Pulse Oximetery ] Respiratory 20 20 17 Rate Blood Pressure 130/63 107/69 113/56 [Left Arm Sitting] Blood Pressure [Right Arm] O2 Sat by Pulse 97 96 99 Oximetry 09/07/19 09/07/19 09/07/19 21:00 23:20 23:54 Temperature 98.1 F 98.7 F Pulse Rate Pulse Rate [ Apical] Pulse Rate [ 93 104 H Bilateral Sitting Radial] Pulse Rate [ Pulse Oximetery ] Respiratory 18 20 20 Rate Blood Pressure 120/83 139/84 [Left Arm Sitting] Blood Pressure [Right Arm] O2 Sat by Pulse 95 95 Oximetry Procedures - Chest Tube Insertion Consent Obtained: verbal consent Side of Procedure: right Indication: Pneumothorax Placed on monitor/pulse oximetry: Yes Site Prep: Chloroprep Local Anesthesia: Lidocaine 1% Insertion Site: 5th Intercostal Space, Midaxillary Scalpel: #10 Open into Pleural Space Using: Trocar Tube Size (Amharic): 32 Returns: Air Sutured in Place: Yes Type of Suture: Nylon Dressing Applied: Petroleum Gauze Attached to Suction: Yes Type of Suction: Pleuravac Patient Tolerated Procedure: well Complications: Pain - Procedural Sedation Procedural Sedation Start Time: 02:41 Procedural Sedation Stop Time: 02:58 Indications: other (Chest tube insertion) ASA Class: II Mallampati Airway Score: 3 Preparation: environmental monitoring specialist applied, pulse oximeter, supplemental O2 applied, suction/airway equipment at bedside, IV secured Other Medications Used: Ativan, 2 mg, Dilaudid 1 mg. Complications: none Patient Tolerated Procedure: well Medical Decision Making - Lab Data Result diagrams: 09/09/19 05:14 09/09/19 05:14 Lab Results 08/27/19 08/27/19 08/28/19 Range/Units 17:26 17:26 07:53 WBC 12.5 H 11.1 H (3.8-10.6) k/uL RBC 4.71 3.98 (3.80-5.40) m/uL Hgb 14.2 12.1 (11.4-16.0) gm/dL Hct 42.2 36.0 (34.0-46.0) % MCV 89.7 90.5 (80.0-100.0) fL MCH 30.2 30.3 (25.0-35.0) pg MCHC 33.6 33.5 (31.0-37.0) g/dL RDW 12.8 13.0 (11.5-15.5) % Plt Count 166 209 (150-450) k/uL Neutrophils % 97 87 % Lymphocytes % 1 5 % Monocytes % 1 7 % Eosinophils % 0 0 % Basophils % 0 0 % Neutrophils # 12.2 H 9.6 H (1.3-7.7) k/uL Lymphocytes # 0.2 L 0.5 L (1.0-4.8) k/uL Monocytes # 0.1 0.8 (0-1.0) k/uL Eosinophils # 0.0 0.0 (0-0.7) k/uL Basophils # 0.0 0.0 (0-0.2) k/uL Sodium 138 (137-145) mmol/L Potassium 4.5 (3.5-5.1) mmol/L Chloride 103 (98-107) mmol/L Carbon Dioxide 27 (22-30) mmol/L Anion Gap 8 mmol/L BUN 17 (7-17) mg/dL Creatinine 0.63 (0.52-1.04) mg/dL Est GFR (CKD-EPI)AfAm >90 (>60 ml/min/1.73 sqM) Est GFR (CKD-EPI)NonAf >90 (>60 ml/min/1.73 sqM) Glucose 142 H (74-99) mg/dL Calcium 8.9 (8.4-10.2) mg/dL Magnesium 2.3 (1.6-2.3) mg/dL Total Bilirubin 0.5 (0.2-1.3) mg/dL AST 38 H (14-36) U/L ALT 22 (4-34) U/L Alkaline Phosphatase 135 H (38-126) U/L Total Protein 8.3 H (6.3-8.2) g/dL Albumin 4.9 (3.5-5.0) g/dL Urine Color Urine Appearance (Clear) Urine pH (5.0-8.0) Ur Specific [place] (1.001-1.035) Urine Protein (Negative) Urine Glucose (UA) (Negative) Urine Ketones (Negative) Urine Blood (Negative) Urine Nitrite (Negative) Urine Bilirubin (Negative) Urine Urobilinogen (<2.0) mg/dL Ur Leukocyte Esterase (Negative) Urine Opiates Screen (NotDetected) Ur Oxycodone Screen (NotDetected) Urine Methadone Screen (NotDetected) Ur Propoxyphene Screen (NotDetected) Ur Barbiturates Screen (NotDetected) U Tricyclic Antidepress (NotDetected) Ur Phencyclidine Scrn (NotDetected) Ur Amphetamines Screen (NotDetected) U Methamphetamines Scrn (NotDetected) U Benzodiazepines Scrn (NotDetected) Urine Cocaine Screen (NotDetected) U Marijuana (THC) Screen (NotDetected) 08/28/19 08/28/19 08/28/19 Range/Units 07:53 11:11 11:11 WBC (3.8-10.6) k/uL RBC (3.80-5.40) m/uL Hgb (11.4-16.0) gm/dL Hct (34.0-46.0) % MCV (80.0-100.0) fL MCH (25.0-35.0) pg MCHC (31.0-37.0) g/dL RDW (11.5-15.5) % Plt Count (150-450) k/uL Neutrophils % % Lymphocytes % % Monocytes % % Eosinophils % % Basophils % % Neutrophils # (1.3-7.7) k/uL Lymphocytes # (1.0-4.8) k/uL Monocytes # (0-1.0) k/uL Eosinophils # (0-0.7) k/uL Basophils # (0-0.2) k/uL Sodium 133 L (137-145) mmol/L Potassium 4.8 (3.5-5.1) mmol/L Chloride 100 (98-107) mmol/L Carbon Dioxide 27 (22-30) mmol/L Anion Gap 6 mmol/L BUN 26 H (7-17) mg/dL Creatinine 0.78 (0.52-1.04) mg/dL Est GFR (CKD-EPI)AfAm >90 (>60 ml/min/1.73 sqM) Est GFR (CKD-EPI)NonAf 86 (>60 ml/min/1.73 sqM) Glucose 136 H (74-99) mg/dL Calcium 8.9 (8.4-10.2) mg/dL Magnesium (1.6-2.3) mg/dL Total Bilirubin (0.2-1.3) mg/dL AST (14-36) U/L ALT (4-34) U/L Alkaline Phosphatase (38-126) U/L Total Protein (6.3-8.2) g/dL Albumin (3.5-5.0) g/dL Urine Color Yellow Urine Appearance Clear (Clear) Urine pH 6.0 (5.0-8.0) Ur Specific [place] 1.020 (1.001-1.035) Urine Protein Negative (Negative) Urine Glucose (UA) Negative (Negative) Urine Ketones Negative (Negative) Urine Blood Negative (Negative) Urine Nitrite Negative (Negative) Urine Bilirubin Negative (Negative) Urine Urobilinogen <2.0 (<2.0) mg/dL Ur Leukocyte Esterase Negative (Negative) Urine Opiates Screen Detected H (NotDetected) Ur Oxycodone Screen Not Detected (NotDetected) Urine Methadone Screen Not Detected (NotDetected) Ur Propoxyphene Screen Not Detected (NotDetected) Ur Barbiturates Screen Not Detected (NotDetected) U Tricyclic Antidepress Not Detected (NotDetected) Ur Phencyclidine Scrn Not Detected (NotDetected) Ur Amphetamines Screen Not Detected (NotDetected) U Methamphetamines Scrn Not Detected (NotDetected) U Benzodiazepines Scrn Not Detected (NotDetected) Urine Cocaine Screen Detected H (NotDetected) U Marijuana (THC) Screen Not Detected (NotDetected) 08/29/19 08/29/19 08/30/19 Range/Units 07:45 07:45 08:01 WBC 3.8 5.4 (3.8-10.6) k/uL RBC 3.49 L 3.89 (3.80-5.40) m/uL Hgb 10.7 L 11.8 (11.4-16.0) gm/dL Hct 31.7 L 35.1 (34.0-46.0) % MCV 90.9 90.2 (80.0-100.0) fL MCH 30.7 30.3 (25.0-35.0) pg MCHC 33.8 33.6 (31.0-37.0) g/dL RDW 12.9 12.6 (11.5-15.5) % Plt Count 129 L 166 (150-450) k/uL Neutrophils % 75 88 % Lymphocytes % 16 8 % Monocytes % 6 2 % Eosinophils % 2 1 % Basophils % 0 0 % Neutrophils # 2.9 4.7 (1.3-7.7) k/uL Lymphocytes # 0.6 L 0.4 L (1.0-4.8) k/uL Monocytes # 0.2 0.1 (0-1.0) k/uL Eosinophils # 0.1 0.0 (0-0.7) k/uL Basophils # 0.0 0.0 (0-0.2) k/uL Sodium 136 L (137-145) mmol/L Potassium 4.3 (3.5-5.1) mmol/L Chloride 101 (98-107) mmol/L Carbon Dioxide 29 (22-30) mmol/L Anion Gap 6 mmol/L BUN 23 H (7-17) mg/dL Creatinine 0.70 (0.52-1.04) mg/dL Est GFR (CKD-EPI)AfAm >90 (>60 ml/min/1.73 sqM) Est GFR (CKD-EPI)NonAf >90 (>60 ml/min/1.73 sqM) Glucose 96 (74-99) mg/dL Calcium 8.6 (8.4-10.2) mg/dL Magnesium (1.6-2.3) mg/dL Total Bilirubin (0.2-1.3) mg/dL AST (14-36) U/L ALT (4-34) U/L Alkaline Phosphatase (38-126) U/L Total Protein (6.3-8.2) g/dL Albumin (3.5-5.0) g/dL Urine Color Urine Appearance (Clear) Urine pH (5.0-8.0) Ur Specific [place] (1.001-1.035) Urine Protein (Negative) Urine Glucose (UA) (Negative) Urine Ketones (Negative) Urine Blood (Negative) Urine Nitrite (Negative) Urine Bilirubin (Negative) Urine Urobilinogen (<2.0) mg/dL Ur Leukocyte Esterase (Negative) Urine Opiates Screen (NotDetected) Ur Oxycodone Screen (NotDetected) Urine Methadone Screen (NotDetected) Ur Propoxyphene Screen (NotDetected) Ur Barbiturates Screen (NotDetected) U Tricyclic Antidepress (NotDetected) Ur Phencyclidine Scrn (NotDetected) Ur Amphetamines Screen (NotDetected) U Methamphetamines Scrn (NotDetected) U Benzodiazepines Scrn (NotDetected) Urine Cocaine Screen (NotDetected) U Marijuana (THC) Screen (NotDetected) 08/30/19 Range/Units 08:01 WBC (3.8-10.6) k/uL RBC (3.80-5.40) m/uL Hgb (11.4-16.0) gm/dL Hct (34.0-46.0) % MCV (80.0-100.0) fL MCH (25.0-35.0) pg MCHC (31.0-37.0) g/dL RDW (11.5-15.5) % Plt Count (150-450) k/uL Neutrophils % % Lymphocytes % % Monocytes % % Eosinophils % % Basophils % % Neutrophils # (1.3-7.7) k/uL Lymphocytes # (1.0-4.8) k/uL Monocytes # (0-1.0) k/uL Eosinophils # (0-0.7) k/uL Basophils # (0-0.2) k/uL Sodium 137 (137-145) mmol/L Potassium 4.9 (3.5-5.1) mmol/L Chloride 101 (98-107) mmol/L Carbon Dioxide 28 (22-30) mmol/L Anion Gap 8 mmol/L BUN 17 (7-17) mg/dL Creatinine 0.66 (0.52-1.04) mg/dL Est GFR (CKD-EPI)AfAm >90 (>60 ml/min/1.73 sqM) Est GFR (CKD-EPI)NonAf >90 (>60 ml/min/1.73 sqM) Glucose 133 H (74-99) mg/dL Calcium 9.3 (8.4-10.2) mg/dL Magnesium (1.6-2.3) mg/dL Total Bilirubin (0.2-1.3) mg/dL AST (14-36) U/L ALT (4-34) U/L Alkaline Phosphatase (38-126) U/L Total Protein (6.3-8.2) g/dL Albumin (3.5-5.0) g/dL Urine Color Urine Appearance (Clear) Urine pH (5.0-8.0) Ur Specific [place] (1.001-1.035) Urine Protein (Negative) Urine Glucose (UA) (Negative) Urine Ketones (Negative) Urine Blood (Negative) Urine Nitrite (Negative) Urine Bilirubin (Negative) Urine Urobilinogen (<2.0) mg/dL Ur Leukocyte Esterase (Negative) Urine Opiates Screen (NotDetected) Ur Oxycodone Screen (NotDetected) Urine Methadone Screen (NotDetected) Ur Propoxyphene Screen (NotDetected) Ur Barbiturates Screen (NotDetected) U Tricyclic Antidepress (NotDetected) Ur Phencyclidine Scrn (NotDetected) Ur Amphetamines Screen (NotDetected) U Methamphetamines Scrn (NotDetected) U Benzodiazepines Scrn (NotDetected) Urine Cocaine Screen (NotDetected) U Marijuana (THC) Screen (NotDetected) Disposition Clinical Impression: Pneumothorax Disposition: OTHER INSTITUTION NOT DEFINED Condition: Stable Is patient prescribed a controlled substance at d/c from ED?: No - Out of Hospital Transfer - Req. Specs Out of Hospital Transfer - Requested Specifics: Other Emergency Center
--- NOTE | 2019-09-08 03:30 | XR ---
EXAMINATION TYPE: XR chest 1V portable DATE OF EXAM: 09/08/2019 COMPARISON: Today HISTORY: Follow-up pneumothorax TECHNIQUE: FINDINGS: There is a new right side chest tube with the tip on the left paraspinal region mid thoraci c spine. There is additional second right upper anterior chest tube. There is clearing of the pneumot horax compared to recent exam. Heart appears shifted very slightly to the left side. Lungs appear je ar of consolidation. There is no pleural effusion. There are chest leads. IMPRESSION: There is significant improvement in the right side pneumothorax compared to exam one hour ago. Persistent mild shift of the heart to the left side. The new right chest tube is advanced and p robably could BE pulled back 5 cm.
[2019-09-08 05:05] LABS: Basophils % (A) 0 %; Eosinophils # (A) 0.1 k/uL (0-0.7); Eosinophils % (A) 1 %; HCT 35.9 % (34.0-46.0); HGB 11.8 gm/dL (11.4-16.0); Lymphocytes # (A) 0.5 k/uL (1.0-4.8); Lymphocytes % (A) 5 %; MCH 29.6 pg (25.0-35.0); MCV 89.8 fL (80.0-100.0); Mean Platelet Volume 7.7; Monocytes # (A) 0.2 k/uL (0-1.0); Monocytes % (A) 2 %; Neutrophils % (A) 91 %; Platelet Count 255 k/uL (150-450); WBC 9.9 k/uL (3.8-10.6)
[2019-09-08 05:22] LABS: African American GFR (CKD) >90 (>60 ml/min/1.73 sqM); Anion Gap 6 mmol/L; Blood Urea Nitrogen 16 mg/dL (7-17); Calcium 9.3 mg/dL (8.4-10.2); Carbon Dioxide 29 mmol/L (22-30); Chloride 98 mmol/L (98-107); Glucose 155 mg/dL (74-99); Non-African American GFR(CKD) >90 (>60 ml/min/1.73 sqM); Potassium 4.3 mmol/L (3.5-5.1); Sodium 133 mmol/L (137-145)
[2019-09-08] MEDS: SYMBICORT 160-4.5 MCG INHALER INHALATION SCH ×2 (07:24→21:49)
[2019-09-08] MEDS: KETOROLAC 30 MG/ML 1 ML VIAL IVP SCH ×4 (07:47→18:50)
[2019-09-08] MEDS: PANTOPRAZOLE 40 MG TABLET PO SCH (07:48)
[2019-09-08] MEDS: HEPARIN SODIUM,PORCINE 5,000 UNIT/ML 1 ML VIAL SQ SCH ×2 (07:48→21:21)
[2019-09-08] MEDS: HYDROmorphone 0.5 MG/0.5 ML SYRINGE IVP PRN ×3 (08:29→21:19)
--- NOTE | 2019-09-08 10:34 | XR ---
EXAMINATION TYPE: XR chest 1V portable DATE OF EXAM: 09/08/2019 COMPARISON: 09/08/2019 at 3:01 AM HISTORY: Follow-up for right-sided pneumothorax. TECHNIQUE: Single frontal view of the chest is obtained. FINDINGS: There is extensive subcutaneous emphysema overlying both chest wall and neck. A new right thoracostomy tube terminating at the mediastinum could again be retracted. The older thoracostomy tub e is again noted Trace right pneumothorax remains. This appears similar to the prior. The cardiomedia stinal silhouette is now more midline than on the prior exam. Osseous structures are grossly intact. Scattered areas of atelectasis. IMPRESSION: There are 2 right thoracostomy tubes, maneuver which terminates over the mediastinum and could be retracted approximately 5 cm. Improved now small right pneumothorax with improved mediastin al shift.
--- NOTE | 2019-09-08 10:44 | P.PN ---
Subjective Progress Note Date: 09/08/19 Principal diagnosis: Acute spontaneous right pneumothorax, status post thoracostomy tube placement which was subsequently removed and a Thoravent was placed by Dr. Pretty. Past medical history significant for sarcoidosis, COPD with bullous disease, asthma, hiatal hernias status post hiatal hernia repair, remote history of nicotine dependence in which she quit smoking 3 years ago and history of MRSA to her left shoulder. Status post day #11 and insertion of right chest Thoravent performed by Dr. Pretty and removal of right pleural chest tube. Status post day #1 insertion of right thoracostomy tube placed by Dr. Jamison emergency room physician. The patient is laying in bed in the intensive care unit. She is in no acute distress. Denies any complaints of shortness of breath although is complaining of right shoulder blade pain. Early this morning the patient developed some significant subcutaneous emphysema extending from her bilateral upper extremities, chest, back, neck, face and periorbital. Her bedside nurse reports that there was no stridor or respiratory compromise. She was subsequently transferred to the intensive care unit, a chest x-ray was completed which demonstrated a right sided pneumothorax with mild tension despite having a right chest Thoravent in place. Subsequently, a right thoracostomy tube was placed by the emergency room physician with a repeat chest x-ray showing a significant improvement in the right sided pneumothorax. Her oxygen saturations are 94% on 2 L nasal cannula. Right thoracostomy tube and right Thoravent remains in place to low continuous wall suction -20 cm H2O. Intermittent air leak is present from the right thoracostomy and Thoravent tubes. She remained hemodynamically stable and is currently on no inotropic or pressor support. She remains afebrile the last 24 hours. Her subcutaneous emphysema is still present as mentioned above although her bedside nurse states it has somewhat improved since being transferred to the intensive care unit and since the right thoracostomy tube has been placed. Objective - Vital Signs Vital signs: Vital Signs Temp 98.0 F 09/08/19 08:00 Pulse 90 09/08/19 09:00 Resp 12 09/08/19 09:00 BP 121/73 09/08/19 09:00 Pulse Ox 93 L 09/08/19 09:00 Intake & Output 09/07/19 09/08/19 09/08/19 18:59 06:59 18:59 Intake Total 680 Output Total 0 Balance 680 0 Intake: Intake, IV Titration 80 Amount Sodium Chloride 0.9% 1, 80 000 ml @ 20 mls/hr IV . Q24H [facility] Rx#:[id number] Oral 600 Output: Urine 0 Other: Voiding Method Bedpan Bedpan # Voids 2 1 0 - Constitutional General appearance: Present: cooperative, no acute distress, obese - Respiratory Details: Lung sounds essentially clear throughout, diminished bilateral bases. Respirations are symmetrical and nonlabored. Oxygen saturation 94% on 2 L nasal cannula. Right pleural chest tube and Thoravent remain in place to low continuous suction -20 cm H2O. Intermittent air leak is present from the right thoracostomy and right Thoravent tubes. Significant subcutaneous emphysema present to her bilateral upper extremities, chest, back, neck, face and pe riorbital. - Cardiovascular Details: Regular rhythm and rate. S1 and S2 present, negative for S3, gallop or murmur. Bedside telemetry showing sinus tachycardia heart rate 107. - Gastrointestinal Gastrointestinal Comment(s): Abdomen is soft, nontender and nondistended. Active bowel sounds present in all 4 abdominal quadrants. No guarding or rigidity. No organomegaly appreciated. - Genitourinary Genitourinary Comment(s): Voiding clear yellow urine. - Integumentary Integumentary Comment(s): Skin is warm and dry. No clubbing or cyanosis is present. Subcu emphysema present to her bilateral upper extremities, chest, back, neck, face and periorbital. - Neurologic Neurologic: Present: CNII-XII intact - Musculoskeletal Musculoskeletal: Present: gait normal, generalized weakness, strength equal bilaterally - Psychiatric Psychiatric Comment(s): Flat affect Psychiatric: Present: A&O x's 3, intact judgment & insight - Allied health notes Allied health notes reviewed: nursing - Labs CBC & Chem 7: 09/08/19 04:47 09/08/19 04:47 Labs: Abnormal Lab Results - Last 24 Hours (Table) 09/08/19 09/08/19 Range/Units 04:47 04:47 Neutrophils # 9.0 H (1.3-7.7) k/uL Lymphocytes # 0.5 L (1.0-4.8) k/uL Sodium 133 L (137-145) mmol/L Glucose 155 H (74-99) mg/dL - Imaging and Cardiology Chest x-ray: report reviewed, image reviewed Assessment and Plan Assessment: 1. Acute spontaneous right pneumothorax, status post right Thoravent and right thoracostomy tube placement 2. History of sarcoidosis 3. History of COPD, with bolus disease 4. History of asthma 5. History of hiatal hernia status post hiatal hernia repair 6. Remote history of nicotine dependence quit smoking 3 years ago 7. History of MRSA to her left shoulder 8. Subcutaneous emphysema Plan: 1. Keep right chest tube and right Thoravent in place to low continuous wall sevilla ction -20 cm H2O. Continue to monitor for air leak resolution. 2. Continue to monitor daily chest x-rays. 3. Encourage use of incentive spirometry every hour while awake. 4. Medical management and other comorbidities per primary care service. 5. Encourage continued smoking cessation. 6. Pulmonary management recommendations per Dr. Pierce from pulmonary critical care medicine. 7. Pain control per current when necessary orders. 8. Increase activity as tolerated, out of bed for all meals, please put enough length on her suction that she is able to ambulate in her room and up to the bathroom. 9. The patient is awaiting for a bed at [facility], as she has been requested to be transferred for further evaluation. 10. Aorta had some spray on your condyle and spread more regular More recommendations to follow based on patient's clinical course. Time with Patient: Greater than 30
[2019-09-08 11:56] LABS: Appearance,Urine Clear (Clear); Bilirubin,Urine Negative (Negative); Blood,Urine Negative (Negative); Color,Urine Yellow; Glucose,Urine (UA) Negative (Negative); Hyaline Casts,Urine 1 /lpf (0-2); Ketones,Urine Negative (Negative); Leukocyte Esterase,Urine Trace (Negative); Mucus,Urine Few /hpf; Nitrite,Urine Negative (Negative); PH, Urine 5.5 (5.0-8.0); Protein,Urine Negative (Negative); RBC,Urine 1 /hpf (0-5); Specific Gravity,Urine 1.025 (1.001-1.035); Squamous Epithelial Cell,Urine 4 /hpf (0-4); Urobilinogen,Urine <2.0 mg/dL (<2.0); WBC,Urine <1 /hpf (0-5)
[2019-09-08] MEDS: MULTIVITAMINS, THERA 1 EACH TAB PO SCH (12:21)
--- NOTE | 2019-09-08 12:39 | P.PN ---
Subjective Progress Note Date: 09/08/19 Principal diagnosis: Acute spontaneous right-sided pneumothorax The patient is seen today 09/05/2019 in follow-up on the regular medical floor. She is awake and alert in no acute distress. She is feeling a bit better today compared to yesterday. Less shortness of breath. Less facial subcutaneous emphysema, less nausea. She's been up ambulating in the room. Right-sided tho racotomy remains in place to wall suction at -40 cm of water. Air leak is present. Chest x-ray shows no significant pneumothorax this morning. She continues to maintain good O2 saturations in the mid 90s on room air. She's been afebrile. Hemodynamically stable. She remains on Symbicort and Xopenex. Antibiotics in the form of Levaquin. Still requesting Dilaudid and [place] for pain control. Reevaluated today on 09/06/2019, patient is basically about the same. Continues to have significant subcutaneous emphysema, continues to have a small air leak from the right sided chest tube, clinically the patient is feeling well. 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 Leak is present. Maintaining good O2 saturations on room air. Remains on bronchodilators and antibiotics. Patient was seen today on 09/07, clinically doing well, denies any shortness of breath or chest pain, however the subcutaneous emphysema seems to be getting worse. Continues to have a small air leak in the pleural VAC. Patient has fully expanded right lung. She is now agreeable to be transferred to [facility], and I think arrangements are being made in that regard. Reevaluated today on 09/08/19, patient had to be transferred last night to the ICU because she developed worsening subcu emphysema. Follow-up chest x-ray showed right-sided pneumothorax, was not extensively large, but there was more subcutaneous emphysema noted. During the time the patient was on room air, O2 saturation of 95%, she was not tachycardic and she was not dyspneic. Surgery was notified about the findings, and the surgeon recommended chest tube placement which was done by the ER physician. Patient now has a right sided chest tube in place, continues to have the right sided thoravent in place, and she continues to have air leak in the pleural vacs. Again her subcutaneous emphysema is quite significant. And was still in the process of eventually transferring the patient to [facility] once a bed becomes available. In the meantime we have both chest tubes to suction. Hopefully that will res olve her subcu emphysema. Labs were reviewed she had a relatively normal CBC and normal electrolytes and renal profile. Objective - Vital Signs Vital signs: Vital Signs Temp 98.2 F 09/08/19 12:00 Pulse 80 09/08/19 12:00 Resp 98 H 09/08/19 12:00 BP 104/66 09/08/19 12:00 Pulse Ox 96 09/08/19 12:00 Intake & Output 09/07/19 09/08/19 09/08/19 18:59 06:59 18:59 Intake Total 680 Output Total 2000 Balance 680 -2000 Intake: Intake, IV Titration 80 Amount Sodium Chloride 0.9% 1, 80 000 ml @ 20 mls/hr IV . Q24H [facility] Rx#:[id number] Oral 600 Output: Urine 2000 Other: Voiding Method Bedpan Bedpan # Voids 2 1 0 - Exam GENERAL EXAM: Revealed a 54-year-old female in no distress. HEAD: Head and neck subcutaneous emphysema noted. HEENT: PERRLA, EOMI, no icterus. CHEST: No chest wall deformity. Symmetrical expansion. right anterior chest Thoravent to wall suction, and there is an air leak present, right-sided Rumsey chest tube was also noted. This was placed last night. LUNGS: Equal air entry with few scattered rhonchi CVS: Regular rate and rhythm, normal S1 and S2, no gallops, no murmurs, no rubs ABDOMEN: Soft, nontender. No hepatosplenomegaly, normal bowel sounds, no guarding or rigidity. EXTREMITIES: No clubbing, no edema, no cyanosis, 2+ pulses and upper and lower extremities. MUSCULOSKELETAL: Muscle strength and tone normal. SPINE: No scoliosis or deformity SKIN: Significant subcutaneous emphysema in the upper chest neck and face. CENTRAL NERVOUS SYSTEM: Alert and oriented 3 focal neurologic deficits. PSYCHIATRIC: Normal mood, affect and normal mental status examination. - Labs CBC & Chem 7: 09/08/19 04:47 09/08/19 04:47 Labs: Abnormal Lab Results - Last 24 Hours (Table) 09/08/19 09/08/19 09/08/19 Range/Units 04:47 04:47 11:30 Neutrophils # 9.0 H (1.3-7.7) k/uL Lymphocytes # 0.5 L (1.0-4.8) k/uL Sodium 133 L (137-145) mmol/L Glucose 155 H (74-99) mg/dL Ur Leukocyte Esterase Trace H (Negative) Urine Mucus Few H (None) /hpf Assessment and Plan Assessment: 1 right-sided pneumothorax, post chest tube insertion, with subsequent removal and insertion of a Thoravent. Also status post another Rumsey chest tube placement last night.. 2 COPD with bullous changes in the upper lobes bilaterally 3 vague opacity in the left upper lobe measuring 2.5 cm, no evidence of any mass on the CAT scan of the chest. 4 sarcoidosis, remote history of and the patient has been treated with steroids 5 history of smoking, 30 pack years 6 subcutaneous emphysema Recommendation: Continue both chest tubes to suction. The new chest tube may have to be adjusted in placement and that is being addressed by thoracic surgery. Patient is in the process of being transferred to [facility], no beds are available at this point We'll continue to follow. Time with Patient: Less than 30
--- NOTE | 2019-09-08 12:54 | P.PN ---
Subjective Progress Note Date: 09/08/19 Principal diagnosis: This is a 54-year-old woman who was recently admitted with a right spontaneous pneumothorax has had a Pleurx catheter placed. Patient continues to have subcutaneous emphysema noted of the right upper neck, chest area and is being closely monitored. Patient is maintained to suction. Patient continues to use incentive spirometer and has reached 1500 today. Instructed the patient to continue using at least 10 times every hour while awake. Patient states that her breathing has improved although she continues to have discomfort at the right chest wall and shoulder area. No reports of chest pain or palpitations. Patient is afebrile. 08/31/2019 Is a small apical pneumothorax on the CAT scan which showed diffuse emphysema recent illness still significant. Denies emphysema with pneumomediastinum 09/01/2019 Patient still has a leak no overnight events. 09/02/2019 Patient is comparing of increasing subcutaneous emphysema with pain on deep breathing patient continues to be on continuous suction and 09/03/2019 patient oxygen saturations have dropped this happened as an episode at 2 AM but later she started doing well still has to underwent attached to Pleur-evac with negative suction of 40-60 showing 10% pneumothorax Constitutional: Denied any fatigue denied any fever. Cardio vascular: denied any palpitations Gastrointestinal denied any nausea vomiting Pulmonary: Am planing of pleuritic chest pain Neurologic denied any new focal deficits 09/04/2019 Patient is seen and evaluated in follow-up today and continues to be on suction of the right thoravent with an air leak present. Patient is currently on room air and tolerating. Patient's facial swelling has improved from yesterday. pulmonary is following along with cardiothoracic surgery and appreciate input. Patient continues to have subcutaneous emphysema noted on the chest x-ray from this morning otherwise stable pneumothorax at this time. Patient is continuing to use incentive spirometer as instructed. 09/05/2019 Patient is seen in follow-up today with some improvement in the facial swelling from subcutaneous emphysema. Patient states breathing is better today and is currently on room air. Pulmonary and CT surgery are following. Patient remains to wall suction and repeat chest x-ray today shows continuous extensive subcutaneous emphysema otherwise stable pneumothorax. Patient continues to use incentive spirometer and has been achieving [id number]. Encourage the patient to increase activity as tolerated and patient states she has been up in the room and walking to the bathroom and back. Patient states she is having some vaginal irritation as she gets this often when she is on antibiotics. Diflucan will be ordered. 09/06/2019 Patient is sitting up in bed and continues to have some right-sided chest discomfort where the original chest tube was placed and continues to have extensive subcutaneous emphysema noted on daily chest x-rays. Patient is currently awaiting transfer to [facility] for further evaluation she remains on intermittent low suction with no improvement. Patient continues to work on his incentive spirometer and remains on room air at this time. Patient states she had a rough night last night is subcutaneous emphysema has traveled more up into her face and she felt extremely short of breath and was requiring oxygen via nasal cannula. Patient is currently on room air and tolerating at this time. Patient has been up walking the room with no difficulties. Will continue to monitor closely. 09/07/2019 Patient is currently sleeping but arousable with the head of the bed elevated as patient is having increased subcutaneous emphysema in the right upper chest, neck, upper extremities, face, and now is traveling into the right orbital area and surrounding tissue. Patient denies any worsening shortness of breath or difficulty in breathing and is tolerating diet with no difficulty in swallowing. Patient remains on suction at -40 and will continue at this time. Patient continues to wait for a bed assignment at [facility]. Case management is following and working with [facility] for possible bed placement today. 09/08/2019 Patient is currently in the ICU and being closely monitored. Patient had a repeat chest x-ray last night showing an increase in the right pneumothorax and was transferred to ICU for close monitoring. An ER physician Dr. Jamison came to the bedside and performed a right chest tube insertion. Patient continues with the right thoravent of the upper right anterior chest and both continue to be low intermittent suction at -20. Patient continues to have extensive subc utaneous emphysema noted that is traveling into bilateral periorbital areas along with most of the face, neck, upper chest, and upper extremities. Patient denies any worsening shortness of breath although is currently on 2 L of oxygen. No reports of chest pain or palpitations. Patient continues to have chest wall pain where the chest tube was placed which is to be expected. Patient continues to await for a bed at [facility] at this time. No beds available at this time. Will continue with daily chest x-rays and continue to monitor closely. Labs within normal limits. Objective - Vital Signs Vital signs: Vital Signs Temp 98.0 F 09/08/19 08:00 Pulse 91 09/08/19 11:00 Resp 16 09/08/19 11:00 BP 111/74 09/08/19 11:00 Pulse Ox 89 L 09/08/19 11:00 Intake & Output 09/07/19 09/08/19 09/08/19 18:59 06:59 18:59 Intake Total 680 Output Total 0 Balance 680 0 Intake: Intake, IV Titration 80 Amount Sodium Chloride 0.9% 1, 80 000 ml @ 20 mls/hr IV . Q24H [facility] Rx#:[id number] Oral 600 Output: Urine 0 Other: Voiding Method Bedpan Bedpan # Voids 2 1 0 - Exam Gen: This is a 54-year-old female sitting up in bed asleep but easily arousable, alert and oriented 3, well-developed, well-nourished. HEENT: Head is atraumatic, normocephalic. Pupils equal, round. Sclerae is anicteric. Right neck, upper arms, and face subcutaneous emphysema noted but is now traveled into the right and left orbital area and surrounding tissue NECK: Supple. No JVD. No lymphadenopathy. No thyromegaly. Subcutaneous emphysema noted on palpation, patent airway noted LUNGS: Diminished breath sounds at the bases with some scattered rhonchi noted. No intercostal retractions. Right chest tube #[id number] to the fifth intercostal space midaxillary noted along with right anterior thoravent to jyothi nue HEART: S1, S2 are present ABDOMEN: Soft. Bowel sounds are present. No masses. No tenderness. EXTREMITIES: No pedal edema. No calf tenderness. NEUROLOGICAL: Patient is awake, alert and oriented x3. Cranial nerves 2 through 12 are grossly intact. - Labs CBC & Chem 7: 09/08/19 04:47 09/08/19 04:47 Labs: Abnormal Lab Results - Last 24 Hours (Table) 09/08/19 09/08/19 Range/Units 04:47 04:47 Neutrophils # 9.0 H (1.3-7.7) k/uL Lymphocytes # 0.5 L (1.0-4.8) k/uL Sodium 133 L (137-145) mmol/L Glucose 155 H (74-99) mg/dL Assessment and Plan Assessment: -Spontaneous pneumothorax patient has multiple bullae and does have COPD presently not in acute exacerbation, continue with the thoravent suctioning at -20, repeat chest x-ray early this morning showed increased pneumothorax on the right side and a chest tube by an ER physician was placed in the fifth intercostal space midaxillary right side. Both chest tubes are to continue at low suction -20. -COPD without any acute exacerbation -Vaginal irritation possibly due to antibiotic use, resolved. Patient was given Diflucan. Oral antibiotics discontinued. -Gastroesophageal reflux disease -History of sarcoidosis Plan: Continue present management. pulmonary and cardiac thoracic surgery are f ollowing. Patient is being closely monitored in the ICU and awaiting a bed assignment at [facility] as there are no beds available at this time. Pulmonary and CT surgery are following. Continue to encourage incentive spirometer use at least 10 times every hour while awake. Continue with wall suction at -20 of both chest tubes. Intermittent Air leak is present of the right anterior thoravent. Will continue to monitor closely. Continue with daily chest x-rays. Further recommendations to follow.
[2019-09-08] MEDS: HYDROcodone/APAP 7.5-325MG 1 EACH TAB PO PRN (18:03)
[2019-09-08] MEDS: SODIUM CHLORIDE 0.9% 1,000 ML IV SCH (18:50)
[2019-09-08] MEDS: MONTELUKAST 10 MG TAB PO SCH (21:19)
[2019-09-09] MEDS: HYDROcodone/APAP 7.5-325MG 1 EACH TAB PO PRN ×2 (00:14→07:13)
[2019-09-09] MEDS: KETOROLAC 30 MG/ML 1 ML VIAL IVP SCH ×2 (01:16→06:18)
[2019-09-09] MEDS: HYDROmorphone 0.5 MG/0.5 ML SYRINGE IVP PRN ×2 (02:34→09:26)
[2019-09-09 04:56] VITALS: TEMP 98.4
[2019-09-09 05:44] LABS: Basophils % (A) 0 %; Eosinophils # (A) 0.3 k/uL (0-0.7); Eosinophils % (A) 4 %; HCT 35.2 % (34.0-46.0); HGB 11.8 gm/dL (11.4-16.0); Lymphocytes # (A) 0.5 k/uL (1.0-4.8); Lymphocytes % (A) 9 %; MCH 29.8 pg (25.0-35.0); MCHC 33.6 g/dL (31.0-37.0); MCV 88.5 fL (80.0-100.0); Mean Platelet Volume 7.3; Monocytes # (A) 0.1 k/uL (0-1.0); Monocytes % (A) 2 %; Neutrophils # (A) 5.2 k/uL (1.3-7.7); Neutrophils % (A) 84 %; Platelet Count 230 k/uL (150-450); RBC 3.98 m/uL (3.80-5.40); RDW 12.9 % (11.5-15.5); WBC 6.1 k/uL (3.8-10.6)
[2019-09-09 05:54] LABS: African American GFR (CKD) >90 (>60 ml/min/1.73 sqM); Anion Gap 4 mmol/L; Blood Urea Nitrogen 18 mg/dL (7-17); Calcium 9.1 mg/dL (8.4-10.2); Carbon Dioxide 31 mmol/L (22-30); Chloride 96 mmol/L (98-107); Glucose 102 mg/dL (74-99); Non-African American GFR(CKD) >90 (>60 ml/min/1.73 sqM); Potassium 4.4 mmol/L (3.5-5.1); Sodium 131 mmol/L (137-145)
[2019-09-09] MEDS: PANTOPRAZOLE 40 MG TABLET PO SCH (06:19)
--- NOTE | 2019-09-09 06:55 | XR ---
EXAMINATION TYPE: XR chest 1V portable DATE OF EXAM: 09/09/2019 HISTORY: Spontaneous right pneumothorax. REFERENCE: Previous study dated 09/08/2019. FINDINGS: Right pleural drain remains in place. A 5-10% by volume pneumothorax is present at the righ t apex. There is extensive subcutaneous emphysema present bilaterally. The heart is not enlarged. Ple ural spaces are clear. IMPRESSION: TINY, RESIDUAL RIGHT-SIDED APICAL PNEUMOTHORAX.
[2019-09-09] MEDS: SENNOSIDES 8.6 MG TAB PO PRN (07:13)
[2019-09-09] MEDS: SYMBICORT 160-4.5 MCG INHALER INHALATION SCH (07:55)
[2019-09-09] MEDS: HEPARIN SODIUM,PORCINE 5,000 UNIT/ML 1 ML VIAL SQ SCH (09:26)
[2019-09-09] MEDS: ALPRAZolam 0.25 MG TAB PO PRN (10:13)
[2019-09-09 10:28] VITALS: BP 120/71; PULSE 80; RESP 18
--- NOTE | 2019-09-09 10:34 | P.PN ---
Subjective Progress Note Date: 09/09/19 Principal diagnosis: Acute spontaneous right pneumothorax, status post thoracostomy tube placement which was subsequently removed with Thoravent placement by Dr. Pretty, significant subcutaneous emphysema. Previous medical history of COPD with bullous emphysema, sarcoidosis, asthma, previous tobacco dependence, hiatal hernia status post repair, and history of MRSA to her left shoulder. Status post day #12 and insertion of right chest Thoravent performed by Dr. Pretty and removal of right pleural chest tube. Status post day #1 insertion of right thoracostomy tube placed by Dr. Jamison emergency room physician. The patient is currently laying in bed in no acute distress. She was complaining this morning of significant pain, received [place] and IV Dilaudid, and shortly thereafter was dozing off in her bed. Subcu emphysema to her face and neck appears to be less per nursing. Patient is able to see without difficulty, breathing appears unlabored, adequate oxygenation on room air. She remains hemodynamically stable. Right pleural chest tube and right thoravent present, intermittent air leaks present in both chest tube chambers. Objective - Vital Signs Vital signs: Vital Signs Temp 98.4 F 09/09/19 08:00 Pulse 79 09/09/19 09:00 Resp 10 L 09/09/19 09:00 BP 124/66 09/09/19 09:00 Pulse Ox 95 09/09/19 09:00 Intake & Output 09/08/19 09/09/19 09/09/19 18:59 06:59 18:59 Output Total 2400 8 400 Balance -2400 -8 -400 Weight 65.771 kg 68 kg Output: Drainage 8 Right Chest 0 Thoravent (right) 8 Urine 2400 0 400 Other: Voiding Method Bedpan Bedpan Bedpan # Voids 0 0 0 - Constitutional General appearance: Present: cooperative, no acute distress, obese - Respiratory Details: Lungs sounds diminished bilaterally. Respirations even, nonlabored. Currently on room air with oxygen saturation 92-94% when sleeping, 96-98% when awake. Able to achieve 1000 L her incentive spirometry. Right pleural chest tube present to continuous wall suction, 10 mL drainage present in the atrium total, intermittent air leak present. Right-sided third event present, connected to continuous wall suction, 70 mL serosanguineous drainage in the last 24 hours, intermittent air leak present. - Cardiovascular Details: S1, S2 present. Regular rate and rhythm, sinus rhythm on telemetry. Palpable peripheral pulses bilaterally. No edema present. No calf pain or tenderness noted. - Gastrointestinal Gastrointestinal Comment(s): Abdomen soft, nontender, nondistended. Active bowel sounds present 4 quadrants. Tolerating diet. - Genitourinary Genitourinary Comment(s): Continues to void - Integumentary Integumentary Comment(s): Skin is warm and dry with evidence of good perfusion. - Neurologic Neurologic: Present: CNII-XII intact - Musculoskeletal Musculoskeletal: Present: gait normal, strength equal bilaterally - Psychiatric Psychiatric: Present: A&O x's 3, appropriate affect, intact judgment & insight - Allied health notes Allied health notes reviewed: nursing - Labs CBC & Chem 7: 09/09/19 05:14 09/09/19 05:14 Labs: Abnormal Lab Results - Last 24 Hours (Table) 09/08/19 09/09/19 09/09/19 Range/Units 11:30 05:14 05:14 Lymphocytes # 0.5 L (1.0-4.8) k/uL Sodium 131 L (137-145) mmol/L Chloride 96 L (98-107) mmol/L Carbon Dioxide 31 H (22-30) mmol/L BUN 18 H (7-17) mg/dL Glucose 102 H (74-99) mg/dL Ur Leukocyte Esterase Trace H (Negative) Urine Mucus Few H (None) /hpf - Imaging and Cardiology Chest x-ray: report reviewed, image reviewed Assessment and Plan Assessment: 1. Acute spontaneous right pneumothorax, status post right Thoravent and right thoracostomy tube placement 2. COPD with bullous emphysema 3. History of sarcoidosis 4. History of asthma 5. Previous tobacco dependence 6. History of hiatal hernia status post repair 7. History of MRSA to her left shoulder 8. Extensive subcutaneous emphysema Plan: 1. Keep right chest tube and right Thoravent in place to low continuous wall suction -20 cm H2O. Continue to monitor for air leak resolution. 2. Monitor daily chest x-rays. 3. Encourage use of incentive spirometry every hour while awake. 4. Encourage continued smoking cessation. 5. Pulmonary management recommendations per Dr. Pierce 6. Pain control per current medication regimen 7. Increase activity as tolerated, out of bed for all meals 8. Medical management to follow comorbidities per primary care service 9. The patient is to be transferred to [facility] when bed available per pulmonology recommendations Time with Patient: Greater than 30
--- NOTE | 2019-09-09 14:13 | P.DS ---
Providers Date of admission: 08/27/19 16:04 Attending physician: Vin Anderson Consults: 08/27/19 16:47 Consult Physician Routine Consulting Provider: Justo Lomeli Consult Reason/Comments: pneumothorax Do you want consulting provider notified?: Yes 08/28/19 12:47 Consult Physician Routine Consulting Provider: Jaquelin Ernandez Consult Reason/Comments: right spontaneous pneumothorax Do you want consulting provider notified?: Yes Primary care physician: [facility] Dr. P. Phillips Hospital Course: 54-year-old woman who was recently admitted with a right spontaneous pneumothorax has had a Pleurx catheter placed. Patient continues to have subcutaneous emphysema noted of the right upper neck, chest area and is being closely monitored. Patient is maintained to suction. Patient continues to use incentive spirometer and has reached 1500 today. Instructed the patient to continue using at least 10 times every hour while awake. Patient states that her breathing has improved although she continues to have discomfort at the right chest wall and shoulder area. No reports of chest pain or palpitations. Patient is afebrile. 08/31/2019 Is a small apical pneumothorax on the CAT scan which showed diffuse emphysema recent illness still significant. Denies emphysema with pneumomediastinum 09/01/2019 Patient still has a leak no overnight events. 09/02/2019 Patient is comparing of increasing subcutaneous emphysema with pain on deep breathing patient continues to be on continuous suction and 09/03/2019 patient oxygen saturations have dropped this happened as an episode at 2 AM but later she started doing well still has to underwent attached to Pleur-evac with negative suction of 40-60 showing 10% pneumothorax 09/04/2019 Patient is seen and evaluated in follow-up today and continues to be on suction of the right thoravent with an air leak present. Patient is currently on room air and tolerating. Patient's facial swelling has improved from yesterday. pulmonary is following along with cardiothoracic surgery and appreciate input. Patient continues to have subcutaneous emphysema noted on the chest x-ray from this morning otherwise stable pneumothorax at this time. Patient is continuing to use incentive spirometer as instructed. 09/05/2019 Patient is seen in follow-up today with some improvement in the facial swelling from subcutaneous emphysema. Patient states breathing is better today and is currently on room air. Pulmonary and CT surgery are following. Patient remains to wall suction and repeat chest x-ray today shows continuous extensive subcutaneous emphysema otherwise stable pneumothorax. Patient continues to use incentive spirometer and has been achieving [id number]. Encourage the patient to increase activity as tolerated and patient states she has been up in the room and walking to the bathroom and back. Patient states she is having some vaginal irritation as she gets this often when she is on antibiotics. Diflucan will be ordered. 09/06/2019 Patient is sitting up in bed and continues to have some right-sided chest discomfort where the original chest tube was placed and continues to have extensive subcutaneous emphysema noted on daily chest x-rays. Patient is currently awaiting transfer to [facility] for further evaluation she remains on intermittent low suction with no improvement. Patient continues to work on his incentive spirometer and remains on room air at this time. Patient states she had a rough night last night is subcutaneous emphysema has traveled more up into her face and she felt extremely short of breath and was requiring oxygen via nasal cannula. Patient is currently on room air and tolerating at this time. Patient has been up walking the room with no difficulties. Will continue to monitor closely. 09/07/2019 Patient is currently sleeping but arousable with the head of the bed elevated as patient is having increased subcutaneous emphysema in the right upper chest, neck, upper extremities, face, and now is traveling into the right orbital area and surrounding tissue. Patient denies any worsening shortness of breath or difficulty in breathing and is tolerating diet with no difficulty in swallowing. Patient remains on suction at -40 and will continue at this time. Patient continues to wait for a bed assignment at [facility]. Case management is following and working with [facility] for possible bed placement today. 09/08/2019 Patient is currently in the ICU and being closely monitored. Patient had a repeat chest x-ray last night showing an increase in the right pneumothorax and was transferred to ICU for close monitoring. An ER physician Dr. Jamison came to the bedside and performed a right chest tube insertion. Patient continues with the right thoravent of the upper right anterior chest and both continue to be low intermittent suction at -20. Patient continues to have extensive subcutaneous emphysema noted that is traveling into bilateral periorbital areas along with most of the face, neck, upper chest, and upper extremities. Patient denies any worsening shortness of breath although is currently on 2 L of oxygen. No reports of chest pain or palpitations. Patient continues to have chest wall pain where the chest tube was placed which is to be expected. Patient continues to await for a bed at [facility] at this time. No beds available at this time. Will continue with daily chest x-rays and continue to monitor closely. Labs within normal limits. 09/09/2019 Discussed with the hospitalist at the [facility] patient today has only 5-10% right apical pneumothorax patient is on room air3 is still complaining of severe pain Pain does have significantsubcutaneous emphysema patient is being transferred to [facility] - Exam Gen: This is a 54-year-old female sitting up in bed asleep but easily arousable, alert and oriented 3, well-developed, well-nourished. HEENT: Head is atraumatic, normocephalic. Pupils equal, round. Sclerae is anicteric. Right neck, upper arms, and face subcutaneous emphysema noted but is now traveled into the right and left orbital area and surrounding tissue NECK: Supple. No JVD. No lymphadenopathy. No thyromegaly. Subcutaneous emphysema noted on palpation, patent airway noted LUNGS: Diminished breath sounds at the bases with some scattered rhonchi noted. No intercostal retractions. Right chest tube #32-Ukrainian to the fifth intercostal space midaxillary noted along with right anterior thoravent to continue HEART: S1, S2 are present ABDOMEN: Soft. Bowel sounds are present. No masses. No tenderness. EXTREMITIES: No pedal edema. No calf tenderness. NEUROLOGICAL: Patient is awake, alert and oriented x3. Cranial nerves 2 through 12 are grossly intact. Assessment and Plan Assessment: -Spontaneous pneumothorax patient has multiple bullae and does have COPD presently not in acute exacerbation,patient had a prolonged hospitalization initially with the chest you followed by thorough went followed by chest tube again without any improvement patient is being transferred to [facility] for second opinion with cardiothoracic surgeons there. -COPD without any acute exacerbation -Vaginal irritation possibly due to antibiotic use, resolved. Patient was given Diflucan. Oral antibiotics discontinued. -Gastroesophageal reflux disease -History of sarcoidosis Patient Condition at Discharge: Stable Plan - Discharge Summary New Discharge Prescriptions: New Artificial Tears-Hypromellose [Artificial Tear Drops] 2 drops BOTH EYES QID PRN bottle PRN Reason: Dry Eye(S) Heparin Sodium,Porcine [Heparin Sodium] 5,000 unit SQ Q12HR vial Multivitamins, Thera [Multivitamin (formulary)] 1 each PO DAILY@1200 tab HYDROcodone/APAP 7.5-325MG [[place] 7.5-325] 1 each PO Q6H PRN tab PRN Reason: Pain Pantoprazole [Protonix] 40 mg PO AC-BRKFST tablet. Temazepam [Restoril] 15 mg PO HS PRN cap PRN Reason: Insomnia Sennosides [Senokot] 8.6 mg PO BID PRN tab PRN Reason: Constipation Acetaminophen Tab [Tylenol] 500 mg PO Q6HR PRN tab PRN Reason: Fever and/ or MILD Pain ALPRAZolam [Xanax] 0.25 mg PO TID PRN tab PRN Reason: Anxiety Continue Omeprazole 20 mg PO DAILY Montelukast Sodium [Singulair] 10 mg PO HS Levalbuterol Hfa Inhaler [Xopenex Hfa Inhaler] 2 puff INHALATION RT-QID PRN PRN Reason: Shortness Of Breath Ibandronate Sodium [Boniva] 150 mg PO QMONTH Levalbuterol Nebulized [Xopenex Nebulized] 1.25 mg INHALATION RT-TID PRN PRN Reason: Shortness Of Breath Ergocalciferol [Vitamin D2 (DRISDOL)] 50,000 unit PO WE Aspirin/Acetaminophen/Caffeine [Excedrin Migraine Caplet] 1 tab PO Q12H PRN PRN Reason: Migraine Headache Ibuprofen [Motrin] 800 mg PO Q12HR PRN PRN Reason: Pain Budesonide/Formoterol Fumarate [Symbicort 160-4.5 Mcg Inhaler] 2 puff INHALATION RT-BID Discontinued HYDROcodone/APAP 7.5-325MG [[place] 7.5-325] 1 tab PO Q12HR PRN 30 Days #60 tab PRN Reason: Pain Discharge Medication List Levalbuterol Hfa Inhaler [Xopenex Hfa Inhaler] 2 puff INHALATION RT-QID PRN 07/24/16 [History] Montelukast Sodium [Singulair] 10 mg PO HS 07/24/16 [History] Omeprazole 20 mg PO DAILY 07/24/16 [History] Ibandronate Sodium [Boniva] 150 mg PO QMONTH 10/19/16 [History] Levalbuterol Nebulized [Xopenex Nebulized] 1.25 mg INHALATION RT-TID PRN 07/22/18 [History] Ergocalciferol [Vitamin D2 (DRISDOL)] 50,000 unit PO WE 03/30/19 [History] Aspirin/Acetaminophen/Caffeine [Excedrin Migraine Caplet] 1 tab PO Q12H PRN 05/24/19 [History] Ibuprofen [Motrin] 800 mg PO Q12HR PRN 07/19/19 [History] Budesonide/Formoterol Fumarate [Symbicort 160-4.5 Mcg Inhaler] 2 puff INHALATION RT-BID 08/27/19 [History] ALPRAZolam [Xanax] 0.25 mg PO TID PRN tab 09/06/19 [Rx] Acetaminophen Tab [Tylenol] 500 mg PO Q6HR PRN tab 09/06/19 [Rx] Artificial Tears-Hypromellose [Artificial Tear Drops] 2 drops BOTH EYES QID PRN bottle 09/06/19 [Rx] HYDROcodone/APAP 7.5-325MG [[place] 7.5-325] 1 each PO Q6H PRN tab 09/06/19 [Rx] Heparin Sodium,Porcine [Heparin Sodium] 5,000 unit SQ Q12HR vial 09/06/19 [Rx] Multivitamins, Thera [Multivitamin (formulary)] 1 each PO DAILY@1200 tab 09/06/19 [Rx] Pantoprazole [Protonix] 40 mg PO AC-BRKFST tablet. 09/06/19 [Rx] Sennosides [Senokot] 8.6 mg PO BID PRN tab 09/06/19 [Rx] Temazepam [Restoril] 15 mg PO HS PRN cap 09/06/19 [Rx] Activity/Diet/Wound Care/Special Instructions: Patient is going to [facility] Activity as tolerated Continue current diet Discharge Disposition: OTHER INSTITUTION NOT DEFINED
--- NOTE | 2019-09-12 10:39 | CDI ---
Documentation Clarification Form Date: 09/12/19 From: Roselyn Mccoy Phone: If you have a question about this query, please contact Mirian Stratton, Speedboat Driver at [phone] between 8am and 5pm. Admit Date: 08/27/19 Discharge Date: 09/09/19 Patient Name: ROBE RIDDLE Visit Number: [id number] ATTENTION: The Clinical Documentation Specialists (CDI) and [facility] Coding Staff appreciate your assistance in clarifying documentation. Please respond to the clarification below the line at the bottom and electronically sign. The CDI & [facility] Coding staff will review the response and follow-up if needed. Please note: Queries are made part of the Legal Health Record. If you have any questions, please contact the author of this message via ITS. Dear Dr. James Londono, The patient presented with the following spontaneous pneumothorax s/p chest tube placed at another hospital. 08/27 CXR revealed extensive subutaneous emphysema.Dr Pretty's consult documents that x-ray findings revealed that the tube was kinked. The chest tube was removed and Thoravent was inserted. The subcutaneous emphysema progressed and patient was transferred to another hospital. History/Risk Factors: COPD, GERD, OA, Sarcoidosis of lung and skin In your professional opinion, can you please clarify the cause of subcutaneous emphysema and if present on admission? CAUSE Nontraumatic Postprocedural Surgical Other/unspecified Unable to determine Present on admission? Yes No Nontraumatic Present on admission MTDD
== END 2019-09-09 10:05 | disposition short-term general hospital (02) | DRG 200 ==
LOC: 5NMEDONC 16:04 → 2SICU 09-08 01:19
PROVIDERS: ADMIT Internal Medicine; ATTEND Internal Medicine
PROC: 0W9930Z Drainage of Right Pleural Cavity with Drainage Device, Percutaneous Approach (ICD-10-PCS; principal; 2019-08-29)
PROC: 0W9930Z Drainage of Right Pleural Cavity with Drainage Device, Percutaneous Approach (ICD-10-PCS; 2019-09-08)
DX: J93.83 Other pneumothorax (principal); J98.11 Atelectasis; J98.2 Interstitial emphysema; J93.82 Other air leak; D86.89 Sarcoidosis of other sites; J44.9 Chronic obstructive pulmonary disease, unspecified; K21.9 Gastro-esophageal reflux disease without esophagitis; M19.90 Unspecified osteoarthritis, unspecified site; N89.8 Other specified noninflammatory disorders of vagina; H93.19 Tinnitus, unspecified ear; R32 Unspecified urinary incontinence; E66.9 Obesity, unspecified; Z68.29 Body mass index [BMI] 29.0-29.9, adult; Z79.82 Long term (current) use of aspirin; Z79.51 Long term (current) use of inhaled steroids; Z79.899 Other long term (current) drug therapy; Z71.3 Dietary counseling and surveillance; Z71.6 Tobacco abuse counseling; Z87.891 Personal history of nicotine dependence; Z90.49 Acquired absence of other specified parts of digestive tract; Z98.890 Other specified postprocedural states; Z90.710 Acquired absence of both cervix and uterus; Z86.2 Personal history of diseases of the blood and blood-forming organs and certain disorders involving the immune mechanism; Z86.14 Personal history of Methicillin resistant Staphylococcus aureus infection; Z90.2 Acquired absence of lung [part of]; X50.9XXA Other and unspecified overexertion or strenuous movements or postures, initial encounter; Z88.2 Allergy status to sulfonamides; Z88.8 Allergy status to other drugs, medicaments and biological substances; Z80.42 Family history of malignant neoplasm of prostate
CPT/HCPCS: 71045; 71046; 71250; 80048; 80053; 80306; 81001; 81003; 83735; 85025; 93005; 94640; 94760

== ENCOUNTER → 2019-12-13 | Outpatient (CLI) | payer MEDICARE, OTHER ==
--- NOTE | 2019-12-13 08:07 | P.PN ---
Subjective Progress Note Date: 12/13/19 Yuliya was seen via telemedicine visit today. She is a 54 y/o with chronic back pain treated with a combination of interventional procedures, medications, and exercise. 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 Although, recently she has been ill and was hospitalized for spontaneous pneumothorax. She was treated at [facility], and transfered to [facility] after a continous sub-q leak was noticed. She required a chest tube and partial lobectomy. She reports her back is a sore from laying a lot, she has not been doing as much activity secondary to pain, she is having radicular symptoms. Her pain medication works well, no side effects. Otherwise no changes in health. Objective - Exam GENERAL: Awake, alert, oriented, no distress HENT: atraumatic, normocephalic, trachea midline, nose midline RESP: NO audible wheezing, no coughing CARDIO: Reg rate (per patient palpation), no edema ABDOMEN: Non tender (per patient), no distension CERVICAL SPINE: Range of motion preserved, Spurling Negative LUMBAR SPINE: Limited range of motion secondary to pain, pain with flexion and extension of the Lumbar spine. pain down the leg NEURO: Gait is Normal, Sensation in Lower ext normal (per patient) PSYCH: Cooperative, normal affect. Assessment and Plan Assessment: Lumbar DDD Lumbar radiculopathy Opioid dependence Plan: Will schedule for a lumbar epidural steroid injection shailesh. L4/5. Would prefer to have it done with Dr. Giraldo. Will continue with current medications, follow up with the patient in 4 weeks. Refill medications electronically today. Maps checked, Opioid start talking form on chart, SOAP score documented in chart. Discussed risks of using medications including dependence, addiction, and overdose.
== END | disposition home or self-care (01) ==
LOC: PNWHC3 06:57
PROVIDERS: ATTEND Hospitalist
DX: Z53.9 Procedure and treatment not carried out, unspecified reason (principal)

== ENCOUNTER 2020-01-02 08:06 | Day surgery (SDC) | payer MEDICARE, OTHER ==
[2020-01-01 09:49] VITALS: BMI 28.1
[2020-01-02] MEDS ORDERED: LACTATED RINGERS 1,000 ML IV SCH (08:09)
[2020-01-02 08:24] VITALS: RESP 16; TEMP 96.5
[2020-01-02] MEDS ORDERED: IOPAMIDOL M200 10 ML VIAL ONE (08:37)
[2020-01-02] MEDS ORDERED: fentaNYL (PF) 50 MCG/ML 2 ML AMP ONE (08:37)
[2020-01-02] MEDS ORDERED: MIDAZOLAM 2 MG/2 ML VIAL ONE (08:37)
[2020-01-02] MEDS ORDERED: SODIUM CHLORIDE 0.9% (PF) 10 ML VIAL ONE (08:37)
[2020-01-02] MEDS ORDERED: methylPREDNISolone ACETATE 40 MG/ML 1 ML VIAL ONE (08:37)
--- NOTE | 2020-01-02 08:53 | P.PCN ---
Date of Procedure: 01/02/20 Procedure(s) Performed: PREOPERATIVE DIAGNOSIS: 1- Lumbar Degenerative Disc Diseases 2-Lumbar spondylosis with Facet arthropathy without myelopathy POSTOPERATIVE DIAGNOSIS: 1-Lumber Degenerative Disc Diseases 2-Lumbar spondylosis with Facet arthropathy without myelopathy PROCEDURE 1. Lumbar epidural steroid injection under fluoroscopic guidance at the L5-S1 level. (Fluoroscopy imaging was available in radiology department) 2. Lumbar epidurogram. ANESTHESIA: Local with 1% lidocaine 3 ml and , moderate sedation with intravenous Versed 2 mg ,and fentanyle 100 Mcg EBL: Minimal PROCEDURE INDICATION: The patient with low back pain and radiculitis symptoms unresponsive to conservative treatment. Fluoroscopy was used to optimize visualization of the needle placement and to maximize safety. PROCEDURE DESCRIPTION / TECHNIQUE: The patient was seen and identified in the preoperative area. Risks, benefits, complications including but not limited to infections ,bleeding ,allergic reaction to the medications ,nerve damage and not complete pain releife , and alternatives were discussed with the patient. The patient agreed to proceed with the procedure and signed the consent. IV was started, and vital signs were stable. Patient was taken to the OR and time out was completed. The patient was placed in the prone position on procedure table and a pillow was placed under the abdomen to reduce lumbar lordosis. The lumbosacral area was prepped and draped in the usual sterile fashion.ere closely monitored during the procedure. Conscious sedation was used during the procedure to decrease patients anxiety. Vital signs was monitered during the entire procedure. Using anterior-posterior fluoroscopy, the L5-S1 interlaminar space was identified and the skin over this site was marked and then infiltrated with 1% lidocaine subcutaneously. Subsequently, a 20-gauge Tuohy epidural needle was inserted and advanced toward the epidural space using the ``Loss of resistance technique and guided by AP and lateral fluoroscopy. The correct needle position in the epidural space was verified with the injection of 2 mL of the water soluble contrast dye Isovue 200 contrast and observing an excellent epidurogram with the epidural spread of the dye, after negative aspiration for blood and CSF and in the absence of paresthesias. Again after negative aspiration, a 6 ml mixture containing 80 mg of Depo-medrol , and 2 ml of preservative free Normal Saline, and 2 ml of preservative free lidocaine 1% solution was injected and a washout of epidurogram was seen. Needle was withdrawn intact, skin was cleansed, and bandages were applied. COMPLICATIONS: None DISPOSITION / PLANS: The patient was placed in a supine position and transferred to the recovery area in a stable condition for observation. There was no evidence of lower extremity motor or sensory deficit after the procedure. Patient was discharged from the recovery room after meeting discharge criteria. Home discharge instructions were given to the patient by the staff. The patient was reexamined prior to discharge. The patient will schedule a follow up in the clinic in 2-4 weeks.
[2020-01-02] MEDS ORDERED: IV FLUID CONTINUATION 1,000 ML IV ONE (08:57)
--- NOTE | 2020-01-02 09:11 | FL ---
EXAMINATION TYPE: FL guided pain mgmt statistic DATE OF EXAM: 01/02/2020 CLINICAL HISTORY: Low back pain. TECHNIQUE: Fluoroscopy. COMPARISON: None. FINDINGS: Fluoroscopic guidance was provided during pain relief procedure performed by Dr. Giraldo . A total of 5 seconds of fluoroscopic time was utilized during the procedure and single spot fluoro scopic intraoperative image is are acquired. Single image acquired shows needle localization at L5 l evel. IMPRESSION: As Above.
[2020-01-02 09:19] VITALS: BP 138/69; PULSE 77
== END 2020-01-02 09:37 | disposition home or self-care (01) ==
LOC: ORPAIN 08:06
PROVIDERS: ATTEND Specialist
DX: M47.26 Other spondylosis with radiculopathy, lumbar region (principal); M51.16 Intervertebral disc disorders with radiculopathy, lumbar region; J45.909 Unspecified asthma, uncomplicated; Z88.2 Allergy status to sulfonamides; Z88.8 Allergy status to other drugs, medicaments and biological substances; Z90.710 Acquired absence of both cervix and uterus
CPT/HCPCS: 62323; J2250; J1030; J3010; Q9966; 99152

== ENCOUNTER → 2020-01-10 | Outpatient (CLI) | payer MEDICARE, OTHER ==
[2020-01-10 12:24] VITALS: BP 135/64; PULSE 75; RESP 18; TEMP 98.3
--- NOTE | 2020-01-10 12:44 | P.PAINPG ---
Subjective Progress Note Date: 01/10/20 Yuliya is a 54 y/o with chronic back pain treated with a combination of interventional procedures, medications, and exercise. 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 She most recently underwent lumbar epidural steroid injection at L5-S1 on 01/02/2020 and returns today for follow-up. Unfortunately, she injured her back while leaning over chicken coop the day of her procedure. Her pain is primarily located in the low back, radiating to bilateral hips and buttocks, left greater than right. Pain is rated as 9/10 described as dull, aching, pressure and occasionally sharp. She also has right knee pain and is working on scheduling right knee replacement. Her pain medication works well, no side effects, medications are helping her function. She states that she has tried lidocaine patch with good relief. Review of systems is negative for chest pain, new onset weakness, numbness/tingling, abdominal pain, malaise, fever, night sweats, chills, homicidal or suicidal ideation, or bowel or bladder incontinence.she does have chronic shortness of breath following partial lobectomy. Objective Physical exam: Vitals: Reviewed in EMR GENERAL: Well appearing, in no acute distress PSYCH: Mood and affect is appropriate. Awake, alert, and oriented SKIN: Skin color, texture, turgor normal, no rashes or lesions HEENT: Normocephalic, atraumatic. EOM intact CV: No pedal edema RESP: Respirations are unlabored, no audible wheezing GI: Abdomen non-distended MUSCULOSKELETAL: Bilateral lower extremity strength is normal and symmetric. No atrophy or tone abnormalities are noted. Lumbar spine: Tenderness to palpation over the lumbar spine and paraspinous muscles. Negative for pain with facet loading and back extension/rotation. Extremities: Peripheral joint ROM is full and pain free without obvious instability or laxity in all four extremities. No edema or skin discolorations noted. Gait: Gait is slow, cane by her side NEUR: Cranial nerves are grossly intact. No loss of sensation is noted. Assessment and Plan Assessment: Lumbar DDD Lumbar radiculopathy Opioid dependence Right knee osteoarthritis Plan: Will continue with current medications- [place] 7.5/325 #45, ibuprofen 800 mg #45 with one refill each, Maps checked, Opioid start talking form on chart Urine drug screen sent today We will hold off on procedures at this point given that the patient is scheduling right knee replacement surgery Follow-up: In 8 weeks for medication management PQRS Measure Charge Sheet Measure #130: Documentation of Current Meds in Medical Chart: Patient's medications documented in chart Measure #226: Tobacco Use: Screen & Cessation Intervention: Pt not a tobacco user Measure #111: Pneumonia Vaccination: Pneumococcal vaccine NOT administered or previously given Measure #47: Advance Care Plan: Advance care planning discussed & documented, pt chose/unable to give Measure #412: Opioid Treatment Agreement: Documented signed opioid trtmnt agreemnt min once during opioid trtmnt Measure #408: Opioid Therapy Follow-up Evaluation: Patient had f/u eval minimum every 3 months during opioid therapy Measure #317: Preventitive Care & Scrn High Bld Press & F/U: Normal blood pressure, f/u not required Measure #128: Body Mass Index (BMI) Screening & Follow-up: BMI documented within normal parameters Measure #131: Pain Assessment & Follow-up: Pain positive & plan documented, Follow-up scheduled Measure #431: Unhealthy Alcohol Use Preventative Care & Scrn: Patient not identified as an unhealthy alcohol user PQRS Narrative: Smoking Status Former smoker Narcotic Agreement Date Signed 12/13/18 Pain Intensity [Lower Back] 9 Scale Used Numeric (1 - 10) Hx Alcohol Use (MH) No Home Medications: Ambulatory Orders Levalbuterol Hfa Inhaler [Xopenex Hfa Inhaler] 2 puff INHALATION RT-QID PRN 07/24/16 Montelukast Sodium [Singulair] 10 mg PO HS 07/24/16 Omeprazole 20 mg PO DAILY 07/24/16 Ibandronate Sodium [Boniva] 150 mg PO QMONTH 10/19/16 Levalbuterol Nebulized [Xopenex Nebulized] 1.25 mg INHALATION RT-TID PRN 05/30 Ergocalciferol [Vitamin D2 (DRISDOL)] 50,000 unit PO WE 03/30/19 Aspirin/Acetaminophen/Caffeine [Excedrin Migraine Caplet] 1 tab PO Q12H PRN 05/24/19 Budesonide/Formoterol Fumarate [Symbicort 160-4.5 Mcg Inhaler] 2 puff INHALATION RT-BID 08/27/19 Artificial Tears-Hypromellose [Artificial Tear Drops] 2 drops BOTH EYES QID PRN bottle 09/06/19 Magnesium Oxide [Magox 400] 400 mg PO DAILY PRN 01/01/20 HYDROcodone/APAP 7.5-325MG [[place] 7.5-325] 1 each PO Q12H PRN 30 Days #45 tab 01/10/20 HYDROcodone/APAP 7.5-325MG [[place] 7.5-325] 1 tab PO Q12H PRN 30 Days #45 tab 01/10/20 Ibuprofen [Motrin] 800 mg PO Q12HR PRN 30 Days #45 tab 01/10/20 Controlled Substance Measures - Controlled Substance Measures Is patient prescribed a controlled substance at discharge?: Yes When asked, does pt state using other controlled substances?: No If prescribed controlled substance>3 days was MAPS reviewed?: Yes If Rx opioid, was Start Talking consent form obtained?: Yes If opioid is for acute pain is fill amount 7 days or less?: No Was information provided regarding opioid addiction?: Yes
== END | disposition home or self-care (01) ==
LOC: PNWHC3 11:58
PROVIDERS: ATTEND Anesthesiology
DX: M51.16 Intervertebral disc disorders with radiculopathy, lumbar region (principal); F11.20 Opioid dependence, uncomplicated; M17.11 Unilateral primary osteoarthritis, right knee; Z87.891 Personal history of nicotine dependence; Z79.891 Long term (current) use of opiate analgesic; Z79.899 Other long term (current) drug therapy; Z79.82 Long term (current) use of aspirin
CPT/HCPCS: 80307; G0482; G0463; 99211

== ENCOUNTER 2020-04-09 06:00 | Day surgery (SDC) | payer MEDICARE, OTHER ==
[2020-04-08 09:24] VITALS: BMI 28.5
[~2020-04-09 06:00] MED LIST changes: -ACETAMINOPHEN TAB 500 MG TAB PO STA; -GABAPENTIN 300 MG CAP PO STA; +LIDOCAINE 1% (10MG/ML) FOR IV START INTRADERMA PRN; -LIDOCAINE 1% 20 ML VIAL (10MG/ML) FOR IV START INTRADERMA PRN; +MIDAZOLAM 2 MG/2 ML VIAL IV PRN; +Pre Op ABX Message 1 EACH MISC MISCELLANE ONE
[2020-04-09 06:31] VITALS: RESP 16
[2020-04-09] MEDS ORDERED: fentaNYL (PF) 50 MCG/ML 2 ML AMP ONE (06:56)
[2020-04-09] MEDS ORDERED: PROPOFOL 10 MG/ML 20 ML VIAL IV ONE (06:56)
[2020-04-09] MEDS ORDERED: MIDAZOLAM 2 MG/2 ML VIAL ONE (06:56)
[2020-04-09] MEDS ORDERED: LIDOCAINE 1% INJ 10MG/ML (20 ML MDV) ONE (06:56)
[2020-04-09] MEDS ORDERED: BUPIVACAINE (PF) 0.5% 30 ML VIAL INTRAARTIC ONE (07:00)
[2020-04-09] MEDS ORDERED: ceFAZolin 1,000 MG VIAL IVPB ONE (07:05)
[2020-04-09 07:43] VITALS: TEMP 97.5
--- NOTE | 2020-04-09 08:34 | P.OP ---
Date of Procedure: 04/09/20 Preoperative Diagnosis: Torn medial meniscus right knee Postoperative Diagnosis: 1. Torn medial meniscus right knee 2. Synovitis Procedure(s) Performed: 1. Arthroscopy of of the right knee with partial medial meniscectomy (20% of the meniscus excised) 2. Partial synovectomy of the medial femoral, lateral femoral, and patellofemoral compartments Anesthesia: MAC Surgeon: Jean Pierre Barajas Estimated Blood Loss (ml): 5 Pathology: none sent Condition: stable Disposition: PACU Indications for Procedure: This is a 54-year-old female presented to my office with pain in her right knee. An MRI demonstrated torn medial meniscus and after discussing the surgical and nonsurgical treatment options with her at length she wishes to proceed with arthroscopic debridement of right knee Operative Findings: The operative findings are consistent with a torn medial meniscus of the right knee as well as synovitis Description of Procedure: Patient was seen and evaluated in the preoperative area, the operative site was marked with a skin marker. The patient was then brought to the operating room and given 1 g of Ancef intravenously. A general anesthetic was administered by the anesthesia department. Tourniquet was placed on the left upper thigh and the left lower extremity was then prepped and draped in usual sterile fashion. A universal timeout was then performed confirming the patient's name, surgical site, ALLERGIES, and consent. The limb was then exsanguinated and tourniquet insufflated to 250 mmHg. Standard inferior medial and inferior lateral portals were established in the knee. The trochar was inserted in the inferolateral portal. Examination began at the patellofemoral joint. There is no evidence of any significant chondromalacia of the patellofemoral compartment and a moderate amount of synovitis. Next the medial compartment was visualized. There was a tear of the posterior horn of the medial meniscus. There was no chondral malacia of the mediofemoral compartment and synovitis. The notch area was then visualized and ACL WAS intact. The Lateral compartment was then visualized and the lateral meniscus was found to be intact, there was no evidence of chondromalacia, but a mild amount of synovitis. Next, using an arthroscopic shaver and a biter, partial medial meniscectomy was performed stable margins. Approximately 20% of meniscus was excised A partial synovectomy is performed the medial femoral, lateral femoral, patellofemoral compartments. Knee was then copiously irrigated, instruments removed, incisions were closed with 4-0 nylon. 30 mL of quarter percent plain Marcaine were injected sterilely into the surgical area. A sterile dressing was then applied, and the tourniquet was released. Patient was then transferred to recovery room in stable condition.
[2020-04-09] MEDS ORDERED: HYDROcodone/APAP 7.5-325MG 1 EACH TAB ONE (08:53)
[2020-04-09] MEDS ORDERED: HYDROcodone/APAP 7.5-325MG 1 EACH TAB PO ONE (08:54)
[2020-04-09 09:02] VITALS: BP 129/63; PULSE 94
== END 2020-04-09 11:13 | disposition home or self-care (01) ==
LOC: OR 06:00
PROVIDERS: ATTEND Orthopaedic Surgery
DX: S83.241A Other tear of medial meniscus, current injury, right knee, initial encounter (principal); X58.XXXA Exposure to other specified factors, initial encounter; M65.9 Synovitis and tenosynovitis, unspecified; H91.90 Unspecified hearing loss, unspecified ear; Z97.3 Presence of spectacles and contact lenses; D86.9 Sarcoidosis, unspecified; J44.9 Chronic obstructive pulmonary disease, unspecified; K21.9 Gastro-esophageal reflux disease without esophagitis; Z90.2 Acquired absence of lung [part of]; Z87.891 Personal history of nicotine dependence; Z90.710 Acquired absence of both cervix and uterus; Z98.890 Other specified postprocedural states; Z79.1 Long term (current) use of non-steroidal anti-inflammatories (NSAID); Z79.83 Long term (current) use of bisphosphonates; Z79.891 Long term (current) use of opiate analgesic; Z79.51 Long term (current) use of inhaled steroids; Z79.899 Other long term (current) drug therapy; Z88.2 Allergy status to sulfonamides; Z88.8 Allergy status to other drugs, medicaments and biological substances
CPT/HCPCS: 29881; 29876; J2250; J1100; J2405; J0690; J2001; J3010; J2704; J1170

== ENCOUNTER → 2021-11-18 | Outpatient (CLI) | payer MEDICARE, OTHER | END | disposition home or self-care (01) | LOC: RADCTMAIN 11:58 | PROVIDERS: ATTEND Surgery Plastic and Reconstructive Surgery | DX: K56.609 Unspecified intestinal obstruction, unspecified as to partial versus complete obstruction (principal); I11.9 Hypertensive heart disease without heart failure | CPT/HCPCS: 93005 ==

== ENCOUNTER 2022-06-02 08:06 | Day surgery (SDC) | payer MEDICARE, OTHER ==
[~2022-06-02 08:06] MED LIST changes: +ACETAMINOPHEN TAB 500 MG TAB PO PRN; -DEXAMETHASONE SOD PHOSPHATE 10 MG/ML 1 ML VIAL IV ONE; +DEXAMETHASONE SOD PHOSPHATE 4 MG/ML 1 ML VIAL IV ONE; +HEPARIN SODIUM,PORCINE/PF 5,000 UNIT/0.5 ML SYRINGE SQ PRN; -HYDROmorphone 0.5 MG/0.5 ML SYRINGE IVP PRN; -MIDAZOLAM 2 MG/2 ML VIAL IV PRN; -Pre Op ABX Message 1 EACH MISC MISCELLANE ONE; +SCOPOLAMINE 1 MG/72 HR PATCH TRANSDERM ONE
[2022-06-02 09:12] LABS: Basophils % (A) 1 %; Eosinophils # (A) 0.2 k/uL (0-0.7); Eosinophils % (A) 4 %; HGB 14.5 gm/dL (11.4-16.0); Lymphocytes # (A) 0.6 k/uL (1.0-4.8); Lymphocytes % (A) 14 %; MCH 32.2 pg (25.0-35.0); MCHC 35.4 g/dL (31.0-37.0); Mean Platelet Volume 8.5; Monocytes # (A) 0.3 k/uL (0-1.0); Monocytes % (A) 8 %; Neutrophils # (A) 3.1 k/uL (1.3-7.7); Neutrophils % (A) 72 %; Platelet Count 151 k/uL (150-450); RDW 13.1 % (11.5-15.5); WBC 4.2 k/uL (3.8-10.6)
--- NOTE | 2022-06-02 09:17 | P.GSHP ---
History of Present Illness H&P Date: 06/02/22 Chief Complaint: Right inguinal/femoral hernia This a 48-year-old female developed a tender mass in the right groin. The mass reducible. Patient presents today for laparoscopic proximal Right inguinal/possible femoral hernia Past Medical History Past Medical History: Asthma, COPD, GERD/Reflux, Hearing Disorder / Deafness, Hypertension, Musculoskeletal Disorder, Osteoarthritis (OA) Additional Past Medical History / Comment(s): Pain: neck, lower back and left hip & right knee, hx sarcoidosis, hx anemia, occasional bladder incontinence, tinnitus, hernia. bilateral sciatica pain. bilateral foot fx. 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 hx of 2 tubal pregnancies Past Anesthesia/Blood Transfusion Reactions: No Reported Reaction Additional Past Anesthesia/Blood Transfusion Reaction / Comment(s): no blood transfusions Smoking Status: Former smoker - Past Family History Mother Family Medical History: Hypertension, Thyroid Disorder Father Family Medical History: Cancer Additional Family Medical History / Comment(s): Prostate Sister(s) Additional Family Medical History / Comment(s): anemia as well as brother Medications and Allergies Home Medications Medication Instructions Recorded Confirmed Type Levalbuterol Hfa Inhaler [Xopenex 2 puff INHALATION RT-QID PRN 07/24/16 06/02/22 History Hfa Inhaler] Montelukast Sodium [Singulair] 10 mg PO HS 07/24/16 06/02/22 History Omeprazole 20 mg PO HS 07/24/16 05/29/22 History Ibandronate Sodium [Boniva] 150 mg PO QMONTH 10/19/16 06/02/22 History Levalbuterol Nebulized [Xopenex 1.25 mg INHALATION RT-TID PRN 07/22/18 06/02/22 History Nebulized] Ergocalciferol [Vitamin D2 50,000 unit PO WE 03/30/19 05/29/22 History (DRISDOL)] Aspirin/Acetaminophen/Caffeine 1 tab PO Q12H PRN 05/24/19 05/29/22 History [Excedrin Migraine Caplet] Ibuprofen [Motrin] 800 mg PO Q12H PRN #45 tab 01/10/20 05/29/22 Rx Cyclobenzaprine [Flexeril] 10 mg PO HS 05/29/22 06/02/22 History Unk Aleve 1 tab PO DIRECTED 05/29/22 05/29/22 History Unk Fish Oil 1 tab PO DAILY 05/29/22 05/29/22 History lisinopriL [Zestril] 20 mg PO HS 05/29/22 06/02/22 History Allergies Allergy/AdvReac Type Severity Reaction Status Date / Time albuterol Allergy "makes me Verified 05/29/22 09:32 psychotic" duloxetine [From Cymbalta] Allergy Nausea & Verified 05/29/22 09:32 Vomiting, migraine, swelling Sulfa (Sulfonamide Allergy Rash/Hives Verified 05/29/22 09:32 Antibiotics) Surgical - Exam Vital Signs Temp Pulse Resp BP Pulse Ox 96.9 F L 87 16 138/65 97 06/02/22 08:38 06/02/22 08:38 06/02/22 08:38 06/02/22 08:38 06/02/22 08:38 - General well developed, well nourished, no distress - Eyes PERRL - ENT normal pinna - Neck no masses - Respiratory normal expansion - Cardiovascular Rhythm: regular - Abdomen Reducible right inguinal/femoral hernia Abdomen: soft Results - Labs 06/02/22 08:54 Abnormal Lab Results - Last 24 Hours (Table) 06/02/22 Range/Units 08:54 Lymphocytes # 0.6 L (1.0-4.8) k/uL Assessment and Plan Assessment: Right groin hernia. We'll perform laparoscopic robotic-assisted repair.
[2022-06-02] MEDS ORDERED: MIDAZOLAM 2 MG/2 ML VIAL IV ONE (09:20)
[2022-06-02] MEDS ORDERED: SUCCINYLCHOLINE CHLORIDE 200 MG/10 ML VIAL IV ONE (09:32)
[2022-06-02] MEDS ORDERED: fentaNYL (PF) 50 MCG/ML 2 ML AMP ONE (09:32)
[2022-06-02] MEDS ORDERED: PROPOFOL 10 MG/ML 20 ML VIAL IV ONE (09:32)
[2022-06-02] MEDS ORDERED: LIDOCAINE 2% INJ 20 MG/ML (2 ML VIAL) ONE (09:32)
[2022-06-02] MEDS ORDERED: MIDAZOLAM 2 MG/2 ML VIAL ONE (09:32)
[2022-06-02] MEDS ORDERED: KETOROLAC 15 MG/ML 1 ML VIAL ONE (09:32)
[2022-06-02] MEDS ORDERED: ROCURONIUM 10 MG/ML (5 ML VIAL) IV ONE (09:32)
[2022-06-02] MEDS ORDERED: NEOSTIGMINE 1 MG/ML 10 ML VIAL ONE (09:32)
[2022-06-02] MEDS ORDERED: GLYCOPYRROLATE 0.2 MG/ML 2 ML VIAL ONE (09:32)
[2022-06-02] MEDS ORDERED: BUPIVACAIN-EPI 0.25%-1:200,000 30 ML VIAL SQ ONE (09:38)
--- NOTE | 2022-06-02 10:42 | P.OP ---
Date of Procedure: 06/02/22 Preoperative Diagnosis: Right inguinal hernia Postoperative Diagnosis: Right inguinal hernia Procedure(s) Performed: Laparoscopic robotic-assisted repair of right inguinal hernia Transversus abdominis plane block Anesthesia: MAC Surgeon: Jorge Hopper Estimated Blood Loss (ml): 5 Pathology: none sent Condition: stable Disposition: PACU Description of Procedure: The patient's placed on the operating table in the supine position. The patient received general anesthesia. The patient's abdomen was prepped and draped in usual sterile fashion. The skin was anesthetized 1% local Xylocaine at the incision sites. Using an 11 blade a skin incision was made at the umbilicus. The fascia was grasped with a [place] and then the peritoneal cavity was entered with the Veress needle. Position of the Veress needle was confirmed with a positive drop test. After adequate insufflation a 5 mm trocar was placed into the peritoneal cavity. The Laparoscope was placed the peritoneal cavity. And a robotic 8 mm trocar was placed in the right lateral position and then another 8 mm robotic trochars placed in the left lateral position. The original 5 mm trocar was exchanged for a 12 mm trocar. The patient was placed in reverse A four-quadrant transversus abdominis plane block was performed using 1% local Xylocaine. Trendelenburg and then the patient was docked to the robot. Next the peritoneum over top of the hernia was incised and then using blunt and sharp dissection and electrocautery the hernia sac was dissected free from the floor of the inguinal canal. The hernia sac was completely reduced into the peritoneal cavity. And then using the Pro case hardener mesh the hernia was repaired. The peritoneum was then sutured with 20V lock suture. The patient was then undocked the robot. The needle was withdrawn from the peritoneal cavity. The umbilical trocar site was closed with 0 Ethibond suture. The skin was closed interrupted 3-0 Monocryl suture. Dermabond dressing was applied. Patient was sent to recovery in stable condition.
[2022-06-02 10:48] VITALS: TEMP 97.3
[2022-06-02] MEDS: HYDROmorphone 0.5 MG/0.5 ML SYRINGE IVP PRN ×2 (11:01→11:20)
[2022-06-02 13:20] VITALS: BP 120/57; PULSE 74; RESP 18
== END 2022-06-02 14:15 | disposition home or self-care (01) ==
LOC: OR 08:06
PROVIDERS: ATTEND Surgery
DX: K40.90 Unilateral inguinal hernia, without obstruction or gangrene, not specified as recurrent (principal); J44.9 Chronic obstructive pulmonary disease, unspecified; K21.9 Gastro-esophageal reflux disease without esophagitis; I10 Essential (primary) hypertension; M17.11 Unilateral primary osteoarthritis, right knee; Z90.410 Acquired total absence of pancreas; Z90.49 Acquired absence of other specified parts of digestive tract; Z87.891 Personal history of nicotine dependence; Z83.49 Family history of other endocrine, nutritional and metabolic diseases; Z82.49 Family history of ischemic heart disease and other diseases of the circulatory system; Z79.51 Long term (current) use of inhaled steroids
CPT/HCPCS: 85025; 49650; C1781; J2250; J0330; J1100; J2710; J0690; J2405; J3010; J1885; J2704; J1170; J1644; J2001

== ENCOUNTER 2022-10-28 13:50 | Observation (INO) | payer MEDICARE, OTHER ==
[2022-10-22 12:46] VITALS: BMI 28.1
[~2022-10-28 13:50] MED LIST changes: +HYDROmorphone 0.5 MG/0.5 ML SYRINGE IVP PRN; -SCOPOLAMINE 1 MG/72 HR PATCH TRANSDERM ONE; +droPERidol 5 MG/2 ML VIAL IVP ONE
[2022-10-28 15:02] LABS: Glucose,Whole Blood 94 mg/dL (70-110)
[2022-10-28 15:35] LABS: Basophils % (A) 0 %; Eosinophils # (A) 0.2 k/uL (0-0.7); Eosinophils % (A) 3 %; HCT 37.9 % (34.0-46.0); HGB 13.1 gm/dL (11.4-16.0); Lymphocytes # (A) 0.6 k/uL (1.0-4.8); Lymphocytes % (A) 10 %; MCH 31.9 pg (25.0-35.0); MCHC 34.7 g/dL (31.0-37.0); MCV 91.9 fL (80.0-100.0); Mean Platelet Volume 7.9; Monocytes # (A) 0.3 k/uL (0-1.0); Monocytes % (A) 6 %; Neutrophils # (A) 4.7 k/uL (1.3-7.7); Neutrophils % (A) 81 %; Platelet Count 137 k/uL (150-450); RBC 4.12 m/uL (3.80-5.40); WBC 5.9 k/uL (3.8-10.6)
[2022-10-28 16:06] LABS: ALT 22 U/L (4-34); AST 33 U/L (14-36); African American GFR (CKD) >90 (>60 ml/min/1.73 sqM); Albumin 4.5 g/dL (3.5-5.0); Alkaline Phosphatase 107 U/L (38-126); Anion Gap 9 mmol/L; Blood Urea Nitrogen 19 mg/dL (7-17); Calcium 9.2 mg/dL (8.4-10.2); Carbon Dioxide 27 mmol/L (22-30); Chloride 106 mmol/L (98-107); Glucose 80 mg/dL (74-99); Non-African American GFR(CKD) 85 (>60 ml/min/1.73 sqM); Potassium 4.3 mmol/L (3.5-5.1); Sodium 142 mmol/L (137-145); Total Bilirubin 0.8 mg/dL (0.2-1.3); Total Protein 7.4 g/dL (6.3-8.2)
[2022-10-28] MEDS ORDERED: fentaNYL (PF) 50 MCG/ML 2 ML AMP ONE (17:03)
[2022-10-28] MEDS ORDERED: GLYCOPYRROLATE 0.2 MG/ML 2 ML VIAL ONE (17:03)
[2022-10-28] MEDS ORDERED: MIDAZOLAM 2 MG/2 ML VIAL ONE (17:03)
[2022-10-28] MEDS ORDERED: ROCURONIUM 10 MG/ML (5 ML VIAL) IV ONE (17:03)
[2022-10-28] MEDS ORDERED: KETOROLAC 15 MG/ML 1 ML VIAL ONE (17:03)
[2022-10-28] MEDS ORDERED: SUCCINYLCHOLINE CHLORIDE 200 MG/10 ML VIAL IV ONE (17:03)
[2022-10-28] MEDS ORDERED: PROPOFOL 10 MG/ML 20 ML VIAL IV ONE (17:03)
[2022-10-28] MEDS ORDERED: NEOSTIGMINE 1 MG/ML 10 ML VIAL ONE (17:03)
[2022-10-28] MEDS ORDERED: LIDOCAINE 2% INJ 20 MG/ML (2 ML VIAL) ONE (17:03)
[2022-10-28] MEDS ORDERED: BUPIVACAIN-EPI 0.25%-1:200,000 30 ML VIAL SQ ONE (17:29)
[2022-10-28] MEDS ORDERED: LACTATED RINGERS 1,000 ML IV ONE (18:46)
[2022-10-28] MEDS ORDERED: ONDANSETRON 4 MG/2 ML VIAL IVP PRN (18:46)
[2022-10-28] MEDS ORDERED: ACETAMINOPHEN TAB 325 MG TAB PO PRN (18:46)
[2022-10-28] MEDS ORDERED: NALOXONE 0.4 MG/ML 1 ML VIAL IV PRN (18:46)
[2022-10-28] MEDS ORDERED: METOCLOPRAMIDE 5 MG/ML 2 ML VIAL IVP PRN (18:46)
[2022-10-28] MEDS ORDERED: HYDROmorphone 0.5 MG/0.5 ML SYRINGE IVP PRN (18:46)
--- NOTE | 2022-10-28 18:56 | XR ---
EXAMINATION TYPE: XR abdomen 1V DATE OF EXAM: 10/28/2022 6:50 PM INDICATION: Patient age:Female; 57 years old; Reason for study: Rule out foreign body, Светлана Forceps; [facility]. COMPARISON: None. TECHNIQUE: One radiographic view of the abdomen was obtained. FINDINGS: No metallic foreign body is visualized. Chapito-Pineda drain within the mid abdomen. The bow el gas pattern is nonspecific without dilated loops of small or large bowel. There is no evidence for organomegaly or pneumoperitoneum. The osseous structures are intact. No abnormal calcifications ar e present. Fecal material and gas are demonstrated throughout the colon and rectum. IMPRESSION: 1. No metallic radiopaque foreign body. There is a Chapito-Pineda drain within the abdomen. 2. Nonspecific bowel gas pattern without radiographic evidence for acute process.
--- NOTE | 2022-10-28 19:01 | P.OP ---
Date of Procedure: 10/28/22 Preoperative Diagnosis: Incarcerated incisional hernia Postoperative Diagnosis: Incarcerated incisional hernia Procedure(s) Performed: (Open repair of incarcerated incisional hernia with onlay Prolene mesh Partial omentectomy Anesthesia: PIPPA Surgeon: Jorge Hopper Estimated Blood Loss (ml): 5 Pathology: other (Omentum) Condition: stable Disposition: PACU Description of Procedure: The patient's placed on the operating table in supine position. She received general endotracheal tube anesthesia. Her abdomen was prepped and draped in sterile fashion. Patient had upper midline scar. The hernia is palpated above the umbilicus. The skin was incised in midline. Then using cautery and blunt sharp dissection the fascia external oblique was exposed. The hernia sac was found to contain incarcerated omentum. The hernia sac and pressure measurements were divided with electrocautery. Specimens of pathology. The fascial defect measured 10 cm in length. The fascia was repaired using interrupted [id number] 0 Ethibond suture. A 6 x 6" piece of Prolene mesh was placed over top the repair and secured with secure strap tacker. A DONG drains placed over top the repair and brought out through separate stab incision. Óscar's fascia close 0 Vicryl suture. Skin was closed was cristian. Patient top she will was sent to recovery room in stable condition.
[2022-10-28] MEDS: DOCUSATE 100 MG CAP PO SCH (19:51)
[2022-10-29] MEDS: KETOROLAC 15 MG/ML 1 ML VIAL IVP SCH ×3 (02:15→12:51)
[2022-10-29 06:33] VITALS: BP 115/71; PULSE 80; RESP 18; TEMP 97.5
[2022-10-29] MEDS ORDERED: HYDROcodone/APAP 5-325MG 1 EACH TAB PO PRN (08:07)
[2022-10-29] MEDS ORDERED: ENOXAPARIN 40 MG/0.4 ML SYRINGE SQ SCH (09:00)
[2022-10-29] MEDS: DOCUSATE 100 MG CAP PO SCH (09:43)
[2022-10-29] MEDS ORDERED: ALBUTEROL NEBULIZED 2.5 MG/3 ML INHALATION PRN (10:49)
[2022-10-29] MEDS ORDERED: [UNRECOGNIZED DRUG - OTHER] INHALATION PRN (10:49)
--- NOTE | 2022-10-29 11:59 | P.CONS ---
History of Present Illness - History of Present Illness This is a pleasant 57 years old female with multiple medical problems as below. She was admitted for incarcerated incisional abdominal hernia, she is status post open repair of incarcerated incisional hernia with Prolene mesh and partial omentectomy. Today is postoperative day #1. Patient was sitting up in bed, looks relaxed and at her baseline, she denies any change in mentation, confusion chest pain or dyspnea. Her abdominal pain looks controlled. She does not have bowel movements but she is passing gases. No vomiting. She is on liquid diet and tolerated that's well. Vitals are stable, labs reviewed and looks stable including CBC and BMP and liver enzymes. Past Medical History Past Medical History: Asthma, COPD, GERD/Reflux, Hearing Disorder / Deafness, Hypertension, Musculoskeletal Disorder, Osteoarthritis (OA) Additional Past Medical History / Comment(s): Pain: neck, lower back and left hip & right knee, hx sarcoidosis, hx anemia, occasional bladder incontinence, tinnitus, hernia. bilateral sciatica pain. bilateral foot fx. 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 hx of 2 tubal pregnancies Past Anesthesia/Blood Transfusion Reactions: No Reported Reaction Additional Past Anesthesia/Blood Transfusion Reaction / Comm: no blood transfusions Past Psychological History: No Psychological Hx Reported Smoking Status: Former smoker Past Alcohol Use History: Occasional Additional Past Alcohol Use History / Comment(s): STARTED SMOKING AT AGE 10,QUIT ON AND OFF LAST QUIT AUG 2016, SMOKED 1/2PPD. about 6 drinks a week Past Drug Use History: None Reported Additional Drug Use History / Comment(s): occasional THC gummie or syrup, use for pain . pt aware not to use 24 hrs before procedure. - Past Family History Mother Family Medical History: Hypertension, Thyroid Disorder Father Family Medical History: Cancer Additional Family Medical History / Comment(s): Prostate Sister(s) Additional Family Medical History / Comment(s): anemia as well as brother Medications and Allergies Home Medications Medication Instructions Recorded Confirmed Type Levalbuterol Hfa Inhaler [Xopenex 2 puff INHALATION RT-QID PRN 07/24/16 10/22/22 History Hfa Inhaler] Montelukast Sodium [Singulair] 10 mg PO HS 07/24/16 10/22/22 History Omeprazole 20 mg PO DAILY 07/24/16 10/22/22 History Ibandronate Sodium [Boniva] 150 mg PO QMONTH 10/19/16 10/22/22 History Levalbuterol Nebulized [Xopenex 1.25 mg INHALATION RT-TID PRN 07/22/18 10/22/22 History Nebulized] Cyclobenzaprine [Flexeril] 10 mg PO HS 05/29/22 10/22/22 History lisinopriL [Zestril] 30 mg PO HS 05/29/22 10/22/22 History Ibuprofen [Motrin] 600 mg PO Q6HR PRN #40 tab 06/02/22 10/22/22 Rx Budesonide/Formoterol Fumarate 1 puff INHALATION BID 10/22/22 10/22/22 History [Symbicort 160-4.5 Mcg Inhaler] Pregabalin [Lyrica] 50 mg PO TID 10/22/22 10/22/22 History Allergies Allergy/AdvReac Type Severity Reaction Status Date / Time albuterol Allergy "makes me Verified 10/28/22 14:43 psychotic" duloxetine [From Cymbalta] Allergy Nausea & Verified 10/28/22 14:43 Vomiting, migraine, swelling Sulfa (Sulfonamide Allergy Rash/Hives Verified 10/28/22 14:43 Antibiotics) Physical Exam Vitals: Vital Signs Temp Pulse Resp BP Pulse Ox 10/29/22 08:00 80 18 10/29/22 06:32 97.5 F L 80 18 115/71 95 10/28/22 22:36 71 120/84 92 L 10/28/22 21:36 74 120/74 90 L 10/28/22 21:07 85 128/85 91 L 10/28/22 20:56 76 127/72 88 L 10/28/22 20:21 67 125/87 96 10/28/22 20:06 68 124/79 91 L 10/28/22 19:51 67 143/84 96 10/28/22 19:35 79 145/66 88 L 10/28/22 19:13 81 16 145/81 95 10/28/22 18:57 83 16 147/74 98 10/28/22 18:42 82 16 164/84 98 10/28/22 18:27 98.0 F 98 16 170/91 100 10/28/22 14:52 97.4 F L 98 16 152/78 97 Intake and Output 10/28/22 10/29/22 10/29/22 22:59 06:59 14:59 Intake Total 850 Output Total 10 Balance 840 Intake: IV 850 Output: Estimated Blood Loss 10 Other: Voiding Method Toilet # Voids 1 1 1 Weight 68.5 kg GENERAL: The patient is alert and oriented x3, not in any acute distress. Well developed, well nourished. HEENT: Pupils are round and equally reacting to light. EOMI. No scleral icterus. No conjunctival pallor. Normocephalic, atraumatic. No pharyngeal erythema. No thyromegaly. CARDIOVASCULAR: S1 and S2 present. No murmurs, rubs, or gallops. PULMONARY: Chest is clear to auscultation, no wheezing or crackles. -ABDOMEN: Soft, nontender, nondistended, normoactive bowel sounds. No palpable organomegaly. Surgical wound closed and healing with a dressing and a Place, drain with minimal discharge MUSCULOSKELETAL: No joint swelling or deformity. EXTREMITIES: No cyanosis, clubbing, or pedal edema. NEUROLOGICAL: Gross neurological examination did not reveal any focal deficits. SKIN: No rashes. no petechiae. Results CBC & Chem 7: 10/28/22 15:25 10/28/22 15:25 Labs: Abnormal Lab Results - Last 24 Hours (Table) 10/28/22 10/28/22 Range/Units 15:25 15:25 Plt Count 137 L (150-450) k/uL Lymphocytes # 0.6 L (1.0-4.8) k/uL BUN 19 H (7-17) mg/dL Assessment and Plan Assessment: Incarcerated ventral incisional hernia, status post History of Asthma, COPD, but upon activation History of GERD/Reflux, Hypertension, History of Osteoarthritis Plan: Continue with postop care Advance diet as per surgery team Pain management, patient has been controlled currently Labs and medication were reviewed.. Continue same treatment. Continue with symptomatic treatment. Resume home medication. Monitor labs and vitals. DVT and GI prophylaxis. Further recommendations as per clinical course of the patient DVT prophylaxis: Subcutaneous Lovenox GI Prophylaxis: Pepcid We recommend patient follow up with PCP in one week after discharge and she was instructed with the same Thank you for consulting us
--- NOTE | 2022-10-29 13:00 | P.DS ---
Providers Date of admission: 10/28/22 18:43 Expected date of discharge: 10/29/22 Attending physician: Jorge Hopper Consults: 10/28/22 18:46 Consult Physician Routine Consulting Provider: James Londono Consult Reason/Comments: medical management Do you want consulting provider notified?: Yes Primary care physician: KITTY Beaz Hospital Course: Discharge diagnosis 1. Incarcerated incisional hernia status post open repair of incarcerated incisional hernia with only Prolene mesh and partial omentectomy Hospital course This is a 57-year-old female with an incarcerated incisional hernia. She is status post open repair of incarcerated incisional hernia with only Prolene mesh and partial omentectomy. Patient tolerated surgery well. Her pain is controlled. She is having flatus and small bowel movement. She's afebrile. She has been up and ambulating. She is tolerating diet. She is stable for discharge. Please refer to chart for any further details. Physician Sustainment Logistics Analyst note has been reviewed by physician. Signing provider agrees with the documented findings, assessment, and plan of care. Patient Condition at Discharge: Stable Plan - Discharge Summary Discharge Rx Participant: No New Discharge Prescriptions: New Docusate [Colace] 100 mg PO BID #30 capsule HYDROcodone/APAP 5-325MG [[place] 5-325] 1 tab PO Q6HR PRN 3 Days #12 tab PRN Reason: Pain Continue Omeprazole 20 mg PO DAILY Montelukast Sodium [Singulair] 10 mg PO HS Levalbuterol Hfa Inhaler [Xopenex Hfa Inhaler] 2 puff INHALATION RT-QID PRN PRN Reason: Shortness Of Breath Ibandronate Sodium [Boniva] 150 mg PO QMONTH Levalbuterol Nebulized [Xopenex Nebulized] 1.25 mg INHALATION RT-TID PRN PRN Reason: Shortness Of Breath Cyclobenzaprine [Flexeril] 10 mg PO HS Ibuprofen [Motrin] 600 mg PO Q6HR PRN #40 tab PRN Reason: Pain Pregabalin [Lyrica] 50 mg PO TID Budesonide/Formoterol Fumarate [Symbicort 160-4.5 Mcg Inhaler] 1 puff INHALATION BID lisinopriL [Zestril] 30 mg PO HS Discharge Medication List Levalbuterol Hfa Inhaler [Xopenex Hfa Inhaler] 2 puff INHALATION RT-QID PRN 07/24/16 [History] Montelukast Sodium [Singulair] 10 mg PO HS 07/24/16 [History] Omeprazole 20 mg PO DAILY 07/24/16 [History] Ibandronate Sodium [Boniva] 150 mg PO QMONTH 10/19/16 [History] Levalbuterol Nebulized [Xopenex Nebulized] 1.25 mg INHALATION RT-TID PRN 07/22/18 [History] Cyclobenzaprine [Flexeril] 10 mg PO HS 05/29/22 [History] lisinopriL [Zestril] 30 mg PO HS 05/29/22 [History] Ibuprofen [Motrin] 600 mg PO Q6HR PRN #40 tab 06/02/22 [Rx] Budesonide/Formoterol Fumarate [Symbicort 160-4.5 Mcg Inhaler] 1 puff INHALATION BID 10/22/22 [History] Pregabalin [Lyrica] 50 mg PO TID 10/22/22 [History] Docusate [Colace] 100 mg PO BID #30 capsule 10/29/22 [Rx] HYDROcodone/APAP 5-325MG [[place] 5-325] 1 tab PO Q6HR PRN 3 Days #12 tab 10/29/22 [Rx] Follow up Appointment(s)/Referral(s): Yaritza Javier NPC [Primary Care Provider] - 1 Week Jorge Hopper MD [STAFF PHYSICIAN] - 11/05/22 2:30 pm Activity/Diet/Wound Care/Special Instructions: No driving while taking [place] No lifting over 10 pounds Shower daily. No soaking or tub baths for 2 weeks Very light activity until you are reevaluated at your follow up appointment with your surgeon Keep a log of DNOG drain output and bring with you to your follow-up appointment Milk/strip drains 2-3 times a day Discharge Disposition: HOME SELF-CARE
[2022-10-29] MEDS ORDERED: PREGABALIN 50 MG CAP PO SCH (16:00)
[2022-10-29] MEDS ORDERED: SYMBICORT 160-4.5 MCG INHALER INHALATION SCH (20:00)
[2022-10-29] MEDS ORDERED: CYCLOBENZAPRINE 10 MG TAB PO SCH (21:00)
[2022-10-29] MEDS ORDERED: FAMOTIDINE 20 MG/2 ML VIAL IV SCH (21:00)
[2022-10-29] MEDS ORDERED: lisinopriL 10 MG TAB PO SCH (21:00)
[2022-10-29] MEDS ORDERED: MONTELUKAST 10 MG TAB PO SCH (21:00)
== END 2022-10-29 15:45 | disposition home or self-care (01) ==
LOC: OR 13:50 → 6NMEDSUR 18:09 → INTOOBSV 18:43 → OR 18:43 → 6NMEDSUR 18:43 → UNDODISIN 10-29 15:45 → UNDODISOB 11-27 00:53
PROVIDERS: ADMIT Surgery; ATTEND Surgery
DX: K43.0 Incisional hernia with obstruction, without gangrene (principal); J44.9 Chronic obstructive pulmonary disease, unspecified; K21.9 Gastro-esophageal reflux disease without esophagitis; I10 Essential (primary) hypertension; F10.90 Alcohol use, unspecified, uncomplicated; F12.90 Cannabis use, unspecified, uncomplicated; Z90.710 Acquired absence of both cervix and uterus; Z90.2 Acquired absence of lung [part of]; Z87.891 Personal history of nicotine dependence; Z80.42 Family history of malignant neoplasm of prostate; Z83.2 Family history of diseases of the blood and blood-forming organs and certain disorders involving the immune mechanism; Z79.899 Other long term (current) drug therapy; Z88.2 Allergy status to sulfonamides
CPT/HCPCS: 96376; 96372; 96374; 96375; 88305; 80053; 85025; 74018; 49594; G0378 ×2; C1781; J2250; J0330; J1100; J2710; J0690; J2405; J1650; J3010; J1885 ×2; J2704; J1170; J1644; J2001

== ENCOUNTER → 2022-11-04 | Outpatient (CLI) | payer MEDICARE, OTHER ==
[2022-11-04 13:57] VITALS: BP 138/89; PULSE 101; RESP 18; TEMP 98.1
--- NOTE | 2022-11-04 14:34 | P.PAINPG ---
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 Pain level is provoked at 10/10 in intensity, constant, localized in the cervical spine, tender in raheem racter w shooting towards the top of the head. Pain is provoked by hyperextension and lifting. Pain is alleviated with PT x 2 sessions 3 wks ago for treatment for vertigo, heat, ice, meds, topicals repositioning and rest. Interventional pain procedures completed include JANUSZ L5-S1 x2 (2019), Caudal JANUSZ (2018) Patient is currently on Excedrin, Lidoderm Patient denies any side effects of the medication(s), denies excessive drowsiness or sleepiness, denies suicidal ideation and reports that the current pain medication is helping to control the pain and improve activities of daily living. Patient denies any motor or sensory deficits. Patient denies any fever or night sweats, denies any change in the bowel movements or urination. Physical Examination: -Constitutional: Cooperative. Not in acute distress . - Neurologic: Cranial nerve II to XII intact. No focal neurological deficits. - Psychatric: Alert & oriented x 3. Matching mood & appropriate affect. Judgment and insight intact. - Musculoskeletal: Cervical spine: Muscle bulk/ tone/ strength in the bilateral upper extremities normal Vertebral body tenderness to palpation over Spurling test positive Distraction test positive Facet loading test positive TTP over C2 Thoracic spine Muscle bulk / tone/ strength in the bilateral paraspinal muscles normal Vertebral body tender to palpation over Facet loading test positive TTP Lumbar spine: Motor bulk/ tone/ strength lower extremities , thigh and legs : 5/5 Deep tendon reflexes : Normal Knee Jerk. Normal Ankle Jerk . Vertebral body tenderness to palpation over Lumbar Facet Loading Test positive Straight Leg Raise: positive at 30 degrees right side/ left side Gaenslen's Test positive Sacral spine : Severe tenderness over the Sacroiliac joint: right side / left side Range of motion: Flexion of the lumbar spine <60 degrees Range of motion: Extension of the lumbar spine <20 degrees Gaenslen's Test positive right side / left side Jose M test: positive right side / left side Thigh Thrust Test positive right side / left side Sacral Thrust Test positive right side / left side Assessment and plan: Chronic neck secondary to cervical DDD, spondylosis with facet arthropathy without myelopathy Recommendation of PT x 6 wks re: M50.30. May return to clinic in 6 wks for a re evaluation. All questions answered. I have spent less than 30 minutes on patient care today. Dr Giraldo was luis angelai josue by phone for the evaluation of this patient. The time was used to review the medical records including relevant urine studies and Prescription history (MAPs), review of the available imaging, evaluation and examination of the patient, coordination of care with the medical staff and if applicable referring physicians, as well as creation of the medical record - Pain Location Bilateral Upper Neck Non-Pharmacological Interventions: Heat, Ice, Inactivity, Physical Therapy Pharmacological Interventions: PRN Medication, Topical Medication PQRS Narrative: Smoking Status Former smoker Narcotic Agreement Date Signed 01/10/20 Hx Alcohol Use (MH) No Home Medications: Ambulatory Orders Levalbuterol Hfa Inhaler [Xopenex Hfa Inhaler] 2 puff INHALATION RT-QID PRN 07/24/16 Montelukast Sodium [Singulair] 10 mg PO HS 07/24/16 Omeprazole 20 mg PO DAILY 07/24/16 Ibandronate Sodium [Boniva] 150 mg PO QMONTH 10/19/16 Levalbuterol Nebulized [Xopenex Nebulized] 1.25 mg INHALATION RT-TID PRN 07/22/18 Cyclobenzaprine [Flexeril] 10 mg PO HS 05/29/22 lisinopriL [Zestril] 30 mg PO HS 05/29/22 Ibuprofen [Motrin] 600 mg PO Q6HR PRN #40 tab 06/02/22 Budesonide/Formoterol Fumarate [Symbicort 160-4.5 Mcg Inhaler] 1 puff INHALATION BID 10/22/22 Pregabalin [Lyrica] 50 mg PO TID 10/22/22 Docusate [Colace] 100 mg PO BID #30 capsule 10/29/22 HYDROcodone/APAP 5-325MG [[place] 5-325] 1 tab PO Q6HR PRN 3 Days #12 tab 10/29/22 Lidocaine 5% Oint [Xylocaine 5% Oint] 1 applic TOPICAL BID 30 Days #50 gm 11/04/22 Controlled Substance Measures - Controlled Substance Measures Is patient prescribed a controlled substance at discharge?: No
== END ==
LOC: PNWHC3 13:20
PROVIDERS: ATTEND Specialist
DX: M50.30 Other cervical disc degeneration, unspecified cervical region (principal); M47.812 Spondylosis without myelopathy or radiculopathy, cervical region; G89.29 Other chronic pain; Z87.891 Personal history of nicotine dependence; Z88.8 Allergy status to other drugs, medicaments and biological substances; Z88.2 Allergy status to sulfonamides
CPT/HCPCS: 99211

== ENCOUNTER → 2022-11-12 | Outpatient (CLI) | payer MEDICARE, OTHER ==
[2022-11-12 22:01] LABS: African American GFR (CKD) 71.4 (60.0-200.0); Albumin 4.3 g/dL (3.8-4.9); Albumin/Globulin Ratio 1.59 (1.60-3.17); Anion Gap 10.1 mmol/L (10.00-18.00); BUN/Creat Ratio 14.5 Ratio (12.00-20.00); Blood Urea Nitrogen 14.5 mg/dL (9.0-27.0); Calcium 9.6 mg/dL (8.7-10.3); Carbon Dioxide 27.9 mmol/L (20.0-27.5); Globulin 2.7 g/dL (1.6-3.3); Non-African American GFR(CKD) 61.6 (60.0-200.0); Potassium 4.6 mmol/L (3.5-5.5); Total Bilirubin 0.4 mg/dL (0.30-1.20)
[2022-11-12 22:14] LABS: C Reactive Protein 7.4 mg/dL (0.00-0.80)
== END | disposition home or self-care (01) ==
LOC: LABWHC1 12:55
PROVIDERS: ATTEND Internal Medicine Critical Care Medicine
DX: D86.9 Sarcoidosis, unspecified (principal)
CPT/HCPCS: 36415; 80053; 82164; 85652; 86140

== ENCOUNTER → 2022-12-16 | Outpatient (CLI) | payer MEDICARE, OTHER ==
[2022-12-16 13:52] VITALS: BP 140/71; PULSE 96; RESP 18; TEMP 97.9
--- NOTE | 2022-12-16 14:55 | P.PAINPG ---
Objective - Vital Signs Vital signs: Intake & Output 12/15/22 12/16/22 12/16/22 18:59 06:59 18:59 Weight 67.132 kg PQRS Measure Charge Sheet Comment: A 57 yr old female with a history of severe and chronic LBP secondary to lumbar DDD and spondylosis with facet arthropathy without myelopathy presents today for LBP. Pain level is provoked at 7/10 in intensity, constant, localized in the lumbar spine, achy in character w shooting towards the BLEs. Pain is prov oked by standing from a sitting position. Pain is alleviated with medications, topical, ice, home stretching regimen, repositioning and rest. Pt has not followed through w PT script provided at last visit. Interventional pain procedures completed include JANUSZ L5-S1 x2, Caudal JANUSZ Patient is currently on Lyrica, Lidoderm Patient denies any side effects of the medication(s), denies excessive drowsin ess or sleepiness, denies suicidal ideation and reports that the current pain medication is helping to control the pain and improve activities of daily living. Patient denies any motor or sensory deficits. Patient denies any fever or night sweats, denies any change in the bowel movements or urination. Physical Examination: -Constitutional: Cooperative. Not in acute distress . - Neurologic: Cranial nerve II to XII intact. No focal neurological deficits. - Psychatric: Alert & oriented x 3. Matching mood & appropriate affect. Judgment and insight intact. - Musculoskeletal: Cervical spine: Muscle bulk/ tone/ strength in the bilateral upper extremities normal Vertebral body tenderness to palpation over Spurling test positive Distraction test positive Facet loading test positive TTP Thoracic spine Muscle bulk / tone/ strength in the bilateral paraspinal muscles normal Vertebral body tender to palpation over Facet loading test positive TTP Lumbar spine: Motor bulk/ tone/ strength lower extremities , thigh and legs : 5/5 Deep tendon reflexes : Normal Knee Jerk. Normal Ankle Jerk . Vertebral body tenderness to palpation over Hartman Test positive Lumbar Facet Loading Test positive Straight Leg Raise: positive at 30 degrees right side/ left side Gaenslen's Test positive Sacral spine : Severe tenderness over the Sacroiliac joint: right side / left side Range of motion: Flexion of the lumbar spine <60 degrees Range of motion: Extension of the lumbar spine <20 degrees Gaenslen's Test positive right side / left side Jose M test: positive right side / left side Thigh Thrust Test positive right side / left side Sacral Thrust Test positive right side / left side Assessment and plan: Chronic LBP secondary to lumbar DDD, spondylosis with facet arthropathy without myelopathy Recommendation of PT integrated w aquatherapy if available x 6 wks re: M51.36. May return to clinic within 6 wks if indicated. All questions answered. I have spent less than 30 minutes on patient care today. Dr Giraldo was available by phone for the evaluation of this patient. The time was used to review the medical records including relevant urine studies and Prescription history (MAPs), review of the available imaging, evaluation and examination of the patient, coordination of care with the medical staff and if applicable referring physicians, as well as creation of the medical record PQRS Narrative: Smoking Status Former smoker Narcotic Agreement Date Signed 01/10/20 Hx Alcohol Use (MH) No Home Medications: Ambulatory Orders Levalbuterol Hfa Inhaler [Xopenex Hfa Inhaler] 2 puff INHALATION RT-QID PRN 07/24/16 Montelukast Sodium [Singulair] 10 mg PO HS 07/24/16 Omeprazole 20 mg PO DAILY 07/24/16 Ibandronate Sodium [Boniva] 150 mg PO QMONTH 10/19/16 Levalbuterol Nebulized [Xopenex Nebulized] 1.25 mg INHALATION RT-TID PRN 07/22/18 Cyclobenzaprine [Flexeril] 10 mg PO HS 05/29/22 lisinopriL [Zestril] 30 mg PO HS 05/29/22 Ibuprofen [Motrin] 600 mg PO Q6HR PRN #40 tab 06/02/22 Budesonide/Formoterol Fumarate [Symbicort 160-4.5 Mcg Inhaler] 1 puff INHALATION BID 10/22/22 Pregabalin [Lyrica] 50 mg PO TID 10/22/22 Docusate [Colace] 100 mg PO BID #30 capsule 10/29/22 HYDROcodone/APAP 5-325MG [[place] 5-325] 1 tab PO Q6HR PRN 3 Days #12 tab 10/29/22 Controlled Substance Measures - Controlled Substance Measures Is patient prescribed a controlled substance at discharge?: No
== END ==
LOC: PNWHC3 13:15
PROVIDERS: ATTEND Specialist
DX: M51.36 Other intervertebral disc degeneration, lumbar region (principal); M47.816 Spondylosis without myelopathy or radiculopathy, lumbar region; G89.29 Other chronic pain; Z88.8 Allergy status to other drugs, medicaments and biological substances; Z88.2 Allergy status to sulfonamides; Z87.891 Personal history of nicotine dependence; Z88.6 Allergy status to analgesic agent
CPT/HCPCS: 99211

== ENCOUNTER 2023-10-04 09:23 | Day surgery (SDC) | payer MEDICARE, OTHER ==
[2023-09-22 12:18] VITALS: BMI 28.1
[~2023-10-04 09:23] MED LIST changes: -ACETAMINOPHEN TAB 500 MG TAB PO PRN; -DEXAMETHASONE SOD PHOSPHATE 4 MG/ML 1 ML VIAL IV ONE; -HEPARIN SODIUM,PORCINE/PF 5,000 UNIT/0.5 ML SYRINGE SQ PRN; -HYDROmorphone 0.5 MG/0.5 ML SYRINGE IVP PRN; -LACTATED RINGERS 1,000 ML IV SCH; -ONDANSETRON 4 MG/2 ML VIAL IVP ONE; -droPERidol 5 MG/2 ML VIAL IVP ONE
[2023-10-04] MEDS: LACTATED RINGERS 1,000 ML IV SCH (10:07)
[2023-10-04 10:19] VITALS: TEMP 96.9
[2023-10-04] MEDS ORDERED: PROPOFOL 10 MG/ML 20 ML VIAL IV ONE (11:21)
[2023-10-04] MEDS ORDERED: LIDOCAINE 1% INJ 10MG/ML (20 ML MDV) ONE (11:21)
--- NOTE | 2023-10-04 11:28 | P.GSHP ---
History of Present Illness H&P Date: 10/04/23 Chief Complaint: GI bleed This a 4-year-old female who presents today for colonoscopy. Patient history of GI bleed. Past Medical History Past Medical History: Asthma, COPD, GERD/Reflux, Hearing Disorder / Deafness, Hypertension, Musculoskeletal Disorder, Osteoarthritis (OA) Additional Past Medical History / Comment(s): Pain: neck, lower back, left hip and right knee, hx sarcoidosis, hx anemia, occasional bladder/bowel incontinence, tinnitus, hernia, bilateral sciatica pain, bilateral foot fx. rectal prolapse. 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 Past Anesthesia/Blood Transfusion Reactions: No Reported Reaction Additional Past Anesthesia/Blood Transfusion Reaction / Comment(s): No blood transfusions. Smoking Status: Former smoker - Past Family History Mother Family Medical History: Hypertension, Thyroid Disorder Father Family Medical History: Cancer Additional Family Medical History / Comment(s): Prostate cancer. Sister(s) Additional Family Medical History / Comment(s): Anemia as well as brother. Medications and Allergies Home Medications Medication Instructions Recorded Confirmed Type Montelukast Sodium [Singulair] 10 mg PO HS 07/24/16 10/04/23 History Ibandronate Sodium [Boniva] 150 mg PO QMONTH 10/19/16 10/04/23 History Levalbuterol Nebulized [Xopenex 1.25 mg INHALATION RT-TID PRN 07/22/18 10/04/23 History Nebulized] Cyclobenzaprine [Flexeril] 10 mg PO HS 05/29/22 10/04/23 History lisinopriL [Zestril] 30 mg PO HS 05/29/22 10/04/23 History Ibuprofen [Motrin] 600 mg PO Q6HR PRN #40 tab 06/02/22 10/04/23 Rx Budesonide/Formoterol Fumarate 2 puff INHALATION BID 10/22/22 10/04/23 History [Symbicort 160-4.5 Mcg Inhaler] Cholecalciferol [Vitamin D3 (25 25 mcg PO DAILY 09/22/23 10/04/23 History Mcg = 1000 Iu)] Omeprazole 40 mg PO DAILY 09/22/23 10/04/23 History Allergies Allergy/AdvReac Type Severity Reaction Status Date / Time albuterol Allergy "makes me Verified 10/04/23 10:04 psychotic" duloxetine [From Cymbalta] Allergy Nausea & Verified 10/04/23 10:04 Vomiting, migraine, swelling Sulfa (Sulfonamide Allergy Rash/Hives Verified 10/04/23 10:04 Antibiotics) Surgical - Exam Vital Signs Temp Pulse Resp BP Pulse Ox 96.9 F L 107 H 18 118/74 95 10/04/23 10:03 10/04/23 10:03 10/04/23 10:03 10/04/23 10:03 10/04/23 10:03 - General well developed, well nourished, no distress - Eyes PERRL - ENT normal pinna - Neck no masses, no bruits - Abdomen Abdomen: soft, non tender Assessment and Plan Assessment: History of GI bleed. We'll perform colonoscopy.
--- NOTE | 2023-10-04 11:41 | P.OP ---
Date of Procedure: 10/04/23 Preoperative Diagnosis: GI bleed Postoperative Diagnosis: Internal hemorrhoids Procedure(s) Performed: Colonoscopy Anesthesia: MAC Surgeon: Jorge Hopper Pathology: none sent Condition: stable Disposition: PACU Description of Procedure: The patient's placed on the endoscopy table in the lateral position. He received IV sedation. Digital rectal exam performed which revealed internal hemorrhoids. Flexible colonoscope was then placed patient anus and passed throughout the entire colon. Ileocecal valve was visually is. The cecum, ascending transverse colon appeared normal. The descending and sigmoid colon appeared normal. Scope back the rectum and this appeared normal. Scope withdrawn for patient.
[2023-10-04 12:11] VITALS: BP 112/66; PULSE 79; RESP 16
== END 2023-10-04 12:31 | disposition home or self-care (01) ==
LOC: ORWHC2ENDO 09:23
PROVIDERS: ATTEND Surgery
DX: K92.2 Gastrointestinal hemorrhage, unspecified (principal); K64.8 Other hemorrhoids; J44.9 Chronic obstructive pulmonary disease, unspecified; K21.9 Gastro-esophageal reflux disease without esophagitis; I10 Essential (primary) hypertension; M19.90 Unspecified osteoarthritis, unspecified site; Z90.49 Acquired absence of other specified parts of digestive tract; Z98.890 Other specified postprocedural states; Z87.891 Personal history of nicotine dependence; Z90.710 Acquired absence of both cervix and uterus; Z82.49 Family history of ischemic heart disease and other diseases of the circulatory system; Z83.49 Family history of other endocrine, nutritional and metabolic diseases; Z80.42 Family history of malignant neoplasm of prostate; Z79.51 Long term (current) use of inhaled steroids; Z79.899 Other long term (current) drug therapy; Z88.8 Allergy status to other drugs, medicaments and biological substances; Z88.2 Allergy status to sulfonamides; Z88.1 Allergy status to other antibiotic agents
CPT/HCPCS: 45378; J2001; J2704